=== PATIENT | male | born 1950 | race Caucasian/White ===

== ENCOUNTER 2017-12-09 09:38 | Outpatient (CLI) | payer MEDICARE, OTHER, SELFPAY ==
[2017-12-09 09:59] LABS: Abs Immature Grans 0.02 k/cumm (0.0-0.09); Absolute Basophil Count 0.05 k/cumm (0.0-0.2); Absolute Eosinophil Count 0.41 k/cumm (0.0-0.7); Absolute Lymphocyte Count 2.48 k/cumm (1.2-3.4); Absolute Monocyte Count 0.44 k/cumm (0.11-0.7); Absolute Neutrophil Count 3.63 k/cumm (1.2-6.7); Basophils % 0.7; Eosinophils % 5.8; HCT 42.7 % (40.0-50.0); HGB 13.8 g/dL (13.5-17.5); Immature Grans % 0.3; Lymphocytes % 35.3; Mean Corp. HGB Concentration 32.3 g/dL (32.0-36.0); Mean Corpuscular Hemoglobin 29.4 pg (27.0-33.0); Mean Corpuscular Volume 90.9 fL (80-95); Mean Platelet Volume 10.1 fL (8.0-11.0); Monocytes % 6.3; Neutrophils % 51.6; Platelet Count 203 x1000/uL (130-400); RBC Distribution Width 13.5 % (11.8-14.1); White Blood Cell Count 7.03 k/cumm (4.4-10.8)
[2017-12-09 10:08] LABS: ALT 55 U/L (12-78); AST 29 U/L (15-37); Albumin 3.3 g/dL (3.4-5.0); Alkaline Phosphatase 160 U/L (46-116); Anion Gap 3.6 mmol/L (3-11); BUN 15 mg/dL (7-18); Bilirubin, Total 0.5 mg/dL (0.2-1.0); CO2 32.4 mmol/L (21.0-32.0); CREATININE 0.93 mg/dL (0.70-1.30); Calcium 8.6 mg/dL (8.5-10.1); Chloride 104 mmol/L (98-107); Glucose 106 mg/dL (70-100); Potassium 4.2 mmol/L (3.5-5.1); Sodium 140 mmol/L (136-145); Total Protein 7.7 g/dL (6.4-8.2)
[2017-12-12 09:52] LABS: CEA <0.5 ng/ml
== END 2017-12-09 09:58 ==
PROVIDERS: PCP Family Medicine; Visit Provider Internal Medicine Medical Oncology
DX: C18.9 Malignant neoplasm of colon, unspecified (principal); R91.8 Other nonspecific abnormal finding of lung field
CPT/HCPCS: 36415; 80053; 82378; 85025

== ENCOUNTER 2018-06-19 13:13 | Outpatient (CLI) | payer MEDICARE, OTHER, SELFPAY ==
[2018-06-19 14:27] LABS: Abs Immature Grans 0.01 k/cumm (0.0-0.09); Absolute Basophil Count 0.05 k/cumm (0.0-0.2); Absolute Eosinophil Count 0.23 k/cumm (0.0-0.7); Absolute Lymphocyte Count 2.47 k/cumm (1.2-3.4); Absolute Monocyte Count 0.62 k/cumm (0.11-0.7); Absolute Neutrophil Count 4.93 k/cumm (1.2-6.7); Basophils % 0.6; Eosinophils % 2.8; HCT 43.9 % (40.0-50.0); HGB 14.5 g/dL (13.5-17.5); Immature Grans % 0.1; Lymphocytes % 29.7; Mean Corpuscular Hemoglobin 29.8 pg (27.0-33.0); Mean Corpuscular Volume 90.3 fL (80-95); Mean Platelet Volume 10.8 fL (8.0-11.0); Monocytes % 7.5; Neutrophils % 59.3; Platelet Count 217 x1000/uL (130-400); RBC 4.86 m/cumm (4.50-6.00); RBC Distribution Width 13.8 % (11.8-14.1); White Blood Cell Count 8.31 k/cumm (4.4-10.8)
[2018-06-19 14:40] LABS: Albumin 3.5 g/dL (3.4-5.0); BUN 14 mg/dL (7-18); Bilirubin, Total 0.6 mg/dL (0.2-1.0); CO2 29.8 mmol/L (21.0-32.0); CREATININE 0.91 mg/dL (0.70-1.30); Calcium 9.4 mg/dL (8.5-10.1); Chloride 100 mmol/L (98-107); Glucose 105 mg/dL (70-100); Potassium 4.2 mmol/L (3.5-5.1); Sodium 137 mmol/L (136-145)
[2018-06-19 14:41] LABS: ALT 40 U/L (12-78); AST 24 U/L (15-37); Anion Gap 7.2 mmol/L (3-11)
[2018-06-19 14:57] LABS: Alkaline Phosphatase 145 U/L (46-116)
[2018-06-20 10:26] LABS: CEA <0.5 ng/ml
== END 2018-06-19 13:33 ==
PROVIDERS: PCP Family Medicine; Visit Provider Internal Medicine Medical Oncology
DX: C18.9 Malignant neoplasm of colon, unspecified (principal); R91.8 Other nonspecific abnormal finding of lung field
CPT/HCPCS: 80053; 82378; 85025

== ENCOUNTER 2018-12-28 09:24 | Outpatient (CLI) | payer MEDICARE, OTHER, SELFPAY ==
[2018-12-28 09:48] LABS: Abs Immature Grans 0.01 k/cumm (0.0-0.09); Absolute Basophil Count 0.05 k/cumm (0.0-0.2); Absolute Eosinophil Count 0.37 k/cumm (0.0-0.7); Absolute Lymphocyte Count 2.02 k/cumm (1.2-3.4); Absolute Monocyte Count 0.46 k/cumm (0.11-0.7); Basophils % 0.6; Eosinophils % 4.8; HCT 42.6 % (40.0-50.0); HGB 13.8 g/dL (13.5-17.5); Immature Grans % 0.1; Lymphocytes % 26.2; Mean Corp. HGB Concentration 32.4 g/dL (32.0-36.0); Mean Corpuscular Hemoglobin 29.9 pg (27.0-33.0); Mean Corpuscular Volume 92.2 fL (80-95); Mean Platelet Volume 9.5 fL (8.0-11.0); Neutrophils % 62.3; Platelet Count 230 x1000/uL (130-400); RBC 4.62 m/cumm (4.50-6.00); White Blood Cell Count 7.71 k/cumm (4.4-10.8)
[2018-12-28 10:01] LABS: ALT 43 U/L (16-63); AST 28 U/L (15-37); Albumin 3.5 g/dL (3.4-5.0); Alkaline Phosphatase 126 U/L (46-116); Anion Gap 5.3 mmol/L (3-11); BUN 16 mg/dL (7-18); Bilirubin, Total 0.6 mg/dL (0.2-1.0); CO2 31.7 mmol/L (21.0-32.0); CREATININE 1.04 mg/dL (0.70-1.30); Calcium 9.1 mg/dL (8.5-10.1); Chloride 104 mmol/L (98-107); Glucose 114 mg/dL (70-100); Potassium 4.4 mmol/L (3.5-5.1); Sodium 141 mmol/L (136-145); Total Protein 7.9 g/dL (6.4-8.2)
[2018-12-29 10:36] LABS: CEA <0.5 ng/ml
== END 2018-12-28 09:44 ==
PROVIDERS: PCP Family Medicine; Visit Provider Nurse Practitioner Family
DX: C18.9 Malignant neoplasm of colon, unspecified (principal)
CPT/HCPCS: 36415; 80053; 82378; 85025

== ENCOUNTER 2019-10-11 01:30 | Outpatient (CLI) | payer OTHER, SELFPAY ==
[2019-10-11 10:48] LABS: Abs Immature Grans 0.02 k/cumm (0.0-0.09); Absolute Basophil Count 0.06 k/cumm (0.0-0.2); Absolute Lymphocyte Count 2.15 k/cumm (1.2-3.4); Absolute Monocyte Count 0.68 k/cumm (0.11-0.7); Absolute Neutrophil Count 5.32 k/cumm (1.2-6.7); Basophils % 0.7; Eosinophils % 4.6; HCT 43.7 % (40.0-50.0); HGB 14.2 g/dL (13.5-17.5); Immature Grans % 0.2 %; Lymphocytes % 24.9; Mean Corp. HGB Concentration 32.5 g/dL (32.0-36.0); Mean Corpuscular Hemoglobin 29.2 pg (27.0-33.0); Mean Corpuscular Volume 89.9 fL (80-95); Mean Platelet Volume 9.9 fL (8.0-11.0); Monocytes % 7.9; Neutrophils % 61.7; Platelet Count 219 x1000/uL (130-400); RBC 4.86 m/cumm (4.50-6.00); RBC Distribution Width 14.3 % (11.8-14.1); White Blood Cell Count 8.63 k/cumm (4.4-10.8)
[2019-10-11 11:03] LABS: ALT 43 U/L (16-63); AST 27 U/L (15-37); Albumin 3.5 g/dL (3.4-5.0); Alkaline Phosphatase 136 U/L (46-116); Anion Gap 5.9 mmol/L (3-11); BUN 18 mg/dL (7-18); Bilirubin, Total 0.6 mg/dL (0.2-1.0); CO2 30.1 mmol/L (21.0-32.0); CREATININE 0.94 mg/dL (0.70-1.30); Chloride 105 mmol/L (98-107); Glucose 114 mg/dL (74-106); Potassium 4.4 mmol/L (3.5-5.1); Sodium 141 mmol/L (136-145); Total Protein 7.8 g/dL (6.4-8.2)
[2019-10-12 09:36] LABS: CEA <0.5 ng/mL (See Note)
== END 2019-10-11 01:50 ==
PROVIDERS: PCP Family Medicine; Visit Provider Internal Medicine Hematology & Oncology
DX: C18.9 Malignant neoplasm of colon, unspecified (principal)
CPT/HCPCS: 36415; 80053; 82378; 85025

== ENCOUNTER 2020-03-31 02:59 | Outpatient (CLI) | payer OTHER, SELFPAY ==
[2020-03-31 09:49] LABS: Abs Immature Grans 0.01 10^3/uL (0.0-0.06); Absolute Basophil Count 0.09 10^3/uL (0.0-0.2); Absolute Eosinophil Count 0.53 10^3/uL (0.0-0.7); Absolute Lymphocyte Count 2.42 10^3/uL (1.2-3.4); Absolute Monocyte Count 0.58 10^3/uL (0.1-0.8); Absolute Neutrophil Count 4.94 10^3/uL (1.2-6.7); Basophils % 1.1; Eosinophils % 6.2; HCT 45.4 % (40.0-50.0); HGB 14.8 g/dL (13.5-17.5); Immature Grans % 0.1; Lymphocytes % 28.2; MCH 29.8 pg (27.0-33.0); MCHC 32.6 % (32.0-36.0); MCV 91.3 fL (80-95); MPV 10.6 fL (8.0-11.0); Monocytes % 6.8; Neutrophils % 57.6; Nucleated RBC 0 %; Platelet Count 251 10^3/uL (130-400); RBC 4.97 10^6/uL (4.36-5.78); RDW 13.2 % (11.8-14.1); RDW-SD 44.4 fL; WBC 8.57 10^3/uL (4.4-10.8)
[2020-03-31 10:08] LABS: ALT 53 U/L (16-63); AST 32 U/L (15-37); Albumin 3.6 g/dL (3.4-5.0); Alkaline Phosphatase 163 U/L (46-116); Anion Gap 7.1 mmol/L (3-11); BUN 15 mg/dL (7-18); Bilirubin, Total 0.6 mg/dL (0.2-1.0); CO2 30.9 mmol/L (21.0-32.0); CREATININE 0.97 mg/dL (0.70-1.30); Calcium 9.1 mg/dL (8.5-10.1); Chloride 104 mmol/L (98-107); Glucose 99 mg/dL (74-106); Potassium 4.7 mmol/L (3.5-5.1); Sodium 142 mmol/L (136-145); Total Protein 7.7 g/dL (6.4-8.2)
[2020-03-31 16:56] LABS: CEA <0.5 ng/mL (See Note)
== END 2020-03-31 03:19 ==
PROVIDERS: PCP Family Medicine; Visit Provider Nurse Practitioner Family
DX: C18.9 Malignant neoplasm of colon, unspecified (principal); R91.8 Other nonspecific abnormal finding of lung field
CPT/HCPCS: 36415; 80053; 82378; 85025

== ENCOUNTER 2020-10-16 03:29 | Outpatient (CLI) | payer OTHER, SELFPAY ==
[2020-10-16 14:13] LABS: Abs Immature Grans 0.02 10^3/uL (0.0-0.06); Absolute Basophil Count 0.07 10^3/uL (0.0-0.2); Absolute Eosinophil Count 0.58 10^3/uL (0.0-0.7); Absolute Lymphocyte Count 2.75 10^3/uL (1.2-3.4); Absolute Monocyte Count 0.74 10^3/uL (0.1-0.8); Absolute Neutrophil Count 4.39 10^3/uL (1.2-6.7); Basophils % 0.8; Eosinophils % 6.8; HCT 43.3 % (40.0-50.0); HGB 13.8 g/dL (13.5-17.5); Immature Grans % 0.2; Lymphocytes % 32.2; MCH 29.2 pg (27.0-33.0); MCHC 31.9 % (32.0-36.0); MCV 91.7 fL (80-95); MPV 9.7 fL (8.0-11.0); Monocytes % 8.7; Neutrophils % 51.3; Nucleated RBC 0 %; Platelet Count 206 10^3/uL (130-400); RBC 4.72 10^6/uL (4.36-5.78); RDW 13.3 % (11.8-14.1); RDW-SD 45.4 fL; WBC 8.55 10^3/uL (4.4-10.8)
[2020-10-16 14:25] LABS: ALT 45 U/L (16-63); AST 30 U/L (15-37); Albumin 3.3 g/dL (3.4-5.0); Alkaline Phosphatase 182 U/L (46-116); Anion Gap 7.1 mmol/L (3-11); BUN 14 mg/dL (7-18); Bilirubin, Total 0.5 mg/dL (0.2-1.0); CO2 28.9 mmol/L (21.0-32.0); Calcium 9.1 mg/dL (8.5-10.1); Chloride 105 mmol/L (98-107); Glucose 103 mg/dL (74-106); Potassium 4.5 mmol/L (3.5-5.1); Sodium 141 mmol/L (136-145); Total Protein 7.9 g/dL (6.4-8.2)
[2020-10-17 08:36] LABS: CEA <2.0 ng/mL (See Note)
== END 2020-10-16 03:30 | disposition home or self-care (01) ==
LOC: LBO 03:30
PROVIDERS: PCP Family Medicine; Visit Provider Nurse Practitioner Family
DX: C18.9 Malignant neoplasm of colon, unspecified (principal); R91.8 Other nonspecific abnormal finding of lung field
CPT/HCPCS: 36415; 80053; 82378; 85025

== ENCOUNTER 2021-06-04 13:40 | Outpatient (CLI) | payer OTHER, SELFPAY ==
--- NOTE | 2021-06-04 09:01 | DI.RAD_ITS ---
Exam(s) XR CHEST 2V PA LATERAL EXAM: XR CHEST 2V PA LATERAL CLINICAL HISTORY: Gradually worsening dyspnea, h/o of lung mets R06.00 DYSPNEA TECHNIQUE: 2D digital imaging was performed. COMPARISON: CT CHEST ABD PELVIS WITH CONTRAST from 10/24/2015 FINDINGS: Most recent comparison exam 2016. Doing surgical clips are noted near the left hilum. There is a small left pleural effusion. No mass is visible. The right lung appears clear. The heart size is normal. The aorta is mildly tortuous. Osteophytes are noted in the thoracic spine. No compression fracture. No gross evidence of lytic or blastic bony lesions. IMPRESSION: Small left pleural effusion. DATA REPOSITORY: RADIATION DOSE DELIVERED:
== END 2021-06-04 14:00 ==
PROVIDERS: PCP Family Medicine; Visit Provider Family Medicine
DX: R06.00 Dyspnea, unspecified (principal); J90 Pleural effusion, not elsewhere classified
CPT/HCPCS: 71046

== ENCOUNTER 2021-06-10 01:02 | Outpatient (CLI) | payer MEDICARE, SELFPAY ==
--- NOTE | 2021-06-10 06:45 | DI.CT_ITS ---
Exam(s) CT CHEST W EXAM: CT CHEST W CLINICAL HISTORY: Seen on CXR, h/o lung cancer, r/o recurrence,LT PLEURAL EFFUSION,J90 TECHNIQUE: CT examination of the chest was performed with intravenous infusion of 70 cc of Omnipaque 350. COMPARISON: CT CHEST ABD PELVIS WITH CONTRAST from 04/16/2010 CT CHEST ABD PELVIS WITH CONTRAST from 10/24/2015 FINDINGS: Note is made of a prior left lobectomy. Apart from post lobectomy scarring, the lungs are clear. Ther e is a trace left pleural effusion. There is no evidence of pulmonary embolic disease. There is unremarkable appearance of the thoracic aorta and major branches with no evidence of aneurysm or dissection. There is no mediastinal or hilar adenopathy. Note is made however of a 13 x 13 millimeter in diameter nodule having the appearance of lymph node which lies adjacent to the trachea at the level of medial left clavicular head. This was present on prior CT of October 2015 and is unchanged since that time per iod. Tracheobronchial tree appears intact. No axillary adenopathy. Visualized portions of the liver, spleen, adrenals, and kidneys are unremarkable. No abnormality seen involving the bony thorax. IMPRESSION: No evidence of thoracic metastatic disease from prior lung carcinoma. Trace left pleural effusion is noted which is nonspecific.. RADIATION DOSE DELIVERED: 924.98mGy.cm Total DLP 924.98mGy.cm Total DLP !Error CTDIvol
[2021-06-10] MEDS: Omnipaque 350 MG/ML 100 ML BTL IJ (08:50)
[2021-06-10] MEDS: Normal Saline Flush 10 ML SYR IVP (08:51)
== END 2021-06-10 01:22 ==
PROVIDERS: PCP Family Medicine; Visit Provider Family Medicine
DX: J90 Pleural effusion, not elsewhere classified (principal); R06.00 Dyspnea, unspecified; Z85.118 Personal history of other malignant neoplasm of bronchus and lung
CPT/HCPCS: 71260; 82565; J3490

== ENCOUNTER 2021-06-12 04:45 | Outpatient (RCR) | payer MEDICARE, SELFPAY ==
--- NOTE | 2021-06-12 15:00 | HOLTER_ITS ---
APPROVED REPORT Conclusion This is a 24-hour Holter monitor ordered for shortness of breath and tachycardia Predominant rhythm is sinus with an average heart rate of 68. Minimum was 56, maximum 105 There were rare ventricular ectopic beats There were rare atrial premature beats There was no atrial fibrillation, no high-grade AV block, no pauses greater than 3 seconds No patient symptoms were reported
== END 2021-07-02 23:59 | disposition home or self-care (01) ==
LOC: RT 04:45
PROVIDERS: PCP Family Medicine; Visit Provider Family Medicine
DX: R06.02 Shortness of breath (principal); R00.0 Tachycardia, unspecified
CPT/HCPCS: 93227; 93225; 93226

== ENCOUNTER 2021-10-29 02:58 | Outpatient (CLI) | payer MEDICARE, SELFPAY ==
[2021-10-29 09:27] LABS: Abs Immature Grans 0.01 10^3/uL (0.0-0.06); Absolute Basophil Count 0.08 10^3/uL (0.0-0.2); Absolute Lymphocyte Count 2.36 10^3/uL (1.2-3.4); Absolute Monocyte Count 0.59 10^3/uL (0.1-0.8); Absolute Neutrophil Count 4.92 10^3/uL (1.2-6.7); Basophils % 0.9; HCT 41.8 % (40.0-50.0); HGB 13.2 g/dL (13.5-17.5); Immature Grans % 0.1; Lymphocytes % 27.6; MCH 29.1 pg (27.0-33.0); MCHC 31.6 % (32.0-36.0); MCV 92 fL (80-95); MPV 10.1 fL (8.0-11.0); Monocytes % 6.9; Neutrophils % 57.5; Platelet Count 214 10^3/uL (130-400); RBC 4.54 10^6/uL (4.36-5.78); RDW 13.3 % (11.8-14.1); RDW-SD 45.1 fL; WBC 8.56 10^3/uL (4.4-10.8)
[2021-10-29 09:39] LABS: ALT 45 U/L (16-63); AST 30 U/L (15-37); Alkaline Phosphatase 177 U/L (46-116); Anion Gap 5.3 mmol/L (3-11); BUN 13 mg/dL (7-18); Bilirubin, Total 0.5 mg/dL (0.2-1.0); CO2 31.7 mmol/L (21.0-32.0); CREATININE 0.9 mg/dL (0.70-1.30); Calcium 8.8 mg/dL (8.5-10.1); Chloride 103 mmol/L (98-107); Glucose 112 mg/dL (74-106); Potassium 4.2 mmol/L (3.5-5.1); Sodium 140 mmol/L (136-145); Total Protein 7.5 g/dL (6.4-8.2)
[2021-10-29 21:29] LABS: CEA <0.5 ng/mL (See Note)
== END 2021-10-29 02:59 | disposition home or self-care (01) ==
LOC: LBO 02:58
PROVIDERS: PCP Family Medicine; Visit Provider Internal Medicine Hematology & Oncology
DX: C18.9 Malignant neoplasm of colon, unspecified (principal)
CPT/HCPCS: 36415; 80053; 82378; 85025

== ENCOUNTER → 2022-02-01 08:55 | Outpatient (BNVA) | payer MEDICARE, SELFPAY | PROVIDERS: PCP Family Medicine; Referring Provider Family Medicine; Visit Provider Surgery | DX: Z85.038 Personal history of other malignant neoplasm of large intestine (principal); Z12.11 Encounter for screening for malignant neoplasm of colon ==

== ENCOUNTER → 2022-02-03 01:32 | Outpatient (CLI) | payer MEDICARE, SELFPAY ==
--- NOTE | 2022-02-03 15:00 | DI.US_ITS ---
APPROVED REPORT EXAM: Comprehensive 2D, Doppler, and color-flow Echocardiogram Patient Location: Out-Patient Lever Miller: Gail Olivares RDCS (AE) Indications: FOLEY, Pre op exam Other Information Study Quality: Fair. Technically limited study due to body habitus. Conclusion Normal left ventricular wall thickness and chamber size. Estimated ejection fraction is 55%. Wall m otion is normal The right ventricle appears grossly normal in size and systolic function The left atrium is mildly dilated. Right atrium is normal in size The aortic valve is mildly sclerotic without stenosis or regurgitation There is no additional structural or hemodynamically significant valvular disease Estimated right ventricular systolic pressure is normal at 28 mmHg Wall motion Left Ventricle The left ventricle is normal size. The left ventricular systolic function is normal. The left ventric ular ejection fraction is within the normal range. There is normal left ventricular wall thickness. T here is no ventricular septal defect visualized. LVEF is 55%. Right Ventricle Right ventricle is grossly normal in size. Right ventricular systolic function is grossly normal. The RVSP is 28.4 mmHg. Atria Left atrium is mildly dilated. The right atrium size is normal. The interatrial septum is intact with no evidence for an atrial septal defect. Aortic Valve The Aortic valve is mildly sclerotic. Aortic valve is probably trileaflet. There is no aortic valvula r stenosis. No aortic regurgitation is present. Mitral Valve The mitral valve is normal in structure. No evidence of mitral valve stenosis. Trace mitral regurgita tion. Tricuspid Valve The tricuspid valve is normal in structure. There is no tricuspid valve stenosis. Trace tricuspid reg urgitation. Pulmonic Valve The pulmonary valve is normal in structure. There is no pulmonic valvular stenosis. There is no pulmo mary valvular regurgitation. Great Vessels The aortic root is normal in size. The ascending aorta is normal in size. Aortic arch is normal in ca liber. IVC is normal in size and collapses >50% with inspiration. Pericardium There is no pericardial effusion. 2D Dimensions IVSD d PLAX 1.21 cm M: 0.6-1.2 LV Vol A2C d MOD 152.7 mL LVPW d PLAX 1.24 cm M: 0.6 - 1.2 LV Vol A4C d MOD 149.0 mL LVID d PLAX 4.85 cm M: 4.2 - 5.8 LA vol/ BSA A4C s A-L 37.2 mL/m2 LVDs 3.40 cm M: 2.5 - 4.0 LA Area A4C s MOD 25.87 cm2 Ao Root d 3.35 cm M: 3.1 - 3.7 LV EF A4C MOD 55.2 % RA Area A4C 18.96 cm2 LV EF A2C MOD 49.6 % RA Vol/ BSA A4C s A-L 22.5 mL/m2 LV EF Biplane MOD 51.8 % Ao Asc Diam d 3.27 cm M: 2.6 - 3.4 SV 80.20 mL LV EF Teichholz 55.5 % SV Index 32.96 mL/m2 LVEF (Smith's) 51.76 % M: 52 - 72 LV Volume 109.32 mL M: 62 - 150 LV Volume Index 54.11 mL/m2 M: 34 - 74 LV Vol Biplane MOD 155.0 mL FS 28.90 % M-Mode TAPSE 3.12 cm (M/F) >1.7 LV Diastology MV E' medial 0.089 (>0.07 m/s) E/A Ratio 0.8 LV E/e MED 6.55 (<14) MV E Vmax 0.58 (0.4-1.3 m/s) MV E' lateral 0.098 (>0.1 m/s) MV A Vmax 0.70 (0.4-1.3 m/s) LV E/e LAT 5.95 (<14) MV E/A Ratio 0.81 MV E/E' medial 6.55 MV E/E' lateral 5.95 Aortic Valve LVOT Area 2.87 cm2 AoV Area Vmax 1.80 cm2 LVOT Vmax 1.09 m/s AoV Area/ BSA (Vmax) 0.74 cm2/m2 LVOT Mean Eduar. 0.60 m/s ALEJANDRA Mean Eduar. 1.50 cm2 LVOT Peak Grad 4.7 mmHg ALEJANDRA Mean Eduar. Index 0.62 cm2/m2 LVOT Mean Grad 1.8 mmHg LVOT VTI 0.204 m LVOT Diam s 1.90 cm AoV Vmax 1.74 m/s Velocity Ratio 0.62 AoV Mean Eduar. 1.15 m/s AoV Peak Grad 12.0 mmHg LVOT SV 58.56 mL AoV Mean Grad 6.1 mmHg AoV VTI 0.296 m AoV Area VTI 1.98 cm2 AoV Area/ BSA (VTI) 0.81 cm/m2 Mitral Valve MV DT 294 (160-240 msec) MV PHT 85 msec MV Area PHT 2.58 cm2 MV VTI 0.275 m MV Area VTI 2.13 (4.0-6.0 cm2) Pulmonary Valve PV Vmax 1.20 (0.5-1.5 m/s) RVOT Peak Gr. 2.70 mmHg PV Peak Grad 5.7 mmHg RVOT Mean Gr. 1.15 mmHg PV Mean Grad 2.9 mmHg RVOT VTI 0.138 m PV VTI 0.211 m RVOT Vmax 0.82 m/s Tricuspid Valve TR Peak Grad 25.3 mmHg TR Vmax 2.52 m/s RA Pressure 3.00 mmHg RVSP (TR) 28.4 mmHg
== END ==
PROVIDERS: PCP Family Medicine; Visit Provider Surgery
DX: R06.09 Other forms of dyspnea
CPT/HCPCS: 93306

== ENCOUNTER 2022-03-11 11:26 | Day surgery (SDC) | payer MEDICARE, SELFPAY ==
--- NOTE | 2022-03-11 08:06 | ANES.PREOP_ITS ---
General Info Date of Service Date Performed: 03/11/22 Height: 6 ft Weight: 122.8 kg Body Mass Index (BMI): 36.7 Surgical Procedure: Operation Date: 03/11/22 13:05 Proposed Procedure Side Surgeon pal Dhaliwal MD Meds Allergies and Home Medications Allergies Allergy/AdvReac Type Severity Reaction Status Date / Time ADHESIVE TAPE Allergy Unknown SKIN Uncoded 03/11/22 11:56 BLISTERS Home Medication Medication Instructions Recorded vitamins A,C,C-jkzf-dkbzxz 2,148 2 tab PO DAILY 07/17/12 mcg-113 mg-45 mg-17.4 mg tablet (PreserVision AREDS) acetaminophen 325 mg capsule 325 mg PO ONCE PRN 10/18/19 metoprolol tartrate 25 mg tablet 25 mg PO BID 90 days #180 tab-caps 10/19/21 atorvastatin 40 mg tablet 40 mg PO DAILY #90 tab-caps 12/04/21 apixaban 5 mg tablet (Eliquis) 5 mg PO BID #60 tab-caps 01/22/22 Current Visit Medications: Current Medications Generic Name Dose Route Start Last Admin Trade Name Freq PRN Reason Stop Dose Admin Ringer's Solution 1,000 mls @ 80 mls/hr 03/11/22 06:00 IV 04/09/22 23:59 INFUSION AMBER IV Miscellaneous Supplies 1 each 03/11/22 06:00 Iv Access IV 04/09/22 23:59 DIRECTED AMBER Sodium Chloride 0 ml 03/11/22 06:00 Normal Saline Flush 10 Ml Syr IV 04/09/22 23:59 PRN PRN Sodium Chloride 0 ml 03/11/22 06:00 Normal Saline 10 Ml Vial IJ 04/09/22 23:59 DIRECTED PRN Sterile Water 0 ml 03/11/22 06:00 Water,Injection,Sterile 10 Ml Vial IJ 04/09/22 23:59 DIRECTED PRN PFSH Active Problems Active Problems: Problem Status Onset Code Nail dystrophy L60.3 Prediabetes R73.03 Overgrown toenails L60.2 Atrial fibrillation I48.91 Varicose veins of both lower extremities 02/03/12 I83.93 Varicose veins of anus or rectum 02/03/12 K64.9 Obesity (BMI 30.0-34.9) 07/06/11 E66.9 Mass of lower lobe of left lung 10/24/15 R91.8 History of lobectomy of lung 12/10/15 Z90.2 Essential hypertension 08/03/12 I10 Carcinoma of colon C18.9 Candidate for statin therapy due to risk of future cardiovascular event 07/09/16 Z91.89 Medical History Medical History Carcinoma of colon Colon cancer Essential hypertension HTN (hypertension) Lung cancer Surgical History Surgical History Colectomy (04/22/08) Dr Fidencio Dang, sigmoid resection Colonoscopy - IV Sedation (02/17/16) Lobectomy (12/10/15) LLL lobectomy with removal of periosteum ribs 7 & 8; metastatic adeno Ca (colon primary); [facility] [place] varicose veins (04/04/69) [facility] [place], R leg Tobacco Smoking/Tobacco Use Status: Former Tobacco Use Passive smoking exposure: Yes Alcohol Alcohol Intake: current Alcohol intake frequency: a few times a week Alcohol type: beer Substance Use Substance use: Never Substance use type: does not use Vital Signs and Lab Results Lab Results Blood Type / Crossmatch: No Data to Display Complete Blood Count: No Data to Display Complete Metabolic Panel: No Data to Display Liver Function Panel: No Data to Display Coagulation Panel: No Data to Display Cardiac Panel: No Data to Display Arterial Blood Gas: No Data to Display Venous Blood Gas: No Data to Display Pancreas Panel: No Data to Display Thyroid Panel: No Data to Display Infectious Disease: No Data to Display Blood Cultures: No Data to Display Toxicology Panel: No Data to Display Imaging and Studies Imaging and Studies Study information below may be from another EMR and interpreted by another provider. Please see original notes in EMR for more complete details. Echocardiogram Summary: Conclusion Normal left ventricular wall thickness and chamber size. Estimated ejection fraction is 55%. Wall motion is normal The right ventricle appears grossly normal in size and systolic function The left atrium is mildly dilated. Right atrium is normal in size The aortic valve is mildly sclerotic without stenosis or regurgitation There is no additional structural or hemodynamically significant valvular disease Estimated right ventricular systolic pressure is normal at 28 mmHg Pulmonary Function Summary: IMPRESSION: A combination of moderately severe obstructive airways disease with no significant bronchodilator response and moderate restrictive lung disease. Clinical correlation recommended. For lung ____ purposes the patient's total post bronchodilator FEV1 is 2.04 liters. Diffusion capacity is normal. Anesthesia Assessment and Plan Anesthesia History Personal History: No History of Anesthesia Complications Family History: No Family History of Anesthesia Complications Exercise Tolerance Exercise Tolerance: Metabolic Equivalents>4 Pertinent Negatives Pertinent Negatives: No Symptoms of GERD, No Major Cardiovascular Symptoms or Complaints and No History of CVA/TIA Cardiac & Pulmonary Exam Cardiac Exam: Normal S1/S2 Heart Sounds Pulmonary Exam: Clear Bilateral Breath Sounds Implantable Cardiac Device Does patient have a Pacemaker or an ICD?: No Airway Exam Known Difficult Airway: No Mallampati Class: 2 Mouth Opening: Normal (> 3cm) Thyromental Distance: Greater than 3 cm Neck Range of Motion: Full ROM Neck Circumference: Normal Teeth Condition: Normal Dentition ASA Classification ASA Score: ASA 3 Emergency Case?: No NPO Status NPO Status: NPO Clears >2 hours, Solids >8 hours Anesthesia Plan Resuscitation Status: Full Code Anesthesia Technique: General Anesthesia Airway Planned: Natural Airway Monitors Used: Standard Monitors
[2022-03-11 11:47] VITALS: BP 167/102; PULSE 66; RESP 16; TEMP 36.5; O2SAT 96
[2022-03-11] MEDS: Lactated Ringers 1,000 ML 80 ML IV (12:07)
--- NOTE | 2022-03-11 12:28 | HPE_ITS ---
Assessment and Plan Assessment and plan (1) Carcinoma of colon: Status: Chronic Assessment and plan: Okay to proceed with today's colonoscopy as planned History of Present Illness History of Present Illness Chief Complaint: Routine health maintenance screening colonoscopy Narrative: he is 71 years old and has a personal history of sigmoid colorectal cancer.? 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 Unfortunately, he was found to have a pulmonary metastasis requiring a left lower lobectomy in 2016.? Since then he is done quite well, no evidence of any recurrent disease detected by his surveillance oncology testing.? He is here today to resume screening colonoscopies.? His other past medical history is significant for atrial fibrillation that requires therapeutic anticoagulation with apixaban.? His review of systems is significant for some exertional dyspnea with increasing frequency of episodes.? He tells me he is able to walk a few 100 feet, then developed some mild shortness of breath and requires approximately 5 to 10 minutes of recovery before he can proceed.? It happens on level ground as well as with inclines.? He denies any cough, conversational dyspnea, or other changes in his day-to-day routines.? He denies any unintentional weight loss. PFSH All Active Problems Nail dystrophy (Acute) Prediabetes (Acute) Overgrown toenails (Acute) 06/18/19 Dr Martinez for nail care and f/u in Atrial fibrillation (Chronic) Varicose veins of both lower extremities (Chronic 02/03/12) s/p stripping R [facility] [place] in 1970 Varicose veins of anus or rectum (Chronic 02/03/12) s/p stripping R [facility] [place] Obesity (BMI 30.0-34.9) (Chronic 07/06/11) goal 230# by 03/2015 Mass of lower lobe of left lung (Acute 10/24/15) 4.[address] on [address] (done for incr CEA); LLL lobectomy 12/10/15 [facility] [place] History of lobectomy of lung (Chronic 12/10/15) LLL mass Essential hypertension (Chronic 08/03/12) Dx'ed 08/2012 Rx Chlorthalidone Carcinoma of colon (Chronic) ONC: Dr Grubbs, [facility] [place]; 04/01/2008: SIGMOID CARCINOMA ON SCREENING COLONOSCOPY; LLL lung met operated 12/201504/22/2008: SIGMOID RESECTION Candidate for statin therapy due to risk of future cardiovascular event (Chronic 07/09/16) CV risk 18.8% based on 09/2015 labs; still 18% 09/2016; declined for primary prevention Medical History Carcinoma of colon Colon cancer Essential hypertension HTN (hypertension) Lung cancer Surgical History Colectomy (04/22/08) Dr Fidencio Dang, sigmoid resection Colonoscopy - IV Sedation (02/17/16) Lobectomy (12/10/15) LLL lobectomy with removal of periosteum ribs 7 & 8; metastatic adeno Ca (colon primary); [facility] [place] varicose veins (04/04/69) [facility] [place], leg Family History Mother , Alzheimers at age 88. Alzheimers disease onset unknown Father , prostate ca at age 80. Prostate cancer onset unknown Brother Age: 81 No problems noted. Social History Smoking/Tobacco Use Status: Former Tobacco Use Tobacco: How many years used: 15 Smoking risk assessment performed?: Yes Alcohol Intake: current Alcohol Intake frequency: a few times a week Alcohol type: beer and hard liquor Drug use: Never Substance use type: does not use Adopted: No Caregiver/Support person: No Foster care: No Household members: spouse Housing: house Number of Children: 1 number of grandchildren: 4 Communication Needs: Corrective Lenses Education Level: vocational Do you need help understanding health information?: Rarely current occupation: retired - from [employer] Pets and animals: Yes (1) Pets and animals: cat(s) Sexually active: No Do you think of yourself as: straight/heterosexual Current gender identity: male What is your relationship status?: How often do you talk on the phone with friends or family?: three or more times per week How often do you get together with friends or relatives?: three or more times per week Do you belong to any clubs or organized social groups?: no Panel score (0-1 are the most socially isolated patients): 2 What type of physical activity do you participate in: walking Duration: 45-60 minutes/day Frequency: 3-4 times per week Debbie/Latter-Day: Jain Special debbie needs: No Seatbelt use: always Helmet use: No Drive intox or ride w/intox ups driver: No Working smoke detector in home: Yes Fire extinguisher in home: Yes Firearms in home: Yes Firearms unloaded and locked: Yes Do you feel safe at home: Yes Do you feel safe in your relationship?: Yes Meds Allergies and Home Medications Allergies Allergy/AdvReac Type Severity Reaction Status Date / Time ADHESIVE TAPE Allergy Unknown SKIN Uncoded 03/11/22 11:56 BLISTERS Home Medications Medication Instructions Recorded Confirmed Type vitamins A,C,D-tkye-dzdsor 2,148 2 tab PO DAILY 07/17/12 03/11/22 History mcg-113 mg-45 mg-17.4 mg tablet (PreserVision AREDS) Varicella-Zoster Ge/As01b/Pf 50 mcg IM ONCE ##1 10/21/17 10/19/18 Clinic [Shingrix Vial Kit] acetaminophen 325 mg capsule 325 mg PO ONCE PRN 10/18/19 03/11/22 History metoprolol tartrate 25 mg tablet 25 mg PO BID 90 days #180 tab-caps 10/19/21 03/11/22 Rx atorvastatin 40 mg tablet 40 mg PO DAILY #90 tab-caps 12/04/21 03/11/22 Rx apixaban 5 mg tablet (Eliquis) 5 mg PO BID #60 tab-caps 01/22/22 03/11/22 Rx bisacodyl 5 mg tablet,delayed 5 mg PO ONCE colonscopy bowel prep 02/01/22 03/11/22 Rx release (Dulcolax (bisacodyl)) #4 tabs polyethylene glycol 3350 17 238 g PO ONCE colonoscopy prep 02/01/22 03/11/22 Rx gram/dose oral powder #238 grams Exam Const General: cooperative, healthy appearing and comfortable Orientation: awake and oriented x3 Eyes General: appearance normal, both eyes and all related structures Conjunctivae: conjunctivae normal Sclera: sclerae normal Resp Effort & Inspection: normal respiratory effort and able to speak in complete sentences Auscultation: clear to auscultation bilaterally Cardio Jugular venous pressure: no JVD Rate: regular rate Rhythm: regular rhythm Heart Sounds: S1 normal and S2 normal GI Inspection: non-distended Palpation: soft, no guarding, no hernias and nontender Auscultation: normal bowel sounds Skin General skin exam: normal turgor Neuro General: patient alert, patient awake and patient oriented x3 Cognition: normal cognition Extrem Right lower extremity: no edema Left lower extremity: no edema Results Last Vital Signs Temp 97.7 F 03/11/22 11:47 Pulse 66 03/11/22 11:47 Resp 16 03/11/22 11:47 BP 167/102 H 03/11/22 11:47 Pulse Ox 96 03/11/22 11:47
--- NOTE | 2022-03-11 12:36 | W.PM.DSUDISC ---
Date of service: 03/11/22 Time of Service: 12:36 Discharge Plan Disposition Patient Disposition: Home Discharge Details Attending Provider: Graeme Dhaliwal Primary Care Provider: Mustapha Anand Home Meds and New Rx's Prescriptions: Continued acetaminophen 325 mg capsule 325 mg PO ONCE PRN PreserVision AREDS 1 EACH tablet 2 tab PO DAILY Varicella-Zoster Ge/As01b/Pf [Shingrix Vial Kit] 50 MCG INJ 50 mcg IM ONCE Qty: 1 0RF metoprolol tartrate 25 mg tablet 25 mg PO BID 90 Days Qty: 180 3RF atorvastatin 40 mg tablet 40 mg PO DAILY Qty: 90 3RF Held Eliquis 5 mg tablet 5 mg PO BID Qty: 60 6RF Hold Instructions: Resume on 03/13/22. Discontinued polyethylene glycol 3350 17 gram/dose powder 238 g PO ONCE Qty: 238 0RF Rx Instructions: take per colonoscopy instructions bisacodyl [Dulcolax (bisacodyl)] 5 mg tablet,delayed release (DR/EC) 5 mg PO ONCE Qty: 4 0RF Rx Instructions: take per colonoscopy instructions Discharge Instructions Instructions: Colorectal Polyps (GEN) Additional Instructions: 1. If tolerated, consume a soft, low fiber diet for 1-2 days. 2[address] Do not drive, drink alcohol, operate machinery, make critical decisions, or do activities that require coordination or balance for 24 hours. 3. Because air was put into your colon during the procedure, expelling air from your rectum (passing gas or farting) is normal. 4. You may not have a bowel movement for 1-3 days because of the colonoscopy prep. This is normal. 5. Go directly to the emergency room if you notice any of the following: Develop chills (warm to touch), or if you have a thermometer and your temperature is above 101 Difficulty breathing or difficultly swallowing Persistent vomiting Severe abdominal pain, other than gas cramps Severe chest pain Black, tarry stools Any bleeding ? exceeding one tablespoon 6. Call your physician if the site where your intravenous was started becomes red, swollen, painful, and warm to touch. 7. Your physician has reviewed your pre-procedure medications. Please continue to take those medications as previously ordered. You will be given specific information/education regarding any changes to your medications before leaving. Activity:: Activity as Tolerated Diet:: As Tolerated Discharge Orders Discharge Orders: Discharge Order (Routine); Ordered 03/11/22 Ordered By: Graeme Dhaliwal DS: Diagnosis Discharge Diagnosis (1) Carcinoma of colon: Status: Chronic Asessment and Plan: I will contact you with results of the biopsies
--- NOTE | 2022-03-11 12:37 | W.PM.OP ---
Date of service: 03/11/22 Time of Service: 13:43 Operative Note Operative Note DATE OF PROCEDURE: 03/11/22 PRE-OP DIAGNOSIS: Routine health maintenance screening colonoscopy with personal history of colon cancer Routine health maintenance screening colonoscopy with personal history of colon cancer PROCEDURE: Screening colonoscopy SURGEON: Graeme Dhaliwal Refer to Anesthesia Record Patient was transported to: same day Patient's condition: stable Indications: Seth is a 71-year-old male with a personal history of colon cancer. He underwent sigmoid colectomy in the past. Unfortunately, he also had a lung metastasis requiring treatment. Since then, he is done pretty well. He is following up today for routine surveillance colonoscopy.
[2022-03-11 13:20] VITALS: BMI 36.7
--- NOTE | 2022-03-11 13:20 | BOWEL_PTH ---
PATIENT: Seth Kincaid LOC: [facility] U#:[id number] AGE/SX: 71/M ROOM: RE03/11/[address]: Graeme Dhaliwal MD : [id number] BED: DIS: 03/11/2022 SPEC #: [id number] RECD: 03/11/22 15:56 STATUS: DWAYNE REQ #: [id number] FERNANDO: 03/11/22 13:[address]: Graeme Dhaliwal DEPT: Surgical Specimen RECD BY: Davida Martinez ENTERED: 03/11/22 15:56 SP TYPE: Bowel OTHR DR: Mustapha Anand DO Tissues: 1 - BIOPSY BOWEL 2 - BIOPSY BOWEL Procedures: GROSS AND MICRO LEVEL 4 Comments: [id number]
[2022-03-11 13:38] VITALS: BP 104/75; PULSE 68; RESP 18; TEMP 36.4; O2SAT 94
--- NOTE | 2022-03-11 13:44 | W.COLOREPORT ---
Date of service: 03/11/22 Time of Service: 13:44 Colonoscopy Report Date of procedure: 03/11/22 Pre-op diagnosis general: Screening colonoscopy with personal history of colon cancer Post-op diagnosis procedure note: other (Colon polyps) Procedure: Colonoscopy with polypectomy Surgeon: Graeme Dhaliwal Anesthesia Type: General:No Airway Estimated blood loss (mL): 20 Pathology: other (Polyp at 90 cm, polyps at 25 cm) Complications: None Disposition: same day Indications: Seth is a 71-year-old male with a personal history of colon cancer. He underwent sigmoid colectomy. His recovery was complicated by lung metastasis that has been successfully treated. Generally he is doing well, and is here for a follow-up surveillance colonoscopy. Prep: Miralax/Dulcolax Procedure Start Time: 13:08 Procedure End Time: 13:31 Retraction Time: 16 Procedure Description: After the induction of monitored anesthetic care, and with the patient in left lateral decubitus position, I began by performing an external anorectal exam.? Perineum and skin were normal, as was the anal verge.? There was no evidence of external hemorrhoids.? Next, I performed a digital rectal exam.? I did not appreciate any abnormal findings.? Next, I advanced a colonoscope into the rectal vault.? I performed retroflexion.? This was normal.? Using insufflation, I then advanced the colonoscope beyond the rectal folds and into the sigmoid colon before advancing towards the cecum.? While traversing the sigmoid area, great care was taken to identify the previous anastomosis. As I traversed the anastomosis, I was careful to ensure that I was in the correct lumen. The quality of the prep was excellent.? The scope was noted to be in the cecum by identification of the ileocecal valve and appendiceal orifice.? I then began withdrawing the colonoscope using repeated irrigation as necessary for full evaluation of the colonic mucosa. Around 90 cm from the anal verge I identified a 1.25 cm polyp. ?It appeared sessile in character. ?I was able to remove this with a snare polypectomy. ?I examined the site, and there was minimal bleeding. ?Once this was completed, I continued to withdraw the scope and examine the remainder of the colonic mucosa.?Once the scope was withdrawn to the level of the rectum, great care was taken to examine portions of the rectal folds.? 2 more polyps were identified in the rectum. These were both less than 0.5 cm. Both were sessile. Both were removed using cold forcep polypectomy. There was no bleeding. Finally, the scope was withdrawn and the patient was brought to the same-day surgery recovery unit as the anesthetic wore off. ?The findings and instructions were shared with the patient prior to discharge.
[2022-03-11 14:12] VITALS: BP 116/90; PULSE 62; RESP 16; TEMP 36.4; O2SAT 96
--- NOTE | 2022-03-11 14:37 | W.ANESPOSTOP ---
Postoperative Evaluation Date, Time and Location Date Performed: 03/11/22 Time Performed: 14:37 Patient Location: Day Surgery Unit Vital Signs Most Recent Imported Vital Signs: Most Recent Vital Signs Temp Pulse Resp BP Pulse Ox 36.4 C L 62 16 116/90 96 03/11/22 14:12 03/11/22 14:12 03/11/22 14:12 03/11/22 14:12 03/11/22 14:12 Pain Score Most Recent Pain Score: Most Recent Pain Score Pain Level 0 03/11/22 14:12 Assessment Mental Status: Awake (Alert & Oriented to Patient Baseline) Airway and Respiratory Function: Patent airway with normal (patient baseline) respiratory exam Cardiovascular Function: Hemodynamically Stable Hydration Status: Adequately Hydrated Nausea & Vomiting: No Nausea or Vomiting Pain: Pt. Denies Any Pain Peripheral Nerve Block: Patient did not receive a nerve block Postoperative Comments:: Seen earlier today. Patient doing well, all questions answered.
--- NOTE | 2022-03-11 14:38 | W.ANESPOSTOP ---
Postoperative Evaluation Date, Time and Location Date Performed: 03/11/22 Time Performed: 14:38 Patient Location: Day Surgery Unit Vital Signs Most Recent Imported Vital Signs: Most Recent Vital Signs Temp Pulse Resp BP Pulse Ox 36.4 C L 62 16 116/90 96 03/11/22 14:12 03/11/22 14:12 03/11/22 14:12 03/11/22 14:12 03/11/22 14:12 Most Recent Vital Signs Temp Pulse Resp BP Pulse Ox 36.4 C L 62 16 116/90 96 03/11/22 14:12 03/11/22 14:12 03/11/22 14:12 03/11/22 14:12 03/11/22 14:12 Pain Score Most Recent Pain Score: Most Recent Pain Score Pain Level 0 03/11/22 14:12 Assessment Mental Status: Awake (Alert & Oriented to Patient Baseline) Airway and Respiratory Function: Patent airway with normal (patient baseline) respiratory exam Cardiovascular Function: Hemodynamically Stable Hydration Status: Adequately Hydrated Nausea & Vomiting: No Nausea or Vomiting Pain: Pt. Denies Any Pain Peripheral Nerve Block: Patient did not receive a nerve block
== END 2022-03-11 14:31 | disposition home or self-care (01) ==
PROVIDERS: PCP Family Medicine; Visit Provider Surgery
PROC: 0DJD8ZZ Inspection of Lower Intestinal Tract, Via Natural or Artificial Opening Endoscopic (ICD-10-PCS; CPT 45378; principal; 2022-03-11 13:00)
DX: Z12.11 Encounter for screening for malignant neoplasm of colon (principal); K63.5 Polyp of colon; K62.1 Rectal polyp; Z85.038 Personal history of other malignant neoplasm of large intestine; Z90.49 Acquired absence of other specified parts of digestive tract; I48.91 Unspecified atrial fibrillation; Z79.01 Long term (current) use of anticoagulants; R73.03 Prediabetes; E66.9 Obesity, unspecified; Z68.36 Body mass index [BMI] 36.0-36.9, adult; I10 Essential (primary) hypertension; Z90.2 Acquired absence of lung [part of]; Z98.0 Intestinal bypass and anastomosis status
CPT/HCPCS: 45385; 45380; 88305

== ENCOUNTER 2022-06-14 09:36 | Emergency (ER) | payer MEDICARE, SELFPAY ==
[2022-06-14] VITALS (24 sets, daily range): BP systolic 107–153; BP diastolic 65–103; PULSE 54–166; RESP 12–28; O2SAT 90–94
--- NOTE | 2022-06-14 09:45 | RT.EKG_ITS ---
APPROVED REPORT Exam: Resting ECG Reason for Exam: sob, cough Patient Location: E HR:139 bpm ECG Measurements Heart Rate 139 AXIS LA [id number] P [id number] QRSd 97 QRS 45 QT 322 T 52 QTc 490 Conclusion Atrial fibrillation...? atrial activity Paired ventricular premature complexes...sequence of 2 V complexes Abnormal Electrocardiogram
[2022-06-14 10:12] LABS: Abs Immature Grans 0.06 10^3/uL (0.0-0.06); Absolute Basophil Count 0.04 10^3/uL (0.0-0.2); Absolute Eosinophil Count 0.09 10^3/uL (0.0-0.7); Absolute Monocyte Count 0.82 10^3/uL (0.1-0.8); Basophils % 0.3; Eosinophils % 0.6; HCT 44.8 % (40.0-50.0); HGB 14.6 g/dL (13.5-17.5); Immature Grans % 0.4; Lymphocytes % 14.3; MCH 28.8 pg (27.0-33.0); MCHC 32.6 % (32.0-36.0); MCV 88 fL (80-95); MPV 10.4 fL (8.0-11.0); Monocytes % 5.7; Neutrophils % 78.7; Platelet Count 218 10^3/uL (130-400); RBC 5.07 10^6/uL (4.36-5.78); RDW 14.7 % (11.8-14.1); RDW-SD 47.8 fL; WBC 14.43 10^3/uL (4.4-10.8)
[2022-06-14 10:13] LABS: Source Nasal/Nares
[2022-06-14 10:15] LABS: Absolute Lymphocyte Count 2.06 10^3/uL (1.2-3.4); Absolute Neutrophil Count 11.36 10^3/uL (1.2-6.7)
--- NOTE | 2022-06-14 10:30 | DI.RAD_ITS ---
Exam(s) XR PORTABLE CHEST AP EXAM: XR PORTABLE CHEST AP CLINICAL HISTORY: tachycardia, afib TECHNIQUE: 2D digital imaging was performed of the chest. One image was obtained. An AP view was ob tained. COMPARISON: CR XR CHEST 2V PA LATERAL from 06/04/2021 FINDINGS: MEDIASTINUM: Normal. HEART: Normal. PULMONARY VASCULATURE: Normal. LUNGS: Clear. PLEURAL SPACE: There is persistent blunting of the left costophrenic angle. This may represent scarr ing or small pleural effusion. No right pleural effusion. No pneumothorax. BONE:Within normal limits for the patient's age. OTHER FINDINGS:Surgical clips are again seen overlying the left hemithorax. IMPRESSION: 1. No acute change in appearance of the chest. 2. Stable small left pleural effusion versus pleural scarring. DATA REPOSITORY: RADIATION DOSE DELIVERED:
--- NOTE | 2022-06-14 10:40 | ED.GENADUL_ITS ---
Discharge Plan Disposition Patient Disposition: Home Condition: Stable Discharge Details Clinical Impression: Atrial fibrillation with rapid ventricular response, Leukocytosis Primary Care Provider: Mustapha Anand ED Provider: Matt Alonso Home Meds and New Rx's Prescriptions: New diltiazem HCl 30 mg tablet 30 mg PO ONCE PRN (Reason: rapid heart rate) Qty: 10 0RF Continued acetaminophen 325 mg capsule 325 mg PO ONCE PRN PreserVision AREDS 1 EACH tablet 2 tab PO DAILY Varicella-Zoster Ge/As01b/Pf [Shingrix Vial Kit] 50 MCG INJ 50 mcg IM ONCE Qty: 1 0RF metoprolol tartrate 25 mg tablet 25 mg PO BID 90 Days Qty: 180 3RF atorvastatin 40 mg tablet 40 mg PO DAILY Qty: 90 3RF Eliquis 5 mg tablet 5 mg PO BID Qty: 60 6RF Hold Instructions: Resume on 03/13/22. Discharge Instructions Instructions: A-fib (Atrial Fibrillation) (ED), Leukocytosis (ED) Additional Instructions: Please follow-up with your primary care physician. Please maintain scheduled appointment later this week. Should you experience recurrence of rapid heart rate, take diltiazem 30 mg tablet as prescribed. If heart rate does not improve, call your doctor or return to the emergency department for reevaluation. Please return to the emergency [facility] immediately should you have any worsening or new concerning symptoms. Referrals: Mustapha Anand, DO [Primary Care Provider] - Medical Decision Making 1054 ??71-year-old male with history of atrial fibrillation, on metoprolol and Eliquis, here generally not feeling well for the past few days, found to have rapid heart rate at home. Patient is tachycardic with an irregular rhythm. He is hypertensive. Saturating well in no respiratory distress. EKG was reviewed and interpreted by me: Patient is in rapid A-fib 139 bpm, ST depression noted laterally suspect rate related. Consider ACS. I will check troponin. Plan to give diltiazem 20 mg IV bolus and follow with infusion. 1335 -- Patient cardioverted shortly after treatment with diltiazem. Infusion was weaned and stopped. Patient remained in sinus rhythm. Labs were reviewed and nondiagnostic. Patient does have leukocytosis. Urinalysis negative. Chest x-ray was reviewed and interpreted by radiology: 1. No acute change in appearance of the chest. 2. Stable small left pleural effusion versus pleural scarring.? Plan for discharge with close outpatient follow-up later this week. I will prescribe diltiazem 30 mg to be used should the patient experience rapid heart rate and recurrent atrial fibrillation. HPI General Mode of arrival: ambulatory . Date/Time Provider Initiated Documentation: 06/14/22 09:53 . Limitations to Documentation: no limitations . Information obtained by: patient . HPI Narrative: 71-year-old male with history of atrial fibrillation, hypertension, anticoagulated on Eliquis, here with chief complaint of generally not feeling well. Patient notes he has been feeling well for the past few days. He further characterizes this as having nausea, fatigue and some sweats at night. He notes he checked his heart rate today and was rating 140. He is concerned that he may be in atrial fibrillation. Patient notes he has been taking his metoprolol and Eliquis as prescribed. He denies chest pain. No shortness of breath. He does note some dyspnea on exertion for at least the past few months. Related Data Home Medications Medication Instructions Recorded Confirmed vitamins A,C,W-hghp-ewfmmw 2,148 2 tab PO DAILY 07/17/12 06/14/22 mcg-113 mg-45 mg-17.4 mg tablet (PreserVision AREDS) acetaminophen 325 mg capsule 325 mg PO ONCE PRN 10/18/19 06/14/22 metoprolol tartrate 25 mg tablet 25 mg PO BID 90 days #180 tab-caps 10/19/21 06/14/22 atorvastatin 40 mg tablet 40 mg PO DAILY #90 tab-caps 12/04/21 06/14/22 apixaban 5 mg tablet (Eliquis) 5 mg PO BID #60 tab-caps 01/22/22 06/14/22 diltiazem HCl 30 mg tablet 30 mg PO ONCE PRN rapid heart rate 06/14/22 #10 tabs Previous Rx's Medication Instructions Recorded metoprolol tartrate 25 mg tablet 25 mg PO BID 90 days #180 tab-caps 10/19/21 atorvastatin 40 mg tablet 40 mg PO DAILY #90 tab-caps 12/04/21 apixaban 5 mg tablet (Eliquis) 5 mg PO BID #60 tab-caps 01/22/22 diltiazem HCl 30 mg tablet 30 mg PO ONCE PRN rapid heart rate 06/14/22 #10 tabs Allergies Allergy/AdvReac Type Severity Reaction Status Date / Time ADHESIVE TAPE Allergy Unknown SKIN Uncoded 03/11/22 11:56 BLISTERS General Stated Complaint: Arrhythmia SEVEN: 3 Review of Systems All systems reviewed & are unremarkable except as noted in HPI and below Constitutional Constitutional: Denies fever(s) Cardiovascular Cardiovascular: Reports as per HPI PFSH All Active Problems (Updated 06/14/22 @ 13:42 by Matt Alonso MD) Atrial fibrillation with rapid ventricular response (Acute) Leukocytosis (Acute) Nail dystrophy (Acute) Prediabetes (Acute) Overgrown toenails (Acute) 06/18/19 Dr Martinez for nail care and f/u in 3M Atrial fibrillation (Chronic) Varicose veins of both lower extremities (Chronic 02/03/12) s/p stripping R [facility] [place] in 1970 Varicose veins of anus or rectum (Chronic 02/03/12) s/p stripping R [facility] [place] Obesity (BMI 30.0-34.9) (Chronic 07/06/11) goal 230# by 03/2015 Mass of lower lobe of left lung (Acute 10/24/15) 4.[address] on CT (done for incr CEA); LLL lobectomy 12/10/15 [facility] [place] History of lobectomy of lung (Chronic 12/10/15) LLL mass Essential hypertension (Chronic 08/03/12) Dx'ed 08/2012 Rx Chlorthalidone Carcinoma of colon (Chronic) ONC: Dr Grubbs, [facility] [place]; 04/01/2008: SIGMOID CARCINOMA ON SCREENING COLONOSCOPY; LLL lung met operated 12/201504/22/2008: SIGMOID RESECTION Candidate for statin therapy due to risk of future cardiovascular event (Chronic 07/09/16) CV risk 18.8% based on 09/2015 labs; still 18% 09/2016; declined for primary prevention Medical History Carcinoma of colon Colon cancer Essential hypertension HTN (hypertension) Lung cancer Surgical History Colectomy (04/22/08) Dr Fidencio Dang, sigmoid resection Colonoscopy - IV Sedation (02/17/16) Lobectomy (12/10/15) LLL lobectomy with removal of periosteum ribs 7 & 8; metastatic adeno Ca (colon primary); [facility] [place] varicose veins (04/04/69) [facility] [place], R leg Family History Mother , Alzheimers at age 88. Alzheimers disease onset unknown Father , prostate ca at age 80. Prostate cancer onset unknown Brother Age: 81 No problems noted. Social History Smoking/Tobacco Use Status: Former Tobacco Use Tobacco: How many years used: 15 Smoking risk assessment performed?: Yes Alcohol Intake: current Alcohol Intake frequency: a few times a week Alcohol type: beer and hard liquor Drug use: Never Substance use type: does not use Adopted: No Caregiver/Support person: No Foster care: No Household members: spouse Housing: house Number of Children: 1 number of grandchildren: 4 Communication Needs: Corrective Lenses Education Level: vocational Do you need help understanding health information?: Rarely current occupation: retired - from [employer] Pets and animals: Yes (1) Pets and animals: cat(s) Sexually active: No Do you think of yourself as: straight/heterosexual Current gender identity: male What is your relationship status?: How often do you talk on the phone with friends or family?: three or more times per week How often do you get together with friends or relatives?: three or more times per week Do you belong to any clubs or organized social groups?: no Panel score (0-1 are the most socially isolated patients): 2 What type of physical activity do you participate in: walking Duration: 45-60 minutes/day Frequency: 3-4 times per week Debbie/Anabaptist: Roman Catholic Special debbie needs: No Seatbelt use: always Helmet use: No Drive intox or ride w/intox rolloff truck driver: No Working smoke detector in home: Yes Fire extinguisher in home: Yes Firearms in home: Yes Firearms unloaded and locked: Yes Do you feel safe at home: Yes Do you feel safe in your relationship?: Yes Exam Const General: cooperative and no acute distress HENMT Mouth: moist mucous membranes Eyes Conjunctivae: normal conjunctivae Sclera: normal sclerae Neck Neck: trachea midline Resp Auscultation: clear to auscultation bilaterally, no rales, no rhonchi and no wheezes Cardio Rate: tachycardic Rhythm: abnormal rhythm irregularly irregular Heart Sounds: S1 normal, S2 normal, no gallops, no murmurs and no rubs GI Palpation: soft, not firm, no guarding, no masses, not rigid and nontender Skin General skin exam: no rashes or lesions noted Neuro General: patient alert, patient awake and tone normal Extrem General: no calf tenderness bilaterally and no edema Psych Appearance: grossly normal Mental Status: mental status grossly normal Course Vital Signs Vital signs: Vital Signs Pulse 147 H 06/14/22 09:47 Respiratory Rate 20 06/14/22 09:47 Blood Pressure 153/103 H 06/14/22 09:47 Pulse Oximetry 94 06/14/22 09:47 Pulse 147 H 06/14/22 09:47 Respiratory Rate 20 06/14/22 09:47 Respiratory Effort Normal, Non-Labored 06/14/22 09:55 Blood Pressure 153/103 H 06/14/22 09:47 Blood Pressure Position Sitting 06/14/22 09:47 Pulse Oximetry 94 06/14/22 09:47 Oxygen Delivery Method Room Air 06/14/22 09:47 Oxygen Flow Rate 0 06/14/22 09:47 Lab/Test Results Lab/Test Results: Laboratory Tests Range/Units 06/14/22 06/14/22 10:05 10:10 WBC (4.4-10.8) 10^3/uL 14.43 H RBC (4.36-5.78) 10^6/uL 5.07 Hgb (13.5-17.5) g/dL 14.6 Hct (40.0-50.0) % 44.8 MCV (80-95) fL 88 MCH (27.0-33.0) pg 28.8 MCHC (32.0-36.0) % 32.6 RDW (11.8-14.1) % 14.7 H Plt Count (130-400) 10^3/uL 218 MPV (8.0-11.0) fL 10.4 Immature Gran % 0.4 Neutrophils % 78.7 Lymphocytes % 14.3 Monocytes % 5.7 Eosinophils % 0.6 Basophils % 0.3 Nucleated RBC % (0.0-0.3) % 0.0 Absolute Neutrophils (1.2-6.7) 10^3/uL 11.36 H Absolute Lymphocytes (1.2-3.4) 10^3/uL 2.06 Absolute Monocytes (0.1-0.8) 10^3/uL 0.82 H Absolute Eosinophils (0.0-0.7) 10^3/uL 0.09 Absolute Basophils (0.0-0.2) 10^3/uL 0.04 COVID-19 Source Nasal/Nares PAWSS Have you Been Recently Intoxicated or Drunk Within the Last 30 days?: No Have you Ever Experienced Previous Episodes of Alcohol Withdrawal?: No Have you ever Experienced Withdrawal Seizures?: No Have you ever Experienced Delirium Tremens(DT)s?: No Have you ever undergone Alcohol Rehabilitation Treatment (i.e, inpt ot outpatient treatment programs)?: No Have you ever Experienced Blackouts?: No Have you ever Combined Alcohol with other Downers within the last 90 days?: No Have you ever Combined Alcohol with any other Substance of Abuse during the last 90 days?: No Positive Blood Alcohol level on Presentation? [PCS.BAL]: No Evidence of Increased Autonomic Activity (i.e. HR>120, tremor, sweating, agitation, nausea)?: No Result: 0
[2022-06-14 10:42] LABS: ALT 47 U/L (16-63); AST 26 U/L (15-37); Albumin 3.2 g/dL (3.4-5.0); Alkaline Phosphatase 220 U/L (46-116); Anion Gap 7.7 mmol/L (3-11); BUN 10 mg/dL (7-18); Bilirubin, Total 0.8 mg/dL (0.2-1.0); CO2 29.3 mmol/L (21.0-32.0); Calcium 9.2 mg/dL (8.5-10.1); Chloride 100 mmol/L (98-107); Estimated GFR 79.47 (mL/min/1.73m2); Glucose 179 mg/dL (74-106); Magnesium 2.1 mg/dL (1.8-2.4); Potassium 4.4 mmol/L (3.5-5.1); Sodium 137 mmol/L (136-145); TSH (W/Ref FT4) 0.91 uIU/mL (0.36-3.74); Total Protein 8.2 g/dL (6.4-8.2); Troponin I < 50 ng/L (<or=60)
[2022-06-14 10:45] LABS: COVID-19 PCR Negative (Negative)
[2022-06-14] MEDS: dilTIAZem 25 MG/5 ML VIAL 20 MG IVP (10:52)
[2022-06-14] MEDS: dilTIAZem 125 MG in Normal Saline 100 ML IV (11:08)
--- NOTE | 2022-06-14 12:00 | RT.EKG_ITS ---
APPROVED REPORT Exam: Resting ECG Reason for Exam: afib Patient Location: E HR:73 bpm ECG Measurements Heart Rate 73 AXIS W[place] 146 P -3 QRSd 102 QRS 16 QT 401 T 33 QTc 443 Conclusion Sinus rhythm...normal P axis, V-rate 60- 99
--- NOTE | 2022-06-14 12:07 | NUR.NOTE ---
Nursing Note: Repeat EKG completed and reading SR. Dr Alonso notified. Verbal order received to titrate cardizem down to 2.5mg/hr at this time. Will cont to monitor.
[2022-06-14 12:55] LABS: Bilirubin Negative (Negative); Blood Negative (Negative); Clarity Clear (Clear); Glucose Negative (Negative); Ketones Negative (Negative); Leukocyte Esterase Negative (Negative); Nitrite Negative (Negative)
[2022-06-14 13:02] LABS: Bacteria Rare HPF (Negative); C & S Indicated? No; Casts Negative LPF (Negative); Crystals Negative HPF (Negative); Epithelial Cells Rare HPF (Negative); Mucus Moderate (Negative); RBC 0-2 HPF (0-2); WBC 0-2 HPF (0-5)
[2022-06-14 13:09] LABS: Procalcitonin 0.1 ng/mL
[2022-06-14 13:10] LABS: Troponin I < 50 ng/L (<or=60)
--- NOTE | 2022-06-14 13:49 | NUR.NOTE ---
Nursing Note: Pt assisted OOB and ambulated in hallway. Steady gait noted. HR in 80's while ambulating and O2 sat 90-92%. Upon reaching bed, O2 sat 88%. Pt recovered to 91% on RA. Dr Alonso notified.
== END 2022-06-14 14:20 | disposition home or self-care (01) ==
PROVIDERS: Emergency Provider Student in an Organized Health Care Education/Training Program; PCP Family Medicine
DX: I48.91 Unspecified atrial fibrillation (principal); D72.829 Elevated white blood cell count, unspecified; R06.02 Shortness of breath; R05.9 Cough, unspecified; R00.0 Tachycardia, unspecified; Z20.822 Contact with and (suspected) exposure to COVID-19; R53.83 Other fatigue
CPT/HCPCS: 36415; 80053; 84145; 87635; 93005; 96365; 96375; 99284; 71045; 81003; 81015; 83735; 84443; 84484; 85025; 93010

== ENCOUNTER 2022-06-22 01:18 | Outpatient (CLI) | payer MEDICARE, SELFPAY ==
--- NOTE | 2022-06-22 06:30 | DI.CT_ITS ---
Exam(s) CT CHEST PE CTA EXAM: CT CHEST PE CTA CLINICAL HISTORY: Hypoxia, cough,? PE, pneumonia,r09.02. TECHNIQUE: Imaging Protocol: Axial CT angiography was performed with multi-slice acquisition and mu lti-planar and/or 3D reconstructions. CONTRAST MATERIAL: Intravenous: Omnipaque 350 contrast volume:100 mL COMPARISON: CT CT CHEST W from 06/10/2021 FINDINGS: Tracheobronchial tree: Patent where visualized. Pulmonary parenchyma: No consolidation or dominant measurable mass. There are areas of scarring seen in the right middle lobe. No focal consolidating infiltrates are present. Status post left lobectom y. Pulmonary Arteries: No evidence of filling defect to suggest pulmonary emboli. Mediastinum and Danielle: No dominant adenopathy or fluid collection. The esophagus is unremarkable. Visualized thyroid gland: Unremarkable. Pleura: No effusion or pneumothorax. Heart: The heart is not dilated. No coronary artery calcifications are seen. No pericardial effusion. Aorta: Thoracic aorta non-dilated. No evidence of dissection. Atherosclerosis is present. Upper abdomen: Cholelithiasis. Soft tissues: Unremarkable. Bones: Within normal limits for the patient's age. IMPRESSION: 1. No evidence of pulmonary embolism, thoracic aortic dissection or aneurysm. 2. No acute pulmonary process. 3. Cholelithiasis. RADIATION DOSE DELIVERED: 699.69mGy.cm Total DLP DATA REPOSITORY: All CT scans at this facility are submitted to the National Radiology Data Registry (NRDR) Dose Index Registry (DIR) with the [employer] (ACR). RADIATION OPTIMIZATION: All CT scans at this facility use at least one of these dose optimization te chniques: automated exposure control; mA and/or kV adjustment per patient size (includes targeted exa ms where dose is matched to clinical indication); or iterative reconstruction.
[2022-06-22] MEDS: Omnipaque 350 MG/ML 500 ML BTL-Imaging package IJ (08:20)
[2022-06-22] MEDS: Normal Saline - Diluent 50 ML VIAL IJ (08:21)
== END 2022-06-22 01:38 ==
LOC: DI 01:18
PROVIDERS: PCP Family Medicine; Visit Provider Family Medicine
DX: R09.02 Hypoxemia (principal); R05.8 Other specified cough; J98.4 Other disorders of lung; Z90.2 Acquired absence of lung [part of]
CPT/HCPCS: 71275

== ENCOUNTER 2022-07-27 08:29 | Outpatient (CLI) | payer MEDICARE, SELFPAY ==
--- NOTE | 2022-07-27 08:15 | RT.EKG_ITS ---
APPROVED REPORT Exam: Resting ECG Reason for Exam: afib Patient Location: O HR:77 bpm ECG Measurements Heart Rate 77 AXIS [place] 143 P 64 QRSd 110 QRS 26 QT 401 T 42 QTc 454 Conclusion Sinus rhythm...normal P axis, V-rate 50- 99 RSR' in V1 or V2, Otherwise normal ECG
== END 2022-07-27 08:30 | disposition home or self-care (01) ==
LOC: DI.CARD 08:30
PROVIDERS: PCP Family Medicine; Visit Provider Internal Medicine Cardiovascular Disease
DX: I48.91 Unspecified atrial fibrillation (principal)
CPT/HCPCS: 93010

== ENCOUNTER → 2022-07-27 13:36 | Outpatient (BNVA) | payer MEDICARE, SELFPAY | PROVIDERS: PCP Family Medicine; Referring Provider Family Medicine; Visit Provider Internal Medicine Cardiovascular Disease | DX: I48.0 Paroxysmal atrial fibrillation (principal); Z79.01 Long term (current) use of anticoagulants; I10 Essential (primary) hypertension | CPT/HCPCS: 93005; 99203; 99214 ==

== ENCOUNTER 2022-09-17 14:09 | Outpatient (CLI) | payer MEDICARE, SELFPAY ==
[2022-09-17 09:33] LABS: CREATININE 0.9 mg/dL (0.70-1.30); Estimated GFR 90.18 (mL/min/1.73m2)
== END 2022-09-17 14:10 | disposition home or self-care (01) ==
LOC: LBO 14:09
PROVIDERS: PCP Family Medicine; Visit Provider Family Medicine
DX: R09.02 Hypoxemia (principal); I10 Essential (primary) hypertension; I48.91 Unspecified atrial fibrillation
CPT/HCPCS: 36415; 82565

== ENCOUNTER → 2022-10-25 13:55 | Outpatient (BNVA) | payer MEDICARE, SELFPAY | PROVIDERS: PCP Family Medicine; Referring Provider Family Medicine; Visit Provider Internal Medicine Cardiovascular Disease | DX: I48.0 Paroxysmal atrial fibrillation (principal); Z79.01 Long term (current) use of anticoagulants; I10 Essential (primary) hypertension | CPT/HCPCS: 99213 ==

== ENCOUNTER 2022-10-28 20:20 | Outpatient (CLI) | payer MEDICARE, SELFPAY ==
[2022-10-28 08:48] LABS: Abs Immature Grans 0.02 10^3/uL (0.0-0.06); Absolute Basophil Count 0.08 10^3/uL (0.0-0.2); Absolute Eosinophil Count 0.52 10^3/uL (0.0-0.7); Absolute Lymphocyte Count 2.87 10^3/uL (1.2-3.4); Absolute Monocyte Count 0.56 10^3/uL (0.1-0.8); Absolute Neutrophil Count 4.33 10^3/uL (1.2-6.7); Eosinophils % 6.2; HCT 45.2 % (40.0-50.0); HGB 14.4 g/dL (13.5-17.5); Immature Grans % 0.2; Lymphocytes % 34.2; MCHC 31.9 % (32.0-36.0); MCV 91 fL (80-95); MPV 10.2 fL (8.0-11.0); Monocytes % 6.7; Neutrophils % 51.7; Platelet Count 204 10^3/uL (130-400); RBC 4.97 10^6/uL (4.36-5.78); RDW 13.5 % (11.8-14.1); RDW-SD 45.5 fL; WBC 8.38 10^3/uL (4.4-10.8)
[2022-10-28 09:33] LABS: ALT 59 U/L (16-63); AST 36 U/L (15-37); Albumin 3.1 g/dL (3.4-5.0); Alkaline Phosphatase 229 U/L (46-116); Anion Gap 5.8 mmol/L (3-11); BUN 18 mg/dL (7-18); Bilirubin, Total 0.6 mg/dL (0.2-1.0); CO2 32.2 mmol/L (21.0-32.0); Calcium 9.1 mg/dL (8.5-10.1); Chloride 104 mmol/L (98-107); Estimated GFR 79.47 (mL/min/1.73m2); Glucose 120 mg/dL (74-106); Potassium 4.5 mmol/L (3.5-5.1); Sodium 142 mmol/L (136-145); Total Protein 7.8 g/dL (6.4-8.2)
[2022-10-28 20:32] LABS: CEA <0.5 ng/mL (See Note)
== END 2022-10-28 20:21 | disposition home or self-care (01) ==
LOC: LBO 20:20
PROVIDERS: PCP Family Medicine; Visit Provider Internal Medicine Hematology & Oncology
DX: C18.9 Malignant neoplasm of colon, unspecified (principal)
CPT/HCPCS: 36415; 80053; 82378; 85025

== ENCOUNTER 2022-12-22 03:47 | Outpatient (CLI) | payer MEDICARE, SELFPAY ==
[2022-12-22 19:20] LABS: PSA, Screening 0.3 ng/mL (<=6.5)
== END 2022-12-22 03:48 | disposition home or self-care (01) ==
LOC: LBO 03:48
PROVIDERS: PCP Family Medicine; Referring Provider Family Medicine; Visit Provider Family Medicine
DX: Z80.42 Family history of malignant neoplasm of prostate (principal); Z12.5 Encounter for screening for malignant neoplasm of prostate
CPT/HCPCS: 36415; 84153

== ENCOUNTER 2023-02-21 12:01 | Outpatient (CLI) | payer MEDICARE, SELFPAY ==
--- NOTE | 2023-02-21 12:00 | RT.EKG_ITS ---
APPROVED REPORT Exam: Resting ECG Reason for Exam: FOLEY, known afib Patient Location: O HR:65 bpm ECG Measurements Heart Rate 65 AXIS [place] 138 P 60 QRSd 115 QRS 46 QT 425 T 37 QTc 442 Conclusion Sinus rhythm...normal P axis, V-rate 50- 99 Nonspecific intraventricular conduction delay...QRSd >115mS, not LBBB/RBBB
== END 2023-02-21 12:02 | disposition home or self-care (01) ==
LOC: DI.KIM 12:02
PROVIDERS: PCP Family Medicine; Visit Provider Family Medicine
DX: I48.91 Unspecified atrial fibrillation (principal)
CPT/HCPCS: 93010

== ENCOUNTER → 2023-02-22 02:00 | Outpatient (CLI) | payer MEDICARE, SELFPAY ==
--- NOTE | 2023-02-22 08:00 | DI.RAD_ITS ---
Exam(s) XR CHEST 2V PA LATERAL EXAM: XR CHEST 2V PA LATERAL CLINICAL HISTORY: H/o LLL lobectomy, new FOLEY, wheezing TECHNIQUE: 2D digital imaging was performed of the chest. Two images were obtained. PA and lateral views were obtained. COMPARISON: CR XR CHEST 2V PA LATERAL from 06/04/2021 CR XR PORTABLE CHEST AP from 06/14/2022 FINDINGS: MEDIASTINUM: Normal. HEART: Normal. PULMONARY VASCULATURE: Normal. LUNGS: Clear. PLEURAL SPACE: No pleural effusion or pneumothorax. There is stable scarring in the left hemithorax w ith blunting of the costophrenic angles. BONE:Within normal limits for the patient's age. OTHER FINDINGS:Surgical clips are again seen overlying the left hemithorax. IMPRESSION: No acute pulmonary findings. DATA REPOSITORY: RADIATION DOSE DELIVERED:
== END ==
PROVIDERS: PCP Family Medicine; Visit Provider Family Medicine
DX: R06.00 Dyspnea, unspecified (principal)
CPT/HCPCS: 71046

== ENCOUNTER → 2023-05-02 12:56 | Outpatient (BNVA) | payer MEDICARE, SELFPAY | PROVIDERS: PCP Family Medicine; Referring Provider Family Medicine; Visit Provider Internal Medicine Interventional Cardiology | DX: E11.9 Type 2 diabetes mellitus without complications (principal); I48.0 Paroxysmal atrial fibrillation; I10 Essential (primary) hypertension | CPT/HCPCS: 99213 ==

== ENCOUNTER → 2023-09-19 11:10 | Outpatient (BNVA) | payer MEDICARE, SELFPAY | PROVIDERS: PCP Family Medicine; Referring Provider Family Medicine; Visit Provider Physical Therapy Assistant | DX: L82.1 Other seborrheic keratosis (principal) | CPT/HCPCS: 99213 ==

== ENCOUNTER 2023-10-20 10:23 | Outpatient (REF) | payer MEDICARE, SELFPAY ==
--- NOTE | 2023-10-20 10:50 | SKI_PTH ---
PATIENT: Seth Kincaid LOC: [facility] U#:[id number] AGE/SX: 72/M ROOM: RE10/20/[address]: Yarely Reyes : 1950 BED: DIS: 10/20/2023 SPEC #: [id number] RECD: 10/20/23 12:59 STATUS: DWAYNE REQ #: [id number] FERNANDO: 10/20/23 10:[address]: Yarely Reyes DEPT: Surgical Specimen RECD BY: Davida Martinez ENTERED: 10/20/23 13:00 SP TYPE: ALBA OTHR DR: Mustapha Anand DO Tissues: 1 - SKIN BIOPSY(SHAVE/PUNCH) Procedures: SKIN LEVEL 4 Comments: [id number]
== END 2023-10-20 10:24 | disposition home or self-care (01) ==
LOC: LBN 10:23
PROVIDERS: PCP Family Medicine; Referring Provider Family Medicine; Visit Provider Surgery
DX: L81.4 Other melanin hyperpigmentation (principal)
CPT/HCPCS: 88305

== ENCOUNTER → 2023-10-31 12:46 | Outpatient (BNVA) | payer MEDICARE, SELFPAY | PROVIDERS: PCP Family Medicine; Visit Provider Internal Medicine Cardiovascular Disease | DX: I48.0 Paroxysmal atrial fibrillation (principal); I10 Essential (primary) hypertension | CPT/HCPCS: 99213 ==

== ENCOUNTER 2023-11-03 03:59 | Outpatient (CLI) | payer MEDICARE, SELFPAY ==
--- OUTSIDE RECORDS SUMMARY | 2023-11-03 04:01 | XMS_ITS | Encounter Summary ---
Author Organization [facility] Address [facility] [place] [address] Care Team Providers Care Dairy Technician Name Role Phone Mustapha Anand DO Primary Care Provider [phone] Encounter Details Date Type Department Care Team (Late st Contact Info) Description 02/08/2019 Telephone [place] [phone] Diane Bah Social History Tobacco Use Types Packs/Day Years Used Date Smoking Tobacco: Former Pipe Q uit: 04/25/1997 Smokeless Tobacco: Former Comments:was a pouch a week from the pipe Sex and Gender Information Value Date Recorded Sex Assigned at Not on file Gender Identity Not on file Sexual Orientation Not on file documented as of this encounter Plan of Treatment Upcoming Encounters Date Type Department Care Team (Late st Contact Info) Description 11/03/2023 8:30 AM EDT Office Visit Hematology/Oncology at [address] [phone] Garcia Childress MD [facility] DR [place] [address] Kassy Ken APRN [address] [place] [address] DR [facility] [place], [place] [id number] documented as of this encounter Visit Diagnoses Not on filedocumented in this encounter Care Teams Dairy Technician Relationship Specialty Start Date End Date Mustapha Anand DO [address] [place] [id number] PCP - General Family Medicine 08/08/17 documented as of this encounter
--- OUTSIDE RECORDS SUMMARY | 2023-11-03 04:01 | XMS_ITS | Encounter Summary ---
Author Organization [facility] Address [facility] [place] [address] Care Team Providers Care Head Control Clerk Name Role Phone Mustapha Anand DO Primary Care Provider [phone] Reason for Visit * Reason Comments Follow-up Encounter Details Date Type Department Care Team (Late st Contact Info) Description 03/23/2021 11:45 AM EST Office [place] [phone] Shane Diamond MD [facility] [place] [address] History of lobectomy of lung Social History Tobacco Use Types Packs/Day Years Used Date Smoking Tobacco: Former Pipe Q uit: 04/25/1997 Smokeless Tobacco: Former Comments:was a pouch a week from the pipe Sex and Gender Information Value Date Recorded Sex Assigned at Not on file Gender Identity Not on file Sexual Orientation Not on file documented as of this encounter Last Filed Vital Signs Vital Sign Reading Time Taken Comments Blood Pressure 163/93 03/23/2021 11:33 AM EST Pulse 74 03/23/2021 11:33 AM EST Temperature 36.4 ??C (97.5 ??F) 03/23/2021 11:[address] Respiratory Rate 13 03/23/2021 11:33 AM EST Oxygen Saturation 95% 03/23/2021 11:33 AM EST Inhaled Oxygen Concentration - - Weight 126 kg (277 lb 12.8 oz) 03/23/2021 11:33 AM EST Height - - Body Mass Index 38 10/16/2020 3:03 PM EDT documented in this encounter Progress Notes * Shane Diamond MD - 03/23/2021 11:45 AM EST Thoracic surgery follow-up visit Chief complaint: Follow-up metastasectomy for colorectal cancer History of present illness: Mr. Kincaid is a 70-year-old man with metastatic colorectal cancer who had a left lower lobectomy for metastasis on December 20, 2015. I last saw him on March 24, 2020 at which time he was doing well. He comes in today for scheduled annual follow-up. He was seen by his medical oncologist in October and his CEA remains undetectable. He has experienced some weight gain and is slightly more short of breath but otherwise reports no new complaints. Current Outpatient Medications on File Prior to Visit Medication Sig Dispense Refill ??? vit A/vit C/vit E/zinc/copper (PRESERVISION AREDS ORAL) Take by mouth. ??? apixaban (ELIQUIS) 5 mg Tablet Take 5 mg by mouth 2 times daily. ??? metoprolol succinate (TOPROL-XL) 25 mg Tablet Sustained Release 24 hr Take 25 mg by mouth 2 times daily. ??? atorvastatin (LIPITOR) 40 mg Tablet Take 40 mg by mouth daily. ??? acetaminophen (TYLENOL) 500 mg Tablet Take 2 tablets by mouth every 6 hours. 30 tablet 1 No current facility-administered medications on file prior to visit. BP (!) 163/93 (Patient Position: Sitting) Pulse 74 Temp 36.4 ??C (97.5 ??F) (Temporal) Resp 13 Wt 126 kg (277 lb 12.8 oz) SpO2 95% BMI 38.00 kg/m?? Physical exam: He appears comfortable. His breathing is not labored. His lungs are clear, heart is regular and abdomen is nontender and nondistended. Imaging: A noncontrast chest CT today demonstrates no new or enlarging lung nodules Assessment: 70-year-old man now just over 5 years removed from a metastasectomy for metastatic colorectal cancer. He continues to undergo routine surveillance with his oncologist with CEA levels, Jaja advised him that further surveillance for lung nodules may be unnecessary at this point. I will review with his oncologist, and we will make a determination whether to obtain a chest CT next year or to rely on his CEA from here on out. Plan: Repeat CT next year versus discontinuing annual surveillance and monitoring CEA level only; will discuss with Dr. Fior DIAMOND MD documented in this encounter Plan of Treatment Upcoming Encounters Date Type Department Care Team (Late st Contact Info) Description 11/03/2023 8:30 AM EDT Office Visit Hematology/Oncology at [address] [phone] Garcia Childress MD [facility] [place] [address] Kassy Ken APRN [address] [place] [address] [place] [address] documented as of this encounter Visit Diagnoses Diagnosis History of lobectomy of lung documented in this encounter Care Teams Head Control Clerk Relationship Specialty Start Date End Date Mustapha Anand DO [address] [place] [address] PCP - General Family Medicine 08/08/17 documented as of this encounter
--- OUTSIDE RECORDS SUMMARY | 2023-11-03 04:01 | XMS_ITS | Encounter Summary ---
Author Organization [facility] Address [facility] [place] [address] Care Team Providers Care Netezza Architect Name Role Phone Mustapha Anand DO Primary Care Provider [phone] Reason for Referral * Diagnostic Test (Routine) - Closed Specialty Diagnoses / Procedures Referred By Contac t Referred To Contact Radiology Diagnoses Malignant neoplasm of colon, unspecified part of colon Mass of left lung History of lobectomy of lung Procedures CT Chest wo Contrast (Generic) Eugene Villalba, PA [facility] [place] [address] [facility] [place] [address] Referral ID Status Reason Start Date Expiration Date V isits Requested Visits Authorized [id number] Closed Specialty Service Requested 03/24/2020 09/22/2021 1 1 Reason for Visit * Reason Comments Follow-up Encounter Details Date Type Department Care Team (Late st Contact Info) Description 03/24/2020 11:45 AM EST Office [place] [address] Shane Diamond MD [facility] [place] [address] Malignant neoplasm of colon, unspecified part of colon; Mass of left lung; History of lobectomy of lung Social History [...] Sign Reading Time Taken Comments Blood Pressure 148/69 03/24/2020 11:34 AM EST Pulse 70 03/24/2020 11:34 AM EST Temperature 36.1 ??C (97 ??F) 03/24/2020 11: 34 AM EST Respiratory Rate 18 03/24/2020 11:3 4 AM EST Oxygen Saturation 95% 03/24/2020 11: 34 AM EST Inhaled Oxygen Concentration - - Weight 117.8 kg (259 lb 12.8 oz) 2019 11:34 AM EST Height 182.1 cm (5' 11.69) 03/24/2020 11:34 AM EST Body Mass Index 35.54 03/24/2020 11:34 AM EST documented in this encounter Patient Instructions * Patient Instructions* Alda Velasquez RN - 03/24/2020 11:45 AM EST Thank you for visiting Dr. Diamond in clinic 03/24/20 Dr. Diamond would like to see you back in clinic in 1 year with a recent CT scan of your chest without IV contrast. You will receive a letter in the mail/ receive a call to schedule this appointment. ?? Exercise each day for 30 minutes or longer. Daily aerobic exercise for at least 30 minutes will help improve your endurance and improve the breathing capacity of your lungs. This means that you are breathing hard, your heart is beating fast and that you are sweating. Examples of this include walking, biking, swimming, and using a treadmill or stationary bike. Please call Thoracic surgery at with any questions or concerns. documented in this encounter Progress Notes * Eugene Villalba PA - 03/24/2020 11:45 AM EST Thoracic Surgery Outpatient Consultation Note MD Eugene Adame PA-C [place] [phone] Today, 03/24/2020, we saw Mr. Seth Kincaid in follow-up from his Left VATS LLL lobectomy for a colorectal metastasis on 12/10/2015. He was last seen on 03/12/2020 and at that time was doing well withNED on imaging. Since his last visit, he has been feeling well overall and has had no interval changes in his health, ED visits, hospitalizations or procedures. He has noticed a slight decrease in his energy level which he associates with being less active. He paces himself with his activities but is able to do everything he wants to do. He is currently breathing comfortably and denies fevers, chills, sweats, weight loss, chest pain, palpitations, SOB, difficulty breathing, cough, productive cou gh, nausea, vomiting, abdominal pain. On physical examination today, his height is 182.1 cm (5' 11.69) and weight is 117.8 kg (259 lb 12.8 oz). His temporal temperature is 36.1 ??C (97 ??F). His blood pressure is 148/69 and his pulse is70. His respiration is 18 and oxygen saturation is 95%. Body mass index is 35.54 kg/m??. In general, he is in no acute distress. His pupils are reactive. His lungs are clear to auscultation bilaterally. His heart has a regular rate with no murmurs appreciated. His abdomen is soft and nontender. Hisextremities are warm with no edema. Neurologically, he is grossly intact. Imaging: CT Chest I- (03/24/2020): Status post left lower lobectomy. No findings for resection site recurrence, new disease, or metastatic disease. In summary, Mr. Seth Kincaid has made an excellent recovery from his Left VATS LLL lobectomy fora colorectal metastasis on 12/10/2015. RAND on imaging today. We reviewed with him the recommended follow-up imaging plan of continued surveillance with a CT Chest I- for which he will return to see us in 1 year. Patient should follow up with oncology, PCP and other providers as scheduled. He knows to call our office at any time if any questions or concerns should arise in the interim. NIMO Choe 03/24/2020 Thoracic Surgery [facility] * Shane Diamond MD - 03/24/2020 11:45 AM EST Thoracic surgery follow-up visit I saw and examined Mr. Kincaid with NIMO Rodriguez, and agree with his findings, assessmentand plan. In brief: Chief complaint: Follow-up metastasectomy for colorectal cancer History of present illness: Mr. Kincaid is a 69-year-old man with metastatic colorectal cancer who had a left lower lobectomy for a colorectal metastasis on December 10, 2015. I last saw him in March 2019 at which time he was doing well. He comes in today for scheduled annual follow-up. He notes some weight gain and increased fatigability but otherwise has no new symptoms. Current Outpatient Medications on File Prior to [...] medications on file prior to visit. BP 148/69 (Patient Position: Sitting) Pulse 70 Temp 36.1 ??C (97 ??F) (Temporal) Resp 18 Ht182.1 cm (5' 11.69) Wt 117.8 kg (259 lb 12.8 oz) SpO2 95% BMI 35.54 kg/m?? Physical exam: He appears comfortable. His breathing is nonlabored. His lungs are clear. His incision has healed well. Imaging: A noncontrast chest CT demonstrated no evidence of new or recurrent disease Assessment: 69-year-old man now 4 years removed from a left lower lobectomy for metastasectomy of colorectal metastasis. No evidence of disease is present. His CEA was tested in October and was 0.8. I recommended that he return in 1 year for a surveillance chest CT. If this shows no disease we could consider discontinuing surveillance at that point. Plan: Return to clinic in [address] SHANE DIAMOND MD documented in this encounter Plan of Treatment Upcoming Encounters Date Type Department Care Team (Late st Contact Info) Description 11/03/2023 8:30 AM EDT Office Visit Hematology/Oncology at [address] [phone] Garcia Childress MD [facility] [address] HEMATOLOGY [place] [address] Kassy Ken [address] [place] [address] documented as of this encounter Results * CT Chest wo Contrast (Generic) (03/23/2021 10:28 AM EST) Anatomical Region Laterality Modality Chest Computed Tomogra phy 03/23/2021 10:4 5 AM EST Impressions 03/23/2021 11:50 AM EST 1. ??Status post left lower lobectomy without evidence of resection site recurrence or new distant metastatic disease. 2. ??Right lung apex linear opacity with nodularity may reflect minimal post inflammatory/ infectious organizing change versus scarring. ??Consider short-term/3 month interval follow-up for resolution versus stability. I have personally reviewed the image(s) and the resident's interpretation and agree with the findings, Carmen Roblero MD at 03/23/2021 11:50 AM Thank you for letting us participate in the care of this patient. ??If you are a health care provider and have any questions regarding this report, please contact the number below. ??For patients who have questions please contact the health wound care physician that requested your imaging first. ? Narrative 03/23/2021 11:50 AM EST EXAMINATION: CT CHEST WO CONTRAST (GENERIC) CLINICAL HISTORY: Colorectal cancer, surveillance TECHNIQUE: 3.0 mm thick axial contiguous sections were obtained through the chest via helical acquisition without intravenous contrast administration. Thin-section reconstructions as well as coronal and sagittal reformatted images were generated. COMPARISON: CT chest 03/24/2020, 03/12/2019 FINDINGS: Pulmonary parenchyma: Status post left lower lobectomy with suture noted adjacent to the right hilum is unchanged scarring of the paraspinal left lower lobe. No evidence of resection site recurrence. Small linear opacity of the right lung apex (series 7, image 22 through 31), with associated mild nodularity. Triangular perifissural nodule with consistent with intrapulmonary lymph node. Stable subpleural scarring of the left lung base. No new or enlarging pulmonary nodule. Airways: Large airways are patent and normal caliber. Pleura: No effusion or pneumothorax. Lymph nodes: Unchanged 10 mm left paratracheal lymph node (series 3, image 13). No new or enlarging lymph nodes. Heart, pericardium, and great vessels: Mild coronary artery calcifications. Aortic annular calcifications. No pericardial effusion. Normal caliber of the thoracic aorta and main pulmonary artery. Other mediastinal structures: No significant findings. Lower neck: No significant findings. Upper abdomen: Unchanged 19 x 15 mm katja hepatis node (series 3, image 103). Small layering gallstones again noted without evidence of the bladder wall thickening or pericholecystic inflammation. Body wall soft tissues: No significant findings. Skeletal structures: No significant findings. Procedure Note Carmen Roblero MD - 03/23/2021 EXAMINATION: CT CHEST WO CONTRAST (GENERIC) CLINICAL HISTORY: Colorectal cancer, surveillance TECHNIQUE: 3.0 mm thick axial contiguous sections were obtained throughthe chest via helical acquisition without intravenous contrastadministration. Thin-section reconstructions as well as coronal and sagittal reformattedimages were generated. COMPARISON: CT chest 03/24/2020, 03/12/2019 FINDINGS: Pulmonary parenchyma: Status post left lower lobectomy with suture noted adjacent to the right hilum is unchanged scarring of the paraspinal leftlower lobe. No evidence of resection site recurrence. Small linear opacity of the right lung apex (series 7, image 22 ), with associated mild nodularity. Triangular perifissural nodule withconsistent with intrapulmonary lymph node. Stable subpleural scarring of the leftlung base. No new or enlarging pulmonary nodule. Airways: Large airways are patent and normal caliber. Pleura: No effusion or pneumothorax. Lymph nodes: Unchanged 10 mm left paratracheal lymph node (series 3, image13). No new or enlarging lymph nodes. Heart, pericardium, and great vessels: Mild coronary arterycalcifications. Aortic annular calcifications. No pericardial effusion. Normal caliber ofthe thoracic aorta and main pulmonary artery. Other mediastinal structures: No significant findings. Lower neck: No significant findings. Upper abdomen: Unchanged 19 x 15 mm katja hepatis node (series 3, ). Small layering gallstones again noted without evidence of the bladderwall thickening or pericholecystic inflammation. Body wall soft tissues: No significant findings. Skeletal structures: No significant findings. IMPRESSION 1. Status post left lower lobectomy without evidence of resection site recurrence or new distant metastatic disease. 2. Right lung apex linear opacity with nodularity may reflect minimalpost inflammatory/ infectious organizing change versus scarring. Consider short-term/3 month interval follow-up for resolution versus stability. I have personally reviewed the image(s) and the resident's interpretationand agree with the findings, Carmen Roblero MD at 03/23/2021 11:50 AM Thank you for letting us participate in the care of this patient. If youare a health care provider and have any questions regarding this report,please contact the number below. For patients who have questions please contactthe health wound care physician that requested your imaging first. Shane Diamond MD IMG CT ORDERABLE S documented in this encounter Visit Diagnoses Diagnosis Malignant neoplasm of colon, unspecified part of colon Mass of left lung History of lobectomy of lung Malignant neoplasm of colon, unspecified part of colon Mass of left lung History of lobectomy of lung documented in this encounter Care Teams Netezza Architect Relationship Specialty Start Date End Date Mustapha Anand DO [address] [place] [address] PCP - General Family Medicine 08/08/17 documented as of this encounter
--- OUTSIDE RECORDS SUMMARY | 2023-11-03 04:01 | XMS_ITS | Encounter Summary ---
Author Organization [facility] Address [facility] [place] [address] Care Team Providers Care Principal Software Engineer Name Role Phone Mustapha Anand DO Primary Care Provider [phone] Reason for Referral * Diagnostic Test (Routine) - Specialty Diagnoses / Procedures Referred By Contac t Referred To Contact Radiology Diagnoses Encounter for follow-up surveillance of lung cancer Procedures CT Chest wo Contrast (Generic) Shane Diamond MD [facility] [place] [address] [facility] [place] [address] Referral ID Status Reason Start Date Expiration Date Visits Requested Visits Authorized [id number] Specialty Service Requested 02/13/2018 02/13/2019 1 1 Reason for Visit * Diagnostic Test (Routine) - Specialty Diagnoses / Procedures Referred By Contac t Referred To Contact Radiology Diagnoses Encounter for follow-up surveillance of lung cancer Procedures CT Chest wo Contrast (Generic) Shane Diamond MD [facility] [place] [address] [facility] [place] [address] Referral ID Status Reason Start Date Expiration Date Visits Requested Visits Authorized [id number] Specialty Service Requested 02/13/2018 02/13/2019 1 1 Encounter Details Date Type Department Care Team (Latest Contact Info) Description 03/12/2019 9:15 AM EST - 03/12/2019 11:59 PM EST Hospital [place] [address] Shane Diamond MD [facility] [place] [address] Encounter for follow-up surveillance of lung cancer Discharge Disposition: Home Social History Tobacco Use Types Packs/Day Years Used Date Smoking Tobacco: Former Pipe Q uit: 04/25/1997 Smokeless Tobacco: Former Comments:was a pouch a week from the pipe Sex and Gender Information Value Date Recorded Sex Assigned at Not on file Gender Identity Not on file Sexual Orientation Not on file documented as of this encounter Medications at Time of Discharge Medication Sig Dispensed Refills Start Date End Date vit A/vit C/vit E/zinc/copper (PRESERVISION AREDS ORAL) Take by mouth. apixaban (ELIQUIS) 5 mg Tablet Take 5 mg by mouth 2 times daily. metoprolol succinate (TOPROL-XL) 25 mg Tablet Sustained Release 24 hr Take 100 mg by mouth 2 times daily. atorvastatin (LIPITOR) 40 mg Tablet Take 40 mg by mouth daily. acetaminophen (TYLENOL) 500 mg Tablet Take 2 tablets by mouth every 6 hours. 30 tablet 1 12/13/2015 documented as of this encounter Plan of Treatment Upcoming Encounters Date Type Department Care Team (Late st Contact Info) Description 11/03/2023 8:30 AM EDT Office Visit Hematology/Oncology at [address] [phone] Garcia Childress MD [facility] DR HEMATOLOGY [place] [address] Kassy Ken APRN [address] [place] [address] [place] [address] documented as of this encounter Procedures Procedure Name Priority Date/Time Associated Diagnosis Comments CT CHEST WO CONTRAST (GENERIC) Routine 03/12/2019 9:27 AM EST Encounter for follow-up surveillance of lung cancer documented in this encounter Results * CT Chest wo Contrast (Generic) (03/12/2019 9:27 AM EST) Anatomical Region Laterality Modality Chest Computed Tomogra phy Impressions 03/12/2019 1:13 PM EST No evidence of local site recurrence, gaby metastasis, or distant metastasis. I have personally reviewed the image(s) and the resident's interpretation and agree with the findings, Kristian Arreguin at 03/12/2019 1:13 PM Thank you for letting us participate in the care of this patient. For questions regarding this report, please contact the number below. ? Narrative 03/12/2019 1:13 PM EST EXAMINATION: CT CHEST WO CONTRAST (GENERIC) CLINICAL HISTORY: s/p LLL Lobectomy 12/2015. Surveillance for recurrence of disease. TECHNIQUE: 3.75mm thick axial contiguous sections were obtained through the chest via helical acquisition without intravenous contrast administration. Thin-section reconstructions as well as coronal and sagittal reformatted images were generated. COMPARISON: 02/13/2018 CT chest FINDINGS: Pulmonary parenchyma: Status post left lower lobectomy without nodularity at the surgical margins to suggest local recurrence. No new opacity or pulmonary nodule. Similar peripheral left basilar haziness compatible with postsurgical change. Airways: Post lobectomy. No endobronchial opacities. Pleura: No effusion or pneumothorax. Surgical clips are noted near the left lung base. Lymph nodes: Unchanged borderline enlarged 0.9 cm superior mediastinal lymph node (series 5 image 46). No new thoracic adenopathy. Heart, pericardium, and great vessels: Normal heart size. No pericardial effusion. Other mediastinal structures: No significant findings. Lower neck: No significant findings. Upper abdomen: Calcified cholelithiasis without evidence of acute cholecystitis. Body wall soft tissues: No significant findings. Skeletal structures: No acute findings or suspicious lesion. Procedure Note Kristian Arreguin MD - 03/12/2019 EXAMINATION: CT CHEST WO CONTRAST (GENERIC) CLINICAL HISTORY: s/p LLL Lobectomy 12/2015. Surveillance for recurrenceof disease. TECHNIQUE: 3.75mm thick axial contiguous sections were obtained throughthe chest via helical acquisition without intravenous contrastadministration. Thin-section reconstructions as well as coronal and sagittal reformattedimages were generated. COMPARISON: 02/13/2018 CT chest FINDINGS: Pulmonary parenchyma: Status post left lower lobectomy without nodularityat the surgical margins to suggest local recurrence. No new opacity orpulmonary nodule. Similar peripheral left basilar haziness compatible withpostsurgical change. Airways: Post lobectomy. No endobronchial opacities. Pleura: No effusion or pneumothorax. Surgical clips are noted near theleft lung base. Lymph nodes: Unchanged borderline enlarged 0.9 cm superior mediastinallymph node (series 5 image 46). No new thoracic adenopathy. Heart, pericardium, and great vessels: Normal heart size. No pericardial effusion. Other mediastinal structures: No significant findings. Lower neck: No significant findings. Upper abdomen: Calcified cholelithiasis without evidence of acutecholecystitis. Body wall soft tissues: No significant findings. Skeletal structures: No acute findings or suspicious lesion. IMPRESSION No evidence of local site recurrence, gaby metastasis, or distantmetastasis. I have personally reviewed the image(s) and the resident's interpretationand agree with the findings, Kristian Arreguin at 03/12/2019 1:13 PM Thank you for letting us participate in the care of this patient. Forquestions regarding this report, please contact the number below. Shane Diamond MD IMG CT ORDERABLE S documented in this encounter Visit Diagnoses Diagnosis Encounter for follow-up surveillance of lung cancer Unspecified follow-up examination documented in this encounter Care Teams Principal Software Engineer Relationship Specialty Start Date End Date Mustapha Anand DO [address] [place] [address] PCP - General Family Medicine 08/08/17 documented as of this encounter
--- OUTSIDE RECORDS SUMMARY | 2023-11-03 04:01 | XMS_ITS | Encounter Summary ---
Author Organization [facility] Address [facility] [place] [address] Care Team Providers Care Karate Black Belt Name Role Phone Mustapha Anand DO Primary Care Provider [phone] Encounter Details Date Type Department Care Team (Late st Contact Info) Description 10/29/2021 10:00 AM EDT Office Visit Hematology/Oncology at [address] [phone] Gacria Childress MD [facility] DR [place] [address] Mirella Jean, MANAGEMENT PLANNER [facility] DR [place]AT[place] [address] Carcinoma of colon Social History Tobacco Use Types Packs/Day Years [...] Sign Reading Time Taken Comments Blood Pressure 155/90 10/29/2021 10:10 AM EDT Pulse 63 10/29/2021 10:10 AM EDT Temperature 36.6 ??C (97.8 ??F) 11/05/2021 9:32 AM ED T Respiratory Rate 18 10/29/2021 10:1 0 AM EDT Oxygen Saturation 95% 10/29/2021 10: 10 AM EDT Inhaled Oxygen Concentration - - Weight 126.6 kg (279 lb 3.2 oz) 022 10:10 AM EDT Height 180.3 cm (5' 11) 10/29/2021 10: 10 AM EDT Body Mass Index 38.94 10/29/2021 10:10 AM EDT documented in this encounter Progress Notes * Garcia Childress MD - 10/29/2021 10:00 AM EDT The patient is seen in the [facility]. Adenocarcinoma of sigmoid colon - pT2 pN0 Mx, well differentiated - 04/22/08 sigmoid resection Invasive adenocarcinoma, arising in association with a tubular adenoma with high grade dysplasia. well-differentiated, 2.6 cm The tumor infiltrates into but not through the muscularis propria (pT2). No lymphatic, vascular or perineural invasion is present. Twenty (20) lymph nodes with no evidence of malignancy (pN0). All margins of resection are free of tumor Rising CEA [id number] Isolated LLL lung Met Resected 10/[address] last 03/24 He is now 6 years out from resection of his isolated lung metastasis from his colon cancer. He has no new pulmonary symptoms. He has not had any cough or shortness of breath. No systemic symptoms. Nofevers chills sweats or weight loss. He is followed in the medical oncology clinic yearly Patient Active Problem List Diagnosis Code ??? Carcinoma of colon C18.9 ??? Obesity E66.9 ??? CIS - Past Surgery/Trauma ??? Elevated LFTs R79.89 ??? Inflamed seborrheic keratosis L82.0 ??? Mass of lower lobe of left lung R91.8 ??? Lung mass R91.8 Afib Current Outpatient Medications on File Prior to Visit Medication Sig Dispense Refill ??? apixaban (ELIQUIS) 5 mg Tablet Take 5 mg by mouth 2 times daily. ??? metoprolol succinate (TOPROL-XL) 25 mg Tablet Sustained Release 24 hr Take 25 mg by mouth 2 times daily. ??? atorvastatin (LIPITOR) 40 mg Tablet Take 40 mg by mouth daily. ??? acetaminophen (TYLENOL) 500 mg Tablet Take 2 tablets by mouth every 6 hours. 30 tablet 1 ??? vit A/vit C/vit E/zinc/copper (PRESERVISION AREDS ORAL) Take by mouth. No current facility-administered medications on file prior to visit. Review of Systems Constitutional: Negative for fever, chills, activity change, fatigue and unexpected weight change. HENT: Negative for sore throat, mouth sores and trouble swallowing. Eyes: Negative. Respiratory: Negative for cough, shortness of breath and wheezing. Cardiovascular: Negative for chest pain, palpitations and leg swelling. Gastrointestinal: Negative for nausea, vomiting, abdominal pain, diarrhea, constipation and abdominal distention. Genitourinary: Negative for dysuria and difficulty urinating. Musculoskeletal: Negative. Skin: Negative. Neurological: Negative. Hematological: Negative for adenopathy. BP 155/90 (Patient Position: Sitting) Pulse 63 Temp 36.6 ??C (97.9 ??F) (Temporal) Resp 18 Ht 180.3 cm (5' 11) Wt 126.6 kg (279 lb 3.2 oz) SpO2 95% BMI 38.94 kg/m?? Head: Normocephalic, without obvious abnormality, atraumatic Eyes: PERRL, conjunctiva/corneas clear, EOM's intact, fundi benign, both eyes Ears: Normal TM's and external ear canals, both ears Nose: Nares normal, septum midline, mucosa normal, no drainage or sinus tenderness Throat: Lips, mucosa, and tongue normal; teeth and gums normal Neck: Supple, symmetrical, trachea midline, no adenopathy, thyroid: not enlarged, symmetric, no tenderness/mass/nodules, no carotid bruit or JVD Back: Symmetric, no curvature, ROM normal, no CVA tenderness Lungs: Clear to auscultation bilaterally, respirations unlabored Chest Wall: No tenderness or deformity Heart: Regular rate and rhythm, S1, S2 normal, no murmur, rub or gallop Abdomen: Soft, non-tender, bowel sounds active all four quadrants, no masses, no organomegaly Extremities: Extremities normal, atraumatic, no cyanosis or edema Pulses: 2+ and symmetric Skin: Skin color, texture, turgor normal, no rashes or lesions Lymph nodes: Cervical, supraclavicular, and axillary nodes normal Neurologic: Normal CEA 10/23 pending 10/22 < 2.0 03/23 <0.5 12/28/18 <0.5 06/19/18 <0.5 08/16/16 <0.5 04/14/16 <0.5 15.9 Lung Mass resected 09/17/15 13.3 03/13/15 7.8 11/07/14 8.0 Repeat [facility] 5.5 11/08/13 3.3 05/02/13 3.1 11/03/12 1.2 05/04/12 1.2 10/29/11 1.2 04/20/11 1.3 10/16/10 0.8 04/13/10 0.6 11/03/09 0.9 07/03/09 0.9 04/03/09 <0.5 12/27/08 0.4 08/23/08 0.4 White count 8.5, hemoglobin 13.2, platelets 214 Creatinine 0.9, alkaline phosphatase 177 Assessment/plan: 70-year-old man now 6 years out from resection of an isolated metastasis from a colon cancer. This was heralded by a rising CEA. Current screening laboratories show no evidence of local or systemic recurrence. He does carry a mildly elevated alkaline phosphatase which is likely part of his fatty liver problem. We will continue to follow him every 12 months I will see him back with labs and a CEA at that point. I don't think he eeds routine CT scanning anymore. He was reminded to check in with his PCP to keep his colonoscopies up to date given his prior Colorectal cancer and risk of another primary. documented in this encounter Plan of Treatment Upcoming Encounters Date Type Department Care Team (Late st Contact Info) Description 11/03/2023 8:30 AM EDT Office Visit Hematology/Oncology at [address] [phone] Garcia Childress MD [facility] DR HEMATOLOG[place] [address] Kassy Ken MANAGEMENT PLANNER [address] [place] [address] DR MEDICAL ONCOLOGY [place], [place] [id number] documented as of this encounter Procedures Procedure Name Priority Date/Time Associated Diagnosis Comments CBC (WITH DIFF) Routine 10/29/2021 CEA Routine 10/29/2021 COMPREHENSIVE METABOLIC PANEL (NON-FASTING) Routine 10/29/2021 documented in this encounter Results * CEA (10/29/2021) CEA <0.5 Blood 10/29/2021 Historical Provider CHEMISTRY ORDERAB LES * (ABNORMAL) Comprehensive metabolic panel (non-fasting) (10/29/2021) BUN 13 Creatinine 0.9 Sodium 140 Potassium 4.2 Calcium 8.8 Alk Phos 177(H) AST 30 ALT 45 Blood 10/29/2021 Historical Provider CHEMISTRY ORDERAB LES * (ABNORMAL) CBC (with Diff) (10/29/2021) WBC 8.56 RBC 4.54 Hemoglobin 13.2(L) Hematocrit 41.8 Platelets 214 Neutr Abs (ANC) 4.92 Blood 10/29/2021 Historical Provider HEMATOLOGY ORDERA BLES documented in this encounter Visit Diagnoses Diagnosis Carcinoma of colon Malignant neoplasm of colon, unspecified site documented in this encounter Care Teams Karate Black Belt Relationship Specialty Start Date End Date Mustapha Anand DO [address] [place] [address] PCP - General Family Medicine 08/08/17 documented as of this encounter
--- OUTSIDE RECORDS SUMMARY | 2023-11-03 04:01 | XMS_ITS ---
Author Organization [facility] Address [facility] [place] [address] Care Team Providers Care Him Tech Name Role Phone Cheng Mustapha Alcocer DO Primary Care Provider [phone] Active Problems Problem Noted Date Diagnosed Date Lung mass 11/18/2015 Inflamed seborrheic keratosis 03/18/2011 Carcinoma of colon 04/01/2008 Overview (01/02/2012): adenocarcinoma of sigmoid colon - pT2 pN0 Mx, well differentiated - 04/01/08 screening colonoscopy - sigmoid carcinoma - 04/22/08 sigmoid resection ---Pathologic Diagnosis--- CONSULTATION CASE 1. Outside slides labeled [id number], collection date 04/01/08. Colon, biopsy at 15 cm: Invasive adenocarcinoma, arising in association with a tubular adenoma with high grade dysplasia. 2. Outside slides labeled [id number], collection date 04/22/08. A - Small bowel, biopsy: Pancreatic tissue with ductal dilatation and focal PanIN-1B and PanIN-2. B - Sigmoid colon, resection: Invasive adenocarcinoma, well-differentiated, 2.6 cm in greatest dimension by report, and arising in association with a tubular adenoma with high grade dysplasia. The tumor infiltrates into but not through the muscularis propria (pT2). No lymphatic, vascular or perineural invasion is present. Twenty (20) lymph nodes with no evidence of malignancy (pN0). All margins of resection are free of tumor (clearance of closest radial margin is 1.7 cm by report). No intratumoral or peritumoral lymphoid infiltration is present. Submucosal pigment consistent with tattoo site. C - Distal colon stump, excision: Segment of colon with no evidence of malignancy. D - Proximal colon stump, excision: Segment of colon with no evidence of malignancy. Obesity Overview (06/09/2010): moderate CIS - Past Surgery/Trauma Overview (06/09/2010): broken arm as a boy, varicose vein surgery in 1970 Elevated LFTs Mass of lower lobe of left lung Current Oncology Plans No current plan information found. Past Plans No past plan information found. Radiation Treatments * No radiation treatments are documented for this patient in [facility]. Treatments may have been administered in another system. Lifetime Dose Tracking * Chemical Lifetime Dose Automatic Entry Manual Entr y DLP (Dose Length Product) 433 mGy-cm 433 mGy-cm 0 mGy-cm CTDI (CT Dose Index) Min 11.22 mGy 11.22 mGy 0 m Gy CTDI (CT Dose Index) Max 11.22 mGy 11.22 mGy 0 m Gy
--- OUTSIDE RECORDS SUMMARY | 2023-11-03 04:01 | XMS_ITS | Encounter Summary ---
Author Organization [facility] Address [facility] [place] [address] Care Team Providers Care Director Of Capital Giving Name Role Phone Mustapha Anand DO Primary Care Provider Reason for Referral * Diagnostic Test (Routine) - Closed Specialty Diagnoses / Procedures Referred By Hi franklni Referred To Contact Radiology Diagnoses Mass of left lung Malignant neoplasm of colon, unspecified part of colon History of lobectomy of lung Procedures CT Chest wo Contrast (Generic) Shane Diamond MD [facility] [place] [address] [facility] [place] [address] Referral ID Status Reason Start Date Expiration Date V isits Requested Visits Authorized [id number] Closed Specialty Service Requested 1 1 Reason for Visit * Diagnostic Test (Routine) - Closed Specialty Diagnoses / Procedures Referred By Hi franklin Referred To Contact Radiology Diagnoses Mass of left lung Malignant neoplasm of colon, unspecified part of colon History of lobectomy of lung Procedures CT Chest wo Contrast (Generic) Shane Diamond MD [facility] [place] [address] [facility] [place] [address] Referral ID Status Reason Start Date Expiration Date V isits Requested Visits Authorized [id number] Closed Specialty Service Requested 1 1 Encounter Details Date Type Department Care Team (Latest Contact Info) Description 03/24/2020 10:33 AM EST - 03/24/2020 11:59 PM EST [place] [address] Shane Diamond MD [facility] [place] [address] Mass of left lung; Malignant neoplasm of colon, unspecified part of colon; History of lobectomy of lung Discharge Disposition: Home Social History Tobacco Use [...] 8:30 AM EDT Office Visit Hematology/Oncology at [address] [phone] Garcia Childress MD [facility] DR HEMATOLOGY [place] [address] Kassy Ken APRN [address] [place] [address] [place] [address] documented as of this encounter Procedures Procedure Name Priority Date/Time Associated Diagnosis Comments CT CHEST WO CONTRAST (GENERIC) Routine 03/24/2020 10:42 AM EST Mass of left lung Malignant neoplasm of colon, unspecified part of colon History of lobectomy of lung documented in this encounter Results * CT Chest wo Contrast (Generic) (03/24/2020 10:42 AM EST) Anatomical Region Laterality Modality Chest Computed Tomogra phy Impressions 03/24/2020 12:06 PM EST Status post left lower lobectomy. No findings for resection site recurrence, new disease, or metastatic disease. Thank you for letting us participate in the care of this patient. For questions regarding this report, please contact the number below. ? Electronically signed by: Carmen Roblero MD, [facility] ([phone]), at 03/24/2020 12:06 PM Narrative 03/24/2020 12:06 PM EST EXAMINATION: CT CHEST WO CONTRAST (GENERIC) CLINICAL HISTORY: Lung nodule, 6-8mm, follow up exam; Colorectal cancer, surveillance hx of metastatic CRC hx of LLLobectomy on 12/10/15, please eval for surveillance of disease TECHNIQUE: 3.75mm thick axial contiguous sections were obtained through the chest via helical acquisition without intravenous contrast administration. Thin-section reconstructions as well as coronal and sagittal reformatted images were generated. COMPARISON: 03/12/2019. FINDINGS: Pulmonary parenchyma: Status post left lower lobectomy, with no findings for resection site recurrence. Subpleural scarring in the left lung and paraspinal right lower lobe, as before. No new or enlarging nodule is seen. Airways: No new findings. Pleura: No pleural effusion. Lymph nodes:Within limits of noncontrast technique, no thoracic lymphadenopathy seen. A 9 mm short axis lymph node in the superior mediastinum reported on prior remains unchanged on series 3 image 80. Heart, pericardium, and great vessels: Mild coronary and aortic arch atherosclerotic calcification, as before. Mild aortic valve calcification unchanged. Other mediastinal structures: No new findings. Lower neck: No new findings. Upper abdomen: Tiny gallstones layering dependently in the gallbladder, unchanged. No new or enlarging adrenal nodule or other new finding. Body wall soft tissues: No new findings. Skeletal structures: No new findings. Procedure Note Carmen Roblero MD - 03/24/2020 EXAMINATION: CT CHEST WO CONTRAST (GENERIC) CLINICAL HISTORY: Lung nodule, 6-8mm, follow up exam; Colorectal cancer, surveillance hx of metastatic CRC hx of LLLobectomy on 12/10/15, please eval forsurveillance of disease TECHNIQUE: 3.75mm thick axial contiguous sections were obtained throughthe chest via helical acquisition without intravenous contrastadministration. Thin-section reconstructions as well as coronal and sagittal reformattedimages were generated. COMPARISON: 03/12/2019. FINDINGS: Pulmonary parenchyma: Status post left lower lobectomy, with no findingsfor resection site recurrence. Subpleural scarring in the left lung andparaspinal right lower lobe, as before. No new or enlarging nodule is seen. Airways: No new findings. Pleura: No pleural effusion. Lymph nodes:Within limits of noncontrast technique, no thoraciclymphadenopathy seen. A 9 mm short axis lymph node in the superior mediastinum reported onprior remains unchanged on series 3 image 80. Heart, pericardium, and great vessels: Mild coronary and aortic arch atherosclerotic calcification, as before. Mild aortic valvecalcification unchanged. Other mediastinal structures: No new findings. Lower neck: No new findings. Upper abdomen: Tiny gallstones layering dependently in the gallbladder, unchanged. No new or enlarging adrenal nodule or other new finding. Body wall soft tissues: No new findings. Skeletal structures: No new findings. IMPRESSION Status post left lower lobectomy. No findings for resection siterecurrence, new disease, or metastatic disease. Thank you for letting us participate in the care of this patient. Forquestions regarding this report, please contact the number below. Shane M Dara MD IMG CT ORDERABLE S documented in this encounter Visit Diagnoses Diagnosis Mass of left lung Malignant neoplasm of colon, unspecified part of colon History of lobectomy of lung documented in this encounter Care Teams Director Of Capital Giving Relationship Specialty Start Date End Date Mustapha Anand DO [address] [place] [address] PCP - General Family Medicine 08/08/17 documented as of this encounter
--- OUTSIDE RECORDS SUMMARY | 2023-11-03 04:01 | XMS_ITS | Encounter Summary ---
Author Organization [facility] Address [facility] [place] [address] Care Team Providers Care Steel Barrel Reamer Name Role Phone Mustapha Anand DO Primary Care Provider [phone] Encounter Details Date Type Department Care Team (Late st Contact Info) Description 10/11/2019 11:30 AM EDT Office Visit Hematology/Oncology at [address] [phone] Garcia Childress MD [facility] DR [place] [address] Carcinoma of colon; Mass of lower lobe of left lung Social History Tobacco Use Types Packs/Day [...] Sign Reading Time Taken Comments Blood Pressure 154/81 10/11/2019 11:32 AM EDT Pulse 62 10/11/2019 11:32 AM EDT Temperature 36.1 ??C (97 ??F) 10/11/2019 11:32 AM EDT Respiratory Rate 20 10/11/2019 11:32 AM EDT Oxygen Saturation 97% 10/11/2019 11:32 AM EDT Inhaled Oxygen Concentration - - Weight 116.6 kg (257 lb) 10/11/2019 11:32 AM EDT Height 182.7 cm (5' 11.93) 10/11/2019 11:32 AM EDT copied Body Mass Index 34.92 10/11/2019 11:32 AM EDT documented in this encounter Progress Notes * Shawna Chavarria, PRINTER HELPER - 10/11/2019 11:30 AM EDT Subjective: Patient ID: Seth Kincaid is a 68 y.o. male. Patient Active Problem List Diagnosis ??? Carcinoma of colon adenocarcinoma of sigmoid colon - pT2 pN0 Mx, well differentiated - 04/01/08 screening colonoscopy - sigmoid carcinoma - 04/22/08 sigmoid resection ---Pathologic Diagnosis--- CONSULTATION CASE 1. Outside slides labeled [id number], collection date 04/01/08. Colon, biopsy at 15 cm: Invasive adenocarcinoma, arising in association with a tubular adenoma with high grade dysplasia. 2. Outside slides labeled [id number], collection date 04/22/08. A - Small bowel, [...] of colon with no evidence of malignancy. ??? CIS - Past Surgery/Trauma broken arm as a boy, varicose vein surgery in 1971 ??? Lung mass ??? Mass of lower lobe of left lung ??? Inflamed seborrheic keratosis ??? Elevated LFTs ??? Obesity moderate HPI Adenocarcinoma of sigmoid colon - pT2 pN0 [...] resection are free of tumor Rising CEA [id number] Isolated LLL lung Met Resected 10/[address], Last neg 02/19 03/[address] INTERVAL HPI Seth Kincaid is a 68 yo male who returns to the [facility] by himself today for routine follow up of colon cancer with lung metastasis. (See surgical history above). He has an annual surveillance Chest CT with thoracic surgery at [facility] which is due again 03/23. Today Seth reports feeling well. He says his energy is good, and he offers no new complaints. He reports eating and drinking well, and tries to get at least 2-3 quarts of fluid in daily. He denies any new or persistent aches or pains, and states he has been working in his garden. He lives home with his spouse. He had a tooth pulled last week without complication. He denies any respiratory or GI changes. He remains on Eliquis and Metoprolol for AF, and denies any unusual bleeding. Allergies Allergen Reactions ??? Adhesive Tape CIS - Rash, CIS - Rash Current medications ??? vit A/vit C/vit E/zinc/copper (PRESERVISION AREDS ORAL) ??? apixaban (ELIQUIS) 5 mg Tablet ??? metoprolol succinate (TOPROL-XL) 25 mg Tablet Sustained Release 24 hr ??? atorvastatin (LIPITOR) 40 mg Tablet ??? acetaminophen (TYLENOL) 500 mg Tablet HReview of Systems Constitutional: Negative for activity change, appetite change, fatigue and fever. HENT: Negative. Eyes: Negative. Respiratory: Negative for cough, chest tightness, shortness of breath and wheezing. Cardiovascular: Negative for chest pain and palpitations. Gastrointestinal: Negative for abdominal distention, abdominal pain, blood in stool, constipation, diarrhea and nausea. Genitourinary: Negative. Musculoskeletal: Negative for arthralgias, joint swelling and myalgias. Skin: Negative for rash and wound. Neurological: Negative for weakness, numbness and headaches. Hematological: Negative for adenopathy. Does not bruise/bleed easily. Psychiatric/Behavioral: Negative. Negative for sleep disturbance. Objective: Physical Exam Vitals signs reviewed. Constitutional: General: He is not in acute distress. Appearance: Normal appearance. HENT: Head: Normocephalic. Mouth/Throat: Mouth: Mucous membranes are moist. Pharynx: Oropharynx is clear. Eyes: General: No scleral icterus. Conjunctiva/sclera: Conjunctivae normal. Neck: Musculoskeletal: Neck supple. Cardiovascular: Rate and Rhythm: Normal rate and regular rhythm. Heart sounds: Normal heart sounds. Pulmonary: Effort: Pulmonary effort is normal. Breath sounds: Normal breath sounds. No wheezing or rales. Abdominal: General: Bowel sounds are normal. Palpations: Abdomen is soft. Tenderness: There is no abdominal tenderness. Musculoskeletal: Normal range of motion. Right lower leg: No edema. Left lower leg: No edema. Lymphadenopathy: Cervical: No cervical adenopathy. Skin: General: Skin is warm and dry. Findings: No lesion or rash. Neurological: Mental Status: He is alert and oriented to person, place, and time. Motor: No weakness. Gait: Gait normal. Psychiatric: Mood and Affect: Mood normal. Thought Content: Thought content normal. . Most Recent Vitals: 10/11/19 1132 BP: 154/81 Pulse: 62 Resp: 20 Temp: 36.1 ??C (97 ??F) SpO2: 97% Wt 116.6 kg LABS WBC 8.63; H/H 14.2/43.7; PLT 219; BUN 18; CREAT 0.94; CHRISTY 9.0; AST 27; ALT 43; ALK PHOS 136. CEA PENDING Assessment and Plan: Assessment: Seth is doing well today s/p sigmoid resection for colon cancer (2008) and lung resection for isolated lung metastasis (2015) which was found by a rising CEA. He remains active around the home, feels his breathing is good and has no GI or respiratory complaints or findings. His CBC and CMP are normal and CEA is pending. His most recent chest CTs have remained negative. Plan: I will look for CEA and let Seth know results. Thoracic surgery follows patient annually, due in 03/23. F/U here in 6 months with labs. documented in this encounter Plan of Treatment Upcoming Encounters Date Type Department Care Team (Late st Contact Info) Description 11/03/2023 8:30 AM EDT Office Visit Hematology/Oncology at [address] [phone] Garcia Childress MD [facility] DR [place] [address] Kassy Ken APRN [address] [place] [address] DR MEDICAL ONCOLOGY [place], [place] [id number] documented as of this encounter Visit Diagnoses Diagnosis Carcinoma of colon Malignant neoplasm of colon, unspecified site Mass of lower lobe of left lung documented in this encounter Care Teams Steel Barrel Reamer Relationship Specialty Start Date End Date Mustapha Anand DO [address] [place] [id number] PCP - General Family Medicine 08/08/17 documented as of this encounter
--- OUTSIDE RECORDS SUMMARY | 2023-11-03 04:01 | XMS_ITS | Encounter Summary ---
Author Organization [facility] Address [facility] [place] [address] Care Team Providers Care Probate Judge Name Role Phone Mustapha Anand DO Primary Care Provider [phone] Encounter Details Date Type Department Care Team (Latest Contact Info) Description 11/04/2022 Travel Social History Tobacco Use Types Packs/Day Years [...] 8:30 AM EDT Office Visit Hematology/Oncology at [address] [phone] Garcia Childress MD [facility] [address] [place] [address] Kassy Ken APRN [address] [place] [address] DR MEDICAL ONCOLOGY [place], [place] [address] documented as of this encounter Visit Diagnoses Not on filedocumented in this encounter Care Teams Probate Judge Relationship Specialty Start Date End Date Mustapha Anand DO [address] [place] [phone] PCP - General Family Medicine 08/08/17 documented as of this encounter
--- OUTSIDE RECORDS SUMMARY | 2023-11-03 04:01 | XMS_ITS | Encounter Summary ---
Author Organization [facility] Address [facility] [place] [address] Care Team Providers Care Garbage Person Name Role Phone Mustapha Anand Primary Care Provider [phone] Reason for Visit * Reason Onset Date Comments Labs Only 10/23/2020 CEA result Encounter Details Date Type Department Care Team (Late Contact Info) Description 10/23/2020 Telephone Hematology Oncology at [address] [phone] Rhonda Arellano RN Labs Only (CEA result) Social History Tobacco Use Types Packs/Day Years Used Date Smoking Tobacco: Former Pipe Q uit: 04/25/1997 Smokeless Tobacco: Former Comments:was a pouch a week from the pipe Sex and Gender Information Value Date Recorded Sex Assigned at Not on file Gender Identity Not on file Sexual Orientation Not on file documented as of this encounter Miscellaneous Notes * Telephone Encounter - Rhonda Arellano RN - 10/23/2020 4:43 PM EDT Seth had office visit 10/16 with labs. His CEA result was less than 2.0. Seth has been notified and he was thankful for the call. documented in this encounter Plan of Treatment Upcoming Encounters Date Type Department Care Team (Late st Contact Info) Description 11/03/2023 8:30 AM EDT Office Visit Hematology/Oncology at [address] [phone] Garcia Childress MD [facility] DR [place] [address] Kassy Ken APRN [address] [place] [address] DR MEDICAL ONCOLOGY [place], [place] [id number] documented as of this encounter Visit Diagnoses Not on filedocumented in this encounter Care Teams Garbage Person Relationship Specialty Start Date End Date Mustapha Anand DO [address] [place] [phone] PCP - General Family Medicine 08/08/17 documented as of this encounter
--- OUTSIDE RECORDS SUMMARY | 2023-11-03 04:01 | XMS_ITS | Clinical Summary ---
Author Organization [facility]ly [facility] Address [facility] [place] [address] Care Team Providers Care Sliver Lap Machine Tender Name Role Phone Mustapha Anand DO Primary Care Provider [phone] Allergies Active Allergy Reactions Criticality Noted Date Comments Adhesive Tape Low CIS - Rash, CIS - Rash Medications Medication Sig Dispensed Refills Start Date End Date Status acetaminophen (TYLENOL) 500 mg Tablet Take 2 tablets by mouth every 6 hours. 30 tablet 1 12/13/2015 Active apixaban (ELIQUIS) 5 mg Tablet Take 5 mg by mouth 2 times daily. Active metoprolol succinate (TOPROL-XL) 25 mg Tablet Sustained Release 24 hr Take 100 mg by mouth 2 times daily. Active atorvastatin (LIPITOR) 40 mg Tablet Take 40 mg by mouth daily. Active vit A/vit C/vit E/zinc/copper (PRESERVISION AREDS ORAL) Take by mouth. Active dilTIAZem (Cardizem) 30 mg tablet Take 30 mg by mouth 4 times daily. PRN in case heart rate gets over 110 Active Active Problems Problem Noted Date Diagnosed Date Lung mass 11/18/2015 Inflamed seborrheic keratosis 03/18/2011 Carcinoma of colon 04/01/2008 Overview (01/02/2012): adenocarcinoma of sigmoid colon - pT2 pN0 Mx, well differentiated - 04/01/08 screening colonoscopy - sigmoid carcinoma - 04/22/08 sigmoid resection ---Pathologic Diagnosis--- CONSULTATION CASE 1. Outside slides labeled [id number], collection date 04/01/08. Colon, biopsy at 15 cm: Invasive adenocarcinoma, arising in association with a tubular adenoma with high grade dysplasia. 2. Outside slides labeled [id number], collection date 04/22/08. A - Small bowel, [...] Mass of lower lobe of left lung Family History Medical History Relation Comments Prostate Cancer Father Alzheimer Disease Mother Relation Status Comments Father Mother Social History Tobacco Use Types Packs/Day Years Used Date Smoking Tobacco: Former Pipe Q uit: 04/25/1997 Smokeless Tobacco: Former Comments:was a pouch a week from the pipe Sex and Gender Information Value Date Recorded Sex Assigned at Not on file Gender Identity Not on file Sexual Orientation Not on file Last Filed Vital Signs Vital Sign Reading Time Taken Comments Blood Pressure 145/75 11/04/2022 1:59 PM EDT Pulse 72 11/04/2022 1:59 PM EDT Temperature 36.3 ??C (97.3 ??F) 11/04/2022 1:59 PM ED T Respiratory Rate 18 11/04/2022 1:59 PM EDT Oxygen Saturation 93% 11/04/2022 1:59 PM EDT Inhaled Oxygen Concentration - - Weight 123.5 kg (272 lb 4.8 oz) 11/04/2022 1:59 PM EDT Height 180.3 cm (5' 10.98) 11/04/2022 1:59 PM E DT Body Mass Index 38 11/04/2022 1:59 PM EDT Plan of Treatment Upcoming Encounters Date Type Department Care Team (Late st Contact Info) Description 11/03/2023 8:30 AM EDT Office Visit Hematology/Oncology at [address] [place] [phone] Garcia Childress MD [facility] DR [place] [address] Kassy eKn APRN [address] [place] [address] DR MEDICAL [place]COLOGY [place], [place] [address] Health Maintenance Due Date Last Done Comments CT Colonography 1948 Colonoscopy 1948 Colorectal Cancer Screening 1948 FIT DNA 1948 FIT 1948 Sigmoidoscopy (10 year) with FIT yearly 1948 Sigmoidoscopy 1948 Hepatitis C Screening 1966 Tdap adult 12/15/1967 Tetanus vaccine 12/15/1967 Zoster vaccine (1 of 2) 1998 Advance Directive 12/15/2003 AAA Screen 2013 Pneumoccocal Vaccine: 65+ (1 of 1 - PCV) 2013 Covid-19 Vaccine (1 - 2022-2 4 season) 2022 Influenza (Flu) vaccine (1 o f 1 - Influenza standard series) 12/04/2023 Diabetes Screening (HgbA1C o r Glucose) Discontinued 10/28/2022, 02/13/2018, 12/13/2015, Additional history exists Procedures Procedure Name Priority Date/Time Associated Diagnosis Comments COMPREHENSIVE METABOLIC PANEL (NON-FASTING) Routine 10/28/2022 from Last 3 Months or Most Recently Relevant to Health Maintenance Results * (ABNORMAL) Comprehensive metabolic panel (non-fasting) (10/28/2022) Glucose Lvl 120(H) BUN 18 Creatinine 1.0 Sodium 142 Potassium 4.5 Calcium 9.1 Total Protein 7.8 Albumin 3.1(L) Total Bilirubin 0.6 Alk Phos 229(H) AST 36 ALT 59 Blood 10/28/2022 Historical Provider CHEMISTRY ORDERAB LES from Last 3 Months or Most Recently Relevant to Health Maintenance Advance Directives * Full Code (Latest Code Status on File) Date Activated Date Inactivated Comments 12/10/2015 1:52 PM 12/13/2015 6:24 PM Question Answer Comments Does patient have capacity to make decision: Yes * Full Code Date Activated Date Inactivated Comments 12/10/2015 6:20 AM 12/10/2015 1:52 PM Question Answer Comments Does patient have capacity to make decision: Yes Care Teams Sliver Lap Machine Tender Relationship Specialty Start Date End Date Mustapha Anand DO [address] [place] [address] PCP - General Family Medicine 08/08/17
--- OUTSIDE RECORDS SUMMARY | 2023-11-03 04:01 | XMS_ITS | Encounter Summary ---
Author Organization [facility] Address [facility] [place] [address] Care Team Providers Care Central Stores Attendant Name Role Phone Mustapha Anand Primary Care Provider [phone] Reason for Visit * Reason Onset Date Comments Results 10/15/2019 CEA result Encounter Details Date Type Department Care Team (Late Contact Info) Description 10/15/2019 Telephone Hematology Oncology at [address] [phone] Rhonda Arellano, RN Results (CEA result) Social History Tobacco Use Types [...] Telephone Encounter - Rhonda Arellano RN - 10/15/2019 10:54 AM EDT CEA drawn 10/11/19 was less than 0.5. documented in this encounter Plan of Treatment Upcoming Encounters Date Type Department Care Team (Late Contact Info) Description 11/03/2023 8:30 AM EDT Office Visit Hematology/Oncology at [address] [phone] Garcia Childress MD [facility] HEMATOLOGY [place] [address] Kassy Ken, SOLAR SALES ADVISOR [address] [place] [address] DR MEDICAL ONCOLOGY [place], [place] [phone] documented as of this encounter Visit Diagnoses Not on filedocumented in this encounter Care Teams Central Stores Attendant Relationship Specialty Start Date End Date Mustapha Anand DO [facility] [address] [place], [place] [phone] PCP - General Family Medicine 08/08/17 documented as of this encounter
--- OUTSIDE RECORDS SUMMARY | 2023-11-03 04:01 | XMS_ITS | Encounter Summary ---
Author Organization [facility] Address [facility] [place] [address] Care Team Providers Care Drafter Civil Name Role Phone Mustapha Anand DO Primary Care Provider [phone] Reason for Referral * Diagnostic Test (Routine) - Closed Specialty Diagnoses / Procedures Referred By Contac t Referred To Contact Radiology Diagnoses Malignant neoplasm of colon, unspecified part of colon Mass of left lung History of lobectomy of lung Procedures CT Chest wo Contrast (Generic) Eugene Villalba PA [facility] [place] [place] [address] [facility] [place] [address] Referral ID Status Reason Start Date Expiration Date V isits Requested Visits Authorized [id number] Closed Specialty Service Requested 03/24/2020 09/22/2021 1 1 Reason for Visit * Diagnostic Test (Routine) - Closed Specialty Diagnoses / Procedures Referred By Contac t Referred To Contact Radiology Diagnoses Malignant neoplasm of colon, unspecified part of colon Mass of left lung History of lobectomy of lung Procedures CT Chest wo Contrast (Generic) Eugene Villalba PA [facility] [place] [place] [address] [facility] [place] [address] Referral ID Status Reason Start Date Expiration Date V isits Requested Visits Authorized [id number] Closed Specialty Service Requested 03/24/2020 09/22/2021 1 1 Encounter Details Date Type Department Care Team (Latest Contact Info) Description 03/23/2021 10:19 AM EST - 03/23/2021 11:59 PM EST Hospital [place] [address] Shane Diamond MD [facility] [place] [address] Malignant neoplasm of colon, unspecified part of colon; Mass of left lung; History of lobectomy of lung Discharge Disposition: [...] AM EDT Office Visit Hematology/Oncology at [address] [phone] Garcia Childress MD [facility] [place] [address] Kassy Ken APRN [address] [place] [address] [place] [address] documented as of this encounter Procedures Procedure Name Priority Date/Time Associated Diagnosis Comments CT CHEST WO CONTRAST (GENERIC) Routine 03/23/2021 10:28 AM EST Malignant neoplasm of colon, unspecified part of [...] who have questions please contact the health medicare compliance auditor that requested your imaging first. ? Narrative [...] right lung apex (series 7, image 22 [id number]), with associated mild nodularity. Triangular perifissural nodule [...] 15 mm katja hepatis node (series 3, [id number]). Small layering gallstones again noted without evidence [...] patients who have questions please contactthe health medicare compliance auditor that requested your imaging first. Shane Diamond MD IMG CT ORDERABLE S documented in this encounter Visit Diagnoses Diagnosis Malignant neoplasm of colon, unspecified part of colon Mass of left lung History of lobectomy of lung documented in this encounter Care Teams Drafter Civil Relationship Specialty Start Date End Date Mustapha Anand DO [address] [facility] [place] [address] PCP - General Family Medicine 08/08/17 documented as of this encounter
--- OUTSIDE RECORDS SUMMARY | 2023-11-03 04:01 | XMS_ITS | Encounter Summary ---
Author Organization [facility] Address [facility] [place] [address] Care Team Providers Care Cost And Risk Analysis Manager Name Role Phone Mustapha Anand DO Primary Care Provider Encounter Details Date Type Department Care Team (Late st Contact Info) Description 10/16/2020 3:00 PM EDT Office Visit Hematology/Oncology at [address] [phone] Garcia Childress MD [facility] DR HEMATOLOGY [place] [address] Carcinoma of colon Social History Tobacco Use [...] Sign Reading Time Taken Comments Blood Pressure 159/82 10/16/2020 3:03 PM EDT Pulse 71 10/16/2020 3:03 PM EDT Temperature 36.4 ??C (97.5 ??F) 10/16/2020 3:03 PM ED T Respiratory Rate 18 10/16/2020 3:03 PM EDT Oxygen Saturation 95% 10/16/2020 3:03 PM EDT Inhaled Oxygen Concentration - - Weight 122 kg (269 lb) 10/16/2020 3:03 PM EDT Height 182.1 cm (5' 11.69) 10/16/2020 3:03 PM E DT Body Mass Index 36.8 10/16/2020 3:03 PM EDT documented in this encounter Progress Notes * Garcia Childress MD - 10/16/2020 3:00 PM EDT The patient is seen in the [facility]. Adenocarcinoma of sigmoid colon - pT2 pN0 [...] resection are free of tumor Rising CEA [id number] Isolated LLL lung Met Resected 10/[address] with surgeon, last 03/23 He is now 5 years out from resection of his isolated lung metastasis from his colon cancer. He has no new pulmonary symptoms. He has not had any cough or shortness of breath. No systemic symptoms. Nofevers chills sweats or weight loss. He did get his Covid vaccine. He is followed in the medical oncology clinic yearly and is seen in the thoracic surgical clinic once a year with a CT scan. Current Outpatient Medications on File Prior to [...] Neurological: Negative. Hematological: Negative for adenopathy. BP 159/82 (Patient Position: Sitting) Pulse 71 Temp 36.4 ??C (97.5 ??F) (Temporal) Resp 18 Ht 182.1 cm (5' 11.69) Wt 122 kg (269 lb) SpO2 95% BMI 36.80 kg/m?? Head: Normocephalic, without obvious abnormality, atraumatic [...] and axillary nodes normal Neurologic: Normal CEA 10/22 pending 03/23 <0.5 12/28/18 <0.5 06/19/18 <0.5 08/16/16 <0.5 04/14/16 <0.5 15.9 Lung Mass resected 09/17/15 13.3 03/13/15 7.8 11/07/14 8.0 Repeat [facility] 5.5 11/08/13 3.3 05/02/13 3.1 11/03/12 1.2 05/04/12 1.2 10/29/11 1.2 04/20/11 1.3 10/16/10 0.8 04/13/10 0.6 11/03/09 0.9 07/03/09 0.9 04/03/09 <0.5 12/27/08 0.4 08/23/08 0.4 White count 8.5, hemoglobin 13.8, platelets 206 Creatinine 1.0, alkaline phosphatase 182 Assessment/plan: 69-year-old man now 5 years out from resection of an isolated [...] labs and a CEA at that point. He will get a CT scan with thoracic surgery. documented in this encounter Plan of Treatment Upcoming Encounters Date Type Department Care Team (Late st Contact Info) Description 11/03/2023 8:30 AM EDT Office Visit Hematology/Oncology at [address] [phone] Garcia Childress MD [facility] DR HEMATOLOGY [place] [address] Kassy Ken BIOFUELS PLANT MANAGER [address] [place] [address] [place] [address] documented as of this encounter Visit Diagnoses Diagnosis Carcinoma of colon Malignant neoplasm of colon, unspecified site documented in this encounter Care Teams Cost And Risk Analysis Manager Relationship Specialty Start Date End Date Mustapha Anand DO [address] [place] [address] PCP - General Family Medicine 08/08/17 documented as of this encounter
--- OUTSIDE RECORDS SUMMARY | 2023-11-03 04:01 | XMS_ITS | Encounter Summary ---
Author Organization [facility] Address [facility] [place] [address] Care Team Providers Care Photostat Operator Helper Name Role Phone Mustapha Anand DO Primary Care Provider [phone] Encounter Details Date Type Department Care Team (Late st Contact Info) Description 04/10/2020 1:00 PM EST Office Visit Hematology/Oncology at [address] [phone] Garcia Childress MD [facility] DR HEMATOLOGY [place] [address] Shawna Chavarria APRN [address] [place] [address] [place] [address] Carcinoma of colon; Mass of lower lobe [...] Sign Reading Time Taken Comments Blood Pressure 173/90 04/10/2020 12:57 PM EST Pulse 79 04/10/2020 12:57 PM EST Temperature 36.5 ??C (97.7 ??F) 04/10/2020 1 2:57 PM EST Respiratory Rate 20 04/10/2020 12:5 7 PM EST Oxygen Saturation 93% 04/10/2020 12: 57 PM EST Inhaled Oxygen Concentration - - Weight 123.7 kg (272 lb 12.8 oz) 2020 12:57 PM EST Height 182.1 cm (5' 11.69) 04/10/2020 12:57 PM EST Body Mass Index 37.32 04/10/2020 12:57 PM EST documented in this encounter Progress Notes * Aura Shawna Alcocer, HEARING AID ASSISTANT - 04/10/2020 1:00 PM EST Subjective: Patient ID: Seth Kincaid is a 69 y.o. male. Patient Active Problem List Diagnosis Code ??? Carcinoma of colon C18.9 ??? Obesity E66.9 ??? CIS - Past Surgery/Trauma ??? Elevated LFTs R79.89 ??? Inflamed seborrheic keratosis L82.0 ??? Mass of lower lobe of left lung R91.8 ??? Lung mass R91.8 HPI Adenocarcinoma of sigmoid colon - pT2 pN0 Mx, well differentiated - 04/22/08 sigmoid resection Invasive adenocarcinoma, arising in association with a tubular adenoma with high grade dysplasia. well-differentiated, 2.6 cm The tumor infiltrates into but not through the muscularis propria (pT2). No lymphatic, vascular or perineural invasion is present. Twenty (20) lymph 1 nodes with no evidence of malignancy (pN0). All margins of resection are free of tumor Rising CEA [id number] 04/10/20 Isolated LLL lung Met Resected 10/[address], Last neg 03/23 INTERVAL HPI 04/10/20 ?? Seth Kincaid is a 68 yo male who returns to the [facility] by himself today for routine follow up of colon cancer with resected lung metastasis. (See surgical history above). He had an annual surveillance Chest CT [place] [facility] [place] which was negative for new disease or metastasis. Seth reports more fatigue lately. He says a few months ago he noticed feeing more short of breath in the morning. He also gets more fatigued with walking, and feels like he can't walk as far as he used to due to fatigue. He says it feels like my lungs get tired. He denies chest pain, chest pressure, or heaviness. He has not noticed any fast or irregular palpitations. He has a minor morning cough. No blood in sputum. Seth says he is eating well, has had no abdominalpain and states his bowels are moving well. He denies any blood in stool. He denies any urinary difficulties. He denies extremity swelling. Per our clinic scales he has gained about 13 pounds, much of it in the last 3 weeks. We talked about drinking more water and decreasing carbohydrates. 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 He might have a beer twice a week, denies daily alcohol intake. He has an upcoming visit with his PCP and I encouraged him to discuss the new shortness of breath. Allergies Allergen Reactions ??? Adhesive Tape CIS - Rash, CIS - Rash Current Medications ??? vit A/vit C/vit E/zinc/copper (PRESERVISION AREDS ORAL) ??? metoprolol succinate (TOPROL-XL) 25 mg Tablet Sustained Release 24 hr ??? atorvastatin (LIPITOR) 40 mg Tablet ??? acetaminophen (TYLENOL) 500 mg Tablet ??? apixaban (ELIQUIS) 5 mg Tablet Review of Systems Constitutional: Positive for fatigue. When walking HENT: Negative. Respiratory: Positive for shortness of breath. Negative for chest tightness. A little SOB when walking Cardiovascular: Negative for chest pain, palpitations and leg swelling. Gastrointestinal: Negative for abdominal distention, abdominal pain and blood in stool. Genitourinary: Negative. Musculoskeletal: Negative. Skin: Negative. Neurological: Negative. Hematological: Negative. Psychiatric/Behavioral: Negative. Objective: Physical Exam Vitals signs reviewed. Constitutional: General: He is not in acute distress. Appearance: Normal appearance. He is not ill-appearing. HENT: Mouth/Throat: Mouth: Mucous membranes are moist. Pharynx: Oropharynx is clear. Neck: Musculoskeletal: Neck supple. Cardiovascular: Rate and Rhythm: Normal rate and regular rhythm. Heart sounds: Normal heart sounds. Pulmonary: Breath sounds: Normal breath sounds. No wheezing or rales. Abdominal: General: Bowel sounds are normal. Palpations: Abdomen is soft. Tenderness: There is no abdominal tenderness. Musculoskeletal: Right lower leg: No edema. Left lower leg: No edema. Lymphadenopathy: Cervical: No cervical adenopathy. Upper Body: Right upper body: No supraclavicular adenopathy. Left upper body: No supraclavicular adenopathy. Skin: General: Skin is warm and dry. Findings: No bruising. Neurological: Mental Status: He is oriented to person, place, and time. Gait: Gait normal. Psychiatric: Mood and Affect: Mood normal. Thought Content: Thought content normal. BP 173/90 Pulse 79 Temp 36.5 ??C (97.7 ??F) (Temporal) Resp 20 Ht 182.1 cm (5' 11.69) Wt123.7 kg (272 lb 12.8 oz) SpO2 93% BMI 37.32 kg/m?? RECENT IMAGING 03/24/20 - CT Chest w/contrast IMPRESSION Status post left lower lobectomy. No findings for resection site recurrence, new disease, or metastatic disease. ?? Thank you for letting us participate in the care of this patient. For questions regarding this report, please contact the number below. Electronically signed by: Carmen Roblero MD, [facility] ([phone]), at 03/24/2020 12:06 PM BP 173/90 Pulse 79 Temp 36.5 ??C (97.7 ??F) (Temporal) Resp 20 Ht 182.1 cm (5' 11.69) Wt123.7 kg (272 lb 12.8 oz) SpO2 93% BMI 37.32 kg/m?? LABS 03/31/20 WBC 8.57; ANC 4.94; H/H 14.8/ 48.4; PLT 251; BUN 15; CREAT 0.97; BILI 0.6; ALP 163; AST 27; ALT 53;CA++ 9.1. CEA 03/31/20 - <0.5 10/11/19 - <0.5 12/28/18 - <0.5 Assessment and Plan: Assessment: Seth Kincaid is a 68 yo male who returns to the [facility] by himself today for routine follow up of colon cancer with resected lung metastasis. (See surgical history above). He had an annual surveillance Chest CT [place] [facility] which was negative for new disease or metastasis. Seth is doing well. He does not appear to have clinical signs of new disease or metastasis. We reviewed his labs today, including continued negative CEA. Plan: RTC in 6 months for clinic visit, labs. Call sooner for any questions or concerns. Encouraged Seth to eat healthy, low-carb diet, and also discuss his SOB with PCP soon. documented in this encounter Plan of Treatment Upcoming Encounters Date Type Department Care Team (Late st Contact Info) Description 11/03/2023 8:30 AM EDT Office Visit Hematology/Oncology at [address] [phone] Garcia Childress MD [facility] DR HEMATOLOGY [place] [address] Kassy Ken APRN [address] [place] [address] [place] [address] documented as of this encounter Visit Diagnoses Diagnosis Carcinoma of colon Malignant neoplasm of colon, unspecified site Mass of lower lobe of left lung documented in this encounter Care Teams Photostat Operator Helper Relationship Specialty Start Date End Date Mustapha Anand DO [address] [place] [address] PCP - General Family Medicine 08/08/17 documented as of this encounter
--- OUTSIDE RECORDS SUMMARY | 2023-11-03 04:01 | XMS_ITS | Encounter Summary ---
Author Organization Formerly [facility] [place] [address] Care Team Providers Care Hollow Handle Knife Assembler Name Role Phone Mustapha Anand Primary Care Provider [phone] Reason for Visit * Reason Onset Date Comments Follow-up 11/03/2021 Report CEA Encounter Details Date Type Department Care Team (Late Contact Info) Description 11/03/2021 Telephone Hematology Oncology at [address] [phone] Rhonda Arellano, RN Follow-up (Report CEA) Social History Tobacco Use Types Packs/Day Years [...] Telephone Encounter - Rhonda Arellano RN - 11/05/2021 9:41 AM EDT Seth had clinic visit and labs on 10/29/21. His CEA result is <0.5. Patient was called to report result. This communication routed to Dr. Childress. documented in this encounter Plan of Treatment Upcoming Encounters Date Type Department Care Team (Late Contact Info) Description 11/03/2023 8:30 AM EDT Office Visit Hematology/Oncology at [address] [phone] [facility] [address] [place]AT[place]Y [place] [address] Kassy Ken [address] MEDICAL ONCOLOGY [place], [place] [id number] documented as of this encounter Visit Diagnoses Not on filedocumented in this encounter Care Teams Hollow Handle Knife Assembler Relationship Specialty Start Date End Date Mustapha Anand DO [address] [place] [address] PCP - General Family Medicine 08/08/17 documented as of this encounter
--- OUTSIDE RECORDS SUMMARY | 2023-11-03 04:01 | XMS_ITS | Encounter Summary ---
Author Organization [facility] Address [facility] [place] [address] Care Team Providers Care Furniture Detailer Name Role Phone Mustapha Anand DO Primary Care Provider [phone] Reason for Referral * Diagnostic Test (Routine) - Closed Specialty Diagnoses / Procedures Referred By Contac t Referred To Contact Radiology Diagnoses Mass of left lung Malignant neoplasm of colon, unspecified part of colon History of lobectomy of lung Procedures CT Chest wo Contrast (Generic) Shane Diamond MD [facility] [place] [address] [facility] [place] [address] Referral ID Status Reason Start Date Expiration Date V isits Requested Visits Authorized [id number] Closed Specialty Service Requested 1 1 Reason for Visit * Reason Comments Follow-up Encounter Details Date Type Department Care Team (Late st Contact Info) Description 03/12/2019 11:00 AM EST Office [place] [address] Shane Diamond MD [facility] [place] [address] Mass of left lung; Malignant neoplasm of colon, unspecified part of colon; History of lobectomy of lung Social History [...] Sign Reading Time Taken Comments Blood Pressure 142/78 03/12/2019 10:33 AM EST Pulse 58 03/12/2019 10:33 AM EST Temperature 36.7 ??C (98.1 ??F) 03/12/2019 1 0:33 AM EST Respiratory Rate 18 03/12/2019 10:3 3 AM EST Oxygen Saturation 98% 03/12/2019 10: 33 AM EST Inhaled Oxygen Concentration - - Weight 116.2 kg (256 lb 3.2 oz) 019 10:33 AM EST With Shoes Height 185.5 cm (6' 1.03) 03/12/2019 1 0:33 AM EST With Shoes Body Mass Index 33.77 03/12/2019 10:33 AM EST documented in this encounter Patient Instructions * Patient Instructions* Alda Velasquez RN - 03/12/2019 11:00 AM EST Thank you for visiting Dr. Diamond in clinic 03/12/19 Dr. Diamond would like to see you [...] documented in this encounter Progress Notes * Gorge Doyle MD - 03/12/2019 11:00 AM EST Thoracic surgery follow-up visit Chief complaint: Follow-up left lower lobectomy History of present illness: Mr. Kincaid is a 67-year-old man with history of metastatic colorectal cancer. On December 10, 2015 he underwent a left lower lobectomy for a colorectal metastasis. He has done well since that point and comes in for his 1 yr follow up today. Since last seen on 02/13/18 he reports no major changes to his health. He denies any weight loss, night sweats or neurologic symptoms He has no new complaints today and endorses no major changes to his respiratory function, having only noticed some mild SOB when walking up steep hills. This has not limited his daily activities/lifestyle in any way. Current Outpatient Medications on File Prior to Visit Medication Sig Dispense Refill ??? apixaban (ELIQUIS) 5 mg Tablet Take by mouth. ??? metoprolol succinate (TOPROL-XL) 25 mg Tablet Sustained Release 24 hr Take 25 mg by mouth daily. ??? atorvastatin (LIPITOR) 40 mg Tablet Take 40 mg by mouth daily. ??? acetaminophen (TYLENOL) 500 mg Tablet Take 2 tablets by mouth every 6 hours. 30 tablet 1 No current facility-administered medications on file prior to visit. There were no vitals taken for this visit. Physical exam: He appears well. He is alert, oriented and in no distress. He has no neurologic deficits. He has no palpable adenopathy. His lungs are clear. His incisions are well healed. Imaging: A chest CT was obtained today. This demonstrates no evidence of metastatic disease or recurrent disease. Labs: CEA 12/28/18 <0.5 Assessment: 67-year-old man now 3 years status post left lower lobectomy for a metastatic colorectal cancer. He continues to do well and is without signs of any recurrent disease. No further treatment needed at present, and we can continue with routine surveillance. Plan: Return to clinic in [address] Gorge Doyle MD * Shane Diamond MD - 03/12/2019 11:00 AM EST Thoracic surgery follow-up visit I saw and examined Mr. Kincaid with Dr. Doyle and agree with his findings, assessment and plan.In brief: Chief complaint: Follow-up left lower lobectomy History of present illness: Mr. Kincaid is a 68-year-old man with metastatic colorectal cancer who had a left lower lobectomy for a colorectal metastasis on December 10, 2015. I last saw him in February 2018, at which time he was doing well. He comes in today with no particular new symptoms. Current Outpatient Medications on File Prior to Visit Medication Sig Dispense Refill ??? vit A/vit C/vit E/zinc/copper (PRESERVISION AREDS ORAL) Take by mouth. ??? apixaban (ELIQUIS) 5 mg Tablet Take by mouth. ??? metoprolol succinate (TOPROL-XL) 25 mg Tablet Sustained Release 24 hr Take 25 mg by mouth daily. ??? atorvastatin (LIPITOR) 40 mg Tablet Take 40 mg by mouth daily. ??? acetaminophen (TYLENOL) 500 mg Tablet Take 2 tablets by mouth every 6 hours. 30 tablet 1 No current facility-administered medications on file prior to visit. BP 142/78 (Patient Position: Sitting) Pulse 58 Temp 36.7 ??C (98.1 ??F) (Temporal) Resp 18 Ht 185.5 cm (6' 1.03) Comment: With Shoes Wt 116.2 kg (256 lb 3.2 oz) Comment: With Shoes SpO2 98% BMI 33.77 kg/m?? Physical exam: He appears comfortable. He is alert, oriented and in no distress. He has no neurologic deficits and no palpable adenopathy. Imaging: A chest CT was obtained showing no new nodules, adenopathy or metastatic lesions Assessment: 68-year-old man now 3 years removed from a metastasectomy for colorectal cancer. He continues to have no evidence of disease and I will see him back in [address] a chest CT. Plan: Return to clinic in [address] SHANE DIAMOND MD documented in this encounter Plan of Treatment Upcoming Encounters Date Type Department Care Team (Late st Contact Info) Description 11/03/2023 8:30 AM EDT Office Visit Hematology/Oncology at [address] [phone] Garcia Childress MD [facility] [place] [address] Kassy Ken, [address] [place] [address] documented as of this encounter Results * [...] please contact the number below. ? Narrative 03/24/2020 12:06 PM EST EXAMINATION: CT [...] of colon History of lobectomy of lung Mass of left lung Malignant neoplasm of colon, unspecified part of colon History of lobectomy of lung documented in this encounter Care Teams Furniture Detailer Relationship Specialty Start Date End Date Mustapha Anand DO [address] [place] [address] PCP - General Family Medicine 08/08/17 documented as of this encounter
--- OUTSIDE RECORDS SUMMARY | 2023-11-03 04:01 | XMS_ITS | Encounter Summary ---
Author Organization [facility] Address [facility] [place] [address] Care Team Providers Care Copyright Manager Name Role Phone Mustapha Anand DO Primary Care Provider [phone] Encounter Details Date Type Department Care Team (Late st Contact Info) Description 11/04/2022 2:00 PM EDT Office Visit Hematology/Oncology at [address] [phone] Garcia Childress MD [facility] [address] [place] [address] Carcinoma of colon; Lung mass Social History Tobacco Use Types Packs/Day Years [...] Mass Index 38 11/04/2022 1:59 PM EDT documented in this encounter Progress Notes * Garcia Childress MD - 11/04/2022 2:00 PM EDT The patient is seen in the [facility]. Adenocarcinoma of sigmoid colon - pT2 [...] resection are free of tumor Rising CEA [id number] Isolated LLL lung Met Resected 10/[address] last 03/24 Last colo 03/25. 2 polyps, next 03/28 He is now 7 years out from resection of his isolated lung metastasis from his colon cancer. He has no new pulmonary symptoms. He has not had any cough or shortness of breath. No systemic symptoms. Nofevers chills sweats or weight loss. He is followed in the medical oncology clinic yearly Patient Active Problem List Diagnosis Code Carcinoma of colon C18.9 Obesity E66.9 CIS - Past Surgery/Trauma Elevated LFTs R79.89 Inflamed seborrheic keratosis L82.0 Mass of lower lobe of left lung R91.8 Lung mass R91.8 Afib Current Outpatient Medications on File Prior to Visit Medication Sig Dispense Refill dilTIAZem (Cardizem) 30 mg tablet Take 30 mg by mouth 4 times daily. PRN in case heart rate gets over 110 vit A/vit C/vit E/zinc/copper (PRESERVISION AREDS ORAL) [...] Neurological: Negative. Hematological: Negative for adenopathy. BP 145/75 (Patient Position: Sitting) Pulse 72 Temp 36.3 ??C (97.3 ??F) (Temporal) Resp 18 Ht 180.3 cm (5' 10.98) Wt 123.5 kg (272 lb 4.8 oz) SpO2 93% BMI 38.00 kg/m?? Head: Normocephalic, without obvious abnormality, atraumatic [...] and axillary nodes normal Neurologic: Normal CEA 10/24 <0.5 10/23 < 0.5 10/22 < 2.0 03/23 <0.5 12/28/18 <0.5 06/19/18 <0.5 08/16/16 <0.5 04/14/16 <0.5 0718/16 15.9 Lung Mass resected 09/17/15 13.3 03/13/15 7.8 11/07/14 8.0 Repeat [facility] 5.5 11/08/13 3.3 05/02/13 3.1 11/03/12 1.2 05/04/12 1.2 10/29/11 1.2 04/20/11 1.3 10/16/10 0.8 04/13/10 0.6 11/03/09 0.9 07/03/09 0.9 04/03/09 <0.5 12/27/08 0.4 08/23/08 0.4 White count 8.4, hemoglobin 14.4, platelets 204 Creatinine 1.0, alkaline phosphatase 229 Assessment/plan: 71-year-old man now 7 years out from resection of an isolated [...] at that point. I don't think he needs routine CT scanning anymore. documented in this encounter Plan of Treatment Upcoming Encounters Date Type Department Care Team (Late st Contact Info) Description 11/03/2023 8:30 AM EDT Office Visit Hematology/Oncology at [address] [phone] Garcia Childress MD [facility] [address] [place] [address] Kassy Ken APRN [address] [place] [address] DR MEDICAL ONCOLOGY [place], [place] [id number] Scheduled Orders Name Type Priority Associated Diagnoses Orde r Schedule CBC (with Diff) Lab STAT Carcinoma of colon Expected: 11/05/2023, Expires: 05/06/2024 Comprehensive metabolic panel (non-fasting) Lab STAT Carcinoma of colon Expected: 11/05/2023, Expires: 05/06/2024 CEA Lab STAT Carcinoma of colon Expected: 11/05/2023, Expires: 05/06/2024 documented as of this encounter Procedures Procedure Name Priority Date/Time Associated Diagnosis Comments CBC (WITH DIFF) Routine 10/28/2022 CEA Routine 10/28/2022 COMPREHENSIVE METABOLIC PANEL (NON-FASTING) Routine 10/28/2022 documented in this encounter Results * CEA (10/28/2022) CEA <0.5 Blood 10/28/2022 Historical Provider CHEMISTRY ORDERAB LES * CBC (with Diff) (10/28/2022) WBC 8.38 RBC 4.97 Hemoglobin 14.4 Hematocrit 45.2 Platelets 204 Neutr Abs (ANC) 4.33 Blood 10/28/2022 Historical Provider HEMATOLOGY ORDERA BLES * (ABNORMAL) Comprehensive metabolic panel (non-fasting) (10/28/2022) Glucose Lvl 120(H) BUN 18 Creatinine 1.0 Sodium 142 Potassium 4.5 Calcium 9.1 Total Protein 7.8 Albumin 3.1(L) Total Bilirubin 0.6 Alk Phos 229(H) AST 36 ALT 59 Blood 10/28/2022 Historical Provider CHEMISTRY ORDERAB LES documented in this encounter Visit Diagnoses Diagnosis Carcinoma of colon Malignant neoplasm of colon, unspecified site Lung mass Swelling, mass, or lump in chest documented in this encounter Care Teams Copyright Manager Relationship Specialty Start Date End Date Mustapha Anand DO [address] [place] [address] PCP - General Family Medicine 08/08/17 documented as of this encounter
--- OUTSIDE RECORDS SUMMARY | 2023-11-03 04:01 | XMS_ITS | Encounter Summary ---
Author Organization [facility] Address [facility] [place] [address] Care Team Providers Care Alcohol Rubber Name Role Phone Mustapha Anand DO Primary Care Provider Encounter Details Date Type Department Care Team (Late st Contact Info) Description 01/04/2019 3:30 PM EDT Office Visit Hematology/Oncology at [address] [phone] Garcia Childress MD [facility] DR HEMATOLOGY [place] [address] Carcinoma of colon; Mass of lower lobe [...] Sign Reading Time Taken Comments Blood Pressure 151/82 01/04/2019 3:23 PM EDT Pulse 64 01/04/2019 3:23 PM EDT Temperature 36.9 ??C (98.4 ??F) 01/04/2019 3:23 PM ED T Respiratory Rate 18 01/04/2019 3:23 PM EDT Oxygen Saturation 97% 01/04/2019 3:23 PM EDT Inhaled Oxygen Concentration - - Weight 116.4 kg (256 lb 11.2 oz) 01/04/2019 3:23 PM EDT Height 182.9 cm (6') 01/04/2019 3:23 PM EDT Body Mass Index 34.81 01/04/2019 3:23 PM EDT documented in this encounter Progress Notes * Garcia Childress MD - 01/04/2019 3:30 PM EDT The patient is seen in the [facility]. I am meeting him for the first time. Adenocarcinoma of sigmoid colon - pT2 pN0 [...] resection are free of tumor Rising CEA [id number] Isolated LLL lung Met Resected 10/[address], Last neg 02/19 He has now almost 3 years out from resection of his isolated lung metastasis from his colon cancer.He has no new pulmonary symptoms. He has not had any cough or shortness of breath. He has found in the medical oncology clinic yearly and is seen in the thoracic surgical clinic oncea year with a CT scan. He is planning on going hunting in [place] in the near future. Not as active as he used to be. Gets more short of breath if he walks up a hill but he will. Does well on his treadmill. Current Outpatient Medications on File Prior to [...] every 6 hours. 30 tablet 1 ??? [DISCONTINUED] Vit A,C,R-Zvqq-Bicivs (PRESERVISION AREDS) 14,320-226-200 [id number] Capsule Take by mouth. ??? [DISCONTINUED] multivitamin (THERAGRAN) Tablet Take 1 tablet by mouth daily. No current facility-administered medications on file prior [...] Neurological: Negative. Hematological: Negative for adenopathy. BP 151/82 (Patient Position: Sitting) Pulse 64 Temp 36.9 ??C (98.4 ??F) (Oral) Resp 18 Ht 182.9 cm (6') Wt 116.4 kg (256 lb 11.2 oz) SpO2 97% BMI 34.81 kg/m?? Head: Normocephalic, without obvious abnormality, atraumatic [...] and axillary nodes normal Neurologic: Normal CEA 12/28/18 <0.5 06/19/18 <0.5 08/16/16 <0.5 04/14/16 <0.5 15.9 Lung Mass resected 09/17/15 13.3 03/13/15 7.8 11/07/14 8.0 Repeat [facility] 5.5 11/08/13 3.3 05/02/13 3.1 11/03/12 1.2 05/04/12 1.2 10/29/11 1.2 04/20/11 1.3 10/16/10 0.8 04/13/10 0.6 11/03/09 0.9 07/03/09 0.9 04/03/09 <0.5 12/27/08 0.4 08/23/08 0.4 White count 7.7, hemoglobin 13.8, platelets 230 Creatinine 1.04, alk phos 126 Assessment/plan: 68-year-old man now almost 3 years out from resection of an isolated metastasis from a colon cancer. This was heralded by a rising CEA. Current screening laboratories show no evidence of a rising CEA and clinically he is without evidence of disease. He does carry a mildly elevated alkaline phosphatase which is likely part of his fatty liver problem. We will continue to follow him every 6 months until he gets out 5 years from his surgery. I will see him back with labs and a CEA at that point. He will get a CT scan with thoracic surgery. documented in this encounter Plan of Treatment Upcoming Encounters Date Type Department Care Team (Late st Contact Info) Description 11/03/2023 8:30 AM EDT Office Visit Hematology/Oncology at [address] [phone] Garcia Childress MD [facility] DR HEMATOLOGY [place] [address] Kassy Ken APRN [address] [place] [address] [place] [address] documented as of this encounter Visit Diagnoses Diagnosis Carcinoma of colon Malignant neoplasm of colon, unspecified site Mass of lower lobe of left lung documented in this encounter Care Teams Alcohol Rubber Relationship Specialty Start Date End Date Mustapha Anand DO [address] [place] [address] PCP - General Family Medicine 5/7/18 documented as of this encounter
--- OUTSIDE RECORDS SUMMARY | 2023-11-03 04:01 | XMS_ITS | Encounter Summary ---
Author Organization [facility] Address [facility] [place] [address] Care Team Providers Care Crown Ironer Name Role Phone Mustapha Anand DO Primary Care Provider [phone] Encounter Details Date Type Department Care Team (Late Contact Info) Description 10/11/2019 Orders Only Hematology/Oncology at [address] [phone] [address] HEMATOLOGY ONCOLOGY [place], [place] [phone] Carcinoma of colon; Mass of lower lobe [...] 8:30 AM EDT Office Visit Hematology/Oncology at [address] [phone] Garcia Childress MD [facility] DR [place] [address] MEDICAL ONCOLOGY [place], [place] [phone] documented as of this encounter Visit Diagnoses Diagnosis Carcinoma of colon Malignant neoplasm of colon, unspecified site Mass of lower lobe of left lung documented in this encounter Care Teams Crown Ironer Relationship Specialty Start Date End Date Mustapha Anand DO [address] [place] [address] PCP - General Family Medicine 08/08/17 documented as of this encounter
--- OUTSIDE RECORDS SUMMARY | 2023-11-03 04:02 | XMS_ITS | Encounter Summary ---
Author Organization [facility] Address [facility] [place] [address] Care Team Providers Care Salesperson Women'S Hats Name Role Phone Mustapha Anand Leodan GREGG Primary Care Provider [phone] Encounter Details Date Type Department Care Team (Late st Contact Info) Description 02/13/2018 Orders Only [place] [address] Geno Yi, RN Mass of left lung; Malignant neoplasm of colon, unspecified part of colon Social History Tobacco Use Types [...] 8:30 AM EDT Office Visit Hematology/Oncology at [address] [phone] Garcia Chidlress MD [facility] [place] [address] Kassy Ken APRN [address] [place] [address] DR MEDICAL ONCOLOGY [place], [place] [address] documented as of this encounter Results * CEA (02/13/2018 8:24 AM EST) CEA 0.8 <=3.8 ng/mL [facility] Comment: Reference range: ??(20-69 years): Non-smoker: ??less than or equal to 3.8 ng/mL Smoker: ??less than 5.5 ng/ml Blood specimen (specimen) 02/13/2018 8:24 AM EST 02/13/2018 8:28 AM EST Narrative Resulting Agency Comment Spec In Lab Shane Diamond MD CHEMISTRY ORDERA BLES [facility] [place] [address] * (ABNORMAL) Comprehensive metabolic panel (non-fasting) (02/13/2018 8:24 AM EST) Glucose Lvl 112 65 - 199 mg/dL [facility] Comment:Diabetes: >=200 mg/d L plus symptoms BUN 15 10 - 20 mg/dL [facility] Creatinine 0.95 0.80 - 1.50 mg/dL [facility] Sodium 143 135 - 145 mmol/L [facility] Potassium 4.9 3.5 - 5.0 mmol/L [facility] Comment: Please note: ??Patients with WBC >100,000 may have falsely elevated Potassium levels. ??For accurate Potassium quantification in these patients send serum separator tube (gold top) for subsequent determinations. ??Contact the Clinical Chemistry Laboratory if there are any questions. Chloride 102 98 - 107 mmol/L [facility] CO2 27 22 - 31 mmol/L [facility] Anion Gap 14 5 - 15 mmol/L [facility] Calcium 9.4 8.5 - 10.5 mg/dL [facility] Total Protein 7.2 6.1 - 8.0 gm/dL [facility] Albumin 3.7 3.2 - 5.2 gm/dL [facility] AST 37 0 - 39 unit/L [facility] ALT 50 0 - 55 unit/L [facility] Alk Phos 140(H) 40 - 120 unit/L [facility] Total Bilirubin 0.4 0.2 - 1.3 mg/dL [facility] Estimated GFR 81 >=60 mL/min/1. 73 m?? [facility] Comment: The eGFR was calculated using the CKD-EPI equation. As with all creatinine based estimates of kidney function, eGFR values calculated with the CKD-EPI equation are not accurate in patients with acute kidney failure, extremes of body mass or the acutely ill. [email or web address] eGFR 94 >=60 mL/min/1. 73 m?? [facility] Comment: The eGFR was calculated using the CKD-EPI equation. As with all creatinine based estimates of kidney function, eGFR values calculated with the CKD-EPI equation are not accurate in patients with acute kidney failure, extremes of body mass or the acutely ill. [email or web address] Blood specimen (specimen) 02/13/2018 8:24 AM EST 02/13/2018 8:27 AM EST Narrative Resulting Agency Comment Spec In Lab Shane Diamond MD CHEMISTRY ORDERA BLES [facility] [place] [address] documented in this encounter Visit Diagnoses Diagnosis Mass of left lung Malignant neoplasm of colon, unspecified part of colon documented in this encounter Care Teams Salesperson Women'S Hats Relationship Specialty Start Date End Date Mustapha Anand DO [address] [place] [address] PCP - General Family Medicine 08/08/17 documented as of this encounter
--- OUTSIDE RECORDS SUMMARY | 2023-11-03 04:02 | XMS_ITS | Encounter Summary ---
Author Organization [facility] [place] [address] Care Team Providers Care Education Trainer Name Role Phone Mustapha Anand DO Primary Care Provider [phone] Reason for Referral * Diagnostic Test (Routine) - Duplicate Referral Specialty Diagnoses / Procedures Referred By Contac t Referred To Contact Radiology Diagnoses Encounter for follow-up surveillance of lung cancer Procedures CT Chest w Contrast Shane Diamond MD [facility] [place] [address] [facility] [place] [address] Referral ID Status Reason Start Date Expiration Date Visits Requested Visits Authorized [id number] Duplicate Referral Specialty Service Requested 7 01/17/2018 1 1 Reason for Visit * Diagnostic Test (Routine) - Duplicate Referral Specialty Diagnoses / Procedures Referred By Contac t Referred To Contact Radiology Diagnoses Encounter for follow-up surveillance of lung cancer Procedures CT Chest w Contrast Shane Diamond MD [facility] [place] [address] [facility] [place] [address] Referral ID Status Reason Start Date Expiration Date Visits Requested Visits Authorized [id number] Duplicate Referral Specialty Service Requested 7 01/17/2018 1 1 Encounter Details Date Type Department Care Team (Latest Contact Info) Description 08/08/2017 8:26 AM EDT - 08/08/2017 11:59 PM EDT Hospital [place] [address] Shane Diamond MD [facility] [place] [address] Encounter for follow-up surveillance of lung cancer [...] Sig Dispensed Refills Start Date End Date apixaban (ELIQUIS) 5 mg Tablet Take 5 mg by mouth 2 times daily. metoprolol succinate (TOPROL-XL) 25 mg Tablet Sustained Release 24 hr Take 100 mg by mouth 2 times daily. atorvastatin (LIPITOR) 40 mg Tablet Take 40 mg by mouth daily. acetaminophen (TYLENOL) 500 mg Tablet Take 2 tablets by mouth every 6 hours. 30 tablet 1 12/13/2015 Vit A,C,O-Lajc-Mguftt (PRESERVISION AREDS) 14,320226-200 vhpo-pl-hvfi Capsule Take by mouth. 01/04 multivitamin (THERAGRAN) Tablet Take 1 tablet by mouth daily. 01/04/2019 chlorthalidone (HYGROTEN) 25 mg tablet Take 25 mg by mouth daily. 12/26/2017 aspirin 81 mg EC tablet Take 81 mg by mouth every 3 days. 12/26/2017 documented as of this encounter Plan of Treatment Upcoming Encounters Date Type Department Care Team (Late st Contact Info) Description 11/03/2023 8:30 AM EDT Office Visit Hematology/Oncology at [address] [phone] Garcia Childress MD [facility] HEMATOLOGY [place] [address] Kassy Ken APRN [address] [place] [address] [place] [address] documented as of this encounter Procedures Procedure Name Priority Date/Time Associated Diagnosis Comments CT CHEST W CONTRAST Routine 08/08/2017 8:58 AM EDT Encounter for follow-up surveillance of lung cancer documented in this encounter Results * CT Chest w Contrast (08/08/2017 8:58 AM EDT) Anatomical Region Laterality Modality Chest Computed Tomogra phy Impressions 08/08/2017 9:56 AM EDT No evidence of metastatic disease or other interval change. Narrative 08/08/2017 9:56 AM EDT EXAMINATION: CT CHEST W CONTRAST CLINICAL HISTORY: history early stage colon cancer with mets to LLL s/p LLLectomy 2016. f/u exam for surveillance. TECHNIQUE: Helical CT of the chest was performed following intravenous administration of 60ml of Ominpaque 350. Multiplanar reformatted images were generated. COMPARISON: Chest CT 01/17/2017 FINDINGS: Lungs and airways: No new pulmonary nodules or other interval change. Status post LEFT lower lobectomy. Central airways patent. Pleura and pericardium: No effusions. Heart and vasculature: No interval change. Mediastinum and hilar structures: No lymphadenopathy Limited views of the upper abdomen are unchanged. Again noted are tiny calcified gallstones in dependent gallbladder. Osseous lesions: No focal lytic or sclerotic osseous lesion. Procedure Note Kristian Arreguin MD - 08/08/2017 EXAMINATION: CT CHEST W CONTRAST CLINICAL HISTORY: history early stage colon cancer with mets to LLL s/p LLLectomy 2016. f/u exam for surveillance. TECHNIQUE: Helical CT of the chest was performed following intravenous administration of 60ml of Ominpaque 350. Multiplanar reformatted imageswere generated. COMPARISON: Chest CT 01/17/2017 FINDINGS: Lungs and airways: No new pulmonary nodules or other interval change.Status post LEFT lower lobectomy. Central airways patent. Pleura and pericardium: No effusions. Heart and vasculature: No interval change. Mediastinum and hilar structures: No lymphadenopathy Limited views of the upper abdomen are unchanged. Again noted are tinycalcified gallstones in dependent gallbladder. Osseous lesions: No focal lytic or sclerotic osseous lesion. IMPRESSION No evidence of metastatic disease or other interval change. Shane Diamond MD IMG CT ORDERABLE S documented in this encounter Visit Diagnoses Diagnosis Encounter for follow-up surveillance of lung cancer Unspecified follow-up examination documented in this encounter Administered Medications Inactive Administered Medications - up to 3 most recent administrations Medication Order MAR Action Action Date Dose Rate Site iohexol (OMNIPAQUE) 350 mg/mL solution 0-200 mL 0-200 mL, Intravenous, ONCE PRN, 1 dose, Starting on Tue08/08/17 at 0901, Until Tue08/08/17 at 0856, Per Protocol, Warning Vesicant/Irritant Medication , Radiology Contrast, Routine Given 08/08/2017 8:56 AM EDT 60 mLs documented in this encounter Care Teams Education Trainer Relationship Specialty Start Date End Date Mustapha Anand DO [address] [place] [address] PCP - General Family Medicine 08/08/17 documented as of this encounter
--- OUTSIDE RECORDS SUMMARY | 2023-11-03 04:02 | XMS_ITS | Encounter Summary ---
Author Organization [facility] Address [facility] [place] [address] Care Team Providers Care Snubber Name Role Phone Mustapha Palumbo MD Primary Care Provider [phone] Encounter Details Date Type Department Care Team (Late st Contact Info) Description 06/14/2016 Telephone [place] [phone] Pennie Noel Social History Tobacco Use Types Packs/Day Years Used Date Smoking Tobacco: Former Pipe Q uit: 04/25/1997 Smokeless Tobacco: Former Comments:was a pouch a week from the pipe Sex and Gender Information Value Date Recorded Sex Assigned at Not on file Gender Identity Not on file Sexual Orientation Not on file documented as of this encounter Miscellaneous Notes * Telephone Encounter - Pennie Noel - 06/22/2016 11:22 AM EDT Radiology safety questions documented in this encounter Plan of Treatment Upcoming Encounters Date Type Department Care Team (Late st Contact Info) Description 11/03/2023 8:30 AM EDT Office Visit Hematology/Oncology at [address] [phone] Garcia Childress MD [facility] DR [place] [address] Kassy Ken APRN [address] [place] [address] [place] [address] documented as of this encounter Visit Diagnoses Not on filedocumented in this encounter Care Teams Snubber Relationship Specialty Start Date End Date Mustapha Palumbo MD [address] [facility] [place] [address] PCP - General 11/11/14 08/07/17 documented as of this encounter
--- OUTSIDE RECORDS SUMMARY | 2023-11-03 04:02 | XMS_ITS | Encounter Summary ---
Author Organization [facility], [facility] Address [facility] [address] Care Team Providers Care Litigation Legal Assistant Name Role Phone Mustapha Anand DO Primary Care Provider Reason for Referral * Diagnostic Test (Routine) - Closed Specialty Diagnoses / Procedures Referred By Contmelissa t Referred To Contact Radiology Diagnoses Encounter for follow-up surveillance of lung cancer Procedures CT Chest w Contrast Shane Diamond MD [facility] [place] [address] [facility] [place] [address] Referral ID Status Reason Start Date Expiration Date V isits Requested Visits Authorized [id number] Closed Specialty Service Requested 08/08/2017 08/08/2018 1 1 Encounter Details Date Type Department Care Team (Late st Contact Info) Description 08/08/2017 9:45 AM EDT Office [place] [address] Shane Diamond MD [facility] [place] [address] Encounter for follow-up surveillance of lung cancer Social History Tobacco Use Types Packs/Day Years [...] Sign Reading Time Taken Comments Blood Pressure 170/75 08/08/2017 9:36 AM EDT Pulse 93 08/08/2017 9:36 AM EDT Temperature 36.3 ??C (97.3 ??F) 08/08/2017 9:36 AM ED T Respiratory Rate 17 08/08/2017 9:36 AM EDT Oxygen Saturation 95% 08/08/2017 9:36 AM EDT Inhaled Oxygen Concentration - - Weight 113.7 kg (250 lb 9.6 oz) 08/08/2017 9:36 AM EDT Height 186 cm (6' 1.23) 08/08/2017 9:36 AM EDT Body Mass Index 32.86 08/08/2017 9:36 AM EDT documented in this encounter Patient Instructions * Patient Instructions* Karen Kimble RN - 08/08/2017 9:45 AM EDT Thank you for visiting Dr. Diamond in clinic 08/08/17 Dr. Diamond would like to see you back in clinic in 6 months with a recent CT scan of the chest. You will receive a letter in the mail to schedule this appointment. ?? Exercise each [...] documented in this encounter Progress Notes * Pinky Polanco PA - 08/08/2017 9:45 AM EDT Thoracic Surgery Attending Outpatient Follow Up Note Shane Diamond MD [place] [address] FAX: Pre Op Dx: Left lower lobe lung mass ?? Post Op Dx: Left lower lobe lung mass ?? Procedure (12/10/15): Left lower lobe lobectomy with MLND via Left thoracotomy ?? Pathology (12/10/15): Left lower lobe - 2.5 cm adenocarcinoma, enteric type, consistent with metastatic colonic adenocarcinoma, with negative margins, 0/7 lymph nodes involved ?? Complications: None ?? Treatment: Follow up for surveillance HPI: Seth Kincaid is a 66 y.o. male s/p the above procedures presenting today for routine follow-up. Since his last follow-up, he has been diagnosed with atrial fibrillation for which he now takes Eliquis. Shortly after beginning Eliquis, he reported a mechanical trip and fall for which he noted a large hematoma and bruising over his L chest. He presents today stating he is feeling well, with occasional wheezing though overall improved breathing. He has ongoing tingling surrounding chest incisions but overall it is improving. He has not smoked tobacco in 20+ years. 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 Medications: Current Outpatient Prescriptions on File Prior to Visit Medication Sig Dispense Refill ??? Vit A,C,R-Rwlr-Bvttni (PRESERVISION AREDS) 14,320-764-200 dxqu-wl-yniy Capsule Take by mouth. ??? multivitamin (THERAGRAN) Tablet Take 1 tablet by mouth daily. ??? acetaminophen (TYLENOL) 500 mg Tablet Take 2 tablets by mouth every 6 hours. 30 tablet 1 ??? chlorthalidone (HYGROTEN) 25 mg tablet Take 25 mg by mouth daily. ??? aspirin 81 mg EC tablet Take 81 mg by mouth every 3 days. Current Facility-Administered Medications on File Prior to Visit Medication Dose Route Frequency Provider Last Rate Last Dose ??? [COMPLETED] iohexol (OMNIPAQUE) 350 mg/mL solution 0-200 mL 0-200 mL Intravenous Once PRN Kristian Arreguin MD 60 mL at 08/08/17 0856 Physical Exam: BP 170/75 (Patient Position: Sitting) Pulse 93 Temp 36.3 ??C (97.3 ??F) (Temporal) Resp 17 Ht 186 cm (6' 1.23) Wt 113.7 kg (250 lb 9.6 oz) SpO2 95% BMI 32.86 kg/m2 General Appearance: Alert, cooperative, no distress, appears stated age Nk: Supple, symmetrical, trachea midline, no adenopathy; No JVD Lungs: Clear to auscultation bilaterally, respirations unlabored, no wheezes, crackles or ronchi. Heart: Regular rate and rhythm, S1 and S2 normal, no murmur, rub, or gallop Abdomen: Soft, non-tender, bowel sounds active all four quadrants, no masses, no organomegaly Extremities: Extremities normal, atraumatic, no cyanosis or edema Wound/Incision: L thoracotomy and L chest incisions well-healed Imaging: I have independently visualized the following studies: CT Chest (08/08/17): No evidence of metastatic disease or other interval change. Small nodular density noted in L chest soft tissue; after clinical correlation is likely hematoma s/p mechanical trip and fall. Assessment: Seth Kincaid is a 66 y.o. male s/p L thoracotomy and LLLobectomy for metastatic colorectal cancer. He has recovered well and is with no evidence of disease. Plan: 1. Follow-up with Dr. Grubbs; his last note mentioned wanting to repeat CEA in 6 months which wouldbe due now. 2. Continue smoking cessation. 3. Return to regular exercise regimen. 4. RTC in [address] Chest with contrast 5. Call with any questions NIMO Cook 08/08/17 Thoracic Surgery [facility] * Shane Diamond MD - 08/08/2017 9:45 AM EDT Thoracic surgery follow-up visit I saw and examined Mr. Kincaid with Pinky Polanco and agree with her findings, assessment and plan. In brief: Chief complaint: Follow-up left lower lobectomy History of present illness: Mr. Gonzalez is a 66-year-old man with a history of metastatic colorectal cancer. On December 10, 2015 I performed a left thoracotomy with metastectomy of a lower lobe lung metastasis. The patient tolerated the procedure well and I last saw him on January 17, 2017 for sc heduled follow-up. He comes in today for scheduled follow-up without significant complaints. Past Medical History: Diagnosis Date ??? Carcinoma of colon 04/01/2008 adenocarcinoma of sigmoid colon - pT2 pN0 Mx, well differentiated - 04/01/08 screening colonoscopy - sigmoid carcinoma - 04/22/08 sigmoid resection ---Pathologic Diagnosis--- CONSULTATION CASE 1. Outside slides labeled [id number], collection date 04/01/08. Colon, biopsy at 15 cm: Invasive adenoca rcinoma, arising in association with a tubular adenoma with high grade dysplasia. 2. Outside slideslabeled [id number], collection date 04/22/08. A - Small bowel, biopsy: Pancreatic tissue with ductal dilatation and focal PanIN-1B and PanIN-2. B - Sigmoid colon, resection: Invasive adenocarcinoma, well- differentiated, 2.6 cm in greatest dimension by report, and arising in association with a tubular adenoma with high grade dysplasia. The tumor infiltrates into but not through the muscularis propria(pT2). No lymphatic, vascular or perineural invasion is present. Twe ??? Mass of lower lobe of left lung ??? Varicose vein of leg 40 years ago Past Surgical History: Procedure Laterality Date ??? PRO BRONCHOSCOPY, DIAGNOSTIC N/A 12/10/2015 BRONCHOSCOPY, DIAGNOSTIC performed by Shane Diamond MD at [facility] MAIN OR ??? PRO REMOVAL OF LUNG, LOBECTOMY Left 12/10/2015 @THORACOTOMY-LOBECTOMY, SINGLE LOBE performed by Shane Diamond MD at [facility] MAIN OR ??? PRO REMOVE THOR LYMPH NODES RAD REGNL Left 12/10/2015 @LYMPHADENECTOMY,THORACIC ,REGIONAL,INCL. MEDIASTINAL,PERITRACHEAL NODES performed by Shane Diamond MD at [facility] MAIN OR ??? PRO THORACOSCOPY, DX NO BX Left 12/10/2015 THORACOSCOPY, DX., LUNGS WITHOUT BIOPSY performed by Shane Diamond MD at [facility] MAIN OR ??? VARICOSE VEIN SURGERY Right 40 years ago Current Outpatient Prescriptions on File Prior to Visit Medication Sig Dispense Refill ??? Vit A,C,G-Qbyl-Tovrpi (PRESERVISION AREDS) 14,320-226-200 nirc-wt-fpqu Capsule Take by mouth. ??? multivitamin (THERAGRAN) Tablet Take 1 tablet by mouth daily. ??? acetaminophen (TYLENOL) 500 mg Tablet Take 2 tablets by mouth every 6 hours. 30 tablet 1 ??? chlorthalidone (HYGROTEN) 25 mg tablet Take 25 mg by mouth daily. ??? aspirin 81 mg EC tablet Take 81 mg by mouth every 3 days. Current Facility-Administered Medications on File Prior to Visit Medication Dose Route Frequency Provider Last Rate Last Dose ??? [COMPLETED] iohexol (OMNIPAQUE) 350 mg/mL solution 0-200 mL 0-200 mL Intravenous Once PRN Kristian Arreguin MD 60 mL at 08/08/17 0856 BP 170/75 (Patient Position: Sitting) Pulse 93 Temp 36.3 ??C (97.3 ??F) (Temporal) Resp 17 Ht 186 cm (6' 1.23) Wt 113.7 kg (250 lb 9.6 oz) SpO2 95% BMI 32.86 kg/m2 He appears well today. His right lung is clear to auscultation, the left has somewhat diminished breath sounds at the base. His incision has healed well. He has no concerning lymphadenopathy or neurologic signs. Imaging: A CT of the chest with intravenous contrast was obtained today. This demonstrates expectedpostoperative changes without any evidence of metastatic or recurrent disease. Assessment: 66-year-old man who is now 1-1/2 years removed from a lower lobectomy for metastatic colorectal cancer. He is making good functional progress and has no evidence of disease recurrence. Heis also followed by Dr. Grubbs from medical oncology and I will defer to him on the timing of any re evaluation of his CEA level. He will return to clinic in 6 months for a chest CT with IV contrast for surveillance Plan: Return to clinic in [address] SHANE DIAMOND MD documented in this encounter Plan of Treatment Upcoming Encounters Date Type Department Care Team (Late st Contact Info) Description 11/03/2023 8:30 AM EDT Office Visit Hematology/Oncology at [address] [phone] Garcia Childress MD [facility] DR HEMATOLOGY [place] [address] Kassy Ken, CARPET CLEANING TECHNICIAN [address] [place] [address] [place] [address] documented as of this encounter Results * CT Chest w Contrast (02/13/2018 9:15 AM EST) Anatomical Region Laterality Modality Chest Computed Tomogra phy Impressions 02/13/2018 2:39 PM EST No evidence of disease recurrence at the resection site or metastatic disease. I have personally reviewed the image(s) and the residents interpretation and agree with the findings, Kristian Arreguin at 02/13/2018 2:39 PM Narrative 02/13/2018 2:39 PM EST EXAMINATION: CT CHEST W CONTRAST CLINICAL HISTORY: s/p LLLobectomy 2016. Surveillance for recurrence of disease. TECHNIQUE: Helical CT of the chest was performed following intravenous administration of 60ml of Omnipaque 350. Multiplanar reformatted images were generated. COMPARISON: CT chest 08/08/2017 ? FINDINGS: Lungs and airways: Status post left lower lobectomy with no evidence of recurrence at the resection site. No new or enlarging pulmonary nodule. The central airways are patent. Pleura and pericardium: No pleural or pericardial effusion. Heart and vasculature: The heart is normal in size. Nonaneurysmal thoracic aorta. Mediastinum and hilar structures: No lymphadenopathy. Limited views of the upper abdomen are unchanged. Dependently layering gallstones with no evidence of cholecystitis. Osseous structures: No focal lytic or sclerotic osseous lesion. ? Procedure Note Kristian Arreguin MD - 02/13/2018 EXAMINATION: CT CHEST W CONTRAST CLINICAL HISTORY: s/p LLLobectomy 2016. Surveillance for recurrence ofdisease. TECHNIQUE: Helical CT of the chest was performed following intravenous administration of 60ml of Omnipaque 350. Multiplanar reformatted imageswere generated. COMPARISON: CT chest 08/08/2017 ? FINDINGS: Lungs and airways: Status post left lower lobectomy with no evidence of recurrence at the resection site. No new or enlarging pulmonary nodule.The central airways are patent. Pleura and pericardium: No pleural or pericardial effusion. Heart and vasculature: The heart is normal in size. Nonaneurysmalthoracic aorta. Mediastinum and hilar structures: No lymphadenopathy. Limited views of the upper abdomen are unchanged. Dependently layering gallstones with no evidence of cholecystitis. Osseous structures: No focal lytic or sclerotic osseous lesion. ? IMPRESSION No evidence of disease recurrence at the resection site or metastaticdisease. I have personally reviewed the image(s) and the residents interpretationand agree with the findings, Kristian Arreguin at 02/13/2018 2:39 PM Shane Diamond MD IMG CT ORDERABLE S documented in this encounter Visit Diagnoses Diagnosis Encounter for follow-up surveillance of lung cancer Unspecified follow-up examination Encounter for follow-up surveillance of lung cancer Unspecified follow-up examination documented in this encounter Care Teams Litigation Legal Assistant Relationship Specialty Start Date End Date Mustapha Anand DO [address] [place] [address] PCP - General Family Medicine 08/08/17 documented as of this encounter
--- OUTSIDE RECORDS SUMMARY | 2023-11-03 04:02 | XMS_ITS | Encounter Summary ---
Author Organization [facility] Address [facility] [place] [address] Care Team Providers Care Control Clerk Auditing Name Role Phone ChengMustapha DO Primary Care Provider [phone] Encounter Details Date Type Department Care Team (Latest Contact Info) Description 02/13/2018 8:00 AM EST Laboratory Appointment Lab [address] [place] [phone] Mass of left lung; Malignant neoplasm of [...] 8:30 AM EDT Office Visit Hematology/Oncology at [address] [phone] Garcia Childress MD [facility] DR HEMATOLOGY [place] [address] Kassy Ken APRN [address] [place] [address] DR MEDICAL ONCOLOGY [place], [place] [address] documented as of this encounter Procedures Procedure Name Priority Date/Time Associated Diagnosis Comments HEMOGRAM Routine 02/13/2018 8:24 AM EST Mass of left lung DIFFERENTIAL, AUTOMATED Routine 02/13/2018 8:24 AM EST Mass of left lung CBC (WITH DIFF) Routine 02/13/2018 8:24 AM EST Mass of left lung CEA Routine 02/13/2018 8:24 AM EST Mass of left lung Malignant neoplasm of colon, unspecified part of colon COMPREHENSIVE METABOLIC PANEL (NON-FASTING) Routine 02/13/2018 8:24 AM EST Mass of left lung documented in this encounter Results * Differential, Automated (02/13/2018 8:24 AM EST) Neutrophils % 55.8 % [facility] Neutr Abs (ANC) 4.05 1.70 - 6.10 x10(3)/[facility] Lymphocytes % 30.4 % [facility] Lymphocytes Abs 2.2 0.9 - 3.2 x10(3)/[facility] Monocytes % 7.0 % [facility] Monocyte Abs 0.5 0.3 - 0.9 x10(3)/[facility] Eosinophils % 5.4 % [facility] Eosinophils Abs 0.4 0.0 - 0.4 x10(3)/[facility] Basophils % 1.1 % [facility] Basophils Abs 0.1 0.0 - 0.1 x10(3)/[facility] Immature Gran % 0.30 % [facility] Comment: Immature granulocytes(IG's)percentage and absolute count will include metamyelocytes, myelocytes, and promyelocytes. Blood smears from CBCs yielding IG's will be scanned manually for concordance. If this scan disagrees with the automated IG or if promyelocytes are noted, a manual differential will be performed. Wendy Gran Abs 0.02 0.00 - 0.04 x10(3)/[facility] Blood specimen (specimen) 02/13/2018 8:24 AM EST 02/13/2018 8:27 AM EST Narrative Resulting Agency Comment Spec In Lab Shane Diamond MD HEMATOLOGY ORDER DIAMOND [facility] [place] [address] * (ABNORMAL) Hemogram (02/13/2018 8:24 AM EST) WBC 7.3 4.0 - 9.5 x10(3)/[facility] RBC 4.63 4.58 - 5.54 x10(6)/[facility] Hemoglobin 13.5(L) 13.7 - 16.5 gm/dL [facility] Hematocrit 41.7 40.5 - 48.5 % [facility] MCV 90.1 82.9 - 93.1 fL [facility] MCH 29.2 27.5 - 32.1 pg [facility] MCHC 32.4 32.0 - 35.7 gm/dL [facility] Platelets 193 145 - 357 x10(3)/[facility] RDWSD 43.1 36.0 - 45.0 [facility] RDWCV 13.1 11.4 - 13.8 % [facility] MPV 10.6 7.6 - 12.9 [facility] nRBC % Auto 0.0 % [facility] nRBC Abs Auto 0.000 0.000 - 0.000 x10(3)/[facility] Blood specimen (specimen) 02/13/2018 8:24 AM EST 02/13/2018 8:27 AM EST Narrative Resulting Agency Comment Spec In Lab Shane Diamond MD HEMATOLOGY ORDER DIAMOND Performing Organization Address City/[facility]/ZIP Co de Phone Number [facility] [place] [address] * (ABNORMAL) Comprehensive metabolic panel (non-fasting) (02/13/2018 8:24 AM EST) Glucose Lvl 112 65 - 199 mg/dL [facility] Comment:Diabetes: >=200 mg/d L plus symptoms BUN 15 10 - 20 mg/dL [facility] Creatinine 0.95 0.80 - 1.50 mg/dL [facility] Sodium 143 135 - 145 mmol/L [facility] Potassium 4.9 3.5 - 5.0 mmol/L [facility] Comment: Please note: ??Patients with WBC >100,000 may have falsely elevated Potassium levels. ??For accurate Potassium quantification in these patients send serum separator tube (gold top) for subsequent determinations. ??Contact the Clinical Chemistry Laboratory if there are any questions. Chloride 102 98 - 107 mmol/L [facility] CO2 27 22 - 31 mmol/L [facility] Anion Gap 14 5 - 15 mmol/L [facility] Calcium 9.4 8.5 - 10.5 mg/dL [facility] Total Protein 7.2 6.1 - 8.0 gm/dL [facility] Albumin 3.7 3.2 - 5.2 gm/dL [facility] AST 37 0 - 39 unit/L [facility] ALT 50 0 - 55 unit/L [facility] Alk Phos 140(H) 40 - 120 unit/L [facility] Total Bilirubin 0.4 0.2 - 1.3 mg/dL [facility] Estimated GFR 81 >=60 mL/min/1. 73 m?? [facility] Comment: The eGFR was calculated using the CKD-EPI equation. As with all creatinine based estimates of kidney function, eGFR values calculated with the CKD-EPI equation are not accurate in patients with acute kidney failure, extremes of body mass or the acutely ill. http://[employer]/DHMCnkf eGFR 94 >=60 mL/min/1. 73 m?? [facility] Comment: The eGFR was calculated using the CKD-EPI equation. As with all creatinine based estimates of kidney function, eGFR values calculated with the CKD-EPI equation are not accurate in patients with acute kidney failure, extremes of body mass or the acutely ill. http://[employer]/DHMCnkf Blood specimen (specimen) 02/13/2018 8:24 AM EST 02/13/2018 8:27 AM EST Narrative Resulting Agency Comment Spec In Lab Shane Diamond MD CHEMISTRY ORDERA BLES [facility] [place] [address] * CEA (02/13/2018 8:24 AM EST) CEA 0.8 <=3.8 ng/mL [facility] Comment: Reference range: ??(20-69 years): Non-smoker: ??less than or equal to 3.8 ng/mL Smoker: ??less than 5.5 ng/ml Blood specimen (specimen) 02/13/2018 8:24 AM EST 02/13/2018 8:28 AM EST Narrative Resulting Agency Comment Spec In Lab Shane Diamond MD CHEMISTRY ORDERA BLES Performing Organization Address City/[facility] Co de Phone Number [facility] [place] [address] documented in this encounter Visit Diagnoses Diagnosis Mass of left lung Malignant neoplasm of colon, unspecified part of colon documented in this encounter Care Teams Control Clerk Auditing Relationship Specialty Start Date End Date Mustapha Anand DO [address] [place] [address] PCP - General Family Medicine 08/08/17 documented as of this encounter
--- OUTSIDE RECORDS SUMMARY | 2023-11-03 04:02 | XMS_ITS | Encounter Summary ---
Author Organization [facility] Address [facility] [place] [address] Care Team Providers Care Wellness Nurse Name Role Phone Mustapha Palumbo MD Primary Care Provider [phone] Encounter Details Date Type Department Care Team (Late st Contact Info) Description 08/02/2017 Orders Only [place] [address] Karen Kimble RN Encounter for follow-up surveillance of lung cancer [...] 8:30 AM EDT Office Visit Hematology/Oncology at [address] [phone] Garcia Childress MD [facility] DR HEMATOLOGY [place] [address] Kassy Ken APRN [address] [place] [address] DR MEDICAL ONCOLOGY [place], [place] [phone] documented as of this encounter Results * Creatinine (08/08/2017 6:56 AM EDT) Creatinine 0.94 0.80 - 1.50 mg/dL [facility] Estimated GFR >60 >=60 [facility] Comment: The reported eGFR should be multiplied by 1.2 for patients. The MDRD is not an appropriate measure of renal function for patients with body mass extremes or in patients with acute kidney failure. http://[employer]/DHnkdep http://[employer]/DHMCnkf Blood specimen (specimen) 08/08/2017 6:56 AM EDT 08/08/2017 6:58 AM EDT Narrative Resulting Agency Comment Spec In Lab Shane Diamond MD CHEMISTRY ORDERA BLES [facility] [place] [address] documented in this encounter Visit Diagnoses Diagnosis Encounter for follow-up surveillance of lung cancer Unspecified follow-up examination documented in this encounter Care Teams Wellness Nurse Relationship Specialty Start Date End Date Mustapha Palumbo MD [address] [place] [address] PCP - General 11/11/14 08/07/17 documented as of this encounter
--- OUTSIDE RECORDS SUMMARY | 2023-11-03 04:02 | XMS_ITS | Encounter Summary ---
Author Organization [facility] Address [facility] [place] [address] Care Team Providers Care Cheese Blender Name Role Phone Mustapha Palumbo MD Primary Care Provider [phone] Reason for Visit * Reason Comments Colon Cancer Encounter Details Date Type Department Care Team (Late st Contact Info) Description 02/22/2017 1:30 PM EST Office Visit Hematology/Oncology at [address] [phone] Jose Grubbs MD [address] [place] [phone] Carcinoma of colon; Lung mass Social History [...] Sign Reading Time Taken Comments Blood Pressure 134/80 02/22/2017 1:41 PM EST Pulse 77 02/22/2017 1:41 PM EST Temperature 36.3 ??C (97.3 ??F) 02/22/2017 1:41 PM ES T Respiratory Rate 18 02/22/2017 1:41 PM EST Oxygen Saturation 97% 02/22/2017 1:41 PM EST Inhaled Oxygen Concentration - - Weight 111.1 kg (245 lb) 02/22/2017 1:41 PM EST Height - - Body Mass Index 32.33 01/17/2017 3:14 PM EDT documented in this encounter Progress Notes * Jose Grubbs MD - 02/22/2017 1:30 PM EST Images from the original note were not included. Patient Active Problem List Diagnosis Code ??? Carcinoma of colon C18.9 ??? Obesity E66.9 ??? CIS - Past Surgery/Trauma ??? Elevated LFTs R79.89 ??? Inflamed seborrheic keratosis L82.0 ??? Mass of lower lobe of left lung R91.8 ??? Lung mass R91.8 Problems:adenocarcinoma of sigmoid colon - pT2 pN0 Mx, well differentiated - 04/01/08 screening colonoscopy - sigmoid carcinoma - 04/22/08 sigmoid resection ---Pathologic Diagnosis--- CONSULTATION CASE 1. Outside slides labeled [id number], collection date 04/01/08. Colon, biopsy at 15 cm: Invasive adenocarcinoma, arising in association with a tubular adenoma with high grade dysplasia. 2. Outside slides labeled [id number], collection date 04/22/08. A - Small bowel, [...] of colon with no evidence of malignancy. SUBJECTIVE: Seth comes in today for followup on what appears to oligometastatic disease from a very late recurrence of his colon cancer. He continues to do well and is feeling well. His respiratory status is excellent and in fact he went on a hunting trip down in [place], got 3 deer and was able to drag them back up to the car without significant dyspnea. When walking up steep hills here in [place], he does notice occasional shortness of breath but is actually breathing fine. He has no pain, no bowel problems, no other difficulties. He just had a restaging CT scan of the chest down at [facility] and that was fine. We went over his lab today which also continues to be essentially normal. Current Outpatient Prescriptions on File Prior to Visit Medication Sig Dispense Refill ??? Vit A,C,R-Ljhe-Glewrh (PRESERVISION AREDS) 14,320226-200 iufh-bi-kizf Capsule Take by mouth. ??? multivitamin (THERAGRAN) Tablet Take 1 tablet by mouth daily. ??? acetaminophen (TYLENOL) 500 mg Tablet Take 2 tablets by mouth every 6 hours. (Patient not taking: Reported on 01/17/2017) 30 tablet 1 ??? ibuprofen (ADVIL;MOTRIN) 600 mg Tablet Take 1 tablet by mouth every 6 hours. (Patient not taking: Reported on 06/21/2016) 30 tablet 12 ??? chlorthalidone (HYGROTEN) 25 mg tablet Take 25 mg by mouth daily. ??? aspirin 81 mg EC tablet Take 81 mg by mouth every 3 days. No current facility-administered medications on file prior [...] Negative. Neurological: Negative. Hematological: Negative for adenopathy. There were no vitals taken for this visit. Head: Normocephalic, without obvious abnormality, atraumatic Eyes: [...] and axillary nodes normal Neurologic: Normal CEA 08/16/16 <0.5 04/14/16 <0.5 15.9 Lung Mass resected 09/17/15 13.3 03/13/15 7.8 11/07/14 8.0 Repeat [facility] 5.5 11/08/13 3.3 05/02/13 3.1 11/03/12 1.2 05/04/12 1.2 10/29/11 1.2 04/20/11 1.3 10/16/10 0.8 04/13/10 0.6 11/03/09 0.9 07/03/09 0.9 04/03/09 <0.5 12/27/08 0.4 08/23/08 0.4 EXAMINATION: PET/CT STANDARD (SKULL BASE TO MID THIGH) 10/31/15 ?? CLINICAL HISTORY: Rising CEA Remote history 2007 of colon cancer. Now with LLL Mass Staging for resection Suspect new lung Cancer Please make appointment same day as Thoracic Surgery Appointment ?? TECHNIQUE: Procedure: Following IV injection of 26-rfyjwi-0-deoxyglucose (FDG) a standard uptake of approximately 60 minutes, a noncontrast CT scan followed by a PET scan were acquired from the base of the skull to mid thighs. The noncontrast CT was used for anatomic localization and photon attenuation correction of the PET scan ?? Blood glucose level: 116 (mg/dL) ?? FDG dose: 12.4 mCi Reference liver mean SUV: 2.2 ?? COMPARISON: CT chest 10/24/2015 ?? FINDINGS: ? HEAD/NECK: Normal activity in all soft tissue regions of the neck and visualized lower head. ? CHEST: Hypermetabolic 3.8 x 2.7 cm slightly spiculated LEFT lower lobe mass (max SUV 12.3). The mass abuts the pleural surface, however no osseous irregularity of the adjacent rib is seen. No other pulmonary nodules or opacities. No hypermetabolic hilar or mediastinal lymphadenopathy. CT visualized LEFT upper paratracheal lymph node measuring 11 mm in short axis without associated hypermetabolic activity (image 15). ?? ABDOMEN/PELVIS: ?? Normal activity in all soft tissue regions. Small fat-containing ventral hernia and RIGHT inguinal hernia are noted. ? SKELETON/EXTREMITIES: Normal activity in all regions of the axial and visualized appendicular skeleton. Facet arthropathy at the lumbar spine. ?? IMPRESSION 1. Hypermetabolic 3.8 x 2.7 cm LEFT upper lobe mass consistent with primary pulmonary malignancy or less likely metastasis. 2. No other sites of FDG avid malignancy. ? Surgical Pathology DIAGNOSIS A - Left lower lobe for frozen section 1. Adenocarcinoma, enteric type, consistent with metastatic colonic ??adenocarcinoma ??(see Discussion). ?? Tumor size = 2.5 cm ?? Margin of excision free of tumor 2. Post obstructive pneumonia. B - AP window node for frozen section Five (0/5) lymph nodes negative for malignancy C - Level 7 lymph node for frozen section One (0/1) lymph node negative for malignancy D - Left 10 lymph node for frozen section One (0/1) lymph node ?? negative for malignancy Electronically signed by: ??Jens Shea MD Verified: ??12/16/2015 ?Pathologist DISCUSSION The patient 's prior history of colonic adenocarcinoma([id number]) is noted and ??is currently unavailable for review. The histology and IHC studies support the ??diagnosis, however a small percentage of primary pulmonary adencarcinomas can show ??enteric type differentiation. ADDITIONAL STUDIES Immunohistochemistry Studies: Formalin-fixed, paraffin-embedded tissue sections are studied using the polymer ??technique with appropriate positive and negative controls. ?These IHC studies ??provide the pathologist with adjunctive diagnostic information. Antibody specificity ??has been verified by testing antibodies on a series of in-house tissues with known ??immunohistochemical performance characteristics. The clinical interpretation of ??any antibody positive staining or its absence is evaluated within the context of ??clinical presentation, morphology, histopathological criteria and other diagnostic ??tests. Block ? Antibody ?Result (Positive/Negative) A7 ? CDX-2 ?Positive in lesional cells. ?CK20 ?Positive in lesional cells. ?TTF-1 ?Negative in lesional cells. EXAMINATION: CT CHEST W CONTRAST 06/21/16 ?? CLINICAL HISTORY: s/p LLL lobectomy and chest wall resection for adenocarcinoma on 12/10/15. Evaluate for new or recurrent disease ?? TECHNIQUE: Helical CT of the chest was performed following intravenous administration of 60ml of Ominpaque 350. Multiplanar reformatted images were generated. ?? EXAMINATION: CT CHEST W CONTRAST 01/17/19 ?? CLINICAL HISTORY: s/p LLLectomy 12/2015 for rectal cancer metastisis to LLL. f/u routine surveillance for reoccurance. ?? TECHNIQUE: 3.75 mm thick axial contiguous sections were obtained through the chest via helical acquisition after the intravenous administration of 60 cc of Omnipaque-350. Thin-section reconstructions as well as coronal and sagittal reformatted images were generated. ?? COMPARISON: 06/21/2016. ?? FINDINGS: Pulmonary parenchyma: Status post left lower lobectomy, with no findings for recurrence at the resection site. No new or enlarging pulmonary nodules are seen. No other interval pulmonary parenchymal pathology identified. Airways: No endobronchial opacities. Lymph nodes: No interval or acid lymph node enlargement. Pleura: Further decrease in very small left effusion. No pleural effusion on the right Heart, pericardium, and great vessels: No pericardial effusion or other new finding. Other mediastinal structures: No new findings. Lower neck: No new findings. Upper abdomen: Tiny gallstones layering dependently in the gallbladder, unchanged. No new findings. Skeletal structures: No new findings. ?? IMPRESSION Status post left lower lobectomy. No findings for recurrence at the resection site. No new or enlarging pulmonary nodules. ?? The patient's blood counts today are fine. His white count is 8.46, hemoglobin 14.3, hematocrit 44.1, platelets are 256,000. CMP shows normal electrolytes. Creatinine at 1.03. ALP is lower than it usually is at 130 (he has a long history of a slight increase in ALP). CEA remains undetectable at less than 0.5. ASSESSMENT/PLAN: Seth is doing well and now more than a year out from his surgical resection and is doing fine with no evidence of any recurrence. He has followup arranged for another CT scan in 6 months and we will see him back in 6 months with lab including a CEA. We will see him sooner if there are any issues or problems in the interim. documented in this encounter Plan of Treatment Upcoming Encounters Date Type Department Care Team (Late st Contact Info) Description 11/03/2023 8:30 AM EDT Office Visit Hematology/Oncology at [address] [phone] Garcia Childress MD [facility] DR HEMATOLOGY [place] [address] Kassy Ken APRN [address] [place] [address] [place] [address] documented as of this encounter Visit Diagnoses Diagnosis Carcinoma of colon Malignant neoplasm of colon, unspecified site Lung mass Swelling, mass, or lump in chest documented in this encounter Care Teams Cheese Blender Relationship Specialty Start Date End Date Mustapha Palumbo MD [address] [place] [address] PCP - General 11/11/14 08/07/17 documented as of this encounter
--- OUTSIDE RECORDS SUMMARY | 2023-11-03 04:02 | XMS_ITS | Encounter Summary ---
Author Organization [facility] Address [facility] [place] [place] [address] Care Team Providers Care Phlebotomy Services Representative Name Role Phone Mustapha Anand DO Primary Care Provider [phone] Reason for Referral * Diagnostic Test (Routine) - Specialty Diagnoses / Procedures Referred By Contmelissa t Referred To Contact Radiology Diagnoses Encounter for follow-up surveillance of lung cancer Procedures CT Chest wo Contrast (Generic) Shane Diamond MD [facility] [place] [address] [facility] [place] [address] Referral ID Status Reason Start Date Expiration Date Visits Requested Visits Authorized [id number] Specialty Service Requested 02/13/2018 02/13/2019 1 1 Reason for Visit * Reason Comments Follow-up Encounter Details Date Type Department Care Team (Late st Contact Info) Description 02/13/2018 10:30 AM EST Office [place] [address] Shane Diamond MD [facility] [place] [address] Encounter for follow-up surveillance of [...] Sign Reading Time Taken Comments Blood Pressure 150/77 02/13/2018 10:20 AM EST Pulse 72 02/13/2018 10:20 AM EST Temperature 36.8 ??C (98.2 ??F) 02/13/2018 1 0:20 AM EST Respiratory Rate 18 02/13/2018 10:2 0 AM EST Oxygen Saturation 96% 02/13/2018 10: 20 AM EST Inhaled Oxygen Concentration - - Weight 117.3 kg (258 lb 9.6 oz) 018 10:20 AM EST Height 185.2 cm (6' 0.91) 02/13/2018 1 0:20 AM EST Body Mass Index 34.2 02/13/2018 10:20 AM EST documented in this encounter Patient Instructions * Patient Instructions* Karen Kimble RN - 02/13/2018 10:30 AM EST Thank you for visiting Dr. Diamond in clinic 02/13/18 Dr. Diamond would like to see you back in clinic in 1 year with a recent CT scan of the [...] Progress Notes * Shane Diamond MD - 02/13/2018 10:30 AM EST Thoracic surgery follow-up visit Chief complaint: Follow-up left lower lobectomy History of present illness: Mr. Kincaid is a 67-year-old man with history of metastatic colorectal cancer. On December 10, 2015 I performed a left lower lobectomy for a colorectal metastasis. He is done well since that point and comes in for scheduled 6-month follow-up. He has no new complaints today. Current Outpatient Medications on File Prior to Visit Medication Sig Dispense Refill ??? apixaban (ELIQUIS) 5 mg Tablet Take by mouth. ??? metoprolol succinate (TOPROL-XL) 25 mg Tablet Sustained Release 24 hr Take 25 mg by mouth daily. ??? atorvastatin (LIPITOR) 40 mg Tablet Take 40 mg by mouth daily. ??? Vit A,C,T-Onab-Vjprfl (PRESERVISION AREDS) 14,320-226-200 kxnr-ma-yznq Capsule Take by mouth. ??? multivitamin (THERAGRAN) Tablet Take 1 tablet by mouth daily. ??? acetaminophen (TYLENOL) 500 mg Tablet Take 2 tablets by mouth every 6 hours. 30 tablet 1 No current facility-administered medications on file prior to visit. BP 150/77 (Patient Position: Sitting) Pulse 72 Temp 36.8 ??C (98.2 ??F) (Oral) Resp 18 Ht 185.2 cm (6' 0.91) Wt 117.3 kg (258 lb 9.6 oz) SpO2 96% BMI 34.20 kg/m?? Physical exam: He appears well. He is alert, oriented and in no distress. He has no neurologic deficits. He has no palpable adenopathy. His lungs are clear. His incision has healed well. Imaging: A chest CT was obtained today. This demonstrates no evidence of metastatic disease or recurrent disease. Assessment: 67-year-old man now 2 years removed from a left lower lobectomy for a metastatic colorectal cancer. He has no evidence of disease at present. His CEA level was checked and was 0.8. He needs no further treatment at present, and we can continue with routine surveillance. Plan: Return to clinic in [address] SHANE DIAMOND MD documented in this encounter Plan of Treatment Upcoming Encounters Date Type Department Care Team (Late st Contact Info) Description 11/03/2023 8:30 AM EDT Office Visit Hematology/Oncology at [address] [phone] Garcia Childress MD [facility] DR HEMATOLOGY [place] [address] Kassy Ken, EMERY WHEEL WORKER [address] [place] [address] [place] [address] documented as of this encounter Results * [...] examination documented in this encounter Care Teams Phlebotomy Services Representative Relationship Specialty Start Date End Date Mustapha Anand DO [address] [place] [address] PCP - General Family Medicine 08/08/17 documented as of this encounter
--- OUTSIDE RECORDS SUMMARY | 2023-11-03 04:02 | XMS_ITS | Encounter Summary ---
Author Organization [facility] Address [facility] [place] [address] Care Team Providers Care Interactive Art Director Name Role Phone ChengMustapha DO Primary Care Provider [phone] Encounter Details Date Type Department Care Team (Late Contact Info) Description 08/08/2017 Telephone [place] [phone] Sue Silvestre Social History Tobacco Use Types Packs/Day Years Used Date Smoking Tobacco: Former Pipe Q uit: 04/25/1997 Smokeless Tobacco: Former Comments:was a pouch a week from the pipe Sex and Gender Information Value Date Recorded Sex Assigned at Not on file Gender Identity Not on file Sexual Orientation Not on file documented as of this encounter Miscellaneous Notes * Telephone Encounter - Sue Silvestre - 08/08/2017 10:04 AM EDT Safety questions documented in this encounter Plan of Treatment Upcoming Encounters Date Type Department Care Team (Late st Contact Info) Description 11/03/2023 8:30 AM EDT Office Visit Hematology/Oncology at [address] [phone] Garcia Childress MD [facility] DR HEMATOLOGY [place] [address] Kassy Ken APRN [address] [place] [address] DR MEDICAL ONCOLOGY [place], [place] [id number] documented as of this encounter Visit Diagnoses Not on filedocumented in this encounter Care Teams Interactive Art Director Relationship Specialty Start Date End Date Mustapha Anand DO [address] [place] [address] PCP - General Family Medicine 08/08/17 documented as of this encounter
--- OUTSIDE RECORDS SUMMARY | 2023-11-03 04:02 | XMS_ITS | Encounter Summary ---
Author Organization [facility] Address [facility] [place] [address] Care Team Providers Care Adjunct Professor Name Role Phone Mustapha Palumbo MD Primary Care Provider [phone] Encounter Details Date Type Department Care Team (Late st Contact Info) Description 06/21/2016 Orders [place] [address] Jacinta Richard, RN Encounter for follow-up surveillance of lung [...] 8:30 AM EDT Office Visit Hematology/Oncology at [address] [phone] Garcia Childress MD [facility] DR HEMATOLOGY [place] [address] Kassy Ken APRN [address] [place] [address] DR MEDICAL ONCOLOGY [place], [place] [id number] documented as of this encounter Results * Creatinine (06/21/2016 9:50 AM EDT) Creatinine 0.95 0.80 - 1.50 mg/dL [facility] Comment: Please note that the pediatric reference intervals supplied above were not validated at [facility]. Results from pediatric patients should be interpreted in conjunction to the patient's age, height and muscle mass. Estimated GFR >60 >=60 [facility] Comment: This estimated GFR (eGFR) value was calculated using the MDRD equation which has been validated on patients between the ages of 18 and 70. The MDRD should not be used to assess kidney function in patients < 18 years of age or in patients with extremes of body mass, or in patients with acute kidney failure. This value should be multiplied by 1.2 for patients. For further information please copy and paste the following links into your internet browser. http://Vidit/DHnkdep http://Vidit/DHMCnkf Blood specimen (specimen) 06/21/2016 9:50 AM EDT 06/21/2016 9:58 AM EDT Narrative Resulting Agency Comment Spec In Lab Shane Diamond MD CHEMISTRY ORDERA BLES [facility] [place] [id number] documented in this encounter Visit Diagnoses Diagnosis Encounter for follow-up surveillance of lung cancer Unspecified follow-up examination documented in this encounter Care Teams Adjunct Professor Relationship Specialty Start Date End Date Mustapha Palumbo MD [address] [facility] [place] [address] PCP - General 11/11/14 08/07/17 documented as of this encounter
--- OUTSIDE RECORDS SUMMARY | 2023-11-03 04:02 | XMS_ITS | Encounter Summary ---
Author Organization [facility] Address [facility] [place] [address] Care Team Providers Care Certified Registered Dental Assistant Name Role Phone Mustapha Anand DO Primary Care Provider [phone] Encounter Details Date Type Department Care Team (Late st Contact Info) Description 07/28/2017 Telephone [place] [address] Pennie Noel Social History Tobacco Use Types [...] 8:30 AM EDT Office Visit Hematology/Oncology at [address] [phone] Garcia Childress MD [facility] DR HEMATOLOGY [place] [address] Kassy Ken APRN [address] [place] [address] DR MEDICAL ONCOLOGY [place], [place] [id number] documented as of this encounter Visit Diagnoses Not on filedocumented in this encounter Care Teams Certified Registered Dental Assistant Relationship Specialty Start Date End Date Mustapha Anand DO [address] [place] [address] PCP - General Family Medicine 08/08/17 documented as of this encounter
--- OUTSIDE RECORDS SUMMARY | 2023-11-03 04:02 | XMS_ITS | Encounter Summary ---
Author Organization [facility] Address [facility] [place] [address] Care Team Providers Care Histology Supervisor Name Role Phone Mustapha Anand DO Primary Care Provider [phone] Reason for Visit * Reason Comments Colon Cancer Encounter Details Date Type Department Care Team (Late st Contact Info) Description 12/26/2017 10:00 AM EDT Office Visit Hematology/Oncology at [address] [phone] Jose Grubbs MD [address] [place] [phone] Carcinoma of colon; Mass of lower lobe [...] Sign Reading Time Taken Comments Blood Pressure 138/76 12/26/2017 10:02 AM EDT Pulse 61 12/26/2017 10:02 AM EDT Temperature 36.6 ??C (97.9 ??F) 12/26/2017 10:02 AM E DT Respiratory Rate 18 12/26/2017 10:02 AM EDT Oxygen Saturation 98% 12/26/2017 10:02 AM EDT Inhaled Oxygen Concentration - - Weight 117.9 kg (260 lb) 12/26/2017 10:02 AM EDT Height 182.7 cm (5' 11.93) 12/26/2017 10:02 AM EDT copied Body Mass Index 35.33 12/26/2017 10:02 AM EDT documented in this encounter Progress Notes * Jose Grubbs MD - 12/26/2017 10:00 AM EDT Images from the original note were not included. Patient Active Problem List Diagnosis Code ??? Carcinoma of colon C18.9 ??? Obesity E66.9 ??? CIS - Past Surgery/Trauma ??? Elevated LFTs R94.5 ??? Inflamed seborrheic keratosis L82.0 ??? Mass of lower lobe of left lung R91.8 ??? Lung mass R91.8 Problems:adenocarcinoma of sigmoid colon - pT2 pN0 Mx, well differentiated - 04/01/08 screening colonoscopy - sigmoid carcinoma - 04/22/08 sigmoid resection ---Pathologic Diagnosis--- CONSULTATION CASE 1. Outside slides labeled [id number], collection date 04/01/08. Colon, biopsy at 15 cm: Invasive adenocarcinoma, arising in association with a tubular adenoma with high grade dysplasia. 2. Outside slides labeled [id number], collection date 04/22/08. A - Small bowel, [...] to do well and is feeling well. This spring his son committed suicide and he is been somewhat depressed so he stopped exercising but the last few weeks he started again and is feeling quite a bit better. His notes he still has an occasional down day but overall is doing well. Review of systems is otherwise quite negative with no GI problems no breathing problems no chest pain no abdominal symptoms at all. Current Outpatient Prescriptions on File Prior to Visit Medication Sig Dispense Refill ??? apixaban (ELIQUIS) 5 mg Tablet Take by mouth. ??? metoprolol succinate (TOPROL-XL) 25 mg Tablet Sustained Release 24 hr Take 25 mg by mouth daily. ??? atorvastatin (LIPITOR) 40 mg Tablet Take 40 mg by mouth daily. ??? Vit A,C,U-Jtzv-Cpbxno (PRESERVISION AREDS) 14,320-037-200 paei-jw-blmw Capsule Take by mouth. ??? multivitamin (THERAGRAN) Tablet Take 1 tablet by mouth daily. ??? acetaminophen (TYLENOL) 500 mg Tablet Take 2 tablets by mouth every 6 hours. 30 tablet 1 ??? [DISCONTINUED] chlorthalidone (HYGROTEN) 25 mg tablet Take 25 mg by mouth daily. ??? [DISCONTINUED] aspirin 81 mg EC tablet Take 81 [...] Neurological: Negative. Hematological: Negative for adenopathy. BP 138/76 (Patient Position: Sitting) Pulse 61 Temp 36.6 ??C (97.9 ??F) (Oral) Resp 18 Ht 182.7 cm (5' 11.93) Comment: copied Wt 117.9 kg (260 lb) SpO2 98% BMI 35.33 kg/m2 Head: Normocephalic, without obvious abnormality, atraumatic Eyes: [...] ?? TECHNIQUE: Procedure: Following IV injection of 08-uvzmgc-4-deoxyglucose (FDG) a standard uptake of approximately 60 [...] The patient 's prior history of colonic adenocarcinoma([id number]) is noted and ??is currently unavailable for [...] generated. ?? EXAMINATION: CT CHEST W CONTRAST 08/08/17 ?? EXAMINATION: CT CHEST W CONTRAST ?? CLINICAL HISTORY: history early stage colon cancer with mets to LLL s/p LLLectomy 2015. f/u exam for surveillance. ?? TECHNIQUE: Helical CT of the chest was performed following intravenous administration of 60ml of Ominpaque 350. Multiplanar reformatted images were generated. ?? COMPARISON: Chest CT 01/17/2017 ?? FINDINGS: Lungs and airways: No new pulmonary nodules or other interval change. Status post LEFT lower lobectomy. Central airways patent. Pleura and pericardium: No effusions. Heart and vasculature: No interval change. Mediastinum and hilar structures: No lymphadenopathy Limited views of the upper abdomen are unchanged. Again noted are tiny calcified gallstones in dependent gallbladder. Osseous lesions: No focal lytic or sclerotic osseous lesion. ?? IMPRESSION No evidence of metastatic disease or other interval change. ?? Laboratory today shows normal CBC with white count 7.0 hemoglobin 13.8 hematocrit 42.7 and plateletcount 203,000. CMP continues to show slight increase in ALP presumably from his gallbladder disease. The rest of his liver tests are normal with a bilirubin of 0.5. Electrolytes are normal creatinineis 0.93 calcium is 8.6 CEA remains undetectable at less than 0.5 Assessment/plan: Seth is doing exceptionally well with no evidence of recurrent colon cancer. He has a very unusual clinical course with a very late recurrence within the long that was resected. There is some possibility that was a long lesion but pathology indicates it was most likely a recurrence of his colon cancer. He is clinically doing well and getting over his son's suicide this spring. I have encouraged him to exercise a try to keep his weight under control and he is already starting to do that. His is encouraging him. We will see him back in 6 months time with lab including a CEA. He will continue his routine follow- up CT scans with thoracic surgery. documented in this encounter Plan of Treatment Upcoming Encounters Date Type Department Care Team (Late st Contact Info) Description 11/03/2023 8:30 AM EDT Office Visit Hematology/Oncology at [address] [phone] Garcia Childress MD [facility] DR HEMATOLOGY [place] [address] Kassy Ken APRN [address] [place] [address] DR MEDICAL ONCOLOGY [place], [place] [address] documented as of this encounter Visit Diagnoses Diagnosis Carcinoma of colon Malignant neoplasm of colon, unspecified site Mass of lower lobe of left lung documented in this encounter Care Teams Histology Supervisor Relationship Specialty Start Date End Date Mustapha Anand DO [address] [place] [id number] PCP - General Family Medicine 08/08/17 documented as of this encounter
--- OUTSIDE RECORDS SUMMARY | 2023-11-03 04:02 | XMS_ITS | Encounter Summary ---
Author Organization [facility] Address [facility] [place] [address] Care Team Providers Care Voucher Examiner Name Role Phone Mustapha Anand DO Primary Care Provider [phone] Reason for Referral * Diagnostic Test (Routine) - Closed Specialty Diagnoses / Procedures Referred By Contac t Referred To Contact Radiology Diagnoses Encounter for follow-up surveillance of lung cancer Procedures CT Chest w Contrast Shane Diamond MD [facility] [place] [address] [facility] [place] [address] Referral ID Status Reason Start Date Expiration Date V isits Requested Visits Authorized [id number] Closed Specialty Service Requested 08/08/2017 08/08/2018 1 1 Reason for Visit * Diagnostic Test (Routine) - Closed Specialty Diagnoses / Procedures Referred By Contac t Referred To Contact Radiology Diagnoses Encounter for follow-up surveillance of lung cancer Procedures CT Chest w Contrast Shane Diamond MD [facility] [place] [address] [facility] [place] [address] Referral ID Status Reason Start Date Expiration Date V isits Requested Visits Authorized [id number] Closed Specialty Service Requested 08/08/2017 08/08/2018 1 1 Encounter Details Date Type Department Care Team (Latest Contact Info) Description 02/13/2018 8:57 AM EST - 02/13/2018 11:59 PM EST Hospital [place] [address] Shane Diamond MD [facility] [place] [address] Encounter for follow-up surveillance of lung cancer [...] 6 hours. 30 tablet 1 12/13/2015 Vit A,C,F-Fnnz-Fhrgxb (PRESERVISION AREDS) 14,320-226-200 hzid-gg-onpn Capsule Take by mouth. 01/04 multivitamin (THERAGRAN) Tablet Take 1 tablet by mouth daily. 01/04/2019 documented as of this encounter Plan of Treatment Upcoming Encounters Date Type Department Care Team (Late st Contact Info) Description 11/03/2023 8:30 AM EDT Office Visit Hematology/Oncology at [address] [phone] Garcia Childress MD [facility] DR [place] [address] Kassy Ken APRN [address] [place] [address] [place] [address] documented as of this encounter Procedures Procedure Name Priority Date/Time Associated Diagnosis Comments CT CHEST W CONTRAST Routine 02/13/2018 9:15 AM EST Encounter for follow-up surveillance of [...] CHEST W CONTRAST CLINICAL HISTORY: s/p LLLobectomy 2015. Surveillance for recurrence ofdisease. TECHNIQUE: Helical CT [...] Intravenous, ONCE PRN, 1 dose, Starting on Tue02/13/18 at 0908, Until Tue02/13/18 at 0910, Per Protocol, Warning Vesicant/Irritant Medication Do not administer or Y-site with lactated ringers., Radiology Contrast, Routine Given 02/13/2018 9:10 AM EST 60 mLs documented in this encounter Care Teams Voucher Examiner Relationship Specialty Start Date End Date Mustapha Anand DO [address] [place] [address] PCP - General Family Medicine 08/08/17 documented as of this encounter
--- OUTSIDE RECORDS SUMMARY | 2023-11-03 04:02 | XMS_ITS | Encounter Summary ---
Author Organization [facility] Address [facility] [place] [address] Care Team Providers Care Pearl Glue Operator Name Role Phone Mustapha Palumbo MD Primary Care Provider [phone] Encounter Details Date Type Department Care Team (Late st Contact Info) Description 12/23/2015 Multidisciplinary Ca re Committee [place] [address] Desiree Dhaliwal MD [facility] [place] [address] Social History Tobacco Use Types Packs/Day Years Used Date Smoking Tobacco: Former Cigarettes Q uit: 04/25/1997 Smokeless Tobacco: Former Sex and Gender Information Value Date Recorded Sex Assigned at Not on file Gender Identity Not on file Sexual Orientation Not on file documented as of this encounter Progress Notes * Desiree Dhaliwal MD - 12/23/2015 7:28 AM EDT GI - Tumor Board Note Date Presented: 12/23/2015 Presenting Physician: Oumar Greene for Otilio Grubbs Diagnosis/Tumor Site: Stage IV colon cancer. Synopsis of History/HPI: In April 2008 he underwent a sigmoid resection for a pT2N0 colon cancer with 0 out of 22 lymph nodes. No adjuvant therapy was recommended and he was in close surveillance with Dr. Grubbs. With rising CEA radiographic imaging with CT/PET was obtained and this showed a leftlower lobe lung mass. With concern that this was a lung primary and not a metastatic lesion he underwent a left lower lobe lobectomy per Dr. Gutiérrez and this showed a 2.5 cm adenocarcinoma, margins were negative and images to chemistry was consistent with a colon primary consistent with pulmonary metastasis. His preoperative CEA was elevated to 16. We discussed and reviewed the pathology which by immunohistochemical staining suggested that this was more consistent for a colon metastases. Given that this is an odd and late recurrence the group that surveillance rather than systemic chemotherapy would be recommended if repeat staging and CEA were normal. Problem List (Comorbidities): Patient Active Problem List Diagnosis Code ??? Carcinoma of colon C18.9 ??? Obesity E66.9 ??? CIS - Past Surgery/Trauma ??? Elevated LFTs R79.89 ??? Inflamed seborrheic keratosis L82.0 ??? Mass of lower lobe of left lung R91.8 ??? Lung mass R91.8 Imaging: As above. Pathology: As above. Stage: As above. Clinical Data (Exams, Labs, etc.): As above. Histology: As above. Clinical Trial Availability: As above. Options Discussed: As above. Recommendations: As above. DISCLAIMER: The patient was discussed and the tumor board made recommendations but it is ultimatelyup to the treatment provider(s) and the patient to determine the patient???s care. Saul Dhaliwal MD This note was created using HStreaming 12.5 voice recognition software. documented in this encounter Plan of Treatment Upcoming Encounters Date Type Department Care Team (Late st Contact Info) Description 11/03/2023 8:30 AM EDT Office Visit Hematology/Oncology at [address] [phone] Garcia Childress MD [facility] DR [place] [address] Kassy Ken APRN [address] [place] [address] [place] [address] documented as of this encounter Visit Diagnoses Not on filedocumented in this encounter Care Teams Pearl Glue Operator Relationship Specialty Start Date End Date Mustapha Palumbo MD [address] [place] [address] PCP - General 11/11/14 08/07/17 documented as of this encounter
--- OUTSIDE RECORDS SUMMARY | 2023-11-03 04:02 | XMS_ITS | Encounter Summary ---
Author Organization [facility] Address [facility] [place] [address] Care Team Providers Care Paper Sorter Name Role Phone Mustapha Palumbo MD Primary Care Provider [phone] [phone] Reason for Visit * Reason Comments GI Problem Encounter Details Date Type Department Care Team (Late st Contact Info) Description 08/16/2016 2:30 PM EDT Office Visit Hematology/Oncology at [address] [phone] Jose Grubbs MD [address] [place] [address] [phone] Carcinoma of colon; Elevated LFTs Social History Tobacco Use Types Packs/Day Years [...] Sign Reading Time Taken Comments Blood Pressure 133/75 08/16/2016 2:44 PM EDT Pulse 79 08/16/2016 2:44 PM EDT Temperature 36.5 ??C (97.7 ??F) 08/16/2016 2:44 PM ED T Respiratory Rate 18 08/16/2016 2:44 PM EDT Oxygen Saturation 98% 08/16/2016 2:44 PM EDT Inhaled Oxygen Concentration - - Weight 107.5 kg (237 lb) 08/16/2016 2:44 PM EDT Height 182.7 cm (5' 11.93) 08/16/2016 2:44 PM E DT copied Body Mass Index 32.21 08/16/2016 2:44 PM EDT documented in this encounter Progress Notes * Jose Grubbs MD - 08/16/2016 2:30 PM EDT Images from the original note were [...] Diagnosis--- CONSULTATION CASE 1. Outside slides labeled [id number], collection date 04/01/08. Colon, biopsy at 15 cm: Invasive adenocarcinoma, arising in association with a tubular adenoma with high grade dysplasia. 2. Outside slides labeled [id number], collection date 04/22/08. A - Small bowel, [...] no evidence of malignancy. SUBJECTIVE: Seth comes into today for followup on his apparent recurrent colon cancer. A very late recurrence and pathology indicated this was likely and adenocarcinoma from GI origin, although lung cancer could not be ruled out. His CEA was elevated, however, prior to surgery and has normalized since. He saw Thoracic Surgery back in June and had a CT scan which was completely normal post surgery. He has been feeling well, really having no difficulties or problems. Current Outpatient Prescriptions on File Prior to Visit Medication Sig Dispense Refill ??? multivitamin (THERAGRAN) Tablet Take 1 tablet by mouth daily. ??? acetaminophen (TYLENOL) 500 mg Tablet Take 2 tablets by mouth every 6 hours. (Patient taking differently: Take 1,000 mg by mouth every 4 hours as needed for Pain.) 30 tablet 1 ??? ibuprofen (ADVIL;MOTRIN) 600 [...] Neurologic: Normal CEA 08/16/16 <0.5 04/14/16 <0.5 07 15.9 Lung Mass resected 09/17/15 13.3 03/13/15 [...] ?? TECHNIQUE: Procedure: Following IV injection of 06-ggpvvt-6-deoxyglucose (FDG) a standard uptake of approximately 60 [...] ?? negative for malignancy Electronically signed by: ??Shabbir GAMBLE, Jens Alcocer Verified: ??12/16/2015 ?Pathologist DISCUSSION The patient 's prior history of colonic adenocarcinoma([id number]) is noted and ??is currently unavailable for [...] Multiplanar reformatted images were generated. ?? COMPARISON: PET/CT 10/22/1915 ?? FINDINGS: Lungs and airways: Status post left lower lobe lobectomy. No evidence of recurrence at the resection site. No new pulmonary nodules. Pleura and pericardium: Small left pleural effusion. No pericardial effusion. Heart and vasculature: The heart is normal in size. Mild coronary artery calcifications. Mediastinum and hilar structures: No lymphadenopathy Limited views of the upper abdomen : Layering milk of calcium within the gallbladder. Osseous lesions: No focal lytic or sclerotic osseous lesion. ?? IMPRESSION No CT evidence of recurrence at the resection site or other metastasis. Review of his laboratory shows normal electrolytes, creatinine of 1.03. ALT is 180. Looking back in the chart to 2008 it really has never been normal and is always in that range. CEA remains undetectable at less than 0.5. Albumin is up to 3.7. CBC shows a white count of 10, hemoglobin 13.9, hematocrit 41% and platelet count of 244. ASSESSMENT/PLAN: Seth is doing well and has no evidence of recurrent cancer. His liver tests are elevated with an ALP that has been up since 2008. Interestingly they note some layering milk of calcium within the gallbladder. Since this has been going on for 8 years now and has been relatively stable, I do not think any further evaluation is in order. Will go ahead and see him back in 6 months' time with lab including a CEA. He will call if there are issues or problems in the interim. documented in this encounter Plan of Treatment Upcoming Encounters Date Type Department Care Team (Late st Contact Info) Description 11/03/2023 8:30 AM EDT Office Visit Hematology/Oncology at [address] [phone] Garcia Childress MD [facility] DR HEMATOLOGY [place] [address] Kassy Ken APRN [address] [place] [address] DR MEDICAL ONCOLOGY [place], [place] [address] documented as of this encounter Visit Diagnoses Diagnosis Carcinoma of colon Malignant neoplasm of colon, unspecified site Elevated LFTs Other abnormal blood chemistry documented in this encounter Care Teams Paper Sorter Relationship Specialty Start Date End Date Mustapha Palumbo MD [address] [place] [address] PCP - General 11/11/14 08/07/17 documented as of this encounter
--- OUTSIDE RECORDS SUMMARY | 2023-11-03 04:02 | XMS_ITS | Encounter Summary ---
Author Organization [facility] Address [facility] [place] [address] Care Team Providers Care Capping Machine Operator Name Role Phone Mustapha Palumbo MD Primary Care Provider [phone] [phone] Encounter Details Date Type Department Care Team (Latest Contact Info) Description 12/29/2015 9:31 AM EDT - 12/29/2015 11:59 PM EDT Hospital Encounter XRay at [address] [place] [phone] Pre-operative cardiovascular examination, high risk surgery Discharge Disposition: Home Social History Tobacco Use [...] Sig Dispensed Refills Start Date End Date acetaminophen (TYLENOL) 500 mg Tablet Take 2 tablets by mouth every 6 hours. 30 tablet 1 12/13/2015 ibuprofen (ADVIL;MOTRIN) 600 mg Tablet Take 1 tablet by mouth every 6 hours. 30 tablet 12 12/13/2015 02/22/2017 chlorthalidone (HYGROTEN) 25 mg tablet Take 25 mg by mouth daily. 12/26/2017 aspirin 81 mg EC tablet Take 81 mg by mouth every 3 days. 12/26/2017 documented as of this encounter Plan of Treatment Upcoming Encounters Date Type Department Care Team (Late st Contact Info) Description 11/03/2023 8:30 AM EDT Office Visit Hematology/Oncology at [address] [phone] Garcia Childress MD [facility] [place] [address] Kassy Ken, HEAT CURER[address] [place] [address] documented as of this encounter Procedures Procedure Name Priority Date/Time Associated Diagnosis Comments XR CHEST PA AND LATERAL Routine 12/29/2015 9:45 AM EDT Pre-operative cardiovascular examination, high risk surgery documented in this encounter Results * XR Chest PA & Lateral (Generic) (12/29/2015 9:45 AM EDT) Anatomical Region Laterality Modality Chest N/A Digital Radiogra phy Impressions 12/29/2015 11:09 AM EDT 1. ??Increased left pleural effusion, now moderate. 2. ??Left apical pneumothorax is resolved. I have personally reviewed the image(s) and the residents interpretation and agree with the findings, Carmen Roblero at 12/29/2015 11:09 AM Narrative 12/29/2015 11:09 AM EDT EXAMINATION: XR CHEST PA AND LATERAL CLINICAL HISTORY: post RUL and thoracotomy TECHNIQUE: PA and lateral views of the chest COMPARISON: Multiple prior radiographs of the most recent radiograph done on December 13, 2015. FINDINGS: There are multiple surgical clips overlying the left base. There is is decreased left lung volume consistent with postsurgical changes of the left lower lobectomy. Left pleural effusion is increased, now moderate in size. The previously seen left apical pneumothorax is resolved. There is a persistent right mid lobe linear atelectasis that is again noted otherwise the right lung is clear. The cardiomediastinal silhouette is unchanged. No acute interval bony abnormalities is seen. Procedure Note Carmen Roblero MD - 12/29/2015 EXAMINATION: XR CHEST PA AND LATERAL CLINICAL HISTORY: post RUL and thoracotomy TECHNIQUE: PA and lateral views of the chest COMPARISON: Multiple prior radiographs of the most recent radiograph doneon December 13, 2015. FINDINGS: There are multiple surgical clips overlying the left base. There is isdecreased left lung volume consistent with postsurgical changes of the left lower lobectomy. Left pleural effusion is increased, now moderate in size. The previously seen left apical pneumothorax is resolved. There is apersistent right mid lobe linear atelectasis that is again noted otherwise the rightlung is clear. The cardiomediastinal silhouette is unchanged. No acute intervalbony abnormalities is seen. IMPRESSION 1. Increased left pleural effusion, now moderate. 2. Left apical pneumothorax is resolved. I have personally reviewed the image(s) and the residents interpretationand agree with the findings, Carmen Roblero at 12/29/2015 11:09 AM Shane Diamond MD IMG DX ORDERABLE S documented in this encounter Visit Diagnoses Diagnosis Pre-operative cardiovascular examination, high risk surgery Pre-operative cardiovascular examination documented in this encounter Care Teams Capping Machine Operator Relationship Specialty Start Date End Date Mustapha Palumbo MD [address] [place] [address] PCP - General 11/11/14 08/07/17 documented as of this encounter
--- OUTSIDE RECORDS SUMMARY | 2023-11-03 04:02 | XMS_ITS | Encounter Summary ---
Author Organization [facility] Address [facility] [place] [address] Care Team Providers Care Sales Training Coordinator Name Role Phone Mustapha Palumbo MD Primary Care Provider [phone] Encounter Details Date Type Department Care Team (Latest Contact Info) Description 12/30/2015 Multidisciplinary Ca re Committee [place] [address] Bharath Briones MD [facility] [place] [address] Social History Tobacco Use Types Packs/Day Years Used Date Smoking Tobacco: Former Pipe Q uit: 04/25/1997 Smokeless Tobacco: Former Comments:was a pouch a week from the pipe Sex and Gender Information Value Date Recorded Sex Assigned at Not on file Gender Identity Not on file Sexual Orientation Not on file documented as of this encounter Progress Notes * Meena [place] - 12/30/2015 8:05 AM EDT Thoracic - Tumor Board Note Date Presented: 12/30/2015 Presenting Physician: Dr. Diamond Diagnosis/Tumor Site: Left lower lobe Is this Metastatic Disease: Yes Stage: Stage IV colon cancer Recommendations: referral to medical oncology DISCLAIMER: The patient was discussed and the tumor board made recommendations but it is ultimatelyup to the treatment provider(s) and the patient to determine the patient???s care. documented in this encounter Plan of Treatment Upcoming Encounters Date Type Department Care Team (Late Contact Info) Description 11/03/2023 8:30 AM EDT Office Visit Hematology/Oncology at [address] [phone] Garcia Childress MD [facility] DR HEMATOLOGY AND ONCOLOGY [facility] [place] [address] Kassy Ken APRN [address] [place] [address] DR MEDICAL ONCOLOGY [place], [place] [address] documented as of this encounter Visit Diagnoses Not on filedocumented in this encounter Care Teams Sales Training Coordinator Relationship Specialty Start Date End Date Mustapha Palumbo MD [address] [place] [address] PCP - General 11/11/14 08/07/17 documented as of this encounter
--- OUTSIDE RECORDS SUMMARY | 2023-11-03 04:02 | XMS_ITS | Encounter Summary ---
Author Organization [facility] Address [facility] [place] [address] Care Team Providers Care Quality Assurance Monitor Chassis Name Role Phone Mustapha Palumbo MD Primary Care Provider [phone] Encounter Details Date Type Department Care Team (Late st Contact Info) Description 06/11/2016 Telephone [place] [phone] Velma Vaca Social History Tobacco Use Types Packs/Day Years Used Date Smoking Tobacco: Former Pipe Q uit: 04/25/1997 Smokeless Tobacco: Former Comments:was a pouch a week from the pipe Sex and Gender Information Value Date Recorded Sex Assigned at Not on file Gender Identity Not on file Sexual Orientation Not on file documented as of this encounter Miscellaneous Notes * Telephone Encounter - Velma Vaca - 06/11/2016 12:26 PM EST LVM to call back to schedule F/U and CT documented in this encounter Plan of Treatment Upcoming Encounters Date Type Department Care Team (Late st Contact Info) Description 11/03/2023 8:30 AM EDT Office Visit Hematology/Oncology at [address] [phone] Garcia Childress MD [facility] DR HEMATOLOGY [place] [address] Kassy Ken APRN [address] [place] [address] [place] [address] documented as of this encounter Visit Diagnoses Not on filedocumented in this encounter Care Teams Quality Assurance Monitor Chassis Relationship Specialty Start Date End Date Mustapha Palumbo MD [address] [place] [address] PCP - General 11/11/14 08/07/17 documented as of this encounter
--- OUTSIDE RECORDS SUMMARY | 2023-11-03 04:02 | XMS_ITS | Encounter Summary ---
Author Organization [facility] Address [facility] [place] [address] Care Team Providers Care Box Inspector Name Role Phone Cheng Mustapha Alcocer DO Primary Care Provider [phone] Encounter Details Date Type Department Care Team (Latest Contact Info) Description 08/08/2017 6:55 AM EDT Laboratory Appointment Lab [address] [place] [phone] Encounter for follow-up surveillance of lung cancer [...] 8:30 AM EDT Office Visit Hematology/Oncology at [address] [phone] Garcia Childress MD [facility] DR [place] [address] Kassy Ken APRN [address] [place] [address] DR MEDICAL ONCOLOGY [place], [place] [phone] documented as of this encounter Procedures Procedure Name Priority Date/Time Associated Diagnosis Comments CREATININE STAT 08/08/2017 6:56 AM EDT Encounter for follow-up surveillance of lung cancer documented in this encounter Results * Creatinine (08/08/2017 6:56 AM EDT) Creatinine 0.94 0.80 - 1.50 mg/dL [facility] Estimated GFR >60 >=60 [facility] Comment: The reported eGFR should be multiplied by 1.2 for patients. The MDRD is not an appropriate measure of renal function for patients with body mass extremes or in patients with acute kidney failure. http://Coinsetter/DHnkdep [email or web address]/DHMCnkf Blood specimen (specimen) 08/08/2017 6:56 AM EDT 08/08/2017 6:58 AM EDT Narrative Resulting Agency Comment Spec In Lab Shane Diamond MD CHEMISTRY ORDERA BLES [facility] [place] [address] documented in this encounter Visit Diagnoses Diagnosis Encounter for follow-up surveillance of lung cancer Unspecified follow-up examination documented in this encounter Care Teams Box Inspector Relationship Specialty Start Date End Date Mustapha Anand DO [address] [place] [address] PCP - General Family Medicine 08/08/17 documented as of this encounter
--- OUTSIDE RECORDS SUMMARY | 2023-11-03 04:02 | XMS_ITS | Encounter Summary ---
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 Social History Tobacco Use Types Packs/Day [...] 8:30 AM EDT Office Visit Hematology/Oncology at [address] [phone] Garcia Childress MD [facility] DR HEMATOLOGY [place] [address] Kassy Ken APRN [address] [place] [address] DR MEDICAL ONCOLOGY [place], [place] [address] documented as of this encounter Procedures Procedure Name Priority Date/Time Associated Diagnosis Comments LAB SCAN 02/15/2017 12:00 AM EST CREATININE Routine 01/17/2017 1:33 PM EDT 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 Scanning Provider MEDIA MGR SCAN EXT O RDR/RSLT * Creatinine (01/17/2017 1:33 PM EDT) Creatinine 0.95 0.80 - 1.50 mg/dL [facility] Comment: Please note that the pediatric reference intervals supplied above were not validated at [facility]. Results from pediatric patients should be interpreted in conjunction to the patient's age, height and muscle mass. Estimated GFR >60 >=60 [facility] Comment: This estimated GFR (eGFR) [...] the following links into your internet browser. 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
--- OUTSIDE RECORDS SUMMARY | 2023-11-03 04:02 | XMS_ITS | Encounter Summary ---
Author Organization [facility] Address [facility] [place] [address] Care Team Providers Care Parachute Mender Name Role Phone Mustapha Palumbo MD Primary Care Provider [phone] Reason for Visit * Reason Comments Colon Cancer Encounter Details Date Type Department Care Team (Late st Contact Info) Description 04/15/2016 1:00 PM EST Office Visit Hematology/Oncology at [address] [phone] Jose Grubbs MD [address] [place] [phone] Carcinoma of colon; Lung mass Social History [...] Sign Reading Time Taken Comments Blood Pressure 134/87 04/15/2016 1:22 PM EST Pulse 89 04/15/2016 1:22 PM EST Temperature 36.3 ??C (97.3 ??F) 04/15/2016 1:22 PM ES T Respiratory Rate 18 04/15/2016 1:22 PM EST Oxygen Saturation 97% 04/15/2016 1:22 PM EST Inhaled Oxygen Concentration - - Weight 114.8 kg (253 lb) 04/15/2016 1:22 PM EST Height 182.7 cm (5' 11.93) 04/15/2016 1:[address] copied Body Mass Index 34.38 04/15/2016 1:22 PM EST documented in this encounter Progress Notes * Jose Grubbs MD - 04/15/2016 1:00 PM EST Images from the original note [...] Diagnosis--- CONSULTATION CASE 1. Outside slides labeled [id number], collection date 04/01/08. Colon, biopsy at 15 cm: Invasive adenocarcinoma, arising in association with a tubular adenoma with high grade dysplasia. 2. Outside slides labeled [id number], collection date 04/22/08. A - Small bowel, [...] malignancy. SUBJECTIVE: Seth comes in today for followup. Since I last saw him, he did have his colonoscopy, and there was no evidence for a new colon cancer. 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 Since his resection, he has done well and is essentially back to normal, although he notes he still has a little bit of strength issue in his left arm. He notices it when he is out on his tractor and uses his left arm for shifting a lot, and also noticed it when he was pulling snow off the roof with a snow rake. Other than that though, he has been out hunting a lot this year and actually was able to shoot a bear. He is quite pleased with that. He is breathing well, not having any particular cough. No abdominal symptoms or pain. Review of systems is otherwise negative. Current Outpatient Prescriptions on File Prior to Visit Medication Sig Dispense Refill ??? acetaminophen (TYLENOL) 500 mg Tablet Take 2 tablets by mouth every 6 hours. (Patient taking differently: Take 1,000 mg by mouth every 4 hours as needed for Pain.) 30 tablet 1 ??? ibuprofen (ADVIL;MOTRIN) 600 mg Tablet Take 1 tablet by mouth every 6 hours. 30 tablet 12 ??? chlorthalidone (HYGROTEN) 25 mg tablet Take 25 mg by mouth daily. ??? ANTIOX #8/OM3/DHA/EPA/LUT/ZEAX (PRESERVISION AREDS 2 ORAL) Take 1 tablet by mouth every morning. ??? aspirin 81 mg EC tablet Take 81 mg by mouth every 3 days. ??? oxyCODONE (ROXICODONE) 5 mg Tablet Take 1 tablet by mouth every 4 hours as needed for Pain. (Patient not taking: Reported on 12/29/2015) 10 tablet 0 No current facility-administered medications on file prior [...] Neurological: Negative. Hematological: Negative for adenopathy. BP 134/87 (Patient Position: Sitting) Pulse 89 Temp 36.3 ??C (97.3 ??F) (Oral) Resp 18 Ht 182.7 cm (5' 11.93) Comment: copied Wt (!) 114.8 kg (253 lb) SpO2 97% BMI 34.38 kg/m2 Head: Normocephalic, without obvious abnormality, atraumatic [...] and axillary nodes normal Neurologic: Normal CEA 04/14/16 <0.5 15.9 Lung Mass resected 09/17/15 [...] ?? TECHNIQUE: Procedure: Following IV injection of 34-vmgdve-7-deoxyglucose (FDG) a standard uptake of approximately 60 [...] The patient 's prior history of colonic adenocarcinoma([id number]) is noted and ??is currently unavailable for [...] lesional cells. ?TTF-1 ?Negative in lesional cells. Review of his laboratory shows creatinine of 1.13, calcium of 9.4. Liver tests continue to show a slight increase in ALP at 139, which has been there all along. His CBC shows a white count of 13.1, hemoglobin 14.8, hematocrit 45%, and platelet count of 301,000. CEA remains unmeasurable at less than 0.5. ASSESSMENT/PLAN: Seth is doing well and has no evidence of recurrence of his probable recurrent colon cancer. CEA completely normalized post resection and that argues well for the future. He does have a followup with Thoracic Surgery with a scan in June. We will see him back a couple months after that with a CBC, CMP, and CEA. He will call if there are issues or problems in the interim. documented in this encounter Plan of Treatment Upcoming Encounters Date Type Department Care Team (Late st Contact Info) Description 11/03/2023 8:30 AM EDT Office Visit Hematology/Oncology at [address] [phone] Garcia Childress MD [facility] DR [place] [address] Kassy Ken APRN [address] [place] [address] [place] [address] documented as of this encounter Visit Diagnoses Diagnosis Carcinoma of colon Malignant neoplasm of colon, unspecified site Lung mass Swelling, mass, or lump in chest documented in this encounter Care Teams Parachute Mender Relationship Specialty Start Date End Date Mustapha Palumbo MD [address] [place] [address] PCP - General 11/11/14 08/07/17 documented as of this encounter
--- OUTSIDE RECORDS SUMMARY | 2023-11-03 04:02 | XMS_ITS | Encounter Summary ---
Author Organization [facility] Address [facility] [place] [address] Care Team Providers Care School Laboratory Technician Name Role Phone Mustapha Palumbo MD Primary Care Provider [phone] Reason for Referral * Diagnostic Test (Routine) - Closed Specialty Diagnoses / Procedures Referred By Hi franklin Referred To Contact Radiology Diagnoses Encounter for follow-up surveillance of lung cancer Procedures CT Chest w Contrast Shane Diamond MD [facility] [place] [address] Referral ID Status Reason Start Date Expiration Date V isits Requested Visits Authorized [id number] Closed Specialty Service Requested 12/29/2015 12/28/2016 1 1 Reason for Visit * Reason Comments Follow Up Surgery from surgery on the Dec. Encounter Details Date Type Department Care Team (Late st Contact Info) Description 12/29/2015 11:00 AM EDT Office [place] [phone] Shane Diamond MD [facility] [place] [address] Encounter for follow-up surveillance of lung cancer [...] Sign Reading Time Taken Comments Blood Pressure 158/77 12/29/2015 10:51 AM EDT Pulse 70 12/29/2015 10:51 AM EDT Temperature 36.6 ??C (97.9 ??F) 12/29/2015 10:51 AM E DT Respiratory Rate 20 12/29/2015 10:51 AM EDT Oxygen Saturation 97% 12/29/2015 10:51 AM EDT Inhaled Oxygen Concentration - - Weight 111.1 kg (245 lb) 12/29/2015 10:51 AM EDT Height 182.7 cm (5' 11.93) 12/29/2015 10:51 AM EDT Body Mass Index 33.29 12/29/2015 10:51 AM EDT documented in this encounter Patient Instructions * Patient Instructions* Jacinta Richard RN - 12/29/2015 11:00 AM EDT ?? Please call the office if you develop fevers, chills, difficulty breathing or any new/worsening symptom. These symptoms may be caused by your small pleural effusion increasing in size. A pleural effusion is an abnormal collection of fluid between the thin layers of tissue (pleura) lining the lung and the wall of the chest cavity. ?? You will have a Chest CT in 6 months and be seen by Dr. Diamond for follow up as part of yourregular surveillance for lung cancer. A letter will be sent to you approximately one month before this test and appointment is due to schedule these. ?? Continue to exercise daily for 30 minutes or longer. Exercise will improve your lung function and help increase your energy level. Please call the thoracic surgery department at with any questions. documented in this encounter Progress Notes * Shane Diamond MD - 12/29/2015 11:00 AM EDT CHIEF COMPLAINT: Followup status post thoracoscopic converted to open lower lobectomy. HISTORY OF PRESENT ILLNESS: Mr. Kincaid is a 65-year-old man with a history of an early stage colon cancer resected in 2007 who, unfortunately, developed a 3.8-cm left lower lobe lung mass detected after a rising CEA. I brought him to the operating room on December 09 for a lower lobectomy. The procedure was uncomplicated, although full resection did require a posterolateral thoracotomy. The patient did well and was discharged home on the third postoperative day. He has been doing well at home with steadily-increasing activity level. He has only taken 2 oxycodone tablets for pain and now feels pain free. He is able to ambulate with minimal shortness of breath. He has had no fevers or chills to suggest infectious complication. PHYSICAL EXAM: Today, he appears quite well. Blood pressure is 158/77, heart rate 70, respiratory rate 20, temp 97.9, O2 sat 97% on room air. He is alert and oriented in no acute distress. Right lung is clear to auscultation, left has diminished breath sounds at the base. Heart is regular. Abdomen is nontender and nondistended. He has no peripheral edema. His incisions are well healed. IMAGING: Chest x-ray was obtained today, which demonstrated a left pleural effusion enlarged relative to the scan at the time of discharge. PATHOLOGY: His pathology specimen from December 09 revealed an enteric-type adenocarcinoma consistent with metastatic colon cancer. The tumor measured 2.5 cm. None of the associated lymph nodes showed evidence of metastatic malignancy. 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 The lobe has been completely resected along with draining mediastinal lymph nodes; so, for this reason, he has had an adequate operation for a primary lung malignancy as well as for a metastatic colon cancer. In the event that this were a primary lung malignancy, he would be managed with routine surveillance. He has been reviewed to the Oncology Tumor Board and the consensus is that this odd late recurrence should be managed with surveillance rather than systemic chemotherapy. He will have repeat staging and CEA repeated. He is scheduled to see Dr. Grubbs soon. From my standpoint, I would like to see him back in 6 months with a chest CT. In terms of his pleural effusion, it is currently causing him no respiratory symptoms and no signs of infection, so I would leave it alone to allow it to resolve spontaneously. The patient understands the symptoms of empyema thoracis as well as pleural effusion and will call my office if he has any problems like this. Otherwise I will see him in 6 months. PLAN: Return to clinic in 6 months with intravenous contrast chest CT. SHANE DIAMOND MD documented in this encounter Plan of Treatment Upcoming Encounters Date Type Department Care Team (Late st Contact Info) Description 11/03/2023 8:30 AM EDT Office Visit Hematology/Oncology at [address] [phone] Garcia Childress MD [facility] DR [place] [address] Kassy Ken APRN [address] [place] [address] [place] [address] documented as of this encounter Results * CT Chest w Contrast (06/21/2016 11:18 AM EDT) Anatomical Region Laterality Modality Chest Computed Tomogra phy Impressions 06/21/2016 11:[address] evidence of recurrence at the resection site or other metastasis. I have personally reviewed the image(s) and the residents interpretation and agree with the findings, Kristian Arreguin at 06/21/2016 11:56 AM Narrative 06/21/2016 11:56 AM EDT EXAMINATION: CT CHEST W CONTRAST CLINICAL HISTORY: s/p LLL lobectomy and chest wall resection for adenocarcinoma on 12/10/15. ??Evaluate for new or recurrent disease TECHNIQUE: Helical CT of the chest was performed following intravenous administration of 60ml of Ominpaque 350. Multiplanar reformatted images were generated. COMPARISON: PET/CT 10/22/1915 FINDINGS: Lungs and airways: Status post left [...] lesion. Procedure Note Kristian Arreguin MD - 06/21/2016 EXAMINATION: CT CHEST W CONTRAST CLINICAL HISTORY: s/p LLL lobectomy and chest wall resection foradenocarcinoma on 12/10/15. Evaluate for new or recurrent disease TECHNIQUE: Helical CT of the chest was performed following intravenous administration of 60ml of Ominpaque 350. Multiplanar reformatted imageswere generated. COMPARISON: PET/CT 10/22/1915 FINDINGS: Lungs and airways: Status post left lower lobe lobectomy. No evidence of recurrence at the resection site. No new pulmonary nodules. Pleura and pericardium: Small left pleural effusion. No pericardialeffusion. Heart and vasculature: The heart is normal in size. Mild coronary artery calcifications. Mediastinum and hilar structures: No lymphadenopathy Limited views of the upper abdomen : Layering milk of calcium within the gallbladder. Osseous lesions: No focal lytic or sclerotic osseous lesion. IMPRESSION No CT evidence of recurrence at the resection site or other metastasis. I have personally reviewed the image(s) and the residents interpretationand agree with the findings, Kristian Arreguin at 06/21/2016 11:56 AM Shane Diamond MD IMG CT ORDERABLE S documented in this encounter Visit Diagnoses Diagnosis Encounter for follow-up surveillance of lung cancer Unspecified follow-up examination Encounter for follow-up surveillance of lung cancer Unspecified follow-up examination documented in this encounter Care Teams School Laboratory Technician Relationship Specialty Start Date End Date Mustapha Palumbo MD [address] [place] [address] PCP - General 11/11/14 08/07/17 documented as of this encounter
--- OUTSIDE RECORDS SUMMARY | 2023-11-03 04:02 | XMS_ITS | Encounter Summary ---
Author Organization [facility] [place] [address] Care Team Providers Care Sand Plant Attendant Name Role Phone Mustapha Palumbo MD Primary Care Provider [phone] Reason for Referral * Consultation (Routine) - Specialty Diagnoses / Procedures Referred By Hi franklin Referred To Contact General Surgery Diagnoses Carcinoma of colon Jose Grubbs MD [address] [place] [address] Sukhdeep Dang, DO [address] [place] [phone] Referral ID Status Reason Start Date Expiration Date Visits Requested Visits Authorized [id number] Specialty Service Requested 01/08/2016 07/06/2016 1 1 Reason for Visit * Reason Comments Colon Cancer Encounter Details Date Type Department Care Team (Late st Contact Info) Description 01/08/2016 2:00 PM EDT Office Visit Hematology/Oncology at [address] [phone] Jose Grubbs MD [address] [place] [address] Carcinoma of colon Social History Tobacco Use [...] Sign Reading Time Taken Comments Blood Pressure 129/75 01/08/2016 2:04 PM EDT Pulse 77 01/08/2016 2:04 PM EDT Temperature 36.3 ??C (97.3 ??F) 01/08/2016 2:04 PM ED T Respiratory Rate 16 01/08/2016 2:04 PM EDT Oxygen Saturation 99% 01/08/2016 2:04 PM EDT Inhaled Oxygen Concentration - - Weight 113.4 kg (250 lb) 01/08/2016 2:04 PM EDT Height 182.7 cm (5' 11.93) 01/08/2016 2:04 PM E DT copied Body Mass Index 33.97 01/08/2016 2:04 PM EDT documented in this encounter Progress Notes * Jose Grubbs MD - 01/08/2016 2:00 PM EDT Images from the original note [...] Diagnosis--- CONSULTATION CASE 1. Outside slides labeled [id number], collection date 04/01/08. Colon, biopsy at 15 cm: Invasive adenocarcinoma, arising in association with a tubular adenoma with high grade dysplasia. 2. Outside slides labeled [id number], collection date 04/22/08. A - Small bowel, [...] SUBJECTIVE: Seth comes in today for followup after his resection of a solitary lung mass that developed in the setting of 8 year followup on his colon cancer. He had a rising CEA at that point, and CT scan showed a solitary mass there with CT PET scanning showing no other evidence of any difficulties or problems. The thinking was it was probably a lung primary considering he had colon cancer 8 years ago, and it is unlikely for him to have had a metastatic reoccurrence that late after initial resection. He did have his surgery, and that has gone well. He is back to normal and planning on going hunting this fall and is essentially healed up from his surgery. He is not on any oxygen. Pathology indicated this was likely a recurrence of his colon cancer and that there was some concern it could also be a new primary lung cancer, although less likely. He was discussed both at GI and chest tumor boards at [facility]. Feelings were if this was a lung cancer it was small enough no further adjuvant treatment was necessary. If it was a colon cancer, it is so unusual to see a reoccurrence at 8 years that one would want to rule out a new colon cancer within the colon so colonoscopy was indicated but no further chemotherapy post resection would be indicated. I have discussed this with Seth today in detail. Basically, at this point we need to set him up for a colonoscopy, and he needs to be followed, so I talked to him about seeing him back in 3 months with a CBC, CMP, and CEA. He is fine with that plan. He remains symptom free and is doing well. Current Outpatient Prescriptions on File Prior to Visit Medication Sig Dispense Refill ??? acetaminophen (TYLENOL) 500 mg Tablet Take 2 tablets by mouth every 6 hours. (Patient taking differently: Take 1,000 mg by mouth 2 times daily.) 30 tablet 1 ??? ibuprofen (ADVIL;MOTRIN) 600 [...] Neurological: Negative. Hematological: Negative for adenopathy. BP 129/75 (Patient Position: Sitting) Pulse 77 Temp 36.3 ??C (97.3 ??F) (Oral) Resp 16 Ht 182.7 cm (5' 11.93) Comment: copied Wt (!) 113.4 kg (250 lb) SpO2 99% BMI 33.97 kg/m2 Head: Normocephalic, without obvious abnormality, atraumatic [...] and axillary nodes normal Neurologic: Normal CEA 15.9 09/17/15 13.3 03/13/15 7.8 11/07/14 8.0 Repeat [...] ?? TECHNIQUE: Procedure: Following IV injection of 48-hiyhbo-2-deoxyglucose (FDG) a standard uptake of approximately 60 [...] The patient 's prior history of colonic adenocarcinoma([id number]) is noted and ??is currently unavailable for [...] lesional cells. ?TTF-1 ?Negative in lesional cells. ASSESSMENT/PLAN: Seth is doing well post resection of what appears to be a solitary reoccurrence 8 years later of his original colon cancer. He does need a colonoscopy, and I suspect it will be negative, especially in view of the fact that his CT PET did not show a colonic lesion, only a small nodule within the lung. He is likely to do well at this point. We will see him back in 3 months after a colonoscopy with a CBC, CMP, and CEA. documented in this encounter Plan of Treatment Upcoming Encounters Date Type Department Care Team (Late st Contact Info) Description 11/03/2023 8:30 AM EDT Office Visit Hematology/Oncology at [address] [phone] Garcia Childress MD [facility] DR [place] [address] Kassy Ken APRN [address] [place] [address] [place] [address] Scheduled Referrals Name Type Priority Associated Diagnoses Orde r Schedule Referral to General Surgery Outpatient Referral Routine Carcinoma of colon Ordered: 01/08/2016 documented as of this encounter Procedures Procedure Name Priority Date/Time Associated Diagnosis Comments LAB SCAN 04/09/2016 12:00 AM EST documented in this encounter Results * SCAN DOC: LAB (04/09/2016 12:00 AM EST) Scanning Provider MEDIA MGR SCAN EXT O RDR/RSLT documented in this encounter Visit Diagnoses Diagnosis Carcinoma of colon Malignant neoplasm of colon, unspecified site documented in this encounter Care Teams Sand Plant Attendant Relationship Specialty Start Date End Date Mustapha Palumbo MD [address] [place] [address] PCP - General 11/11/14 08/07/17 documented as of this encounter
--- OUTSIDE RECORDS SUMMARY | 2023-11-03 04:02 | XMS_ITS | Encounter Summary ---
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 Diamond. He recommends you follow up with Dr. Grubbs, as scheduled for your ongoing care. You will have a chest CT in 6 months and be seen by Dr. Diamond for follow up as part of your regular surveillance for lung cancer. A letter will be sent to you approximately one month before thistest and appointment is due to schedule these. Please call the thoracic surgery department at with any questions. documented in this encounter Progress Notes * Eugene Villalba PA - 06/21/2016 12:45 PM EDT Thoracic Surgery Attending Outpatient Follow Up Note MD Eugene Li PA [place] [address] FAX: Pre Op Dx: Left lower lobe lung mass Post Op Dx: Left lower lobe lung mass Procedure (12/10/15): Left lower lobe lobectomy with MLND via Left thoracotomy Pathology (12/10/15): Left lower lobe - 2.5 cm adenocarcinoma, enteric type, consistent with metastatic colonic adenocarcinoma, with negative margins, 0/7 lymph nodes involved Complications: None Treatment: Follow up for surveillance HPI: Seth Kincaid is a 65 y.o. male with PMHx significant for early stage colon cancer resected in 2007 who is s/p LLL lobectomy on 12/10/15 for 2.5 cm likely metastatic colonic adenocarcinoma. Hereports that he has been feeling well since his last visit. He reports occasional tightness/stiffness of his LUE, but it does not limit him from his daily activities. He reports no issues with his breathing. He walks about 30 minutes 3-5 times per week. He is looking forward to doing some hunting in [place] later this year. He denies F/C/N/V/CP/SOB. Medications: Current Outpatient Prescriptions on File Prior to Visit Medication Sig Dispense Refill ??? acetaminophen (TYLENOL) 500 mg Tablet Take 2 tablets by mouth every 6 hours. (Patient taking differently: Take 1,000 mg by mouth every 4 hours as needed for Pain.) 30 tablet 1 ??? chlorthalidone (HYGROTEN) 25 mg tablet Take 25 mg by mouth daily. ??? aspirin 81 mg EC tablet Take 81 mg by mouth every 3 days. ??? ibuprofen (ADVIL;MOTRIN) 600 mg Tablet Take 1 tablet by mouth every 6 hours. (Patient not taking: Reported on 06/21/2016) 30 tablet 12 Current Facility-Administered Medications on File Prior to Visit Medication Dose Route Frequency Provider Last Rate Last Dose ??? [COMPLETED] iohexol (OMNIPAQUE) 350 mg/mL solution 21,000 mg 60 mL Intravenous Once PRN Velma Fregoso MD 21,000 mg at 06/21/16 1110 Physical Exam: BP 134/73 (Patient Position: Sitting) Pulse 66 Temp 36.6 ??C (97.9 ??F) (Temporal) Resp 18 Ht 185 cm (6' 0.83) Wt (!) 108.9 kg (240 lb) SpO2 97% BMI 31.81 kg/m2 General Appearance: Alert, cooperative, no distress, appears stated age Lungs: Clear to auscultation bilaterally, respirations unlabored, no wheezes, crackles or ronchi. Heart: Regular rate and rhythm, S1 and S2 normal, no murmur, rub, or gallop Abdomen: Soft, non-tender, bowel sounds active all four quadrants, no masses, no organomegaly Extremities: Extremities normal, atraumatic, no cyanosis or edema Wound/Incision: Left chest incisions cean, dry, intact, with evidence of good wound healing Imaging: I have independently visualized the following studies: CT Chest (06/21/16): No CT evidence of recurrence at the resection site or other metastasis. Assessment: Seth Kincaid is a 65 y.o. male with PMHx significant for early stage colon cancer resected in 2007 who is s/p LLL lobectomy on 12/10/15 for 2.5 cm likely metastatic colonic adenocarcinoma. He is currently feeling well. CT Chest today reveals no evidence of recurrent or metastatic disease. Plan: 1. Follow up with medical oncology (Dr. Grubbs) as scheduled 2. Recommend 30 minutes of exercise daily at a minimum 3. RTC in [address] Chest for surveillance 4. Please call with any questions or concerns NIMO Choe 06/21/2016 Thoracic Surgery [facility] * Shane Diamond MD - 06/21/2016 12:45 PM EDT ADDENDUM: I saw and examined this patient with Eugene Villalba and agree with his findings, assessment and plan. In brief this is a 65-year-old man, has a history of early stage colon cancer and subsequently developed a 2.5-cm metastasis to the left lower lobe. The central location of this tumor prohibited metastasectomy by any approach other than lower lobectomy. This procedure was performed on December 10, 2015 and he did well subsequently. He comes in today for a planned 3-month followup with no specific complaints. Physical examination is unrevealing. Chest CT today demonstrates no evidence of recurrent metastatic disease and his CEA has normalized. He will follow up with Dr. Crawford as scheduled and I will plan to see him back in 6 months with a repeat chest CT. PLAN: Scheduled Medical Oncology followup, return to clinic in [address] 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
--- OUTSIDE RECORDS SUMMARY | 2023-11-03 04:02 | XMS_ITS | Encounter Summary ---
Author Organization [facility] Address [facility] [place] [address] Care Team Providers Care User Experience Architect Name Role Phone Mustapha Palumbo MD Primary Care Provider [phone] Encounter Details Date Type Department Care Team (Latest Contact Info) Description 06/21/2016 9:55 AM EDT Laboratory Appointment Lab [address] [place] [phone] Encounter for follow-up surveillance of lung cancer [...] AM EDT Office Visit Hematology/Oncology at [address] [phone] Garcia Childress MD [facility] DR HEMATOLOGY [place] [address] Kassy Ken APRN [address] [place] [address] DR MEDICAL ONCOLOGY [place], [place] [address] documented as of this encounter Procedures Procedure Name Priority Date/Time Associated Diagnosis Comments LAB SCAN 08/09/2016 12:00 AM EDT CREATININE STAT 06/21/2016 9:50 AM EDT Encounter for follow-up surveillance of lung cancer documented in this encounter Results * SCAN DOC: LAB (08/09/2016 12:00 AM EDT) Narrative 08/09/2016 12:00 AM EDT Ordered by an unspecified provider. Scanning Provider MEDIA MGR SCAN EXT O RDR/RSLT * Creatinine (06/21/2016 9:50 AM EDT) Creatinine 0.95 0.80 - 1.50 mg/dL [facility] Comment: Please note that the pediatric reference intervals supplied above were not validated at [facility]. Results from pediatric patients should be interpreted in conjunction to the patient's age, height and muscle mass. Estimated GFR >60 >=60 [facility] Comment: This estimated GFR (eGFR) value [...] the following links into your internet browser. [email or web address] Blood specimen (specimen) 06/21/2016 9:50 AM EDT 06/21/2016 9:58 AM EDT Narrative Resulting Agency Comment Spec In Lab Shane Diamond MD CHEMISTRY ORDERA BLES [facility] [place] [address] documented in this encounter Visit Diagnoses Diagnosis Encounter for follow-up surveillance of lung cancer Unspecified follow-up examination documented in this encounter Care Teams User Experience Architect Relationship Specialty Start Date End Date Mustapha Palumbo MD [address] [place] [address] PCP - General 11/11/14 08/07/17 documented as of this encounter
--- OUTSIDE RECORDS SUMMARY | 2023-11-03 04:02 | XMS_ITS | Encounter Summary ---
Author Organization [facility] Address [facility] [place] [address] Care Team Providers Care Computer Recycling Worker Name Role Phone Mustapha Palumbo MD Primary Care Provider [phone] Reason for Referral * Diagnostic Test (Routine) - Duplicate Referral Specialty Diagnoses / Procedures Referred By Hi franklin Referred To Contact Radiology Diagnoses Encounter for follow-up surveillance of lung cancer Procedures CT Chest w Contrast Shane Diamond MD [facility] [place] [address] [facility] [place] [address] Referral ID Status Reason Start Date Expiration Date Visits Requested Visits Authorized [id number] Duplicate Referral Specialty Service Requested 7 01/17/2018 1 1 Reason for Visit * Reason Comments Follow-up Encounter Details Date Type Department Care Team (Late st Contact Info) Description 01/17/2017 3:30 PM EDT Office Visit [place] [address] Shane Diamond MD [facility] [place] [address] Encounter for follow-up surveillance of [...] Sign Reading Time Taken Comments Blood Pressure 124/96 01/17/2017 3:14 PM EDT Pulse 103 01/17/2017 3:14 PM EDT Temperature 36.2 ??C (97.2 ??F) 01/17/2017 3:14 PM ED T Respiratory Rate 18 01/17/2017 3:14 PM EDT Oxygen Saturation 97% 01/17/2017 3:14 PM EDT Inhaled Oxygen Concentration - - Weight 109.3 kg (241 lb) 01/17/2017 3:14 PM EDT Height 185.4 cm (6' 0.99) 01/17/2017 3:14 PM ED T Body Mass Index 31.8 01/17/2017 3:14 PM EDT documented in this encounter Progress Notes * Shane Diamond MD - 01/17/2017 3:30 PM EDT CHIEF COMPLAINT: Followup lung resection. HISTORY OF PRESENT ILLNESS: Mr. Kincaid is a 66-year-old man with a history of metastatic colorectal cancer. I took him to the operating room on December 10, 2015, where a metastasectomy was performed, which required a left thoracotomy and lobectomy owing to the size and location of the tumor. Patient tolerated the procedure well, and I saw him in June for scheduled followup. At the time, he had no complaints. He comes in today with no new complaints. His breathing is adequate, and he has occasional numbness around his thoracotomy incision, but otherwise no difficulties with pain control. No fevers or chills. He has not yet had his flu shot this year. PHYSICAL EXAM: He appears in good spirits and well. Blood pressure 124/96, heart rate 103, respiratory rate 18, temp 97.2, O2 sat 97% on room air. He is alert and oriented, no acute distress. Lungs are clear to auscultation. Heart is regular. Abdomen is nontender, nondistended. IMAGING: A chest CT with contrast was obtained today. This demonstrates no signs of local, regional, or distant recurrent metastatic disease. ASSESSMENT: A 66-year-old man with a fully resected colorectal metastasis to the lower lobe of the left lung. I am happy with his physical progress, and we will continue with surveillance, as he has no evidence of recurrent disease. He will follow up with Dr. Grubbs, his medical oncologist, next month, and I will plan to see him back in 6 months with a chest CT with intravenous contrast. PLAN: Return to clinic in [address] with IV contrast. SHANE DIAMOND MD documented in this encounter Plan of Treatment Upcoming Encounters Date Type Department Care Team (Late st Contact Info) Description 11/03/2023 8:30 AM EDT Office Visit Hematology/Oncology at [address] [phone] Garcia Childress MD [facility] DR HEMATOLOGY [place] [address] Kassy Ken FUEL RETROFITTING TECHNICIAN [address] [place] [address] DR MEDICAL ONCOLOGY [place], [place] [address] documented as of this encounter Results * [...] examination documented in this encounter Care Teams Computer Recycling Worker Relationship Specialty Start Date End Date Mustapha Palumbo MD [address] [place] [address] PCP - General 11/11/14 08/07/17 documented as of this encounter
--- OUTSIDE RECORDS SUMMARY | 2023-11-03 04:02 | XMS_ITS | Encounter Summary ---
Author Organization [facility] Address [facility] [place] [address] Care Team Providers Care Patient Relations Director Name Role Phone Mustapha Palumbo MD Primary Care Provider [phone] [phone] Encounter Details Date Type Department Care Team (Late st Contact Info) Description 01/06/2017 Telephone [place] [phone] Tanvi Browning Social History Tobacco Use Types Packs/Day Years Used Date Smoking Tobacco: Former Pipe Q uit: 04/25/1997 Smokeless Tobacco: Former Comments:was a pouch a week from the pipe Sex and Gender Information Value Date Recorded Sex Assigned at Not on file Gender Identity Not on file Sexual Orientation Not on file documented as of this encounter Miscellaneous Notes * Telephone Encounter - Tanvi Mejia - 01/06/2017 10:09 AM EDT Safety questions documented in this encounter Plan of Treatment Upcoming Encounters Date Type Department Care Team (Late st Contact Info) Description 11/03/2023 8:30 AM EDT Office Visit Hematology/Oncology at [address] [phone] [facility] DR [place] [address] Kassy Ken APRN [address] [address] [place] [address] documented as of this encounter Visit Diagnoses Not on filedocumented in this encounter Care Teams Patient Relations Director Relationship Specialty Start Date End Date Mustapha Palumbo MD [address] [place] [address] PCP - General 11/11/14 08/07/17 documented as of this encounter
--- OUTSIDE RECORDS SUMMARY | 2023-11-03 04:02 | XMS_ITS | Encounter Summary ---
Author Organization [facility] Address [facility] [place] [address] Care Team Providers Care Work From Home Name Role Phone Mustapha Anand DO Primary Care Provider [phone] Encounter Details Date Type Department Care Team (Late st Contact Info) Description 06/26/2018 11:45 AM EDT Office Visit Hematology/Oncology at [address] [phone] Arleen Baugh APRN [facility] [place] [address] Carcinoma of colon Social History Tobacco Use [...] Sign Reading Time Taken Comments Blood Pressure 155/82 06/26/2018 11:50 AM EDT Pulse 54 06/26/2018 11:50 AM EDT Temperature 36.6 ??C (97.9 ??F) 06/26/2018 11:50 AM E DT Respiratory Rate 20 06/26/2018 11:50 AM EDT Oxygen Saturation 98% 06/26/2018 11:50 AM EDT Inhaled Oxygen Concentration - - Weight 115.2 kg (254 lb) 06/26/2018 11:50 AM EDT Height 182.9 cm (6') 06/26/2018 11:50 AM EDT Body Mass Index 34.45 06/26/2018 11:50 AM EDT documented in this encounter Patient Instructions * Patient Instructions* Arleen Baugh APRN - 06/26/2018 11:45 AM EDT He will return in 6 months with labs prior for his next followup. documented in this encounter Progress Notes * Arleen Baugh APRN - 06/26/2018 11:45 AM EDT Images from the original note [...] Diagnosis--- CONSULTATION CASE 1. Outside slides labeled [id number], collection date 04/01/08. Colon, biopsy at 15 cm: Invasive adenocarcinoma, arising in association with a tubular adenoma with high grade dysplasia. 2. Outside slides labeled [id number], collection date 04/22/08. A - Small bowel, [...] do well and is feeling well. His weight is stable. Review of systems is otherwise quite negative with no GIproblems no breathing problems no chest pain no abdominal symptoms at all.his last colonoscopy was in February 2016. He should be due for another this year. Current Outpatient Medications on File Prior to Visit Medication Sig Dispense Refill ??? apixaban (ELIQUIS) 5 mg Tablet Take by mouth. ??? metoprolol succinate (TOPROL-XL) 25 mg Tablet Sustained Release 24 hr Take 25 mg by mouth daily. ??? atorvastatin (LIPITOR) 40 mg Tablet Take 40 mg by mouth daily. ??? Vit A,C,P-Rihd-Xvqlpb (PRESERVISION AREDS) 14,320-226-200 vpgu-zu-kupg Capsule Take by mouth. ??? multivitamin (THERAGRAN) [...] Neurological: Negative. Hematological: Negative for adenopathy. BP 155/82 (Patient Position: Sitting) Pulse 54 Temp 36.6 ??C (97.9 ??F) (Oral) Resp 20 Ht 182.9 cm (6') Wt 115.2 kg (254 lb) SpO2 98% BMI 34.45 kg/m?? Head: Normocephalic, without obvious abnormality, atraumatic [...] and axillary nodes normal Neurologic: Normal CEA 06/19/18 <0.5 08/16/16 <0.5 04/14/16 <0.5 15.9 [...] ?? TECHNIQUE: Procedure: Following IV injection of 28-oykqau-6-deoxyglucose (FDG) a standard uptake of approximately 60 [...] The patient 's prior history of colonic adenocarcinoma([id number]) is noted and ??is currently unavailable for [...] Laboratory today shows normal CBC with white count8.31 hemoglobin 14.5 hematocrit 43.9 and plateletcount 217,000. CMP continues to show slight increase in ALP presumably from his gallbladder disease. The rest of his liver tests are normal with a bilirubin of 0.6. Electrolytes are normal creatinineis 0.91 calcium is 9.4 CEA remains undetectable at less than 0.5 Assessment/plan: Seth is doing exceptionally well with no evidence of recurrent colon cancer. He has a very unusual clinical course with a very late recurrence within the long that was resected. There is some possibility that was a long lesion but pathology indicates it was most likely a recurrence of his colon cancer. We will see him back in 6 months time with lab including a CEA. He will continue his routine follow-up CT scans with thoracic surgery. documented in this encounter Plan of Treatment Upcoming Encounters Date Type Department Care Team (Late st Contact Info) Description 11/03/2023 8:30 AM EDT Office Visit Hematology/Oncology at [address] [phone] Garcia Childress MD [facility] [place] [address] Kassy Ken APRN [address] [place] [address] [place] [address] documented as of this encounter Procedures Procedure Name Priority Date/Time Associated Diagnosis Comments LAB SCAN 06/19/2018 12:00 AM EDT documented in this encounter Results * SCAN DOC: LAB (06/19/2018 12:00 AM EDT) Narrative 06/19/2018 12:00 AM EDT Ordered by an unspecified provider. Scanning Provider MEDIA MGR SCAN EXT O RDR/RSLT documented in this encounter Visit Diagnoses Diagnosis Carcinoma of colon Malignant neoplasm of colon, unspecified site documented in this encounter Care Teams Work From Home Relationship Specialty Start Date End Date Mustapha Anand DO [address] [place] [address] PCP - General Family Medicine 08/08/17 documented as of this encounter
--- OUTSIDE RECORDS SUMMARY | 2023-11-03 04:02 | XMS_ITS | Encounter Summary ---
Author Organization [facility] [place] [address] Care Team Providers Care Broker Name Role Phone Mustapha Palumbo MD Primary Care Provider [phone] Reason for Referral * Diagnostic Test (Routine) - Closed Specialty Diagnoses / Procedures Referred By Contac t Referred To Contact Radiology Diagnoses Rectal cancer metastasized to lung Procedures CT Chest w Contrast [facility] [address] [place] [phone] [facility] [place] [address] Referral ID Status Reason Start Date Expiration Date V isits Requested Visits Authorized [id number] Closed Specialty Service Requested 12/30/2016 12/30/2017 1 1 Reason for Visit * Diagnostic Test (Routine) - Closed Specialty Diagnoses / Procedures Referred By Contac t Referred To Contact Radiology Diagnoses Rectal cancer metastasized to lung Procedures CT Chest w Contrast [facility] [address] [place] [phone] [facility] [place] [address] Referral ID Status Reason Start Date Expiration Date V isits Requested Visits Authorized [id number] Closed Specialty Service Requested 12/30/2016 12/30/2017 1 1 Encounter Details Date Type Department Care Team (Latest Contact Info) Description 01/17/2017 2:43 PM EDT - 01/17/2017 11:59 PM EDT Hospital [place] [address] Shane Diamond MD [facility] [place] [address] Rectal cancer metastasized to lung Discharge Disposition: Home Social History Tobacco [...] 6 hours. 30 tablet 1 12/13/2015 Vit A,C,A-Pjtm-Knzuht (PRESERVISION AREDS) 14320-226-200 meas-dn-skgs Capsule Take by mouth. 01/04 multivitamin (THERAGRAN) Tablet Take 1 tablet by mouth daily. 01/04/2019 ibuprofen (ADVIL;MOTRIN) 600 mg Tablet Take 1 [...] 8:30 AM EDT Office Visit Hematology/Oncology at [address] [phone] Garcia Childress MD [facility] [place] [address] Kassy Ken APRN [address] [place] [address] [place] [address] documented as of this encounter Procedures Procedure Name Priority Date/Time Associated Diagnosis Comments CT CHEST W CONTRAST Routine 01/17/2017 3:08 PM EDT Rectal cancer metastasized to lung documented in this encounter Results * CT Chest w Contrast (01/17/2017 3:08 PM EDT) Anatomical Region Laterality Modality Chest Computed Tomogra phy Impressions 01/17/2017 3:20 PM EDT Status post left lower lobectomy. No findings for recurrence at the resection site. No new or enlarging pulmonary nodules. Narrative 01/17/2017 3:20 PM EDT EXAMINATION: CT CHEST W CONTRAST CLINICAL HISTORY: s/p LLLectomy 12/2015 for rectal cancer metastisis to LLL. f/u routine surveillance for reoccurance. TECHNIQUE: 3.75 mm thick axial contiguous sections were obtained through the chest via helical acquisition after the intravenous administration of 60 cc of Omnipaque-350. Thin-section reconstructions as well as coronal and sagittal reformatted images were generated. COMPARISON: 06/21/2016. FINDINGS: Pulmonary parenchyma: Status post left lower [...] findings. Procedure Note Carmen Roblero MD - 01/17/2017 EXAMINATION: CT CHEST W CONTRAST CLINICAL HISTORY: s/p LLLectomy 12/2015 for rectal cancer metastisis toLLL. f/u routine surveillance for reoccurance. TECHNIQUE: 3.75 mm thick axial contiguous sections were obtained throughthe chest via helical acquisition after the intravenous administration of 60cc of Omnipaque-350. Thin-section reconstructions as well as coronal andsagittal reformatted images were generated. COMPARISON: 06/21/2016. FINDINGS: Pulmonary parenchyma: Status post left lower lobectomy, with no findingsfor recurrence at the resection site. No new or enlarging pulmonary nodulesare seen. No other interval pulmonary parenchymal pathology identified. Airways: No endobronchial opacities. Lymph nodes: No interval or acid lymph node enlargement. Pleura: Further decrease in very small left effusion. No pleural effusionon the right Heart, pericardium, and great vessels: No pericardial effusion or othernew finding. Other mediastinal structures: No new findings. Lower neck: No new findings. Upper abdomen: Tiny gallstones layering dependently in the gallbladder, unchanged. No new findings. Skeletal structures: No new findings. IMPRESSION Status post left lower lobectomy. No findings for recurrence at theresection site. No new or enlarging pulmonary nodules. Shane Diamond MD IMG CT ORDERABLE S documented in this encounter Visit Diagnoses Diagnosis Rectal cancer metastasized to lung Malignant neoplasm of rectum documented in this encounter Administered Medications Inactive Administered Medications - up to 3 most recent administrations Medication Order MAR Action Action Date Dose Rate Site iohexol (OMNIPAQUE) 350 mg/mL solution 0-200 mL 0-200 mL, Intravenous, ONCE PRN, 1 dose, Starting on Tue01/17/17 at 1453, Until Tue01/17/17 at 1453, Per Protocol, Warning Vesicant/Irritant Medication , Radiology Contrast, Routine Given 01/17/2017 2:53 PM EDT 60 mLs documented in this encounter Care Teams Broker Relationship Specialty Start Date End Date Mustapha Palumbo MD [address] [place] [address] PCP - General 11/11/14 08/07/17 documented as of this encounter
--- OUTSIDE RECORDS SUMMARY | 2023-11-03 04:02 | XMS_ITS | Encounter Summary ---
Author Organization [facility] [place] [address] Care Team Providers Care Residential Driver Name Role Phone Mustapha Palumbo MD Primary Care Provider [phone] Reason for Referral * Diagnostic Test (Routine) - Closed Specialty Diagnoses / Procedures Referred By Hi franklin Referred To Contact Radiology Diagnoses Rectal cancer metastasized to lung Procedures CT Chest w Contrast [facility] [address] [place] [address] [facility] [place] [address] Referral ID Status Reason Start Date Expiration Date V isits Requested Visits Authorized [id number] Closed Specialty Service Requested 12/30/2016 12/30/2017 1 1 Encounter Details Date Type Department Care Team ([facility] Contact Info) Description 12/30/2016 Orders Only [place] [address] Zonia Nieto, RN Rectal cancer metastasized to lung Social History [...] AM EDT Office Visit Hematology/Oncology at [address] [phone] Garcia Childress MD [facility] [place] [address] Jesus Manuel, Kassy Marielena BUSINESS CONTROLLER [address] [place] [address] [place] [address] documented as of this encounter Results * [...] Shane Diamond MD IMG CT ORDERABLE S * Creatinine (01/17/2017 1:33 PM EDT) Creatinine 0.95 0.80 - 1.50 mg/dL [facility] Comment: Please note that the pediatric reference intervals supplied above were not validated at [facility]. Results from pediatric patients should be interpreted in conjunction to the patient's age, height and muscle mass. Estimated GFR >60 >=60 [facility] Comment: This estimated GFR (eGFR) [...] the following links into your internet browser. [email or web address] Blood specimen (specimen) 01/17/2017 1:33 PM EDT 01/17/2017 1:39 PM EDT Narrative Resulting Agency Comment Spec In Lab Shane Diamond MD CHEMISTRY ORDERA BLES [facility] [place] [address] documented in this encounter Visit Diagnoses Diagnosis Rectal cancer metastasized to lung Malignant neoplasm of rectum Rectal cancer metastasized to lung Malignant neoplasm of rectum documented in this encounter Care Teams Residential Driver Relationship Specialty Start Date End Date Mustapha Palumbo MD [address] [place] [address] PCP - General 11/11/14 08/07/17 documented as of this encounter
--- OUTSIDE RECORDS SUMMARY | 2023-11-03 04:02 | XMS_ITS | Encounter Summary ---
Author Organization [facility] Address [facility] [place] [address] Care Team Providers Care Document Controller Name Role Phone Mustapha Palumbo MD Primary Care Provider [phone] Reason for Referral * Diagnostic Test (Routine) - Closed Specialty Diagnoses / Procedures Referred By Contac t Referred To Contact Radiology Diagnoses Encounter for follow-up surveillance of lung cancer Procedures CT Chest w Contrast Shane Diamond MD [facility] [address] Referral ID Status Reason Start Date Expiration Date V isits Requested Visits Authorized [id number] Closed Specialty Service Requested 12/29/2015 12/28/2016 1 1 Reason for Visit * Diagnostic Test (Routine) - Closed Specialty Diagnoses / Procedures Referred By Contac t Referred To Contact Radiology Diagnoses Encounter for follow-up surveillance of lung cancer Procedures CT Chest w Contrast Shane Diamond MD [facility] [address] Referral ID Status Reason Start Date Expiration Date V isits Requested Visits Authorized [id number] Closed Specialty Service Requested 12/29/2015 12/28/2016 1 1 Encounter Details Date Type Department Care Team (Latest Contact Info) Description 06/21/2016 10:53 AM EDT - 06/21/2016 11:59 PM EDT Hospital [place] [address] Shane Diamond MD [facility] [place] [address] Encounter for follow-up surveillance of lung cancer [...] every 6 hours. 30 tablet 1 12/13/2015 multivitamin (THERAGRAN) Tablet Take 1 tablet by [...] 8:30 AM EDT Office Visit Hematology/Oncology at [address] [phone] Garcia Childress MD [facility] [place] [address] Kassy Ken APRN [address] [place] [address] [place] [address] documented as of this encounter Procedures Procedure Name Priority Date/Time Associated Diagnosis Comments CT CHEST W CONTRAST Routine 06/21/2016 11:18 AM EDT Encounter for follow-up surveillance of [...] Rate Site iohexol (OMNIPAQUE) 350 mg/mL solution 21,000 mg 21,000 mg (60 mL), Intravenous, ONCE PRN, 1 dose, Starting on Tue06/21/16 at 1109, Until Tue06/21/16 at 1110, Per Protocol, Warning Vesicant/Irritant Medication , Routine Given 06/21/2016 11:10 AM EDT 21,000 mg documented in this encounter Care Teams Document Controller Relationship Specialty Start Date End Date Mustapha Palumbo MD [address] [place] [address] PCP - General 11/11/14 08/07/17 documented as of this encounter
--- OUTSIDE RECORDS SUMMARY | 2023-11-03 04:03 | XMS_ITS | Encounter Summary ---
Author Organization [facility] [place] [address] Care Team Providers Care Photography Professor Name Role Phone Mustapha Palumbo MD Primary Care Provider [phone] Encounter Details Date Type Department Care Team (Late st Contact Info) Description 11/03/2015 Telephone [place] [phone] Pennie Noel Social History Tobacco Use Types Packs/Day Years Used Date Smoking Tobacco: Former Cigarettes Q uit: 04/25/1997 Smokeless Tobacco: Former Sex and Gender Information Value Date Recorded Sex Assigned at Not on file Gender Identity Not on file Sexual Orientation Not on file documented as of this encounter Miscellaneous Notes * Telephone Encounter - Pennie Noel - 11/03/2015 8:41 AM EDT Call made to ask MRI safety questions Patient was scheduled for his Stress test 11/03 8:45 at [facility] Patient was scheduled for MRI 11/04 8:45 at [facility] Patient was scheduled for PFT's 11/05 10:30 at [facility] documented in this encounter Plan of Treatment Upcoming Encounters Date Type Department Care Team (Late st Contact Info) Description 11/03/2023 8:30 AM EDT Office Visit Hematology/Oncology at [address] [phone] Garcia Childrses MD [facility] [address] [place] [address] Kassy Ken, KOURTNEY [address] [place] [address] MEDICAL ONCOLOGY [place], [place] [phone] documented as of this encounter Visit Diagnoses Not on filedocumented in this encounter Care Teams Photography Professor Relationship Specialty Start Date End Date Mustapha Palumbo MD [address] [place], [place] [id number] PCP - General 11/11/14 08/07/17 documented as of this encounter
--- OUTSIDE RECORDS SUMMARY | 2023-11-03 04:03 | XMS_ITS | Encounter Summary ---
Author Organization Formerly [facility] Address [facility] [place] [address] Care Team Providers Care Manager Of Housekeeping Name Role Phone Rolando Palumbo MD Primary Care Provider [phone] Reason for Visit * Auth/Cert Specialty Diagnoses / Procedures Referred By Contac t Referred To Contact Diagnoses Lung mass left lower lobe lung mass Procedures PRO THORACOSCOPY SURG LOBECTOMY @THORACOSCOPY,SURGICAL,W\LOBECTOMY, TOTAL OR SEGMENTAL Referral ID Status Reason Start Date Expiration Date Visits Re quested Visits Authorized [id number] 1 1 Encounter Details Date Type Department Care Team (Late st Contact Info) Description 12/10/2015 7:30 AM EDT - 12/10/2015 11:58 AM EDT Surgery [place] [id number] Shane Shi MD [facility] [place] [address] BRONCHOSCOPY, DIAGNOSTIC (WRVU 2.53) Social History Tobacco Use Types Packs/Day Years Used Date Smoking Tobacco: Former Cigarettes Q uit: 04/25/1997 Smokeless Tobacco: Former Sex and Gender Information Value Date Recorded Sex Assigned at Not on file Gender Identity Not on file Sexual Orientation Not on file documented as of this encounter Last Filed Vital Signs Vital Sign Reading Time Taken Comments Blood Pressure 147/84 12/10/2015 6:08 AM EDT Pulse 83 12/10/2015 6:08 AM EDT Temperature 36.5 ??C (97.7 ??F) 12/10/2015 6:08 AM ED T Respiratory Rate 18 12/10/2015 6:08 AM EDT Oxygen Saturation 100% 12/10/2015 6:08 AM EDT Inhaled Oxygen Concentration - - Weight - - Height - - Body Mass Index - - documented in this encounter Discharge Summaries * Daniel Washington MD - 12/13/2015 1:41 PM EDT Department of Thoracic Surgery - Discharge Summary Patient Name: Seth Kincaid Patient Age: 64 y.o. Birthdate: 1950 Admit date: 12/10/2015 Discharge date: 12/13/2015 Attending Physician: Shane Shi MD Discharge Diagnoses (Hospital Problems) and Secondary Diagnoses (Chronic Problems): Active Hospital Problems Diagnosis ??? Lung mass Resolved Hospital Problems Diagnosis Date Resolved No resolved problems to display. Active Non-Hospital Problems Diagnosis ??? Carcinoma of colon adenocarcinoma of sigmoid colon - pT2 pN0 Mx, well differentiated - 04/01/08 screening colonoscopy - sigmoid carcinoma - 04/22/08 sigmoid resection ---Pathologic Diagnosis--- CONSULTATION CASE 1. Outside slides labeled [id number], collection date 04/01/08. Colon, biopsy at 15 cm: Invasive adenocarcinoma, arising in association with a tubular adenoma with high grade dysplasia. 2. Outside slides labeled [id number], collection date 04/22/08. A - Small bowel, [...] a boy, varicose vein surgery in 1970 ??? Mass of lower lobe of left lung ??? Inflamed seborrheic keratosis ??? Elevated LFTs Mild to moderate - chronic, intermittent, not progressive ??? Obesity moderate Operations/Major Procedures: Operations: Case Date: 12/10/2015 Surgeon: Surgeon(s) and Role: * Shane Shi MD - Primary * Anne Mckeon PA - Physician Translator Deaf Procedure: Procedure(s): BRONCHOSCOPY, DIAGNOSTIC @THORACOTOMY-LOBECTOMY, SINGLE LOBE @LYMPHADENECTOMY,THORACIC ,REGIONAL,INCL. MEDIASTINAL,PERITRACHEAL NODES THORACOSCOPY, DX., LUNGS WITHOUT BIOPSY History of Presentation: Seth Kincaid is a 64 y.o. yo male with LLL mass, measuring 3.8cm concerning for primary lung cancer. His PMHx is significant for HTN and adenocarcinoma of the sigmoid colon resection in 2007 (pT2 pN0 Mx, well differentiated). ?? Hospital Course: Seth Kincaid was admitted to [facility] on 12/10/2015 via the Same Day Program. He was brought to the operating room on 12/10/[address] Shane Shi performed surgery as described above. He tolerated the procedure well and was brought to the Post Anesthesia Care Unit for recovery. After a brief period of time he was transferred to the floor for continued rehabilitation. On POD1 he experienced nausea/emesis, the acute pain service removed the narcotic from his epidural to good effect. On POD2 the patient ambulated more without any difficulty and was able to tolerate a regular diet. He had an increase in his creatinine to 1.12 which was due to the decreased intake of fluids. He was started on a some IV fluids for maintenance and a repeat creatinine was within normal limits. He did not have any trouble overnight On POD3, his chest tube had put out only 160 cc over night and had no air leak. It was discontinuedand a post pull xray did not show any changes either apart from a small apical pneumothorax that was stable. His epidural was discontinued and his condon was discontinued as well. He had had a bowel movement and his afternoon labs prior to discharge were within normal limits. His sodium was at 132 which was rising from 131 in the morning and he was encourage to take in more salt at home. He will be seen back in clinic in 2 weeks and a follow up chest x ray will be performed at that time. Vital signs: Vital Signs Temp: 36.3 ??C (97.3 ??F) Temp Source: Oral Heart Rate: 75 Heart Rate Source: Monitor Resp: 16 BP: 132/82 MAP (NBP): 93 mmHg BP Method: Automatic SpO2: 96 % FiO2 (%): 60 % (Extubated upon admission to Pacu) O2 Flow Rate (L/min): 2 L/min O2 Device: None (Room air) Admission Wt: Last Wt: Wt Readings from Last 3 Encounters: 12/13/15 (!) 116.3 kg (256 lb 6.4 oz) 11/27/15 (!) 112.5 kg (248 lb) 10/31/15 (!) 109.4 kg (241 lb 3.2 oz) Physical examination at discharge: - Gen: NAD CV: RRR, +s1/s2. No additional sounds or murmurs heard Pulm: Decreased BS at LEFT base, other young clear. CT removed prior to discharge. Incision site is clean and clear with no bleeding or discharge present. Abd: soft, NT, ND Ext: wwp, no edema Important Lab Data: Lab Results Component Value Date WBC 12.3 (H) 12/13/2015 HGB 10.3 (L) 12/13/2015 HCT 30.8 (L) 12/13/2015 MCV 87.3 12/13/2015 Lab Results Component Value Date NA 132 (L) 12/13/2015 K 3.8 12/13/2015 CL 91 (L) 12/13/2015 CO2 29 12/13/2015 Lab Results Component Value Date CREATININE 0.79 (L) 12/13/2015 Lab Results Component Value Date BUN 9 (L) 12/13/2015 No results found for: PREALBUMIN No results for input(s): PT, PTT, INR in the last 168 hours. Diagnostic Imaging: CXR 12/12 - post pull cxr: - IMPRESSION Post removal of LEFT pleural chest tube. No change in small LEFT apical pneumothorax. CXR 12/12: - IMPRESSION Small left apical pneumothorax. No other interval change. CXR 12/11: LEFT pleural effusion appears similar to mildly decreased in size. Nonspecific curvilinear focus of air at the LEFT base. There is persistent postsurgical elevation of the left hemidiaphragm and volume loss of the left lung. Chest tube directed at the left apex and the surgical clips are unchanged. RIGHT lung linear subsegmental atelectasis. CXR 12/10: No significant interval change. CXR 12/09: 1. Expected postsurgical changes as result of left lower lobectomy as described above. 2. Left greater than right pleural effusions. 3. No large pneumothorax. 4. Epidural catheter and left chest tube in appropriate positions. Pending Studies and Lab Data: No current labs Discharge Conditions/Prognosis: Stable Discharge to: Home Discharge Medications: Your Medications New Medications Dose Details ibuprofen 600 mg Tab Commonly known as: ADVIL;MOTRIN Take 1 tablet by mouth every 6 hours. 600 mg Quantity: 30 tablet Refills: 12 oxyCODONE 5 mg Tab Commonly known as: ROXICODONE Take 1 tablet by mouth every 4 hours as needed for Pain. 5 mg Quantity: 10 tablet Refills: 0 polyethylene glycol 17 gram Pwpk Commonly known as: MIRALAX Take 17 g by mouth daily. 17 g Quantity: 14 each Refills: 0 senna-docusate 8.6-50 mg Tab Commonly known as: PERICOLACE Take 1 tablet by mouth 2 times daily. 1 tablet Quantity: 60 tablet Refills: 11 Continued medications with new dosing Dose Details acetaminophen 500 mg Tab Commonly known as: TYLENOL Take 2 tablets by mouth every 6 hours. What changed: See the new instructions. 1000 mg Quantity: 30 tablet Refills: 1 Continued medications, unchanged Dose Details aspirin 81 mg Tbec Take 81 mg by mouth every 3 days. 81 mg Refills: 0 CENTRUM SILVER ORAL Take 1 tablet by mouth every morning. 1 tablet Refills: 0 chlorthalidone 25 mg Tab Commonly known as: HYGROTEN Take 25 mg by mouth daily. 25 mg Refills: 0 PRESERVISION AREDS 2 ORAL Take 1 tablet by mouth every morning. 1 tablet Refills: 0 Updated Allergies/ADRs: Allergies Allergen Reactions ??? Adhesive Tape CIS - Rash, CIS - Rash Instructions Given to Patient at Discharge: Patient Instructions Call if you have a fever of greater than 101 degrees, shaking chills, develop redness or drainage from your incision site(s), or if you have questions. During normal business hours, Tuesday- Tuesday 8:00 a.m.-5:00 p.m., please call [phone] to speak to a nurse in the Thoracic Clinic. If you get an answering machine or it is after hours or on weekends or holidays please call [phone] and askto speak to the Thoracic Physician acquisition analyst. Exercise & Activity Level: As you recover from surgery exercise at least 30 minutes a day. Thiscan be broken up into several times a day to achieve this goal at first, but you will be able to work up to doing all 30 minutes at once. Walking, treadmill, stationary bike, elliptical machine or stationary exercise equipment is appropriate. Take your incentive spirometer home with you. You should use this every hour while awake, 10 times each. This helps you to exercise your respiratory muscles and to breathe deeply. Taking purposeful deep breaths can be just as effective. Do not lift more than 10 pounds for 2 weeks (nothing heavier than a gallon of milk). Don???t exhaust yourself. Rest between activities as you recover from your procedure. Diet: You should follow a regular diet. Driving: No driving for 1 week or while taking narcotic pain medication. Shower/Bath: You may shower daily, no bathing or swimming until your follow-up appointment. Incision care: Wash your incision(s) daily with soap and rinse well, pat dry. Assess for any signs of infection such as increased redness, pain, warmth or drainage. If you had a chest tube, you may remove the dressing over the chest tube site in 2 days and leave it open to the air if it is not draining. Otherwise change the dressing twice a day and as needed. The dressing may remain off once there is no drainage. If you have steri strips over your incision(s), they will fall off on their own after about 7-10 days. If they do not fall off on their own after 7-10 days, you may gently remove them. Pain: Pain after surgery is normal. The goal is for you to be able to tolerate pain so you can complete your daily activities. You may notice a burning or numbness on the side of your incision that may include your breast area. This should improve over time but there may be areas that remain numb. You may use a heating pad set on low or medium, over your incision to help relax the muscles in the area and decrease discomfort. Please take your medication as prescribed. If you are not having good pain control, please call and speak to the nurse in the Thoracic Clinic or the acquisition analyst Attending Physician after hours. We are unable to refill narcotics after 5 pm or on weekends or holidays. If you need more pain medication please call us before you run out of pills. Please allow 3 days for us to mail a refill for pain medication to you. Narcotic medication is intended for your use only. Do not share with others. If you are given a prescription for narcotics please keep these in a safe place and dispose of properly when you no longerneed these pills. Sleep: Try to establish normal sleep patterns. Long naps during the day may make it hard for you tosleep at night. Use the pain medication at bedtime for the first week at home. Bowel Movements: After surgery, your bowel movements may not be regular for you, but you should be able to get back to your daily routine quickly. Please make sure to take the stool softeners or mildlaxatives as prescribed to get back to your normal routine. If you do not have a bowel movement formore than 2 days, please call the office. Follow up appointments: You will have a follow up appointment in two weeks. A letter will be mailedto you confirming your appointment information. Please call the thoracic clinic at [phone] to confirm/reschedule your appointment. You should arrange to see your primary care physician, in two weeks. If you have any questions or concerns during normal business hours, Tuesday- Tuesday 8:00 a.m.-5:00 p.m., please call [phone] to speak to a nurse in the Thoracic Clinic. If you get an answering machine or it is after hours or on weekends or holidays please call [phone] and ask to speak to the Thoracic Physician acquisition analyst. General Instructions None Future Appointments and Orders Future Appointments Provider Department Dept Phone 12/29/2015 10:00 AM [facility] XRAY ROOM 1 [facility] Xray [phone] Please go to [facility] ([facility] Location). 12/29/2015 11:00 AM Shane Shi MD Thoracic Surgery [phone] 01/08/2016 2:00 PM Jose Grubbs MD Hematology/Oncology [phone] Future Orders Complete By Expires XR Chest PA & Lateral (Generic) [[id number] Custom] 12/29/2015 (Approximate) 12/12/2016 Process Instructions: Scheduling Instructions: Questions: Where will study be performed?: [facility] Portable exam?: Reason for exam and clinical history: post RUL and thoracotomy Other pertinent information: Stat read required?: Date of injury if applicable: Requested Time: Provider Contact Information: Primary Care Provider: ROLANDO PALUMBO MD [phone] Discharge References/Attachments: Discharge References/Attachments None For questions regarding this document or issues relating to this hospitalization on the Thoracic Surgery Service, please contact Dr. Shi's office at . Signed: Daniel Washington M.D. PGY1 - Thoracic Surgery [id number] 12/13/2015 CC: PCP: ROLANDO PALUMBO MD Referring: Rolando Palumbo Md [address] [place] [id number] documented in this encounter Discharge Instructions * Patient Instructions* Anne Mckeon PA - 12/10/2015 4:45 PM EDT Call if you have a fever of greater than 101 degrees, shaking chills, develop redness or drainage from your incision site(s), or if you have questions. During normal business hours, Tuesday- Tuesday 8:00 a.m.-5:00 p.m., please call [phone] to speak to a nurse in the Thoracic Clinic. If you get an answering machine or it is after hours or on weekends or holidays please call [phone] and askto speak to the Thoracic Physician acquisition analyst. Exercise & Activity Level: As you recover from surgery exercise at least 30 minutes a day. Thiscan be broken up into several times a day to achieve this goal at first, but you will be able to work up to doing all 30 minutes at once. Walking, treadmill, stationary bike, elliptical machine or stationary exercise equipment is appropriate. Take your incentive spirometer home with you. You should use this every hour while awake, 10 times each. This helps you to exercise your respiratory muscles and to breathe deeply. Taking purposeful deep breaths can be just as effective. Do not lift more than 10 pounds for 2 weeks (nothing heavier than a gallon of milk). Don???t exhaust yourself. Rest between activities as you recover from your procedure. Diet: You should follow a regular diet. Driving: No driving for 1 week or while taking narcotic pain medication. Shower/Bath: You may shower daily, no bathing or swimming until your follow-up appointment. Incision care: Wash your incision(s) daily with soap and rinse well, pat dry. Assess for any signs of infection such as increased redness, pain, warmth or drainage. If you had a chest tube, you may remove the dressing over the chest tube site in 2 days and leave it open to the air if it is not draining. Otherwise change the dressing twice a day and as needed. The dressing may remain off once there is no drainage. If you have steri strips over your incision(s), they will fall off on their own after about 7-10 days. If they do not fall off on their own after 7-10 days, you may gently remove them. Pain: Pain after surgery is normal. The goal is for you to be able to tolerate pain so you can complete your daily activities. You may notice a burning or numbness on the side of your incision that may include your breast area. This should improve over time but there may be areas that remain numb. You may use a heating pad set on low or medium, over your incision to help relax the muscles in the area and decrease discomfort. Please take your medication as prescribed. If you are not having good pain control, please call and speak to the nurse in the Thoracic Clinic or the acquisition analyst Attending Physician after hours. We are unable to refill narcotics after 5 pm or on weekends or holidays. If you need more pain medication please call us before you run out of pills. Please allow 3 days for us to mail a refill for pain medication to you. Narcotic medication is intended for your use only. Do not share with others. If you are given a prescription for narcotics please keep these in a safe place and dispose of properly when you no longerneed these pills. Sleep: Try to establish normal sleep patterns. Long naps during the day may make it hard for you tosleep at night. Use the pain medication at bedtime for the first week at home. Bowel Movements: After surgery, your bowel movements may not be regular for you, but you should be able to get back to your daily routine quickly. Please make sure to take the stool softeners or mildlaxatives as prescribed to get back to your normal routine. If you do not have a bowel movement formore than 2 days, please call the office. Follow up appointments: You will have a follow up appointment in two weeks. A letter will be mailedto you confirming your appointment information. Please call the thoracic clinic at [phone] to confirm/reschedule your appointment. You should arrange to see your primary care physician, in two weeks. If you have any questions or concerns during normal business hours, Tuesday- Tuesday 8:00 a.m.-5:00 p.m., please call [phone] to speak to a nurse in the Thoracic Clinic. If you get an answering machine or it is after hours or on weekends or holidays please call [phone] and ask to speak to the Thoracic Physician acquisition analyst. documented in this encounter Medications at Time of Discharge Medication Sig Dispensed Refills Start Date End Date acetaminophen (TYLENOL) 500 mg Tablet Take 2 tablets by mouth every 6 hours. 30 tablet 1 12/13/2015 ibuprofen (ADVIL;MOTRIN) 600 mg Tablet Take 1 tablet by mouth every 6 hours. 30 tablet 12 12/13/2015 02/22/2017 polyethylene glycol (MIRALAX) 17 gram Powder in Packet Take 17 g by mouth daily. 14 each 12/13/2015 12/29/2015 senna-docusate (PERICOLACE) 8.6-50 mg Tablet Take 1 tablet by mouth 2 times daily. 60 tablet 11 12/13/2015 12/29/2015 chlorthalidone (HYGROTEN) 25 mg tablet Take 25 mg by mouth daily. 12/26/2017 MULTIVITAMIN W-MINERALS/LUTEIN (CENTRUM SILVER ORAL) Take 1 tablet by mouth every morning. 12/29/2015 aspirin 81 mg EC tablet Take 81 mg by mouth every 3 days. 12/26/2017 documented as of this encounter Progress Notes * Sarah Choi, PT - 12/13/2015 2:52 PM EDT Physical Therapy Treatment Note Visit #3 Patient Dx:64 y.o. male patient of Shane Johns MD, admitted on 12/10/2015 for bronchoscopy, thoracotomy, lobectomy, lymphadenectomy. Patient with LLL mass adherent to chest wall. Precautions/Special Considerations: Interval History:condon, CT and epidural d/'cd S: Im moving so much better with that chest tube out When I had my colonoscopy I learned how to use my arms to get in/OOB O: Pt demonstrated the following ?? Supine<>sit cues only ?? Sit<>stand independent ?? Amb 150 ft using walker with supervision, took 6 walks today ?? Sats 97% on RA Other: Cont use of IS, ambulate at home building up frequency,pt and plan on going to the gym to use the treadmill Pain: controlled Education: Education topics included breathing exercise, progressive ambulation. Pt verbalized/demonstrated understanding. Staff Communication: Patient status, treatment, and mobility recommendations discussed with nursing/other staff. A: Pt progressed with activity, increased respiratory rate with ambulation, denies dyspnea, describes fatigue. Demonstrated good bed mobility, motivated to keep ambulating, reviewed ways to progress.PT goals met, declined doing 2 stairs. Physical Therapy Goals: 1. Pt. to perform bed mobility independently with HOB flat. 2. Pt. to perform sit<>stand transfers independently with LRD ?? 3. Pt. to ambulate 150ft with supervision and LRD.(FWW, has one at home.) 4. Pt. to ambulate up/down 2 step/stairs with cane and supervision or CONSTRUCTION MGR. 5. Family or caregiver to demonstrate understanding of therapeutic interventions to support the care of the patient. P: Home with progressive ambulation Total time spent with patient: 24 minutes Total timed interventions: 24 minutes TEF Pager: [phone] Physical Therapy Rehabilitation Department * Therese Fabian RN - 12/13/2015 2:21 PM EDT Pt and were given DC instructions, they both verbalized their understanding. His is goingto get his Rx from the outpatient pharmacy here. His belongings have been packed. IV's have been removed. He will be going home with no services. Will continue to assist until actual departure with wheel chair to car. * Ricky Villalobos MD - 12/13/2015 10:27 AM EDT Acute Pain Service - Epidural Daily Management ?? Physician: Ricky Villalobos M.D. Time of Service: 10:35 a.m. VITAL SIGNS: BP 122/79 (BP Location (NBP): Left arm) Pulse 71 Temp 36.3 ??C (97.3 ??F) (Oral) Resp 16 Ht 181.6 cm (5' 11.5) Wt (!) 116.3 kg (256 lb 6.4 oz) SpO2 96% BMI 35.26 kg/m2 ?? Epidural day: 4 days s/p placement ?? POD: 3 days s/p ?? Operative Procedures: Procedure(s): BRONCHOSCOPY, DIAGNOSTIC @THORACOTOMY-LOBECTOMY, SINGLE LOBE @LYMPHADENECTOMY,THORACIC ,REGIONAL,INCL. MEDIASTINAL,PERITRACHEAL NODES THORACOSCOPY, DX., LUNGS WITHOUT BIOPSY ?? Pertinent Medications: Continuous Infusions Bupivacaine Plain 1/16 % (0.625 mg/mL) infusing at 6 mls/hour plus PCEA at 3 ml every 20 minutes (used bolus feature twice in 24 hours) Tylenol 1000 mg po q 6 hours Heparin 5000 units SQ q 12 hours ?? Assessment: Numerical Rating Scale (NRS) 0/10 Pain now is none ?? ROS: GI/Bowels Tolerating diet. Nausea No Pruritis Yes but mild and tolerable. Nubain available. Drowsiness No ?? Patient is awake and alert. Deep breathing and coughing well. Demonstrates incentive spirometer to 750 ml. Moves legs without difficulty. Epidural insertion site clean and without signs of infection. ?? Plan: CT to be removed today, epidural off. Heparin given at 0827 this AM, epidural should not be removeduntil at least 12:30 today given anticoagulation. Tylenol scheduled Ibuprofen scheduled Would consider adding oxycodone 5-10mg if patient has increased pain not relieved by tylenol/ibuprofen Plan discussed with patient/RN/team. ?? Please call with any questions or concerns. RICKY VILLALOBOS MD 12/13/2015 Pager # [phone] Addendum 1311: Epidural removed, tip intact, site is clean/dry. RICKY VILLALOBOS MD * Daniel Washington MD - 12/13/2015 8:56 AM EDT ID: 64 yo male with history of colon adenocarcinoma s/p Left lower lobectomy and pleural/ periosteal resection of ribs 7-8 for primary lung cancer vs. Metastatic colon cancer 24 hr/S: No acute events overnight Ambulated and was OOB but not as much Required 2L overnight - took the oxygen off this morning Was on fluid overnight for possible kidney injury - removed this morning No other symptoms or any other events. O: Last value Range last 24hrs Temperature Temp: 36.3 ??C (97.3 ??F) Temp: [36.3 ??C (97.3 ??F)-36.8 ??C (98.2 ??F)] Heart Rate Heart Rate: 71 Heart Rate: [71-83] Blood Pressure BP: 122/79 BP: (121-128)/(77-80) Respiratory Rate Resp: 16 Resp: [16-18] SpO2 SpO2: 96 % SpO2: [95 %-99 %] 3L NC I/O last 3 completed shifts: In: 4807 [P.O.:640; I.V.:4167] Out: 4645 [Urine:4075; Other:570] I/O this shift: In: 340 [P.O.:340] Out: - CT- 180cc / 24 hours - on water seal and ss fluid Gen: NAD CV: RRR, +s1/s2 Pulm: Decreased BS at LEFT base, other young clear. CT removed this morning. Abd: soft, NT, ND Ext: wwp, no edema Recent Labs 12/13/15 0607 12/12/15 0640 12/11/15 1404 12/11/15 0506 WBC 12.1* 14.6* -- 16.6* HGB 9.7* 10.6* -- 12.4* PLATELET 203 208 -- 244 NA 131* 134* 136 137 K 3.7 4.2 5.0 5.5* CL 93* 95* 95* 99 CO2 28 29 27 27 BUN 9* 13 17 17 CREATININE 0.71* 0.76* 1.20 1.12 GLUCOSE 128 143 173 141 CXR 12/12: - IMPRESSION Small left apical pneumothorax. No other interval change. CXR 12/12/15: LEFT pleural effusion appears similar to mildly decreased in size. Nonspecific curvilinear focus of air at the LEFT base. There is persistent postsurgical elevation of the left hemidiaphragm and volume loss of the left lung. Chest tube directed at the left apex and the surgical clips are unchanged. RIGHT lung linear subsegmental atelectasis. CXR 12/11/15: FINDINGS: There is a slightly better degree of inflation of the RIGHT lung. There is no other interval change. Again noted are the postoperative findings including a left-sided chest tube, small LEFT pleural effusion and elevation of the LEFT hemidiaphragm. No pneumothorax is seen. ? IMPRESSION No significant interval change. ?? CXR 12/10/15: IMPRESSION 1. Expected postsurgical changes as result of left lower lobectomy as described above. 2. Left greater than right pleural effusions. ?? 3. No large pneumothorax. 4. Epidural catheter and left chest tube in appropriate positions. ?? Assessment: 64 yo male s/p LL lobectomy and removal of pleura and periosteum from ribs 7 and 8 for treatment of primary lung cancer vs. Metastatic colon cancer. Progressing well Plan: Neuro: PCEA for pain control. Oral tylenol CV: Monitor HR, BP. amio protocol, chlorthalidone 25 mg bd. Pulm: wean 02. Continue CT to water seal GI: regular diet as tolerated : leave condon for I/O until epidural comes out FENK: HLIVF. K+ 4.4, Cr at 0.76 from 1.20 ID: no issues Endo: no issues Heme: stable post-op Proph: SCDs, SQH - chest tube to be removed today. Post pull cxr later today - cap epidural for 2 hours. Then remove the epidural if pain is well controlled - scheduled ibupofen added - recheck labs later today to see if patient is fine with his kidney function and other labs - lasix 20 mg IV one dose given today for diuresis and to decrease fluid overload - if all labs and post chest tube pull cxr is fine - patient will be discharged home later today Daniel Washington MD 12/13/2015 Thoracic Surgery Pager [phone] * Milind Millan - 12/12/2015 3:32 PM EDT Physical Therapy Treatment Note Visit #2 Patient Dx:64 y.o. male patient of Shane Johns MD, admitted on 12/10/2015 for bronchoscopy, thoracotomy, lobectomy, lymphadenectomy. Patient with LLL mass adherent to chest wall. Precautions/Special Considerations: chest tube, epidural, condon Interval History: improved symptoms with better BP S: feeling better O: Pt demonstrated the following ?? Supine<>sit mod assist ?? Sit<>stand with min assist ?? Amb 150 ft using walker with standby assist and help with lines ?? Sats 91-94% on 1L Other: Pt was instructed in use of incentive spirometer. Pt achieved ~1000 mL after several trials.Advised that pt perform 10x/hour or per nursing/MD instruction, per whichever is more frequent. Pain: tolerable, says no pain, really Education: Education topics included breathing exercise, importance of walking more. Pt verbalized/demonstrated understanding. Staff Communication: Patient status, treatment, and mobility recommendations discussed with nursing/other staff. A: Pt tolerated PT fairly. Presents with some anxiety about his breathing. Did well today, despite being skeptical initially about the distance he would walk, he did a full lap. Pt will benefit from ongoing therapeutic interventions to achieve pt's and therapy goals. Physical Therapy Goals: 1. Pt. to perform bed mobility independently with HOB flat. 2. Pt. to perform sit<>stand transfers independently with LRD ?? 3. Pt. to ambulate 150ft with supervision and LRD. 4. Pt. to ambulate up/down 2 step/stairs with cane and supervision or CONSTRUCTION MGR. 5. Family or caregiver to demonstrate understanding of therapeutic interventions to support the care of the patient. P: Cont per physical therapy plan of care. Will have Tuesday PT see him if he is preparing for d/c. Total time spent with patient: 28 minutes Total timed interventions: 28 minutes for functional mobility Pager: [phone] Milind Millan PT Physical Therapy Rehabilitation Department * Ricky iVllalobos MD - 12/12/2015 1:25 PM EDT Acute Pain Service - Epidural Daily Management Physician: Ricky Villalobos M.D. Time of Service: 10:25 a.m. VITAL SIGNS: BP 124/78 (BP Location (NBP): Left arm) Pulse 77 Temp 36.8 ??C (98.2 ??F) (Oral) Resp 16 Ht 181.6 cm (5' 11.5) Wt (!) 113.1 kg (249 lb 5.4 oz) SpO2 99% BMI 34.29 kg/m2 Epidural day: 3 days s/p placement POD: 2 days s/p Operative Procedures: Procedure(s): BRONCHOSCOPY, DIAGNOSTIC @THORACOTOMY-LOBECTOMY, SINGLE LOBE @LYMPHADENECTOMY,THORACIC ,REGIONAL,INCL. MEDIASTINAL,PERITRACHEAL NODES THORACOSCOPY, DX., LUNGS WITHOUT BIOPSY Pertinent Medications: Continuous Infusions Bupivacaine Plain 1/16 % (0.625 mg/mL) infusing at 6 mls/hour plus PCEA at 3 ml every 20 minutes (used bolus feature twice in 24 hours) Tylenol 1000 mg po q 6 hours Heparin 5000 units SQ q 12 hours Assessment: Numerical Rating Scale (NRS) 0/10 Pain now is none ROS: GI/Bowels Tolerating diet. Denies passing flatus Nausea Yes. Describes nausea with getting up. Received Zofran this a.m. with good effect. Pruritis Yes but mild and tolerable. Nubain available. Drowsiness No Patient is awake and alert. Deep breathing and coughing well. Demonstrates incentive spirometer to 750 ml. Moves legs without difficulty. Epidural insertion site clean and without signs of infection. Plan: Continue current regimen until chest tube discontinued. Plan discussed with patient/RN/team. Please call with any questions or concerns. In the presence of Dr. Villalobos, I am taking down these notes. ELE JUNG RN 12/12/2015 Pager # [phone] I performed the above scribed service and agree with the accuracy of the note. RICKY VILLALOBOS MD * Therese Fabian RN - 12/12/2015 12:00 PM EDT Orthostatics Layin/77 Sittin/76 Sittin/77 Standin/72 127/77 * Anne Mckeon PA - 12/12/2015 10:39 AM EDT ID: 64 yo male with history of colon adenocarcinoma s/p Left lower lobectomy and pleural/ periosteal resection of ribs 7-8 for primary lung cancer vs. Metastatic colon cancer 24 hr/S: No acute events overnight Pain controlled this morning. Ramiro SOB. OOB to chair this AM. Has had little PO intake O: Last value Range last 24hrs Temperature Temp: 36.9 ??C (98.4 ??F) Temp: [36.3 ??C (97.3 ??F)-36.9 ??C (98.4 ??F)] Heart Rate Heart Rate: 87 Heart Rate: -- Blood Pressure BP: 116/73 BP: (116-130)/(73-84) Respiratory Rate Resp: 18 Resp: [16-18] SpO2 SpO2: 94 % SpO2: [92 %-94 %] 3L NC I/O last 3 completed shifts: In: 4438 [P.O.:940; I.V.:3498] Out: 2905 [Urine:2195; Other:710] I/O this shift: In: 320 [P.O.:320] Out: - CT- 560 cc/ 210 o/n serosang fluid Gen: NAD CV: RRR, +s1/s2 Pulm: Decreased BS at LEFT base, other young clear, CT to water seal- + tidling, no air leak. serosang fluid Abd: soft, NT, ND Ext: wwp, no edema Recent Labs 12/12/15 0640 12/11/15 1404 12/11/15 0506 12/10/15 1425 WBC 14.6* -- 16.6* 18.3* HGB 10.6* -- 12.4* 13.3* PLATELET 208 -- 244 267 NA 134* 136 137 140 K 4.2 5.0 5.5* 4.5 CL 95* 95* 99 100 CO2 29 27 27 26 BUN 13 17 17 11 CREATININE 0.76* 1.20 1.12 0.87 GLUCOSE 143 173 141 -- CXR 12/12/15: LEFT pleural effusion appears similar to mildly decreased in size. Nonspecific curvilinear focus of air at the LEFT base. There is persistent postsurgical elevation of the left hemidiaphragm and volume loss of the left lung. Chest tube directed at the left apex and the surgical clips are unchanged. RIGHT lung linear subsegmental atelectasis. CXR 12/11/15: FINDINGS: There is a slightly better degree of inflation of the RIGHT lung. There is no other interval change. Again noted are the postoperative findings including a left-sided chest tube, small LEFT pleural effusion and elevation of the LEFT hemidiaphragm. No pneumothorax is seen. ? IMPRESSION No significant interval change. ?? CXR 12/10/15: IMPRESSION 1. Expected postsurgical changes as result of left lower lobectomy as described above. 2. Left greater than right pleural effusions. ?? 3. No large pneumothorax. 4. Epidural catheter and left chest tube in appropriate positions. ? Assessment: 64 yo male s/p LL lobectomy and removal of pleura and periosteum from ribs 7 and 8 for treatment of primary lung cancer vs. Metastatic colon cancer. Progressing well Plan: Neuro: PCEA for pain control. Oral tylenol CV: Monitor HR, BP. amio protocol, Restart home diuretic today Pulm: wean 02. Continue CT to water seal GI: regular diet as tolerated : leave condon for I/O until epidural comes out FENK: HLIVF. K+ 4.4, Cr at 0.76 from 1.20 ID: no issues Endo: no issues Heme: stable post-op Proph: SCDs, SQH NIMO Queen 12/12/2015 Thoracic Surgery Pager [phone] * Nazario Marmolejo, OT - 12/12/2015 9:00 AM EDT Occupational Therapy Treatment Note Visit #: 2 Patient profile: Seth Kincaid is a 64 y.o. male patient of Shane Johns MD, admitted on 12/10/2015 for bronchoscopy, thoracotomy, lobectomy, lymphadenectomy. Patient with LLL mass adherent to chest wall. Code Status: Full Code ?? Activity Order: Ambulate patient Precautions: fall, skin breakdown, chest tube, 1 liters O2?? Interval History: improved BP SUBJECTIVE: Much better than yesterday O: Patient seen for therapeutic activities and demonstrated the following: ?? FUNCTIONAL MOBILITY: Patient went sit to stand minimal assistance. Patient mobilized SBA with walker 70 feet. ?? ADLS: Patient able to don pants minimal assistance for sit to stand. Patient able to don socks sitting in chair. Pain: Patient reports manageable pain. Education: Pt/family education ongoing. Staff Communication: Patient status, treatment, and mobility recommendations discussed with nursing/other staff. ASSESSMENT: Patient with improved functional mobility and activity tolerance to mobilize with walker out of room SBA. Patient able to reach feet to don/doff socks and place pants over LE. Pt will benefit from ongoing therapeutic interventions to achieve pt's and therapy goals Discharge Recommendations: Pt would benefit from continue to d/c with family . Equipment Recommendations: shower chair as needed, may need walker Daily schedule / Staff Recommendations: continue to encourage OOB for ADLS Goals: To be achieved by D/C. Patient will stand at sink level with supervision x10 min for ADLs. Patient will dress lower body indep with adaptive equipment prn. Patient will perform simple kitchen mgt with appropriate assistive device as needed and supervision. Patient will ambulate to the bathroom with supervision, assistive device as needed. ?? Patient will demonstrate energy conservation principals with all ADLs indep. ? Plan: Pt to be seen 1-3 more treatments for therapy including Role of occupational therapy/rehabilitation, Adaptive equipment training, ADL, Safety, Functional Mobility, Home Management, Recommendations and Discharge planning Eval Date: 12/11/2015 Total time spent with patient: 17 minutes Total timed interventions: 17 minutes for therapeutic functional activity Pager: [phone] NAZARIO MARMOLEJO OT Occupational Therapy Rehabilitation Department * Therese Fabian RN - 12/11/2015 5:51 PM EDT Telemetry: Pt has had no reported events. HR between 75-100. No c/o CP or SOB. Will continue to monitor. * Nila Tolentino MD - 12/11/2015 3:56 PM EDT Acute Pain Service - Epidural Daily Management Physician: Rajan Time of Service: 3:56 PM VITAL SIGNS: BP 129/78 Pulse 87 Temp 36.9 ??C (98.4 ??F) Resp 16 Ht 181.6 cm (5' 11.5) Wt (!) 113.1 kg (249 lb 5.4 oz) SpO2 92% BMI 34.29 kg/m2 Labs: No components found for: CBC Epidural day: 2 days s/p POD: 1 days s/p Operative Procedures: Procedure(s): BRONCHOSCOPY, DIAGNOSTIC @THORACOTOMY-LOBECTOMY, SINGLE LOBE @LYMPHADENECTOMY,THORACIC ,REGIONAL,INCL. MEDIASTINAL,PERITRACHEAL NODES THORACOSCOPY, DX., LUNGS WITHOUT BIOPSY Continuous Infusions: Bupivacaine 1/16 % (0.625 mg/mL) plus Hydromorphone (10 micrograms/mL) infusing at 6 mls/hour plus PCEA at 3 ml every 20 minutes. Pain now is mild. He endorses itching and nausea whenever he gets a PCEA dose. Patient awake and alert. Deep breathing and coughing well. Moves legs without difficulty. Denies pruritis. Epidural insertion site clean and without signs of infection. Plan: Change epidural solution to 1/16% plain. Please call with any questions or concerns. NILA TOLENTINO MD 12/11/2015 Pager # [phone] * Ann Lynne MD - 12/11/2015 12:28 PM EDT ID: 64 yo male with history of colon adenocarcinoma s/p Left lower lobectomy and pleural/ periosteal resection of ribs 7-8 for primary lung cancer vs. Metastatic colon cancer 24 hr/S: No acute events overnight Extubated in PACU with no difficultly Pain controlled this morning. Ramiro SOB. OOB to chair this AM. Has had little PO intake O: Last value Range last 24hrs Temperature Temp: 37.1 ??C (98.8 ??F) Temp: [36.3 ??C (97.3 ??F)-37.4 ??C (99.3 ??F)] Heart Rate Heart Rate: 87 Heart Rate: [71-94] Blood Pressure BP: 94/62 BP: (94-125)/(59-92) Respiratory Rate Resp: 18 Resp: [14-18] SpO2 SpO2: 94 % SpO2: [94 %-100 %] 3L NC I/O last 3 completed shifts: In: 3302 [P.O.:320; I.V.:2982] Out: 2105 [Urine:1055; Other:300; Blood:750] CT- 300 cc serosang fluid Gen: NAD CV: RRR, +s1/s2 Pulm: Decreased BS at LEFT base, other young clear, CT to suction- + tidling, no air leak. serosang fluid Abd: soft, NT, ND Ext: wwp, no edema Recent Labs 12/11/15 0506 12/10/15 1425 WBC 16.6* 18.3* HGB 12.4* 13.3* PLATELET 244 267 NA 137 140 K 5.5* 4.5 CL 99 100 CO2 27 26 BUN 17 11 CREATININE 1.12 0.87 GLUCOSE 141 -- CXR 12/11/15: FINDINGS: There is a slightly better degree of inflation of the RIGHT lung. There is no other interval change. Again noted are the postoperative findings including a left-sided chest tube, small LEFT pleural effusion and elevation of the LEFT hemidiaphragm. No pneumothorax is seen. ? IMPRESSION No significant interval change. ?? CXR 12/10/15: IMPRESSION 1. Expected postsurgical changes as result of left lower lobectomy as described above. 2. Left greater than right pleural effusions. ?? 3. No large pneumothorax. 4. Epidural catheter and left chest tube in appropriate positions. ? Assessment: 64 yo male s/p LL lobectomy and removal of pleura and periosteum from ribs 7 and 8 for treatment of primary lung cancer vs. Metastatic colon cancer. Progressing well Plan: Neuro: PCEA for pain control. Oral tylenol CV: Monitor HR, BP. amio protocol, Restart home diuretic likely tomorrow Pulm: wean 02. CT to water seal this AM GI: regular diet as tolerated : leave condon for I/O since UO borderline overnight. FENK: leave IVF on until tolerating diet. Likely start diuretic tomorrow. K 5.5- recheck this afternoon. ID: no issues Endo: no issues Heme: stable post-op Proph: SCDs, SQH ANN LYNNE MD * Maame Padilla RN - 12/10/2015 8:00 PM EDT Patient arrived to floor via bed, family at bedside. Patient oriented to unit, room, call angel, andIS. Patient reporting chest tightness located to side of incision. Vital signs are stable. MD notified. See flow sheet for full assessment. * Ann Lynne MD - 12/10/2015 5:20 PM EDT Surgery Post-Operative Note Procedure: BRONCHOSCOPY, DIAGNOSTIC @THORACOTOMY-LOBECTOMY, SINGLE LOBE @LYMPHADENECTOMY,THORACIC ,REGIONAL,INCL. MEDIASTINAL,PERITRACHEAL NODES THORACOSCOPY, DX., LUNGS WITHOUT BIOPSY ?? Findings: -Bronchoscopy with normal anatomy -Converted to thoracotomy due to poor visualization during VATS -LLL mass adherent to chest wall. ?? -LLLobectomy with removal of periosteum from ribs 7 and 8 completed without complication -Margins negative on frozen section Subjective: Patient seen and examined in PACU. Extubated. Pain control. Denies CP or SOB Objective: Vitals: Last Value Range last 24 hrs Temperature Temp: 36.6 ??C (97.9 ??F) Temp: [36.5 ??C (97.7 ??F)-36.6 ??C (97.9 ??F)] Heart Rate Heart Rate: 78 Heart Rate: [71-94] Blood Pressure BP: 101/65 BP: (101-147)/(65-84) Respiratory Resp: 16 Resp: [14-18] SpO2 SpO2: 99 % SpO2: [98 %-100 %] 4L NC Art BP BP (Arterial Line): 101/58 BP (Arterial Line): (97-107)/(58-64) I/O this shift: In: 1400 [I.V.:1400] Out: 1310 [Urine:410; Other:150; Blood:750] CT- 150 Recent Labs 12/10/15 1425 WBC 18.3* HGB 13.3* PLATELET 267 NA 140 K 4.5 CL 100 CO2 26 BUN 11 CREATININE 0.87 CXR: 1. Expected postsurgical changes as result of left lower lobectomy as described above. 2. Left greater than right pleural effusions. 3. No large pneumothorax. 4. Epidural catheter and left chest tube in appropriate positions Physical Exam NAD RRR +s1/s2 Decreased BS on LEFT, CT to suction, no air leak, minimal tidling. Serosang drainage Soft ND. Incisions c/d/i with dressings in place Extremities warm and well perfused A/P: Seth Mccollum Daigneault 64 y.o. male POD#0 s/p above procedure who is doing well - CT to suction - PCEA - amio per protocol - plan as per ordered * Suamya Hanna RCP - 12/10/2015 2:45 PM EDT Mechanical Ventilation Note Vent Settings: Servo I Ventilator Mode: PS PS Above PEEP (cm H2O): 10 Set PEEP (cm H2O): 5 Ventilator Measurements: Resp: 18 Minute Ventilation Total Exhaled (L/min): 8.6 Mean Airway Pressure (cm H2O): 8 Peak Inspiratory Pressure: 13 ETT: Double lumen ETT Inhaled Medications: Breath Sounds: Diminshed Secretions: none Changes made this shift: extubated in the PACU by MD Indications for changes: Assessment: Pt placed on vent in PSV per MD. Extubated in the PACU by MD Plan: Continue to monitor. * Pancho Love RN - 12/10/2015 2:10 PM EDT Pt brought to pacu and extubated upon admission. Vs stable documented in this encounter H&P Notes * Anne Mckeon PA - 12/09/2015 4:31 PM EDT Patient Name: Seth Kincaid Patient Age: 64 y.o. Birthdate: 1950 Admit date: 12/10/2015 Attending Physician: Shane Shi MD Thoracic Surgery Preop NAME: Seth Kincaid DATE: 12/10/15 SURGEON: Dara PROCEDURE: Left VATS LLL wedge resection, possible LLLobectomy, possible chest wall resection BRIEF HISTORY: Seth Kincaid is a 64 y.o. yo male with LLL mass, measuring 3.8cm concerning forprimary lung cancer. His PMHx is significant for HTN and adenocarcinoma of the sigmoid colon resection in 2007 (pT2 pN0 Mx, well differentiated). ?? The patient reports no interval change.There has been no interval medical illness or hospitalizations. Questions have been addressed. Smoking HX: History Smoking Status ??? Former Smoker ??? Quit date: 04/25/1997 Smokeless Tobacco ??? Former User PMH: Patient Active Problem List Diagnosis Date Noted ??? Carcinoma of colon 04/01/2008 Priority: High ??? CIS - Past Surgery/Trauma Priority: Low ??? Lung mass 11/18/2015 ??? Mass of lower lobe of left lung ??? Inflamed seborrheic keratosis 03/18/2011 ??? Elevated LFTs ??? Obesity PSH: Past Surgical History Procedure Laterality Date ??? Varicose vein surgery Right 40 years ago MEDS: No current facility-administered medications on file prior to encounter. Current Outpatient Prescriptions on File Prior to Encounter Medication Sig Dispense Refill ??? chlorthalidone (HYGROTEN) 25 mg tablet Take 25 mg by mouth daily. ??? MULTIVITAMIN W-MINERALS/LUTEIN (CENTRUM SILVER ORAL) Take 1 tablet by mouth every morning. ??? ANTIOX #8/OM3/DHA/EPA/LUT/ZEAX (PRESERVISION AREDS 2 ORAL) Take 1 tablet by mouth every morning. ??? aspirin 81 mg EC tablet Take 81 mg by mouth every 3 days. ??? acetaminophen (TYLENOL) 325 mg tablet ALL: Allergies Allergen Reactions ??? Adhesive Tape CIS - Rash, CIS - Rash Physical Exam Vitals: 12/10/15 0608 BP: 147/84 Pulse: 83 Resp: 18 Temp: 36.5 ??C (97.7 ??F) General Appearance: Alert, cooperative, no distress, appears stated age, no Lungs: Clear to auscultation B/L, respirations unlabored, no wheezes, crackles or ronchi. Heart: Regular rate and rhythm, S1 and S2 normal, no murmur, rub, or gallop Abdomen: Obese, Soft, non-tender, bowel sounds normo-active in all four quadrants Extremities: Extremities normal, no cyanosis, clubbing. no edema Neurologic: A+Ox3, cranial nerves II-XII grossly intact Musculoskeletal: 5/5 throughout with normal gait LABS: Lab Results Component Value Date WBC 10.4 (H) 10/31/2015 RBC 5.11 10/31/2015 HGB 15.1 10/31/2015 HCT 44.8 10/31/2015 MCV 87.7 10/31/2015 MCH 29.5 10/31/2015 MCHC 33.7 10/31/2015 PLATELET 265 10/31/2015 RDWCV 13.5 10/31/2015 Lab Results Component Value Date/Time NA 139 10/31/2015 02:36 PM K 4.0 10/31/2015 02:36 PM CL 96 (L) 10/31/2015 02:36 PM CO2 29 10/31/2015 02:36 PM BUN 13 10/31/2015 02:36 PM CREATININE 0.96 10/31/2015 02:36 PM MRI Brain (11/05/15): No evidence of intracranial mass or metastatic disease Cardiac Stress (11/04/15): Exercise tolerance was good at 8 (METS) No symptoms only mild SOB PVCs and PACs No significant ST changes CT Chest (10/24/15): No evidence of abdominal or pelvic metastatic disease. ?? Post surgical changes to the rectosigmoid colon. No evidence of a recurrent mass. ? PET (10/31/15): 1. Hypermetabolic 3.8 x 2.7 cm LEFT upper lobe mass consistent with primary pulmonary malignancy orless likely oligometastatic disease. 2. No other sites of FDG avid malignancy. EKG (10/31/15): Normal sinus rhythm Incomplete right bundle branch block Borderline ECG Assessment/Plan: Seth Kincaid is a 64 y.o. M/F presenting today for planned Left VATS LLL wedge resection, possible LLLobectomy, possible chest wall resection due to PET avid LLL mass, measuring3.8cm. Consent signed and confirmed in chart. Questions addressed. Will proceed with planned surgery. NIMO Queen 12/10/2015 documented in this encounter Miscellaneous Notes * Med Student Progress Note - Barbra Jaime - 12/13/2015 10:13 AM EDT [facility] Department of Thoracic Surgery Inpatient Progress Note Patient Name: Seth Kincaid Patient : 1950 Patient Patient Location: @ROOM@ Attending Surgeon: SHANE SHI ID: Seth Kincaid is a 64 y.o. male who is 3 Days Post-Op s/p thoracotomy with LLLobectomy withremoval of periosteum from ribs 7 and 8. 24 Hour Events / Subjective: - no acute events - CT pulled - IVF removed this AM - pain well controlled with epidural, tylenol - no BM, passing flatus - PT/OT consult, ambulated x3 - Condon in Vitals: Temp: [36.3 ??C (97.3 ??F)-36.8 ??C (98.2 ??F)] Heart Rate: [71-83] Resp: [16-18] BP: (121-128)/(77-80) SpO2: [95 %-99 %] Heart Rate from SPO2: [71 bpm-82 bpm] Wt & BMI By Encounter Date Admission (Current) from 12/10/2015 in [facility] Office Visit from 11/27/2015 in Hematology/Oncology Weight (!) 116.3 kg (256 lb 6.4 oz) 1 12/13/2015 0600 (!) 112.5 kg (248 lb) 1 11/27/2015 1143 BMI 33.2 1 12/10/2015 1950 32.9 1 11/27/2015 1143 Physical Exam: Gen: NAD, pleasant, sitting in bed HEENT: normocephalic, atraumatic, EOMI, sclerae anicteric Neck: supple, trachea midline Card: RRR, no M/R/G appreciated Pulm: decreased BS in lower L field, otherwise CTA bilaterally, no wheeze/ronchi/rales appreciated,non-labored breathing on 2 L via NC, L CT to WS with no airleak appreciated Abd: soft, NT, BS+, bloated Ext: warm, dry, trace to +1 edema in lower extremities bilaterally Neuro: A&Ox3, nonfocal, conversant I/O: I/O last 3 completed shifts: In: 4807 [P.O.:640; I.V.:4167] Out: 4645 [Urine:4075; Other:570] Labs: Recent Results (from the past 72 hour(s)) BLOOD GAS 2 ARTERIAL Result Value Ref Range pH Art 7.38 7.35 - 7.45 pCO2 Art 50 (H) 35 - 45 mmHg pO2 Art 278 (H) 85 - 104 mmHg HCO3 Art 28.7 (H) 20.0 - 26.0 mmol/L BE Art 3.6 (H) -3.0 - 3.0 mmol/L Hgb Blood Gas 14.3 13.7 - 17.5 gm/dL O2HB Art 98.8 (H) 94.0 - 97.0 % COHB Art 0.7 % METHB Art 0.2 <=1.5 % Na Whole Blood 138 135 - 145 mmol/L K Whole Blood 4.0 3.5 - 5.0 mmol/L ICa Whole Blood 1.12 (L) 1.15 - 1.33 mmol/L CL Whole Blood 100 98 - 107 mmol/L Gluc Whole Bld 139 65 - 199 mg/dL Surgical Pathology Report Result Value Ref [facility] Report [id number] Location: 3T The signing pathologist has (i) examined the relevant preparation(s) for the specimen(s) and (ii) rendered or confirmed the diagnosis(es). . 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 Chest wall margin is negative. BFS - AP window node for frozen section: Benign. CFS - Level 7 lymph node for frozen section: Benign. DFS - Left 10 lymph node for frozen section: Benign. 12/10/15 12:48 LJT Electronically signed by: Sultana GAMBLE, Yarely De Los Santos Verified: 12/10/2015 Pathologist This intraoperative consultation should be interpreted as a preliminary diagnosis pending review of the entire specimen and special studies, if any. Electrolytes panel Result Value Ref Range Sodium 140 135 - 145 mmol/L Potassium 4.5 3.5 - 5.0 mmol/L Chloride 100 98 - 107 mmol/L CO2 26 22 - 31 mmol/L Anion Gap 14 5 - 15 mmol/L BUN Result Value Ref Range BUN 11 10 - 20 mg/dL Creatinine Result Value Ref Range Creatinine 0.87 0.80 - 1.50 mg/dL Estimated GFR >60 >=60 Hemogram Result Value Ref Range WBC 18.3 (H) 4.0 - 10.0 x10(3)/mcL RBC 4.51 (L) 4.63 - 6.08 x10(6)/mcL Hemoglobin 13.3 (L) 13.7 - 17.5 gm/dL Hematocrit 40.3 40.0 - 51.0 % MCV 89.4 79.0 - 92.0 fL MCH 29.5 25.6 - 32.2 pg MCHC 33.0 32.0 - 36.5 gm/dL Platelets 267 145 - 370 x10(3)/mcL RDWSD 44.4 35.0 - 46.0 fL RDWCV 13.6 10.9 - 14.4 % MPV 10.3 9.0 - 12.0 fL nRBC % Auto 0.0 % nRBC Abs Auto 0.000 0.000 - 0.012 x10(3)/mcL Differential, Automated Result Value Ref Range Neutrophils % 77.5 % Neutr Abs (ANC) 14.17 (H) 1.50 - 6.30 x10(3)/mcL Lymphocytes % 14.3 % Lymphocytes Abs 2.6 1.0 - 3.6 x10(3)/mcL Monocytes % 6.7 % Monocyte Abs 1.2 (H) 0.2 - 1.0 x10(3)/mcL Eosinophils % 0.8 % Eosinophils Abs 0.1 0.0 - 0.5 x10(3)/mcL Basophils % 0.3 % Basophils Abs 0.1 0.0 - 0.2 x10(3)/mcL Immature Gran % 0.40 % Wendy Gran Abs 0.07 (H) 0.00 - 0.05 x10(3)/mcL Scan, Peripheral Blood Result Value Ref Range Plat Estimate Normal RBC Morphology Abnormal Ovalocytes 1-5 /HPF [place]se Cells 1-5 /HPF Giant Platelets Less than 1 /HPF Basic Metabolic Panel (non-fasting) Result Value Ref Range Glucose Lvl 141 65 - 199 mg/dL BUN 17 10 - 20 mg/dL Creatinine 1.12 0.80 - 1.50 mg/dL Sodium 137 135 - 145 mmol/L Potassium 5.5 (H) 3.5 - 5.0 mmol/L Chloride 99 98 - 107 mmol/L CO2 27 22 - 31 mmol/L Anion Gap 11 5 - 15 mmol/L Calcium 8.1 (L) 8.5 - 10.5 mg/dL Estimated GFR >60 >=60 Hemogram Result Value Ref Range WBC 16.6 (H) 4.0 - 10.0 x10(3)/mcL RBC 4.24 (L) 4.63 - 6.08 x10(6)/mcL Hemoglobin 12.4 (L) 13.7 - 17.5 gm/dL Hematocrit 38.2 (L) 40.0 - 51.0 % MCV 90.1 79.0 - 92.0 fL MCH 29.2 25.6 - 32.2 pg MCHC 32.5 32.0 - 36.5 gm/dL Platelets 244 145 - 370 x10(3)/mcL RDWSD 45.4 35.0 - 46.0 fL RDWCV 14.0 10.9 - 14.4 % MPV 11.1 9.0 - 12.0 fL nRBC % Auto 0.0 % nRBC Abs Auto 0.000 0.000 - 0.012 x10(3)/mcL Differential, Automated Result Value Ref Range Neutrophils % 73.8 % Neutr Abs (ANC) 12.27 (H) 1.50 - 6.30 x10(3)/mcL Lymphocytes % 16.5 % Lymphocytes Abs 2.7 1.0 - 3.6 x10(3)/mcL Monocytes % 8.9 % Monocyte Abs 1.5 (H) 0.2 - 1.0 x10(3)/mcL Eosinophils % 0.2 % Eosinophils Abs 0.0 0.0 - 0.5 x10(3)/mcL Basophils % 0.2 % Basophils Abs 0.0 0.0 - 0.2 x10(3)/mcL Immature Gran % 0.40 % Wendy Gran Abs 0.07 (H) 0.00 - 0.05 x10(3)/mcL EKG 12 Lead Result Value Ref Range Ventricular rate 98 BPM Atrial Rate 98 BPM P-R Interval 124 ms QRS Duration 100 ms Q-T Interval 360 ms QTC Calculated (Bezet) 459 ms Calculated P [place] 82 degrees Calculated R [place] 16 degrees Calculated T [place] 15 degrees INTERPRETATION Normal sinus rhythm RSR' or QR pattern in V1 suggests right ventricular conduction delay Borderline ECG When compared with ECG of 04-NOV-2015 09:47, Vent. rate has increased BY 32 BPM Questionable change in QRS axis Nonspecific T wave abnormality now evident in Inferior leads Confirmed by MD Seema, Felix ([id number]) on 12/11/2015 8:33:01 AM POCT Glucose Result Value Ref Range POC Glucose 185 65 - 199 mg/dL Basic Metabolic Panel (non-fasting) Result Value Ref Range Glucose Lvl 173 65 - 199 mg/dL BUN 17 10 - 20 mg/dL Creatinine 1.20 0.80 - 1.50 mg/dL Sodium 136 135 - 145 mmol/L Potassium 5.0 3.5 - 5.0 mmol/L Chloride 95 (L) 98 - 107 mmol/L CO2 27 22 - 31 mmol/L Anion Gap 14 5 - 15 mmol/L Calcium 8.5 8.5 - 10.5 mg/dL Estimated GFR >60 >=60 Hemogram Result Value Ref Range WBC 14.6 (H) 4.0 - 9.5 x10(3)/mcL RBC 3.57 (L) 4.58 - 5.54 x10(6)/mcL Hemoglobin 10.6 (L) 13.7 - 16.5 gm/dL Hematocrit 32.1 (L) 40.5 - 48.5 % MCV 89.9 82.9 - 93.1 fL MCH 29.7 27.5 - 32.1 pg MCHC 33.0 32.0 - 35.7 gm/dL Platelets 208 145 - 357 x10(3)/mcL RDWSD 45.3 (H) 36.0 - 45.0 fL RDWCV 13.9 (H) 11.4 - 13.8 % MPV 11.0 7.6 - 12.9 fL nRBC % Auto 0.0 % nRBC Abs Auto 0.000 0.000 - 0.000 x10(3)/mcL Differential, Automated Result Value Ref Range Neutrophils % 77.9 % Neutr Abs (ANC) 11.36 (H) 1.70 - 6.10 x10(3)/mcL Lymphocytes % 12.2 % Lymphocytes Abs 1.8 0.9 - 3.2 x10(3)/mcL Monocytes % 8.8 % Monocyte Abs 1.3 (H) 0.3 - 0.9 x10(3)/mcL Eosinophils % 0.4 % Eosinophils Abs 0.1 0.0 - 0.4 x10(3)/mcL Basophils % 0.2 % Basophils Abs 0.0 0.0 - 0.1 x10(3)/mcL Immature Gran % 0.50 % Wendy Gran Abs 0.08 (H) 0.00 - 0.04 x10(3)/mcL Basic Metabolic Panel (non-fasting) Result Value Ref Range Glucose Lvl 143 65 - 199 mg/dL BUN 13 10 - 20 mg/dL Creatinine 0.76 (L) 0.80 - 1.50 mg/dL Sodium 134 (L) 135 - 145 mmol/L Potassium 4.2 3.5 - 5.0 mmol/L Chloride 95 (L) 98 - 107 mmol/L CO2 29 22 - 31 mmol/L Anion Gap 10 5 - 15 mmol/L Calcium 8.2 (L) 8.5 - 10.5 mg/dL Estimated GFR >60 >=60 Basic Metabolic Panel (non-fasting) Result Value Ref Range Glucose Lvl 128 65 - 199 mg/dL BUN 9 (L) 10 - 20 mg/dL Creatinine 0.71 (L) 0.80 - 1.50 mg/dL Sodium 131 (L) 135 - 145 mmol/L Potassium 3.7 3.5 - 5.0 mmol/L Chloride 93 (L) 98 - 107 mmol/L CO2 28 22 - 31 mmol/L Anion Gap 10 5 - 15 mmol/L Calcium 8.1 (L) 8.5 - 10.5 mg/dL Estimated GFR >60 >=60 Hemogram Result Value Ref Range WBC 12.1 (H) 4.0 - 9.5 x10(3)/mcL RBC 3.32 (L) 4.58 - 5.54 x10(6)/mcL Hemoglobin 9.7 (L) 13.7 - 16.5 gm/dL Hematocrit 29.1 (L) 40.5 - 48.5 % MCV 87.7 82.9 - 93.1 fL MCH 29.2 27.5 - 32.1 pg MCHC 33.3 32.0 - 35.7 gm/dL Platelets 203 145 - 357 x10(3)/mcL RDWSD 43.3 36.0 - 45.0 fL RDWCV 13.4 11.4 - 13.8 % MPV 10.0 7.6 - 12.9 fL nRBC % Auto 0.0 % nRBC Abs Auto 0.000 0.000 - 0.000 x10(3)/mcL Differential, Automated Result Value Ref Range Neutrophils % 77.4 % Neutr Abs (ANC) 9.35 (H) 1.70 - 6.10 x10(3)/mcL Lymphocytes % 15.2 % Lymphocytes Abs 1.8 0.9 - 3.2 x10(3)/mcL Monocytes % 6.0 % Monocyte Abs 0.7 0.3 - 0.9 x10(3)/mcL Eosinophils % 0.6 % Eosinophils Abs 0.1 0.0 - 0.4 x10(3)/mcL Basophils % 0.2 % Basophils Abs 0.0 0.0 - 0.1 x10(3)/mcL Immature Gran % 0.60 % Wendy Gran Abs 0.07 (H) 0.00 - 0.04 x10(3)/mcL Diagnostics: CXR 12/13/15: IMPRESSION Small left apical pneumothorax. No other interval change. ?? CXR 12/12/15: LEFT pleural effusion appears similar to mildly decreased in size. Nonspecific curvilinear focus of air at the LEFT base. There is persistent postsurgical elevation of the left hemidiaphragm and volume loss of the left lung. Chest tube directed at the left apex and the surgical clips are unchanged. RIGHT lung linear subsegmental atelectasis. ?? CXR 12/11/15: FINDINGS: There is a slightly better degree of inflation of the RIGHT lung. There is no other interval change. Again noted are the postoperative findings including a left-sided chest tube, small LEFT pleural effusion and elevation of the LEFT hemidiaphragm. No pneumothorax is seen. ? IMPRESSION No significant interval change. ? CXR 12/10/15: IMPRESSION 1. Expected postsurgical changes as result of left lower lobectomy as described above. 2. Left greater than right pleural effusions. ?? 3. No large pneumothorax. 4. Epidural catheter and left chest tube in appropriate positions. ? Assessment: Seth Kincaid is a 64 y.o. male who is 3 Days Post-Op s/p thoracotomy with LLLobectomy with removal of periosteum from ribs 7 and 8. If his post-pull CXR and labs are fine and his pain is under control he can be discharged home later today. Plan: Neuro: add ibuprofen 600 mg q6h, cap epidural for 2 hours then remove if pain well controlled with tylenol and ibuprofen Card: telemetry, amiodarone protocol, chlorthalidone 25 mg BID, lasix 20 mg IV dose given to decrease fluid overload Pulm: CT pulled, post pull CXR ordered, wean O2 FENGI: recheck labs this afternoon, regular diet, fluids discontinued, continue bowel regimen Renal/: leave condon for I/O until epidural out, then discontinue Heme: SQH ID: none Endo: none Other: OOB, ambulate Dispo: floor- 4W Barbra Jaime, MS-3 12/13/2015 Thoracic Surgery Service Pager [phone] * Plan of Care - Therese Fabian RN - 12/12/2015 4:30 PM EDT Problem: General Plan of Care Goal: Plan of Care Review Outcome: Ongoing (Interventions Implemented as Appropriate) 12/12/15 0456 12/12/15 0805 Plan of Care Review Plan of Care Outcome Status ongoing (interventions implemented as appropriate) -- Progress improving -- Coping/Psychosocial Response Interventions Plan of Care Reviewed with -- patient OUTCOME EVALUATION NOTE: OUTCOME SUMMARY: Seth was much improved today over yesterday. He was able to go for multiple walks, less cuing was needed and he was able to go further each time. Worked with both PT and OT today. He has no c/o pain.Nausea only first thing this am, resolved quickly with no interventions other than rest. at the bedside much of the day. Still no BM, he is starting to pass gas. Resting comfortably, will continue to monitor. Telemetry: Pt has had no reported telemetry events today. HR between 69-99. No c/o CP or SOB. PLAN MOVING FORWARD: Encourage ambulation, work up to 4 laps at a time. Condon and CT and epidural to be removed tomorrowpossibly. INDIVIDUALIZED FALL PREVENTION INTERVENTIONS: Patient-specific fall risk factors per assessment: [current deficits]: IV pole, condon, epidural Assistance [level of assistance required for transfers and ambulation]: 1 assist with walker Supervision [direct monitoring required during toileting and ADLs]: Eyes on Surveillance [continuous indirect monitoring]: Masimo, purposeful rounding, call angel in reach, telemetry. Patient-specific fall prevention interventions for sensory deficits provided, if applicable: CPG GOAL OUTCOME EVALUATION: Goal: Fall Prevention-Safe Patient Handling Outcome: Ongoing (Interventions Implemented as Appropriate) 12/12/15 0812/12/15 1617 Safety Interventions Safety Precautions/Fall Reduction room near unit station;nonskid shoes/slippers when out of bed;lowbed;lighting adjusted for task/safety;family at bedside;fall reduction program maintained;commode/urinal/bedpan at bedside -- Ortiz Fall Risk History of Falling 0 -- Secondary Diagnosis 15 -- Ambulatory Aids 15 -- Intravenous Therapy/Heparin/Saline Lock 20 -- Gait/Transferring 10 -- Mental Status 0 -- Score 60 -- Activity and Safety Assistive Device -- Front wheel walker OTHER Ortiz Fall Risk High -- Musculoskeletal Interventions Activity/Level of Assistance -- with 1-person assist Positioning independent -- Goal: Infection Control Outcome: Ongoing (Interventions Implemented as Appropriate) 12/12/15 0805 Safety Interventions Isolation Precautions standard precautions maintained Infection Prevention bronchial hygiene promoted;environmental surveillance;hydration promoted;nutrition promoted;promote handwashing;rest/sleep promoted Coping/Psychosocial Response Interventions Counseling calming techniques promoted * Plan of Care - Milind Antunez RN - 12/12/2015 5:28 AM EDT Problem: General Plan of Care Goal: Plan of Care Review Outcome: Ongoing (Interventions Implemented as Appropriate) 12/12/15 0456 Plan of Care Review Plan of Care Outcome Status ongoing (interventions implemented as appropriate) Progress improving Coping/Psychosocial Response Interventions Plan of Care Reviewed with patient OUTCOME EVALUATION NOTE: OUTCOME SUMMARY: Seth had a restful night. Sleeping between care. CT remains to WS, output 210 throughout shift. Dressing change x1 for saturated dressing. Pt went to xray this morning, results pending. Upon return from xray, pt was feeling hot and nauseous. VSS, care team ordered PRN zofran. Pt ambulated around the room with 1 assist and walker with steady gait. PLAN MOVING FORWARD: Activity as tolerated. Encourage IS use. Pain, nausea control. INDIVIDUALIZED FALL PREVENTION INTERVENTIONS: Patient-specific fall risk factors per assessment: [current deficits]: Epidural, fall risk, lines/drains Assistance [level of assistance required for transfers and ambulation]: 1/2 assist with walker Supervision [direct monitoring required during toileting and ADLs]: Eyes on Surveillance [continuous indirect monitoring]: Masimo, tele, purposeful hourly rounding Patient-specific fall prevention interventions for sensory deficits provided, if applicable: [X] Yes CPG GOAL OUTCOME EVALUATION: Goal: Fall Prevention-Safe Patient Handling Outcome: Ongoing (Interventions Implemented as Appropriate) 12/11/1581412/11/152229 Safety Interventions Safety Precautions/Fall Reduction -- bed alarm;environmental modification;fall reduction program maintained;lighting adjusted for task/safety;muscle strengthening facilitated;nonskid shoes/slippers when out of bed;room near unit station;mobility aid Ortiz Fall Risk History of Falling -- 0 Secondary Diagnosis -- 15 Ambulatory Aids -- 15 Intravenous Therapy/Heparin/Saline Lock -- 20 Gait/Transferring -- 10 Mental Status -- 0 Score -- 60 Activity and Safety Assistive Device -- Front wheel walker OTHER Ortiz Fall Risk -- High Musculoskeletal Interventions Activity/Level of Assistance -- with 1-person assist;with walker Positioning independent -- Goal: Infection Control Outcome: Ongoing (Interventions Implemented as Appropriate) 12/11/1581412/11/15222912/12/15 0456 Safety Interventions Isolation Precautions -- -- standard precautions maintained Infection Prevention -- bronchial hygiene promoted;environmental surveillance;hydration promoted;nutrition promoted;promote handwashing;rest/sleep promoted -- Coping/Psychosocial Response Interventions Counseling calming techniques promoted;emotional support provided -- -- * Plan of Care - Therese Fabian RN - 12/11/2015 6:54 PM EDT Problem: General Plan of Care Goal: Plan of Care Review OUTCOME EVALUATION NOTE: OUTCOME SUMMARY: Seth looked much improved throughout the day. He is less diaphoretic and BP's have improved. Not many complaints today. Will continue to monitor. Still a heavy two assist with walker but moving better. PLAN MOVING FORWARD: INDIVIDUALIZED FALL PREVENTION INTERVENTIONS: Patient-specific fall risk factors per assessment: [current deficits]: Assistance [level of assistance required for transfers and ambulation]: Supervision [direct monitoring required during toileting and ADLs]: Surveillance [continuous indirect monitoring]: Patient-specific fall prevention interventions for sensory deficits provided, if applicable: CPG GOAL OUTCOME EVALUATION: * Initial Assessments - Fanny Ohara RN - 12/11/2015 4:41 PM EDT Office of Care Management Initial Assessment ALEXA Lomeli reviewed record and discussed patient with Care Team. Source of Information: Interview with patient & . Introduced self/reviewed role; services accepted. Reason for Hospitalization: Lung mass Past Medical History Diagnosis Date ??? Carcinoma of colon 04/01/2008 adenocarcinoma of sigmoid colon - pT2 pN0 Mx, well differentiated - 04/01/08 screening colonoscopy - sigmoid carcinoma - 04/22/08 sigmoid resection ---Pathologic Diagnosis--- CONSULTATION CASE 1. Outside slides labeled [id number], collection date 04/01/08. Colon, biopsy at 15 cm: Invasive adenoca rcinoma, arising in association with a tubular adenoma with high grade dysplasia. 2. Outside slideslabeled [id number], collection date 04/22/08. A - Small bowel, [...] Varicose vein of leg 40 years ago Hospitalizations Within the Past 30 Days: no Anticipated Length Of Stay (If known): unknown Current Decision-Making Capacity: Patient is able to make decisions Advance Care Planning: none and patient is not interested at this time Current Coping/Education/Information Needs: Verbalizes clear understanding of treatment plan & anticipated care plan Current Functional Ability: Independent with assistance with tubes Functional Status Prior to Admission: Independent. Active around home & going to gym to exercise. Home Environment: 3 steps into house then living space on one level. Social & Family Supports/Community Resources: Lives with who is computer systems information director. Stateshe has friends & family nearby to assist as needed. Behavioral Health History: N/A Substance Use/Abuse: N/A Other Pertinent/Service Specific Information: N/A Health/Prescription Coverage: Primary Insurance: Medicare Secondary Insurance: [employer] Prescription Coverage: Medicare Preferred Pharmacy: [facility] in [place] Other: N/A Primary Care Provider: ROLANDO PALUMBO MD [phone] Patient/Caregiver Goals of Treatment: Discontinue chest tube, condon, & epidural for discharge home with no services. Potential Needs for Transition of Care: Rehab/SNF: Not anticipated Home Health: Unknown at this time DME: Not likely Dialysis: N/A Community Resources: N/A Transportation: Personal car with Other: N/A Anticipated Barriers to Discharge/Special Considerations: No barriers anticipated Plan: Provider has indicated patient will be here through the weekend. A member of the Care Management team will continue to monitor progress, follow for continuity of care and assist with transition of care planning. ALEXA Lomeli and Fanny Ohara, general machine operator Pager [phone] * Initial Assessments - Jonna Hancock, PT - 12/11/2015 9:30 AM EDT Physical Therapy Evaluation Patient profile: Seth Kincaid is a 64 y.o. male patient of Dr. Shi, Shane Martin MD, admitted on 12/10/2015 for bronchoscopy, thoracotomy, lobectomy, lymphadenectomy. Patient with LLL mass adherent to chest wall. PMH: Past Medical History Diagnosis Date ??? Carcinoma of colon 04/01/2008 adenocarcinoma of sigmoid colon - pT2 pN0 Mx, well differentiated - 04/01/08 screening colonoscopy - sigmoid carcinoma - 04/22/08 sigmoid resection ---Pathologic Diagnosis--- CONSULTATION CASE 1. Outside slides labeled [id number], collection date 04/01/08. Colon, biopsy at 15 cm: Invasive adenoca rcinoma, arising in association with a tubular adenoma with high grade dysplasia. 2. Outside slideslabeled [id number], collection date 04/22/08. A - Small bowel, [...] of leg 40 years ago Past Surgical History Procedure Laterality Date ??? Varicose vein surgery Right 40 years ago ??? Pro bronchoscopy, diagnostic N/A 12/10/2015 BRONCHOSCOPY, DIAGNOSTIC performed by Shane Shi MD at [facility] OR ??? Pro removal of lung, lobectomy Left 12/10/2015 @THORACOTOMY-LOBECTOMY, SINGLE LOBE performed by Shane Shi MD at [facility] OR ??? Pro remove thor lymph nodes rad regnl Left 12/10/2015 @LYMPHADENECTOMY,THORACIC ,REGIONAL,INCL. MEDIASTINAL,PERITRACHEAL NODES performed by Shane Shi MD at [facility] OR ??? Pro thoracoscopy, dx no bx Left 12/10/2015 THORACOSCOPY, DX., LUNGS WITHOUT BIOPSY performed by Shane Shi MD at [facility] Social History: Patient lives with his in a single level home. Stairs: 2 without rail Baseline Mobility: Independent with ADLs, IADLs and mobility without an AD. Pt drives, is retired. Equipment at home: Cane (his mother's), tub shower with rails Precautions/Special Considerations: Full code; fall risk, CT to wall suction, ROTARY HELPER, condon, supplemental O2 Activity Orders: Ambulate patient Staff communication/Mobility Recommendations: ?? Pt. to utilize rolling walker and 2 person assistance for transfers and standing with nursing. ?? Please encourage up to chair for meal times as able. Subjective: ???I need to sit?? Objective: Pt seen for evaluation today in collaboration with OT Pain: 4/10 throughout session. Pushed ROTARY HELPER button and almost immediately began to feel nauseas. Vital Signs: Sp02: 95% on 1L NC at rest, decreased to 86% on RA so O2 re-applied. HR: 80-90s BP: 102/69 sitting upright, 98/66 standing, 126/83 when put back into reclined position Mental Status: alert, oriented to person, place, and time Musculoskeletal: ROM: WFL Strength: WFL Sensation: Numbness to R big toe Skin and Soft Tissue: Intact Bed Mobility: Supine to Sit: Not observed; per nursing was difficult Sit to Supine: Not observed Transfers: Sit to Stand: Nisha x 2. Began to feel nauseas, lightheaded and diaphoretic. Instructed to sit. Stand to Sit: Nisha Gait: Deferred secondary to symptoms Balance: Sitting: Good unsupported in chair Standing: Good once standing with FWW; supervision Informed Consent: The patient understands and agrees to the PT treatment plan and goals. Education: patient have been educated on Transfers, Assistive device/technique, Breathing exercises, Safety , Precautions/protocol, Role of therapy and Discharge planning and verbalizes understanding. Patient status, treatment, and mobility recommendations discussed with nursing. Assessment: Seth Kincaid is a 64 yo M who presents to PT with pain, need for supplemental O2, decreased endurance and orthostatic hypotension which limits his functional mobility and tolerance for activity. Pt demonstrated ability to stand with Nisha and FWW, however became lightheaded, nauseasand diaphoretic and further mobility was deferred. The pt would benefit from skilled therapy services to maximize functional independence while in the hospital and to address limitations as noted above. Goals: To be achieved by 12/19/15. 1. Pt. to perform bed mobility independently with HOB flat. 2. Pt. to perform sit<>stand transfers independently with LRD 3. Pt. to ambulate 150ft with supervision and LRD. 4. Pt. to ambulate up/down 2 step/stairs with cane and supervision or CONSTRUCTION MGR. 5. Family or caregiver to demonstrate understanding of therapeutic interventions to support the care of the patient. Plan: Pt to be seen 2-4 times per week for therapy including Bed mobility, Transfers, Assistive device/technique, Stairs, Exercise, Breathing exercises, Positioning, Safety , Precautions/protocol, Gait , Activity pacing/Energy conservation, Role of therapy, Balance and Discharge planning. Patient agrees with plan as stated above. Discharge Recommendations: Based on the current findings noted during this evaluation, patient could benefit from Home with further Skilled Therapy when medically ready for hospital discharge. This recommendation is based on the patient's Current physical impairments, Prior functional status, Potential to return to prior level of function, Patient motivation, Reported home support, Potential for functional gains, Reported home environment and Anticipated trajectory of progress and may change based on patient progress during this hospitalization. Consult Recommendations: No other consults recommended at this time Equipment needs: TBD closer to d/c, possibly FWW Total time spent with patient: 30 minutes for initial evaluation Total timed interventions: 0 minutes JONNA HANCOCK, PT 12/11/2015 Pager: [phone] Physical Therapy Rehabilitation Department * Initial Assessments - Nazario Marmolejo, OT - 12/11/2015 8:43 AM EDT Occupational Therapy Evaluation Patient profile: Seth Kincaid is a 64 y.o. male patient of Shane Johns MD, admitted on 12/10/2015 for bronchoscopy, thoracotomy, lobectomy, lymphadenectomy. Patient with LLL mass adherent to chest wall. Past Medical History Diagnosis Date ??? Carcinoma of colon 04/01/2008 adenocarcinoma of sigmoid colon - pT2 pN0 Mx, well differentiated - 04/01/08 screening colonoscopy - sigmoid carcinoma - 04/22/08 sigmoid resection ---Pathologic Diagnosis--- CONSULTATION CASE 1. Outside slides labeled [id number], collection date 04/01/08. Colon, biopsy at 15 cm: Invasive adenoca rcinoma, arising in association with a tubular adenoma with high grade dysplasia. 2. Outside slideslabeled [id number], collection date 04/22/08. A - Small bowel, [...] of leg 40 years ago Past Surgical History Procedure Laterality Date ??? Varicose vein surgery Right 40 years ago Social History: Patient lives . 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 Objective: Seen today for OT evaluation. Cognition/Behavior: alert, oriented to person, place, and time Communication: [facility] Vision & Perception: WF Range of motion, strength, coordination: Bilateral UEs are within functional limitations for basic ADL Sensation: WF: Activities of Daily Living: Self-feeding ?? Patient able to eat crackers independently after set-up Grooming / Bathing/ dressing ?? Minimal assistance LB dressing and sponge bathing Functional Mobility: ?? Sit to stand: Cues and supervision ?? Ambulation: Unable do to low BP with standing holding walker ?? Stand to sit: Supervision Balance: ?? Sitting: Good ?? Standing: Static good Endurance: Information taken from last recorded vitals in flow sheet. Last value Range last 8 hrs Heart Rate Heart Rate: 87 Heart Rate: -- Blood Pressure BP: 98/64 BP: (98)/(64) SpO2 SpO2: 95 % SpO2: [95 %] Fair- duet to lower BP 102/69 sitting; 98/66 standing; 126/83 reclined in chair RA O2 stats dropped into high 80s. Pain: Patient with soreness in incisional area. Skin: Not assessed, incision Informed Consent: The patient agrees to and understands the OT treatment plan and goals. Education: patient educated on Role of occupational therapy/rehabilitation, ADL and Functional Mobility and needs reinforcement. understanding. Patient status, treatment, and mobility recommendations discussed with nursing. Assessment: Pt has been seen by OT for evaluation, and he presents with impaired ability to performdaily activities and functional mobility secondary to bronchoscopy, thoracotomy, lobectomy, lymphadenectomy. Pt with decrease in BP with standing activities. Patient with decrease in activity tolerance and functional mobility for ADLS. Patient needs minimal assistance for ADLS. Pt would benefit from ongoing OT services to maximize functional independence. Discharge Recommendations: Based on the current findings noted during this evaluation, patient could benefit from Home with further Skilled Therapy when medically ready for hospital discharge. This recommendation is based on the patient's Current physical impairments, Potential to return to prior level of function, Patient motivation, Reported home support, Potential for functional gains and Anticipated trajectory of progress and may change based on patient progress during this hospitalization. Equipment needs at discharge: TBD Daily Schedule / Staff Recommendations: Encourage OOB activity and participation in self-care activities. Goals: To be achieved by D/C. Patient will stand at sink level with supervision x10 min for ADLs. Patient will dress lower body indep with adaptive equipment prn. Patient will perform simple kitchen mgt with appropriate assistive device as needed and supervision. Patient will ambulate to the bathroom with supervision, assistive device as needed. ?? Patient will demonstrate energy conservation principals with all ADLs indep. Plan: Pt to be seen 1-3 more treatments for therapy including Role of occupational therapy/rehabilitation, Adaptive equipment training, ADL, Safety, Functional Mobility, Home Management, Recommendations and Discharge planning Eval Date: 12/11/2015 Total time spent with patient: 30 minutes Total timed interventions: 0 minutes Pager: [phone] NAZARIO MARMOLEJO OT 12/11/2015 Occupational Therapy Rehabilitation Department * Med Student Progress Note - Barbra Jaime - 12/11/2015 7:34 AM EDT [facility] Department of Thoracic Surgery Inpatient Progress Note Patient Name: Seth Kincaid Patient : 1950 Patient Patient Location: [facility] Attending Surgeon: SHANE SHI ID: Seth Kincaid is a 64 y.o. male who is 1 Day Post-Op s/p thoracotomy with LLLobectomy with removal of periosteum from ribs 7 and 8. 24 Hour Events / Subjective: - no acute events - extubated in PACU and transferred to last night at 2000 - pain controlled with PCEA - no SOB, on 3L via NC - K at 5.5 this morning, Cr up to 1.12 from 0.87 yesterday, 595 cc urine output since 1900 on 12/09 - L CT to suction, 300 cc serosanguinous output since surgery, 150 overnight - passing flatus Vitals: Temp: [36.3 ??C (97.3 ??F)-37.4 ??C (99.3 ??F)] Heart Rate: [71-94] Resp: [14-18] BP: (96-125)/(59-92) SpO2: [95 %-100 %] Heart Rate from SPO2: [71 bpm-97 bpm] Wt & BMI By Encounter Date Admission (Current) from 12/10/2015 in [facility] Office Visit from 11/27/2015 in Hematology/Oncology Weight (!) 113.1 kg (249 lb 5.4 oz) 1 12/11/2015 0400 (!) 112.5 kg (248 lb) 1 11/27/2015 1143 BMI 33.2 1 12/10/2015 1950 32.9 1 11/27/2015 1143 Physical Exam: Gen: NAD, pleasant, sitting in chair HEENT: normocephalic, atraumatic, EOMI, sclerae anicteric Neck: supple, trachea midline Card: RRR, no M/R/G appreciated Pulm: decreased breath sounds in L lower field, otherwise CTA bilaterally, no wheeze/ronchi/rales appreciated, non-labored breathing on 3L, L CT to suction with no airleak appreciated Abd: soft, NT, BS+ Ext: warm, dry, no edema Neuro: A&Ox3, nonfocal, conversant I/O: I/O last 3 completed shifts: In: 3302 [P.O.:320; I.V.:2982] Out: 2105 [Urine:1055; Other:300; Blood:750] Labs: Recent Results (from the past 72 hour(s)) BLOOD GAS 2 ARTERIAL Result Value Ref Range pH Art 7.33 (L) 7.35 - 7.45 pCO2 Art 55 (CRIT) 35 - 45 mmHg pO2 Art 369 (H) 85 - 104 mmHg HCO3 Art 28.7 (H) 20.0 - 26.0 mmol/L BE Art 2.8 -3.0 - 3.0 mmol/L Hgb Blood Gas 14.2 13.7 - 17.5 gm/dL O2HB Art 98.7 (H) 94.0 - 97.0 % COHB Art 0.7 % METHB Art 0.4 <=1.5 % Na Whole Blood 138 135 - 145 mmol/L K Whole Blood 3.8 3.5 - 5.0 mmol/L ICa Whole Blood 1.16 1.15 - 1.33 mmol/L CL Whole Blood 100 98 - 107 mmol/L Gluc Whole Bld 108 65 - 199 mg/dL BLOOD GAS 2 ARTERIAL Result Value Ref Range pH Art 7.35 (L) 7.35 - 7.45 pCO2 Art 48 (H) 35 - 45 mmHg pO2 Art 105 (H) 85 - 104 mmHg HCO3 Art 25.8 20.0 - 26.0 mmol/L BE Art 0.2 -3.0 - 3.0 mmol/L Hgb Blood Gas 14.3 13.7 - 17.5 gm/dL O2HB Art 96.8 94.0 - 97.0 % COHB Art 0.8 % METHB Art 0.2 <=1.5 % Na Whole Blood 137 135 - 145 mmol/L K Whole Blood 3.9 3.5 - 5.0 mmol/L ICa Whole Blood 1.15 (L) 1.15 - 1.33 mmol/L CL Whole Blood 99 98 - 107 mmol/L Gluc Whole Bld 132 65 - 199 mg/dL BLOOD GAS 2 ARTERIAL Result Value Ref Range pH Art 7.38 7.35 - 7.45 pCO2 Art 50 (H) 35 - 45 mmHg pO2 Art 278 (H) 85 - 104 mmHg HCO3 Art 28.7 (H) 20.0 - 26.0 mmol/L BE Art 3.6 (H) -3.0 - 3.0 mmol/L Hgb Blood Gas 14.3 13.7 - 17.5 gm/dL O2HB Art 98.8 (H) 94.0 - 97.0 % COHB Art 0.7 % METHB Art 0.2 <=1.5 % Na Whole Blood 138 135 - 145 mmol/L K Whole Blood 4.0 3.5 - 5.0 mmol/L ICa Whole Blood 1.12 (L) 1.15 - 1.33 mmol/L CL Whole Blood 100 98 - 107 mmol/L Gluc Whole Bld 139 65 - 199 mg/dL Surgical Pathology Report Result Value Ref Range Surgical Pathology Report [id number] Location: 3T The signing pathologist has (i) examined the relevant preparation(s) for the specimen(s) and (ii) rendered or confirmed the diagnosis(es). . 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 Chest wall margin is negative. BFS - AP window node for frozen section: Benign. CFS - Level 7 lymph node for frozen section: Benign. DFS - Left 10 lymph node for frozen section: Benign. 12/10/15 12:48 LJT Electronically signed by: Yarely Weinberg MD Verified: 12/10/2015 Pathologist This intraoperative consultation should be interpreted as a preliminary diagnosis pending review of the entire specimen and special studies, if any. Electrolytes panel Result Value Ref Range Sodium 140 135 - 145 mmol/L Potassium 4.5 3.5 - 5.0 mmol/L Chloride 100 98 - 107 mmol/L CO2 26 22 - 31 mmol/L Anion Gap 14 5 - 15 mmol/L BUN Result Value Ref Range BUN 11 10 - 20 mg/dL Creatinine Result Value Ref Range Creatinine 0.87 0.80 - 1.50 mg/dL Estimated GFR >60 >=60 Hemogram Result Value Ref Range WBC 18.3 (H) 4.0 - 10.0 x10(3)/mcL RBC 4.51 (L) 4.63 - 6.08 x10(6)/mcL Hemoglobin 13.3 (L) 13.7 - 17.5 gm/dL Hematocrit 40.3 40.0 - 51.0 % MCV 89.4 79.0 - 92.0 fL MCH 29.5 25.6 - 32.2 pg MCHC 33.0 32.0 - 36.5 gm/dL Platelets 267 145 - 370 x10(3)/mcL RDWSD 44.4 35.0 - 46.0 fL RDWCV 13.6 10.9 - 14.4 % MPV 10.3 9.0 - 12.0 fL nRBC % Auto 0.0 % nRBC Abs Auto 0.000 0.000 - 0.012 x10(3)/mcL Differential, Automated Result Value Ref Range Neutrophils % 77.5 % Neutr Abs (ANC) 14.17 (H) 1.50 - 6.30 x10(3)/mcL Lymphocytes % 14.3 % Lymphocytes Abs 2.6 1.0 - 3.6 x10(3)/mcL Monocytes % 6.7 % Monocyte Abs 1.2 (H) 0.2 - 1.0 x10(3)/mcL Eosinophils % 0.8 % Eosinophils Abs 0.1 0.0 - 0.5 x10(3)/mcL Basophils % 0.3 % Basophils Abs 0.1 0.0 - 0.2 x10(3)/mcL Immature Gran % 0.40 % Wendy Gran Abs 0.07 (H) 0.00 - 0.05 x10(3)/mcL Scan, Peripheral Blood Result Value Ref Range Plat Estimate Normal RBC Morphology Abnormal Ovalocytes 1-5 /HPF [place] Cells 1-5 /HPF Giant Platelets Less than 1 /HPF Basic Metabolic Panel (non-fasting) Result Value Ref Range Glucose Lvl 141 65 - 199 mg/dL BUN 17 10 - 20 mg/dL Creatinine 1.12 0.80 - 1.50 mg/dL Sodium 137 135 - 145 mmol/L Potassium 5.5 (H) 3.5 - 5.0 mmol/L Chloride 99 98 - 107 mmol/L CO2 27 22 - 31 mmol/L Anion Gap 11 5 - 15 mmol/L Calcium 8.1 (L) 8.5 - 10.5 mg/dL Estimated GFR >60 >=60 Hemogram Result Value Ref Range WBC 16.6 (H) 4.0 - 10.0 x10(3)/mcL RBC 4.24 (L) 4.63 - 6.08 x10(6)/mcL Hemoglobin 12.4 (L) 13.7 - 17.5 gm/dL Hematocrit 38.2 (L) 40.0 - 51.0 % MCV 90.1 79.0 - 92.0 fL MCH 29.2 25.6 - 32.2 pg MCHC 32.5 32.0 - 36.5 gm/dL Platelets 244 145 - 370 x10(3)/mcL RDWSD 45.4 35.0 - 46.0 fL RDWCV 14.0 10.9 - 14.4 % MPV 11.1 9.0 - 12.0 fL nRBC % Auto 0.0 % nRBC Abs Auto 0.000 0.000 - 0.012 x10(3)/mcL Differential, Automated Result Value Ref Range Neutrophils % 73.8 % Neutr Abs (ANC) 12.27 (H) 1.50 - 6.30 x10(3)/mcL Lymphocytes % 16.5 % Lymphocytes Abs 2.7 1.0 - 3.6 x10(3)/mcL Monocytes % 8.9 % Monocyte Abs 1.5 (H) 0.2 - 1.0 x10(3)/mcL Eosinophils % 0.2 % Eosinophils Abs 0.0 0.0 - 0.5 x10(3)/mcL Basophils % 0.2 % Basophils Abs 0.0 0.0 - 0.2 x10(3)/mcL Immature Gran % 0.40 % Wendy Gran Abs 0.07 (H) 0.00 - 0.05 x10(3)/mcL EKG 12 Lead Result Value Ref Range Ventricular rate 98 BPM Atrial Rate 98 BPM P-R Interval 124 ms QRS Duration 100 ms Q-T Interval 360 ms QTC Calculated (Bezet) 459 ms Calculated P [place] 82 degrees Calculated R [place] 16 degrees Calculated T [place] 15 degrees INTERPRETATION Normal sinus rhythm RSR' or QR pattern in V1 suggests right ventricular conduction delay Borderline ECG When compared with ECG of 04-NOV-2015 09:47, Vent. rate has increased BY 32 BPM Questionable change in QRS axis Nonspecific T wave abnormality now evident in Inferior leads Confirmed by MD Seema, Felix ([id number]) on 12/11/2015 8:33:01 AM POCT Glucose Result Value Ref Range POC Glucose 185 65 - 199 mg/dL Diagnostics: CXR 12/11/15: FINDINGS: There is a slightly better degree of inflation of the RIGHT lung. There is no other interval change. Again noted are the postoperative findings including a left-sided chest tube, small LEFT pleural effusion and elevation of the LEFT hemidiaphragm. No pneumothorax is seen. ?? IMPRESSION No significant interval change. CXR 12/10/15: IMPRESSION 1. Expected postsurgical changes as result of left lower lobectomy as described above. 2. Left greater than right pleural effusions. 3. No large pneumothorax. 4. Epidural catheter and left chest tube in appropriate positions. Assessment: Seth Kincaid is a 64 y.o. male who is 1 Day Post-Op s/p thoracotomy with LLLobectomy with removal of periosteum from ribs 7 and 8. He is progressing well. Plan: Neuro: PCEA, tylenol 1000 mg q6h Card: EKG due to hyperkalemia, amiodarone 400 mg q8h, telemetry Pulm: TORY clements: repeat BMP this afternoon, colace, senna, regular diet Renal/: condon in Heme: SQH ID: none Endo: none Other: OOB, ambulate, PT/OT Dispo: floor-4W Barbra Jaime, MS-III 12/11/2015 Thoracic Surgery Service Pager [phone] * Op Note - Shane Sih MD - 12/10/2015 2:43 PM EDT [facility] [place] Operative Note Patient Name: Seth Kincaid : [id number] MR#: [id number] Case Date: 12/10/2015 Surgeon: Surgeon(s) and Role: * Shane Shi MD - Primary * Anne Mckeon PA - Physician Translator Deaf Preoperative diagnosis: left lower lobe lung mass Postoperative diagnosis: left lower lobe lung mass Procedure(s): BRONCHOSCOPY, DIAGNOSTIC @THORACOTOMY-LOBECTOMY, SINGLE LOBE @LYMPHADENECTOMY,THORACIC ,REGIONAL,INCL. 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, adherent to left chest wall, negativemargins Anesthesia: General Estimated Blood Loss: 750 mL Specimens removed during surgery: left lower lobe; AP window nodes, level 7 nodes, level 10L nodes Drains: 28 ukrainian chest tube, left Surgical Closure: Primary Closure - closure of ALL tissue levels during the original surgery regardless of wires, wickes, drains, or other devices extruding through the incision Disposition: to PACU with ET tube for slow wake up Condition: doing well with some problems : ongoing mechanical ventilation (Please see the Surgical Encounter Summary for any Implant and Specimen details pertinent to this patient.) HPI/Surgical Indications: 64 year old man with a history of resected colorectal cancer and a large spiculated PET-avid left lower lobe lung mass Procedure Description: The patient was brought to the operating room and placed on the table in the supine position. General anesthesia was induced and he was endotracheally intubated with a double-lumen tube. The position of the tube was confirmed bronchoscopy diagnostic bronchoscopy was then performed. The right-sided structures were anatomically normal with no endobronchial lesions or excessive secretions. The left-sided structures were equally unremarkable. The bronchoscope was withdrawn and the patient was turned to the right lateral decubitus left side up position and the chest was prepped and draped in the standard sterile fashion. The left hemithorax was entered through a 13-mm incision in the eighth intercostal space in the posterior axillary line. This incision came down quite low on the diaphragm. A port was placed and the scope was used to survey the abdomen. Lung isolation was adequate. The diaphragm was quite high riding possibly due to the patient's body habitus. A second port site was made posteriorly and the lung was grasped and retracted. There appeared to be initially what appeared to be filmy adhesions to the chest wall from the superior segment of the lower lobe. Decision was made to proceed with an attempt at thoracoscopic lobectomy. A small utility thoracotomy was made in approximately the fourth intercostal space and a wound protector was placed. The lung was grasped and retracted cephalad. At this point, it became clear that the lower lobe was in fact densely adherent to the chest wall. No amount of manipulation of the lower lobe would permit adequate visualization of the inferior pulmonary ligament for safe dissection and for this reason as well as the possibility of chest wall involvement, we elected to proceed with a thoracotomy for complete resection. Accordingly, a conventional posterolateral thoracotomy in the sixth intercostal space was made and the Finochietto retractor was placed. With the lower lobe thus exposed, we were able to take down the inferior pulmonary ligament without difficulty and exposed the inferior pulmonary vein. Posteriorly, there were dense adhesions between the superior segment of the lower lobe and the chest wall as expected. We entered a subperiosteal plane and completely exposed the seventh and eighth ribs, removing the tumor in subperiosteal fashion. With this maneuver, we were able to completely free the lower lobe from the chest wall. The inferior pulmonary vein was then encircled, stapled and divided. The major fissure between the upper and lobes was then extended with a thoracoscopic stapling device to visualize the location of the pulmonary artery. We grasped and incised the visceral pleura overlying the pulmonary artery and dissected out the structure. There were numerous, quite inflamed lymph nodes and the artery itself was embedded quite densely in the parenchymal tissue. Ultimately, we were able to separately expose the basal segment branches which were stapled and divided. We then dissected around the basal segment, superior segment bronchi sequentially and stapled and divided them after test inflates confirmed that we had isolated only the lower lobe. We completed the parenchymal dissection and the specimen was removed. The lesion itself as well as the chest wall were sent for frozen section and margin. This was felt to be an adenocarcinoma of uncertain etiology with clear resection margins. We turned our attention to the mediastinal lymph node dissection. The parietal pleural between the aorta and pulmonary artery was incised and aorticopulmonary window nodes were sent for frozen section. These returned negative. With the lung retracted anteriorly, the subcarinal space was entered and nodes were also sent which returned negative. Finally, the lung was reflected posteriorly and hilar lymph nodes were sent and again these returned negative for malignancy. At this point, the frozen section result from our chest wall had returned negative. In the event of a reversal of this finding on permanent pathology, a rim of clips was placed around the site of resection for possible radiation or surveillance for recurrence in the future. Hemostasis was then achieved with the Argon beam gear shaper set up operator. A 28-Divehi chest tube was placed through the anterior-inferior port site and advanced in standard posterolateral position. The ribs were then reapproximated with #2 Vicryl TP1 sutures and the lung was allowed to expand under direct vision. The remainder of the muscle layers of the chest wall from the various incisions were closed in layers with absorbable suture in the standard fashion. The patient was then allowed to emerge from general anesthesia. He remained somewhat deep, so he was sent to the recovery room with a breathing tube in place. All of the sponge, needle and instrument counts were correct and as the attending surgeon, I was present and scrubbed for the entire procedure. * Brief Op Note - Anne Mckeon PA - 12/10/2015 1:52 PM EDT Brief Operative Note Patient Name: Seth Kincaid : [id number] MR#: [id number] Case Date: 12/10/2015 Surgeon: Surgeon(s) and Role: * Shane Shi MD - Primary * Anne Mckeon PA - Physician Translator Deaf Preoperative diagnosis: left lower lobe lung mass Postoperative diagnosis: left lower lobe lung mass Procedure(s): BRONCHOSCOPY, DIAGNOSTIC @THORACOTOMY-LOBECTOMY, SINGLE LOBE @LYMPHADENECTOMY,THORACIC ,REGIONAL,INCL. MEDIASTINAL,PERITRACHEAL NODES THORACOSCOPY, DX., LUNGS WITHOUT BIOPSY Anesthesia: General Findings: -Bronchoscopy with normal anatomy -Converted to thoracotomy due to poor visualization during VATS -LLL mass adherent to chest wall. -LLLobectomy with removal of periosteum from ribs 7 and 8 completed without complication -Margins negative on frozen section Complications: none Fluids: 1400cc Estimated Blood Loss: 750 mL Drains: left chest tube, 28 ukrainian Disposition: awakened from anesthesia, extubated and taken to the recovery room in a stable condition, having suffered no apparent untoward event. Condition: doing well without problems (Please see the Surgical Encounter Summary for any Implant and Specimen details pertinent to this patient.) Infection Bundle used? N/A documented in this encounter Plan of Treatment Upcoming Encounters Date Type Department Care Team (Late st Contact Info) Description 11/03/2023 8:30 AM EDT Office Visit Hematology/Oncology at [address] [phone] Garcia Childress MD [facility] [address] [place] [address] Kassy Ken APRN [address] [place] [address] DR MEDICAL ONCOLOGY [place], [place] [phone] documented as of this encounter Procedures Procedure Name Priority Date/Time Associated Diagnosis Comments POULTRY KILLER SCAN 2015 12:00 AM EDT HEMOGRAM Timed 12/13/2015 12:43 PM EDT DIFFERENTIAL, AUTOMATED Timed 12/13/2015 12:43 PM EDT CBC (WITH DIFF) Timed 12/13/2015 12:43 PM EDT BASIC METABOLIC PANEL (NON-FASTING) Timed 12/13/2015 12:43 PM EDT XR CHEST PA AND LATERAL Routine 12/13/2015 11:33 AM EDT HEMOGRAM Routine 12/13/2015 6:07 AM EDT DIFFERENTIAL, AUTOMATED Routine 12/13/2015 6:07 AM EDT CBC (WITH DIFF) Routine 12/13/2015 6:07 AM EDT BASIC METABOLIC PANEL (NON-FASTING) Routine 12/13/2015 6:07 AM EDT XR CHEST PA AND LATERAL STAT 12/13/2015 5:40 AM EDT HEMOGRAM Routine 12/12/2015 6:40 AM EDT DIFFERENTIAL, AUTOMATED Routine 12/12/2015 6:40 AM EDT CBC (WITH DIFF) Routine 12/12/2015 6:40 AM EDT BASIC METABOLIC PANEL (NON-FASTING) STAT 12/12/2015 6:40 AM EDT XR CHEST PA AND LATERAL Routine 12/12/2015 6:04 AM EDT BASIC METABOLIC PANEL (NON-FASTING) Routine 12/11/2015 2:04 PM EDT POCT GLUCOSE Routine 12/11/2015 7:42 AM EDT EKG 12-LEAD STAT 12/11/2015 6:42 AM EDT Pre-operative cardiovascular examination, high risk surgery XR CHEST PA AND LATERAL Routine 12/11/2015 6:16 AM EDT HEMOGRAM Routine 12/11/2015 5:06 AM EDT DIFFERENTIAL, AUTOMATED Routine 12/11/2015 5:06 AM EDT CBC (WITH DIFF) Routine 12/11/2015 5:06 AM EDT BASIC METABOLIC PANEL (NON-FASTING) Routine 12/11/2015 5:06 AM EDT XR CHEST ONE VIEW STAT 12/10/2015 2:5 4 PM EDT SCAN, PERIPHERAL BLOOD STAT 12/10/2015 2:25 PM EDT HEMOGRAM STAT 12/10/2015 2:25 PM EDT DIFFERENTIAL, AUTOMATED STAT 12/10/2015 2:25 PM EDT CREATININE STAT 12/10/2015 2:25 PM EDT CBC (WITH DIFF) STAT 12/10/2015 2:25 PM EDT BUN STAT 12/10/2015 2:25 PM EDT ELECTROLYTES PANEL STAT 12/10/2015 2: 25 PM EDT LYMPHADENECTOMY,THOR ACIC ,REGIONAL,INCL MEDIASTINAL,PERITRAC HEAL NODES Routine 12/10/2015 1:40 PM EDT THORACOSCOPY, DX., LUNGS WITHOUT BIOPSY Routine 12/10/2015 1:40 PM EDT THORACOTOMY-LOBECTOM Y,SINGLE LOBE Routine 12/10/2015 1:40 PM EDT SPECIMEN TO PATHOLOGY STAT 12/10/2015 12:05 PM EDT SPECIMEN TO PATHOLOGY STAT 12/10/2015 12:01 PM EDT SPECIMEN TO PATHOLOGY STAT 12/10/2015 11:58 AM EDT SPECIMEN TO PATHOLOGY STAT 12/10/2015 11:58 AM EDT SURGICAL PATHOLOGY REPORT Routine 12/10/2015 11:49 AM EDT BLOOD GAS 2 ARTERIAL Routine 12/10/2015 11:12 AM EDT BLOOD GAS 2 ARTERIAL Routine 12/10/2015 9:00 AM EDT BLOOD GAS 2 ARTERIAL Routine 12/10/2015 8:14 AM EDT XR FLUORO NO RAD <1HR - OR USE Routine 12/10/2015 7:49 AM EDT THORACOSCOPY, DX., LUNGS WITHOUT BIOPSY (WRVU 5.5) 12/10/2015 7:36 AM EDT left lower lobe lung mass @LYMPHADENECTOMY,THO RACIC ,REGIONAL,INCL. MEDIASTINAL,PERITRAC HEAL NODES (WRVU 4.12) 12/10/2015 7:36 AM EDT left lower lobe lung mass @THORACOTOMY-LOBECTO MY, SINGLE LOBE (WRVU 25.82) 12/10/2015 7:36 AM EDT left lower lobe lung mass BRONCHOSCOPY, DIAGNOSTIC (WRVU 2.53) 12/10/2015 7:36 AM EDT left lower lobe lung mass BRONCHOSCOPY,DIAGNOS TIC Routine 12/10/2015 6:00 AM EDT documented in this encounter Results * XR [...] Carmen Roblero at 12/29/2015 11:09 AM Shane Shi MD IMG DX ORDERABLE S * SCAN DOC: POULTRY KILLER (2015 12:00 AM EDT) Anatomical Region Laterality Modality Other Scanning Provider MEDIA MGR SCAN EXT O RDR/RSLT * (ABNORMAL) Differential, Automated (12/13/2015 12:43 PM EDT) Neutrophils % 84.9 % [facility] Neutr Abs (ANC) 10.47(H) 1.70 - 6.10 x10(3)/[facility] Lymphocytes % 10.7 % [facility] Lymphocytes Abs 1.3 0.9 - 3.2 x10(3)/[facility] Monocytes % 3.4 % [facility] Monocyte Abs 0.4 0.3 - 0.9 x10(3)/[facility] Eosinophils % 0.1 % [facility] LABORATORY Eosinophils Abs 0.0 0.0 - 0.4 x10(3)/[facility] LABORATORY Basophils % 0.2 % [facility] LABORATORY Basophils Abs 0.0 0.0 - 0.1 x10(3)/[facility] LABORATORY Immature Gran % 0.70 % [facility] Comment: Immature granulocytes(IG's)percentage and absolute count will include metamyelocytes, myelocytes, and promyelocytes. Blood smears from CBCs yielding IG's will be scanned manually for concordance. If this scan disagrees with the automated IG or if promyelocytes are noted, a manual differential will be performed. Wendy Gran Abs 0.09(H) 0.00 - 0.04 x10(3)/[facility] LABORATORY Blood specimen (specimen) 12/13/2015 12:43 PM EDT 12/13/2015 12:46 PM EDT Narrative Resulting Agency Comment Spec In Lab Shane Shi MD HEMATOLOGY ORDER DIAMOND Performing Organization Address City/[facility]/ZIP Co de Phone Number [facility] [place] [address] * (ABNORMAL) Hemogram (12/13/2015 12:43 PM EDT) WBC 12.3(H) 4.0 - 9.5 x10(3)/[facility] LABORATORY RBC 3.53(L) 4.58 - 5.54 x10(6)/[facility] LABORATORY Hemoglobin 10.3(L) 13.7 - 16.5 gm/dL [facility] Hematocrit 30.8(L) 40.5 - 48.5 % [facility] MCV 87.3 82.9 - 93.1 [facility] LABORATORY MCH 29.2 27.5 - 32.[address] [facility] MCHC 33.4 32.0 - 35.7 gm/dL [facility] Platelets 235 145 - 357 x10(3)/[facility] LABORATORY RDWSD 42.7 36.0 - 45.0 [facility] LABORATORY RDWCV 13.6 11.4 - 13.8 % [facility] MPV 9.8 7.6 - 12.9 [facility] LABORATORY nRBC % Auto 0.0 % [facility]OR[facility] nRBC Abs Auto 0.000 0.000 - 0.000 x10(3)/[facility] LABORATORY Blood specimen (specimen) 12/13/2015 12:43 PM EDT 12/13/2015 12:46 PM EDT Narrative Resulting Agency Comment Spec In Lab Shane Shi MD HEMATOLOGY ORDER DIAMOND [facility] [place] [address] * (ABNORMAL) Basic Metabolic Panel (non-fasting) (12/13/2015 12:43 PM EDT) Glucose Lvl 150 65 - 199 mg/dL [facility] Comment:Diabetes: >=200 mg/d L plus symptoms BUN 9(L) 10 - 20 mg/dL [facility] Creatinine 0.79(L) 0.80 - 1.50 mg/dL [facility] Comment: Please note that the pediatric reference intervals supplied above were not validated at [facility]. Results from pediatric patients should be interpreted in conjunction to the patient's age, height and muscle mass. Sodium 132(L) 135 - 145 mmol/L [facility] Potassium 3.8 3.5 - 5.0 mmol/L [facility] Comment: Please note: ??Patients with WBC >100,000 may have falsely elevated Potassium levels. ??For accurate Potassium quantification in these patients send serum separator tube (gold top) for subsequent determinations. ??Contact the Clinical Chemistry Laboratory if there are any questions. Chloride 91(L) 98 - 107 mmol/L [facility] CO2 29 22 - 31 mmol/L [facility] Anion Gap 12 5 - 15 mmol/L [facility] Calcium 8.4(L) 8.5 - 10.5 mg/dL [facility] Estimated GFR >60 >=60 [facility] Comment: This estimated GFR (eGFR) [...] the following links into your internet browser. [email or web address] Blood specimen (specimen) 12/13/2015 12:43 PM EDT 12/13/2015 12:46 PM EDT Narrative Resulting Agency Comment Spec In Lab Shane Shi MD CHEMISTRY ORDERA BLES [facility] [place] [address] * XR Chest PA & Lateral (Generic) (12/13/2015 11:33 AM EDT) Anatomical Region Laterality Modality Chest N/A Digital Radiogra phy Impressions 12/13/2015 11:43 AM EDT Post removal of LEFT pleural chest tube. No change in small LEFT apical pneumothorax. Narrative 12/13/2015 11:43 AM EDT EXAMINATION: XR CHEST PA AND LATERAL CLINICAL HISTORY: post chest tube pull to check for any changes TECHNIQUE: PA and lateral views chest COMPARISON: December 13, 2015 FINDINGS: Post LEFT pleural chest tube removal since the previous study. Stable small LEFT apical pneumothorax. No other changes. Procedure Note Dm Wilson MD - 12/13/2015 EXAMINATION: XR CHEST PA AND LATERAL CLINICAL HISTORY: post chest tube pull to check for any changes TECHNIQUE: PA and lateral views chest COMPARISON: December 13, 2015 FINDINGS: Post LEFT pleural chest tube removal since the previous study. Stable small LEFT apical pneumothorax. No other changes. IMPRESSION Post removal of LEFT pleural chest tube. No change in small LEFT apical pneumothorax. Shane Shi MD IMG DX ORDERABLE S * (ABNORMAL) Differential, Automated (12/13/2015 6:07 AM EDT) Neutrophils % 77.4 % [facility] Neutr Abs (ANC) 9.35(H) 1.70 - 6.10 x10(3)/mc L [facility] Lymphocytes % 15.2 % [facility] Lymphocytes Abs 1.8 0.9 - 3.2 x10(3)/mc L [facility] Monocytes % 6.0 % [facility] Monocyte Abs 0.7 0.3 - 0.9 x10(3)/[facility] LABORATORY Eosinophils % 0.6 % [facility] Eosinophils Abs 0.1 0.0 - 0.4 x10(3)/[facility] LABORATORY Basophils % 0.2 % [facility] Basophils Abs 0.0 0.0 - 0.1 x10(3)/[facility] LABORATORY Immature Gran % 0.60 % [facility] Comment: Immature granulocytes(IG's)percentage and absolute count will include metamyelocytes, myelocytes, and promyelocytes. Blood smears from CBCs yielding IG's will be scanned manually for concordance. If this scan disagrees with the automated IG or if promyelocytes are noted, a manual differential will be performed. Wendy Gran Abs 0.07(H) 0.00 - 0.04 x10(3)/[facility] LABORATORY Blood specimen (specimen) 12/13/2015 6:07 AM EDT 12/13/2015 6:14 AM EDT Narrative Resulting Agency Comment Spec In Lab Shane Shi MD HEMATOLOGY ORDER DIAMOND [facility] [place] [address] * (ABNORMAL) Hemogram (12/13/2015 6:07 AM EDT) WBC 12.1(H) 4.0 - 9.5 x10(3)/[facility] LABORATORY RBC 3.32(L) 4.58 - 5.54 x10(6)/[facility] LABORATORY Hemoglobin 9.7(L) 13.7 - 16.5 gm/dL [facility] Hematocrit 29.1(L) 40.5 - 48.5 % [facility] MCV 87.7 82.9 - 93.[address] [facility] MCH 29.2 27.5 - 32.[address] [facility] MCHC 33.3 32.0 - 35.7 gm/dL [facility] Platelets 203 145 - 357 x10(3)/[facility] LABORATORY RDWSD 43.3 36.0 - 45.[address] [facility] RDWCV 13.4 11.4 - 13.8 % [facility] MPV 10.0 7.6 - 12.[address] [facility] nRBC % Auto 0.0 % [facility] nRBC Abs Auto 0.000 0.000 - 0.000 x10(3)/[facility] LABORATORY Blood specimen (specimen) 12/13/2015 6:07 AM EDT 12/13/2015 6:14 AM EDT Narrative Resulting Agency Comment Spec In Lab Shane Shi MD HEMATOLOGY ORDER DIAMOND [facility] [place] [address] * (ABNORMAL) Basic Metabolic Panel (non-fasting) (12/13/2015 6:07 AM EDT) Glucose Lvl 128 65 - 199 mg/dL [facility] Comment:Diabetes: >=200 mg/d L plus symptoms BUN 9(L) 10 - 20 mg/dL [facility] Creatinine 0.71(L) 0.80 - 1.50 mg/dL [facility] Comment: Please note that the pediatric reference intervals supplied above were not validated at [facility]. Results from pediatric patients should be interpreted in conjunction to the patient's age, height and muscle mass. Sodium 131(L) 135 - 145 mmol/L [facility] Potassium 3.7 3.5 - 5.0 mmol/L [facility] Comment: Please note: ??Patients with WBC >100,000 may have falsely elevated Potassium levels. ??For accurate Potassium quantification in these patients send serum separator tube (gold top) for subsequent determinations. ??Contact the Clinical Chemistry Laboratory if there are any questions. Chloride 93(L) 98 - 107 mmol/L [facility] CO2 28 22 - 31 mmol/L [facility] Anion Gap 10 5 - 15 mmol/L [facility] Calcium 8.1(L) 8.5 - 10.5 mg/dL [facility] Estimated GFR >60 >=60 [facility] Comment: This estimated GFR (eGFR) [...] the following links into your internet browser. [email or web address] Blood specimen (specimen) 12/13/2015 6:07 AM EDT 12/13/2015 6:14 AM EDT Narrative Resulting Agency Comment Spec In Lab Shane Shi MD CHEMISTRY ORDERA BLES [facility] [place] [address] * XR Chest PA & Lateral (Generic) (12/13/2015 5:40 AM EDT) Anatomical Region Laterality Modality Chest N/A Digital Radiogra phy Impressions 12/13/2015 6:03 AM EDT Small left apical pneumothorax. No other interval change. Narrative 12/13/2015 6:03 AM EDT EXAMINATION: XR CHEST PA AND LATERAL CLINICAL HISTORY: to check for any PTX TECHNIQUE: 2 views COMPARISON: December 22, 2015 FINDINGS: Left chest tube is in unchanged position with tip near the left apex. Epidural catheter is in unchanged position. There is unchanged airspace opacity in the left lower lobe, consistent with a combination of atelectasis and small effusion. Linear atelectasis in the right upper lobe is noted. Right lung is otherwise clear. Small left apical pneumothorax. Cardiac silhouette is stable. No osseous changes. Procedure Note Fanny Dixon MD - 12/13/2015 EXAMINATION: XR CHEST PA AND LATERAL CLINICAL HISTORY: to check for any PTX TECHNIQUE: 2 views COMPARISON: December 22, 2015 FINDINGS: Left chest tube is in unchanged position with tip near the left apex.Epidural catheter is in unchanged position. There is unchanged airspace opacity in the left lower lobe, consistentwith a combination of atelectasis and small effusion. Linear atelectasis in theright upper lobe is noted. Right lung is otherwise clear. Small left apical pneumothorax. Cardiac silhouette is stable. No osseous changes. IMPRESSION Small left apical pneumothorax. No other interval change. Shane Shi MD IMG DX ORDERABLE S * (ABNORMAL) Basic Metabolic Panel (non-fasting) (12/12/2015 6:40 AM EDT) Glucose Lvl 143 65 - 199 mg/dL [facility] Comment:Diabetes: >=200 mg/d L plus symptoms BUN 13 10 - 20 mg/dL [facility] Creatinine 0.76(L) 0.80 - 1.50 mg/dL [facility] Comment: Please note that the pediatric reference intervals supplied above were not validated at [facility]. Results from pediatric patients should be interpreted in conjunction to the patient's age, height and muscle mass. Sodium 134(L) 135 - 145 mmol/L [facility] Potassium 4.2 3.5 - 5.0 mmol/L [facility] Comment: Please note: ??Patients with WBC >100,000 may have falsely elevated Potassium levels. ??For accurate Potassium quantification in these patients send serum separator tube (gold top) for subsequent determinations. ??Contact the Clinical Chemistry Laboratory if there are any questions. Chloride 95(L) 98 - 107 mmol/L [facility] CO2 29 22 - 31 mmol/L [facility] Anion Gap 10 5 - 15 mmol/L [facility] Calcium 8.2(L) 8.5 - 10.5 mg/dL [facility] Estimated GFR >60 >=60 [facility] Comment: This estimated GFR (eGFR) [...] the following links into your internet browser. [email or web address] Blood specimen (specimen) 12/12/2015 6:40 AM EDT 12/12/2015 7:12 AM EDT Narrative Resulting Agency Comment Spec In Lab Shane Shi MD CHEMISTRY ORDERA BLES [facility] [place] [address] * (ABNORMAL) Differential, Automated (12/12/2015 6:40 AM EDT) Neutrophils % 77.9 % [facility] Neutr Abs (ANC) 11.36(H) 1.70 - 6.10 x10(3)/mc L [facility] Lymphocytes % 12.2 % [facility] Lymphocytes Abs 1.8 0.9 - 3.2 x10(3)/mc L [facility] Monocytes % 8.8 % [facility] Monocyte Abs 1.3(H) 0.3 - 0.9 x10(3)/mc L [facility] Eosinophils % 0.4 % [facility] Eosinophils Abs 0.1 0.0 - 0.4 x10(3)/mc L [facility] Basophils % 0.2 % [facility] Basophils Abs 0.0 0.0 - 0.1 x10(3)/mc L [facility] Immature Gran % 0.50 % [facility] Comment: Immature granulocytes(IG's)percentage and absolute count will include metamyelocytes, myelocytes, and promyelocytes. Blood smears from CBCs yielding IG's will be scanned manually for concordance. If this scan disagrees with the automated IG or if promyelocytes are noted, a manual differential will be performed. Wendy Gran Abs 0.08(H) 0.00 - 0.04 x10(3)/ L [facility] Blood specimen (specimen) 12/12/2015 6:40 AM EDT 12/12/2015 7:12 AM EDT Narrative Resulting Agency Comment Spec In Lab Shane Shi MD HEMATOLOGY ORDER DIAMOND [facility] [place] [address] * (ABNORMAL) Hemogram (12/12/2015 6:40 AM EDT) WBC 14.6(H) 4.0 - 9.5 x10(3)/[facility] LABORATORY RBC 3.57(L) 4.58 - 5.54 x10(6)/[facility] LABORATORY Hemoglobin 10.6(L) 13.7 - 16.5 gm/dL [facility] Hematocrit 32.1(L) 40.5 - 48.5 % [facility] MCV 89.9 82.9 - 93.1 [facility] LABORATORY MCH 29.7 27.5 - 32.[address] [facility] MCHC 33.0 32.0 - 35.7 gm/dL [facility] Platelets 208 145 - 357 x10(3)/[facility] RDWSD 45.3(H) 36.0 - 45.0 [facility] LABORATORY RDWCV 13.9(H) 11.4 - 13.8 % [facility] MPV 11.0 7.6 - 12.9 [facility] LABORATORY nRBC % Auto 0.0 % [facility] nRBC Abs Auto 0.000 0.000 - 0.000 x10(3)/mcL [facility] Blood specimen (specimen) 12/12/2015 6:40 AM EDT 12/12/2015 7:12 AM EDT Narrative Resulting Agency Comment Spec In Lab Shane Shi MD HEMATOLOGY ORDER DIAMOND [facility] [place] [address] * XR Chest PA & Lateral (Generic) (12/12/2015 6:04 AM EDT) Anatomical Region Laterality Modality Chest N/A Digital Radiogra phy Impressions 12/12/2015 7:04 AM EDT FINDINGS/IMPRESSION: LEFT pleural effusion appears similar to mildly decreased in size. Nonspecific curvilinear focus of air at the LEFT base. There is persistent postsurgical elevation of the left hemidiaphragm and volume loss of the left lung. Chest tube directed at the left apex and the surgical clips are unchanged. RIGHT lung linear subsegmental atelectasis. I have personally reviewed the image(s) and the residents interpretation and agree with the findings, Joe Pedraza at 12/12/2015 7:04 AM Narrative 12/12/2015 7:04 AM EDT EXAMINATION: XR CHEST PA AND LATERAL CLINICAL HISTORY: interval change TECHNIQUE: PA and lateral upright views of the chest COMPARISON: Radiograph 12/11/2015 Procedure Note Joe Pedraza MD - 12/12/2015 EXAMINATION: XR CHEST PA AND LATERAL CLINICAL HISTORY: interval change TECHNIQUE: PA and lateral upright views of the chest COMPARISON: Radiograph 12/11/2015 IMPRESSION FINDINGS/IMPRESSION: LEFT pleural effusion appears similar to mildly decreased in size.Nonspecific curvilinear focus of air at the LEFT base. There is persistentpostsurgical elevation of the left hemidiaphragm and volume loss of the left lung.Chest tube directed at the left apex and the surgical clips are unchanged. RIGHTlung linear subsegmental atelectasis. I have personally reviewed the image(s) and the residents interpretationand agree with the findings, Joe Pedraza at 12/12/2015 7:04 AM Shane Shi MD IMG DX ORDERABLE S * (ABNORMAL) Basic Metabolic Panel (non-fasting) (12/11/2015 2:04 PM EDT) Glucose Lvl 173 65 - 199 mg/dL [facility] Comment:Diabetes: >=200 mg/d L plus symptoms BUN 17 10 - 20 mg/dL [facility] Creatinine 1.20 0.80 - 1.50 mg/dL [facility] Comment: Please note that the pediatric reference intervals supplied above were not validated at [facility]. Results from pediatric patients should be interpreted in conjunction to the patient's age, height and muscle mass. Sodium 136 135 - 145 mmol/L [facility] Potassium 5.0 3.5 - 5.0 mmol/L [facility] Comment: Please note: ??Patients with WBC >100,000 may have falsely elevated Potassium levels. ??For accurate Potassium quantification in these patients send serum separator tube (gold top) for subsequent determinations. ??Contact the Clinical Chemistry Laboratory if there are any questions. Chloride 95(L) 98 - 107 mmol/L [facility] CO2 27 22 - 31 mmol/L [facility] Anion Gap 14 5 - 15 mmol/L [facility] Calcium 8.5 8.5 - 10.5 mg/dL [facility] Estimated GFR >60 >=60 [facility] Comment: This estimated GFR (eGFR) [...] the following links into your internet browser. [email or web address] Blood specimen (specimen) 12/11/2015 2:04 PM EDT 12/11/2015 2:46 PM EDT Narrative Resulting Agency Comment Spec In Lab Shane Shi MD CHEMISTRY ORDERA BLES Performing Organization Address [facility] Co de Phone Number [facility] [place] [address] * POCT Glucose (12/11/2015 7:42 AM EDT) POC Glucose 185 65 - 199 mg/dL [facility] Comment: Supplemental ranges: <140 mg/dL before meals <180 mg/dL all other times of the day Blood specimen (specimen) 12/11/2015 7:42 AM EDT 12/11/2015 7:42 AM EDT Shane Shi MD POINT OF CARE TE ST ORDERABLES Performing Organization Address [facility] Co de Phone Number [facility] [place] [address] * EKG 12 Lead (12/11/2015 6:42 AM EDT) Ventricular rate 98 BPM MUSE SYSTEM Atrial Rate 98 BPM MUSE SYSTEM P-R Interval 124 ms MUSE SYSTEM QRS Duration 100 ms MUSE SYSTEM Q-T Interval 360 ms MUSE SYSTEM QTC Calculated (Bezet) 459 ms MUSE SYSTEM Calculated P [place] 82 degrees MUSE SYSTEM Calculated R [place] 16 degrees MUSE SYSTEM Calculated T [place] 15 degrees MUSE SYSTEM INTERPRETATION Normal sinus rhythm RSR' or QR pattern in V1 suggests right ventricular conduction delay Borderline ECG When compared with ECG of 04-NOV-2015 09:47, Vent. rate has increased BY ??32 BPM Questionable change in QRS axis Nonspecific T wave abnormality now evident in Inferior leads Confirmed by MD Seema, Felix ([id number]) on 12/11/2015 8:33:01 AM MUSE SYSTEM 12/11/2015 6:42 AM EDT 12/11/2015 8:33 AM EDT Shane Shi MD ECG ORDERABLES Performing Organization Address [facility] Co de Phone Number MUSE SYSTEM * XR Chest PA & Lateral (Generic) (12/11/2015 6:16 AM EDT) Anatomical Region Laterality Modality Chest N/A Digital Radiogra phy Impressions 12/11/2015 9:46 AM EDT No significant interval change. Narrative 12/11/2015 9:46 AM EDT EXAMINATION: XR CHEST PA AND LATERAL CLINICAL HISTORY: s/p LLL lobectomy TECHNIQUE: Sitting AP and lateral chest COMPARISON: 12/10/2015 FINDINGS: There is a slightly better degree of inflation of the RIGHT lung. There is no other interval change. Again noted are the postoperative findings including a left-sided chest tube, small LEFT pleural effusion and elevation of the LEFT hemidiaphragm. No pneumothorax is seen. Procedure Note Kristian Arreguin MD - 12/11/2015 EXAMINATION: XR CHEST PA AND LATERAL CLINICAL HISTORY: s/p LLL lobectomy TECHNIQUE: Sitting AP and lateral chest COMPARISON: 12/10/2015 FINDINGS: There is a slightly better degree of inflation of the RIGHT lung. There isno other interval change. Again noted are the postoperative findingsincluding a left-sided chest tube, small LEFT pleural effusion and elevation of theLEFT hemidiaphragm. No pneumothorax is seen. IMPRESSION No significant interval change. Shane Shi MD IMG DX ORDERABLE S * (ABNORMAL) Differential, Automated (12/11/2015 5:06 AM EDT) Neutrophils % 73.8 % [facility] Neutr Abs (ANC) 12.27(H) 1.50 - 6.30 x10(3)/mc L [facility] Lymphocytes % 16.5 % [facility] Lymphocytes Abs 2.7 1.0 - 3.6 x10(3)/mc L [facility] Monocytes % 8.9 % [facility] Monocyte Abs 1.5(H) 0.2 - 1.0 x10(3)/mc L [facility] Eosinophils % 0.2 % [facility] Eosinophils Abs 0.0 0.0 - 0.5 x10(3)/mc L [facility] Basophils % 0.2 % [facility] Basophils Abs 0.0 0.0 - 0.2 x10(3)/ L [facility] Immature Gran % 0.40 % [facility] Comment: Immature granulocytes(IG's)percentage and absolute count will include metamyelocytes, myelocytes, and promyelocytes. Blood smears from CBCs yielding IG's will be scanned manually for concordance. If this scan disagrees with the automated IG or if promyelocytes are noted, a manual differential will be performed. Wendy Gran Abs 0.07(H) 0.00 - 0.05 x10(3)/ L [facility] Blood specimen (specimen) 12/11/2015 5:06 AM EDT 12/11/2015 5:29 AM EDT Narrative Resulting Agency Comment Spec In Lab Shane Shi MD HEMATOLOGY ORDER DIAMOND [facility] [place] [address] * (ABNORMAL) Hemogram (12/11/2015 5:06 AM EDT) WBC 16.6(H) 4.0 - 10.0 x10(3)/[facility] LABORATORY RBC 4.24(L) 4.63 - 6.08 x10(6)/[facility] LABORATORY Hemoglobin 12.4(L) 13.7 - 17.5 gm/dL [facility] Hematocrit 38.2(L) 40.0 - 51.0 % [facility] MCV 90.1 79.0 - 92.[address] [facility] MCH 29.2 25.6 - 32.[address] [facility] MCHC 32.5 32.0 - 36.5 gm/dL [facility] Platelets 244 145 - 370 x10(3)/[facility] RDWSD 45.4 35.0 - 46.[address] [facility] RDWCV 14.0 10.9 - 14.4 % [facility] MPV 11.1 9.0 - 12.[address] [facility] nRBC % Auto 0.0 % [facility] nRBC Abs Auto 0.000 0.000 - 0.012 x10(3)/mcL [facility] Blood specimen (specimen) 12/11/2015 5:06 AM EDT 12/11/2015 5:29 AM EDT Narrative Resulting Agency Comment Spec In Lab Sahne Shi MD HEMATOLOGY ORDER DIAMOND [facility] [place] [address] * (ABNORMAL) Basic Metabolic Panel (non-fasting) (12/11/2015 5:06 AM EDT) Glucose Lvl 141 65 - 199 mg/dL [facility] Comment:Diabetes: >=200 mg/d L plus symptoms BUN 17 10 - 20 mg/dL [facility] Creatinine 1.12 0.80 - 1.50 mg/dL [facility] Comment: Please note that the pediatric reference intervals supplied above were not validated at [facility]. Results from pediatric patients should be interpreted in conjunction to the patient's age, height and muscle mass. Sodium 137 135 - 145 mmol/L [facility] Potassium 5.5(H) 3.5 - 5.0 mmol/L [facility] Comment: Please note: ??Patients with WBC >100,000 may have falsely elevated Potassium levels. ??For accurate Potassium quantification in these patients send serum separator tube (gold top) for subsequent determinations. ??Contact the Clinical Chemistry Laboratory if there are any questions. Chloride 99 98 - 107 mmol/L [facility] CO2 27 22 - 31 mmol/L [facility] Anion Gap 11 5 - 15 mmol/L [facility] Calcium 8.1(L) 8.5 - 10.5 mg/dL [facility] Estimated GFR >60 >=60 [facility] Comment: This estimated GFR (eGFR) [...] the following links into your internet browser. [email or web address] Blood specimen (specimen) 12/11/2015 5:06 AM EDT 12/11/2015 5:29 AM EDT Narrative Resulting Agency Comment Spec In Lab Shane Shi MD CHEMISTRY ORDERA BLES [facility] [place] [address] * XR Chest PA or AP 1 view (12/10/2015 2:54 PM EDT) Anatomical Region Laterality Modality Chest N/A Digital Radiogra phy Impressions 12/10/2015 3:52 PM EDT 1. ??Expected postsurgical changes as result of left lower lobectomy as described above. 2. ??Left greater than right pleural effusions. 3. ??No large pneumothorax. 4. ??Epidural catheter and left chest tube in appropriate positions. I have personally reviewed the image(s) and the residents interpretation and agree with the findings, Kristian Arreguin at 12/10/2015 3:52 PM Narrative 12/10/2015 3:52 PM EDT EXAMINATION: XR CHEST PA OR AP- 1 VIEW CLINICAL HISTORY: s/p LLLobectomy TECHNIQUE: Portable AP chest radiograph COMPARISON: Chest CT 10/24/2015 FINDINGS: A left apically directed chest tube with tip terminating over the left lung apex is noted. An epidural tip terminates over the T6 vertebral body. Multiple surgical clips overlie the left lung base and left hilum. No large pneumothorax. The lung volumes are low. Blunting of the left greater than right costophrenic angles likely represent bilateral pleural effusions. There is indistinctness of the pulmonary vasculature. Fluid tracks along the minor fissure. Subcutaneous emphysema is noted along the left lateral chest wall. No suspicious osseous lesions. Procedure Note Kristian Arreguin MD - 12/10/2015 EXAMINATION: XR CHEST PA OR AP- 1 VIEW CLINICAL HISTORY: s/p LLLobectomy TECHNIQUE: Portable AP chest radiograph COMPARISON: Chest CT 10/24/2015 FINDINGS: A left apically directed chest tube with tip terminating over the leftlung apex is noted. An epidural tip terminates over the T6 vertebral body.Multiple surgical clips overlie the left lung base and left hilum. No largepneumothorax. The lung volumes are low. Blunting of the left greater than rightcostophrenic angles likely represent bilateral pleural effusions. There isindistinctness of the pulmonary vasculature. Fluid tracks along the minor fissure.Subcutaneous emphysema is noted along the left lateral chest wall. No suspiciousosseous lesions. IMPRESSION 1. Expected postsurgical changes as result of left lower lobectomy asdescribed above. 2. Left greater than right pleural effusions. 3. No large pneumothorax. 4. Epidural catheter and left chest tube in appropriate positions. I have personally reviewed the image(s) and the residents interpretationand agree with the findings, Kristian Arreguin at 12/10/2015 3:52 PM Shane Shi MD IMG DX ORDERABLE S * Scan, Peripheral Blood (12/10/2015 2:25 PM EDT) Plat Estimate Normal [facility] RBC Morphology Abnormal [facility] Ovalocytes 1-5 /HPF [facility] Fred Cells 1-5 /HPF [facility] Giant Platelets Less than 1 /HPF [facility] Blood specimen (specimen) 12/10/2015 2:25 PM EDT 12/10/2015 2:32 PM EDT Narrative Resulting Agency Comment Spec In Lab Shane Shi MD HEMATOLOGY ORDER DIAMOND [facility] [place] [address] * (ABNORMAL) Differential, Automated (12/10/2015 2:25 PM EDT) Neutrophils % 77.5 % [facility] Neutr Abs (ANC) 14.17(H) 1.50 - 6.30 x10(3)/[facility] LABORATORY Lymphocytes % 14.3 % [facility] Lymphocytes Abs 2.6 1.0 - 3.6 x10(3)/[facility] LABOR[facility]ORY Monocytes % 6.7 % [facility] Monocyte Abs 1.2(H) 0.2 - 1.0 x10(3)/[facility] LAB[facility]ORY Eosinophils % 0.8 % [facility] Eosinophils Abs 0.1 0.0 - 0.5 x10(3)/[facility] Basophils % 0.3 % [facility] Basophils Abs 0.1 0.0 - 0.2 x10(3)/[facility] Immature Gran % 0.40 % [facility] Comment: Immature granulocytes(IG's)percentage and absolute count will include metamyelocytes, myelocytes, and promyelocytes. Blood smears from CBCs yielding IG's will be scanned manually for concordance. If this scan disagrees with the automated IG or if promyelocytes are noted, a manual differential will be performed. Wendy Gran Abs 0.07(H) 0.00 - 0.05 x10(3)/[facility] Blood specimen (specimen) 12/10/2015 2:25 PM EDT 12/10/2015 2:32 PM EDT Narrative Resulting Agency Comment Spec In Lab Shane Shi MD HEMATOLOGY ORDER DIAMOND [facility] [address] * (ABNORMAL) Hemogram (12/10/2015 2:25 PM EDT) WBC 18.3(H) 4.0 - 10.0 x10(3)/[facility] LABORATORY RBC 4.51(L) 4.63 - 6.08 x10(6)/[facility] Hemoglobin 13.3(L) 13.7 - 17.5 gm/dL [facility] Hematocrit 40.3 40.0 - 51.0 % [facility] MCV 89.4 79.0 - 92.[address] [facility] MCH 29.5 25.6 - 32.[address] [facility] MCHC 33.0 32.0 - 36.5 gm/dL [facility] Platelets 267 145 - 370 x10(3)/[facility] LABORATORY RDWSD 44.4 35.0 - 46.0 [facility] LABORATORY RDWCV 13.6 10.9 - 14.4 % [facility] MPV 10.3 9.0 - 12.[address] [facility] nRBC % Auto 0.0 % [facility] nRBC Abs Auto 0.000 0.000 - 0.012 x10(3)/[facility] Blood specimen (specimen) 12/10/2015 2:25 PM EDT 12/10/2015 2:32 PM EDT Narrative Resulting Agency Comment Spec In Lab Shane Shi MD HEMATOLOGY ORDER DIAMOND [facility] [place] [address] * Creatinine (12/10/2015 2:25 PM EDT) Creatinine 0.87 0.80 - 1.50 mg/dL [facility] Comment: Please note that the pediatric reference intervals supplied above were not validated at [facility]. Results from pediatric patients should be interpreted in conjunction to the patient's age, height and muscle mass. Estimated GFR >[address] [facility] Comment: This estimated GFR (eGFR) [...] the following links into your internet browser. [email or web address] Blood specimen (specimen) 12/10/2015 2:25 PM EDT 12/10/2015 2:32 PM EDT Narrative Resulting Agency Comment Spec In Lab Shane Shi MD CHEMISTRY ORDERA BLES Performing Organization Address [facility] Co de Phone Number [facility] [place] [address] * BUN (12/10/2015 2:25 PM EDT) BUN 11 10 - 20 mg/dL [facility] Blood specimen (specimen) 12/10/2015 2:25 PM EDT 12/10/2015 2:32 PM EDT Narrative Resulting Agency Comment Spec In Lab Shane Shi MD CHEMISTRY ORDERA BLES Performing Organization Address [facility] Co de Phone Number [facility] [place] [address] * Electrolytes panel (12/10/2015 2:25 PM EDT) Sodium 140 135 - 145 mmol/L [facility] Potassium 4.5 3.5 - 5.0 mmol/L [facility] Comment: Please note: ??Patients with WBC >100,000 may have falsely elevated Potassium levels. ??For accurate Potassium quantification in these patients send serum separator tube (gold top) for subsequent determinations. ??Contact the Clinical Chemistry Laboratory if there are any questions. Chloride 100 98 - 107 mmol/L [facility] CO2 26 22 - 31 mmol/L [facility] Anion Gap 14 5 - 15 mmol/L [facility] Blood specimen (specimen) 12/10/2015 2:25 PM EDT 12/10/2015 2:32 PM EDT Narrative Resulting Agency Comment Spec In Lab Shane Shi MD CHEMISTRY ORDERA BLES Performing Organization Address [facility] Co de Phone Number [facility] [place] [address] * Specimen to Pathology (surgical or derm) (12/10/2015 12:05 PM EDT) AP Specimen 12/10/2015 12:0 5 PM EDT 12/10/2015 12:[address] [facility] - 12/10/2015 12:05 PM EDT Specimen requisition ordered. ??Separate Pathology report to follow Shane Shi MD PATHOLOGY/CYTOLO GY ORDERABLES Performing Organization Address [facility] Co de Phone Number [facility] [place] [address] * Specimen to Pathology (surgical or derm) (12/10/2015 12:01 PM EDT) AP Specimen 12/10/2015 12:0 1 PM EDT 12/10/2015 12:[address] [facility] - 12/10/2015 12:01 PM EDT Specimen requisition ordered. ??Separate Pathology report to follow Shane Shi MD PATHOLOGY/CYTOLO GY ORDERABLES Performing Organization Address [facility] Co de Phone Number [facility] [place] [address] * Specimen to Pathology (surgical or derm) (12/10/2015 11:58 AM EDT) AP Specimen 12/10/2015 11:5 8 AM EDT 12/10/2015 11:[address] [facility] - 12/10/2015 11:58 AM EDT Specimen requisition ordered. ??Separate Pathology report to follow Shane Shi MD PATHOLOGY/CYTOLO GY ORDERABLES Performing Organization Address [facility] Co de Phone Number [facility] [place] [address] * Specimen to Pathology (surgical or derm) (12/10/2015 11:58 AM EDT) AP Specimen 12/10/2015 11:5 8 AM EDT 12/10/2015 11:[address] [facility] - 12/10/2015 11:58 AM EDT Specimen requisition ordered. ??Separate Pathology report to follow Shane Shi MD PATHOLOGY/CYTOLO GY ORDERABLES Performing Organization Address [facility] Co de Phone Number [facility] [place] [address] * Surgical Pathology Report (12/10/2015 11:49 AM EDT) FINAL DIAGNOSIS (AP) [id number] ? Location: [facility]; [facility]; B The signing pathologist has (i) examined the relevant preparation(s) for the specimen(s) and (ii) rendered or confirmed the diagnosis(es). . ?Surgical Pathology DIAGNOSIS A - Left lower lobe for frozen section 1. Adenocarcinoma, enteric type, consistent with metastatic colonic adenocarcinoma ??(see Discussion). ??Tumor size = 2.5 cm ??Margin of excision free of tumor 2. Post [...] The patient 's prior history of colonic adenocarcinoma([id number]) is noted and is currently unavailable for review. The histology and IHC studies support the diagnosis, however a small percentage of primary pulmonary adencarcinomas can show enteric type differentiation. ADDITIONAL STUDIES Immunohistochemistry Studies: Formalin-fixed, paraffin-embedded tissue sections are studied using the polymer technique with appropriate positive and negative controls. ?These IHC studies provide the pathologist with adjunctive diagnostic information. Antibody specificity has been verified by testing antibodies on a series of in-house tissues with known immunohistochemical performance characteristics. The clinical interpretation of any antibody positive staining or its absence is evaluated within the context of clinical presentation, morphology, histopathological criteria and other diagnostic tests. Block ? Antibody ?Result (Positive/Negative) A7 ? CDX-2 ?Positive in lesional cells. ? CK20 ? Positive in lesional cells. ? TTF-1 ?Negative in lesional cells. CLINICAL INFORMATION Specimen Submitted: A - Left lower lobe for frozen section B - AP window node for frozen section C - Level 7 lymph node for frozen section D - Left 10 lymph node for frozen section Clinical History: Left lower lobe lung mass Clinical Diagnosis: Left lower lobe lung mass . FROZEN SECTION Frozen section(s) performed. ??Please refer to separate electronic frozen section report(s). _ SPECIMEN PROCESSING A - Labeled/Fixative: Left lower lobe, fresh, for frozen section. SPECIMEN DESCRIPTION Qty/Size/Weight: Single, 17.0 X 9.0 x 5.0 cm, 305 grams. Resection Specimen: Intact, overload, left lung lobectomy. Outer Surface: Congested red to purple-brown with subpleural mottling. Adherent over the interface of the superior/anterior basal/medial basal segment is a 5.0 x 3.7 x 1.0 cm portion of corley to pink-lyon chest wall soft tissue. LESION Description: Mass. Size: 3.5 x 3.5 x 3.0 cm. Color: Centrally pink, peripherally yellow-white focal black mottling. Consistency: Firm red-brown, lobulated borders. Location: Parabronchial along the interface of the superior/anterior basal/lateral basal segments. Bronchial Margin: 2.2 cm from the mass. Main Lobar Bronchus: Grossly uninvolved. Pleura: Involved, the tumor extends within 0.7 cm of the adherent soft tissue margin (inked black). OTHER Secondary lesion(s): Not grossly identified. Parenchyma: ??Congested and subcrepitant with emphysematous-type changes around the mass. Lymph Nodes: Three, ranging from 0.5-1.0 cm, peribronchial. Sections: The adherent chest wall soft tissue is inked black. A mortician supplies sales representative slice to include mass and adherent soft tissue is submitted for frozen section as AFS 1. (1) frozen section residual tissue- mass and adherent chest wall soft tissue; (2) bronchial margin-en face; (3) vascular margin-en face; (4-5) mass and adjacent bronchus; (6-7) mass and adherent chest wall soft tissue; (8) Mass with adjacent basilar segment parenchyma; (9) mortician supplies sales representative superior segment parenchyma; (10) one peribronchial lymph node; (11) two bisected peribronchial lymph nodes. (R 11) B - ??Labeled/Fixative: AP window node, fresh for frozen section. Quantity/Size: Six, ranging from 0.2-0.8 cm. Tissue Description: Rubbery, brown-black lymph nodes received in a 1.4 and 1.0 x 0.4 cm aggregate of yellow-brown adipose tissue. Sections/Processing: The lymph nodes are dissected from the fat and entirely submitted for frozen section; the largest lymph node submitted as (2). The frozen section residues are submitted as (1-2). (T2) C - ??Labeled/Fixative: Level 7 lymph node, fresh for frozen section. Quantity/Size: Single, 1.0 0.3 x 0.3 cm. Tissue Description: Rubbery, ovoid red-brown lymph node. Sections/Processing: Entirely submitted for frozen section. The frozen section residue is submitted as (1). (T1) D - ??Labeled/Fixative: Level 10 lymph node, fresh for frozen section. Quantity/Size: Single, 0.7 x 0.3 x 0.3 cm. Tissue Description: Rubbery, ovoid red-brown lymph node. Sections/Processing: Entirely submitted for frozen section. The frozen section residue is submitted as (1). (T1) ??shb ?Frozen Section FROZEN SECTION DIAGNOSIS AFS - Left lower lobe for frozen section: Adenocarcinoma with necrosis, cannot exclude colorectal origin (history of CRC is noted). Chest wall margin is negative. . FROZEN SECTION DIAGNOSIS BFS - AP window node for frozen section: Benign. CFS - Level 7 lymph node for frozen section: Benign. DFS - Left 10 lymph node for frozen section: Benign. 12/10/15 12:48 LJT Electronically signed by: ??Sultana GAMBLE, Yarely De Los Santos Verified: ??12/10/2015 ?Pathologist This intraoperative consultation should be interpreted as a preliminary diagnosis pending review of the entire specimen and special studies, if any. 12/16/2015 8:[address] [facility] Frozen Specimen 12/10/2015 1 1:49 AM EDT 12/10/2015 11:49 AM EDT Frozen Specimen 12/10/2015 1 1:49 AM EDT 12/10/2015 11:49 AM EDT LYMPH NODE SPECIMEN / Unknown 12/10/2015 11:49 AM EDT 12/10/2015 11:49 AM EDT Frozen Specimen 12/10/2015 1 1:49 AM EDT 12/10/2015 11:49 AM EDT Shane Shi MD PATHOLOGY/CYTOLO GY ORDERABLES [facility] [place] [address] * (ABNORMAL) BLOOD GAS 2 ARTERIAL (12/10/2015 11:12 AM EDT) pH Art 7.38 7.35 - 7.45 [facility] pCO2 Art 50(H) 35 - [address] [facility] pO2 Art 278(H) 85 - [address] [facility] HCO3 Art 28.7(H) 20.0 - 26.0 mmol/L [facility] BE Art 3.6(H) -3.0 - 3.0 mmol/L [facility] Hgb Blood Gas 14.3 13.7 - 17.5 gm/dL [facility] O2HB Art 98.8(H) 94.0 - 97.0 % [facility] COHB Art 0.7 % [facility] Comment: Nonsmokers: 0.5-1.5% COHB Smokers: Variable, but usually less than 10% Toxic: 20-30% COHB Lethal: Greater than 60% COHB METHB Art 0.2 <=1.5 % [facility] Na Whole Blood 138 135 - 145 mmol/L [facility] K Whole Blood 4.0 3.5 - 5.0 mmol/L [facility] Comment: Please note: Patients with WBC >100,000 may have falsely elevated Potassium levels. Contact the Clinical Chemistry Laboratory if there are any questions. ICa Whole Blood 1.12(L) 1.15 - 1.33 mmol/L [facility] Comment: Note: ??Total bilirubin higher than 20 mg/dL may lead to falsely low ionized calcium. CL Whole Blood 100 98 - 107 mmol/L [facility] Gluc Whole Bld 139 65 - 199 mg/dL [facility] Comment:Diabetes: >=200 mg/d L plus symptoms. Blood specimen (specimen) 12/10/2015 11:12 AM EDT 12/10/2015 11:12 AM EDT Shane Shi MD CHEMISTRY ORDERA BLES [facility] [place] [address] * (ABNORMAL) BLOOD GAS 2 ARTERIAL (12/10/2015 9:00 AM EDT) pH Art 7.35(L) 7.35 - 7.45 [facility] pCO2 Art 48(H) 35 - [address] [facility] pO2 Art 105(H) 85 - [address] [facility] HCO3 Art 25.8 20.0 - 26.0 mmol/L [facility] BE Art 0.2 -3.0 - 3.0 mmol/L [facility] Hgb Blood Gas 14.3 13.7 - 17.5 gm/dL [facility] O2HB Art 96.8 94.0 - 97.0 % [facility] COHB Art 0.8 % [facility] Comment: Nonsmokers: 0.5-1.5% COHB Smokers: Variable, but usually less than 10% Toxic: 20-30% COHB Lethal: Greater than 60% COHB METHB Art 0.2 <=1.5 % [facility] Na Whole Blood 137 135 - 145 mmol/L [facility] K Whole Blood 3.9 3.5 - 5.0 mmol/L [facility] Comment: Please note: Patients with WBC >100,000 may have falsely elevated Potassium levels. Contact the Clinical Chemistry Laboratory if there are any questions. ICa Whole Blood 1.15(L) 1.15 - 1.33 mmol/L [facility] Comment: Note: ??Total bilirubin higher than 20 mg/dL may lead to falsely low ionized calcium. CL Whole Blood 99 98 - 107 mmol/L [facility] Gluc Whole Bld 132 65 - 199 mg/dL [facility] Comment:Diabetes: >=200 mg/d L plus symptoms. Blood specimen (specimen) 12/10/2015 9:00 AM EDT 12/10/2015 9:00 AM EDT Shane Shi MD CHEMISTRY ORDERA BLES [facility] [place] [address] * (ABNORMAL) BLOOD GAS 2 ARTERIAL (12/10/2015 8:14 AM EDT) pH Art 7.33(L) 7.35 - 7.45 [facility] pCO2 Art 55(Critica l) 35 - [address] [facility] Comment:Noted by reed or wind instrument repairer. pO2 Art 369(H) 85 - [address] [facility] HCO3 Art 28.7(H) 20.0 - 26.0 mmol/L [facility] BE Art 2.8 -3.0 - 3.0 mmol/L [facility] Hgb Blood Gas 14.2 13.7 - 17.5 gm/dL [facility] O2HB Art 98.7(H) 94.0 - 97.0 % [facility] COHB Art 0.7 % [facility] Comment: Nonsmokers: 0.5-1.5% COHB Smokers: Variable, but usually less than 10% Toxic: 20-30% COHB Lethal: Greater than 60% COHB METHB Art 0.4 <=1.5 % [facility] Na Whole Blood 138 135 - 145 mmol/L [facility] K Whole Blood 3.8 3.5 - 5.0 mmol/L [facility] Comment: Please note: Patients with WBC >100,000 may have falsely elevated Potassium levels. Contact the Clinical Chemistry Laboratory if there are any questions. ICa Whole Blood 1.16 1.15 - 1.33 mmol/L [facility] Comment: Note: ??Total bilirubin higher than 20 mg/dL may lead to falsely low ionized calcium. CL Whole Blood 100 98 - 107 mmol/L [facility] Gluc Whole Bld 108 65 - 199 mg/dL [facility] Comment:Diabetes: >=200 mg/d L plus symptoms. Blood specimen (specimen) 12/10/2015 8:14 AM EDT 12/10/2015 8:14 AM EDT Shane Shi MD CHEMISTRY ORDERA BLES [facility] [place] [address] * XR Fluoro No Rad <1Hr (12/10/2015 7:49 AM EDT) Narrative RAD - 12/10/2015 7:49 AM EDT This order does not need a radiologist interpretation. ?? Shane Shi MD IMG FLUORO ORDER DIAMOND [place], [place] documented in this encounter Visit Diagnoses Not on filedocumented in this encounter Admitting Diagnoses Diagnosis Lung mass Swelling, mass, or lump in chest documented in this encounter Administered Medications Inactive Administered Medications - up to 3 most recent administrations Medication Order MAR Action Action Date Dose Rate Site acetaminophen (TYLENOL) tablet 1,000 mg 1,000 mg, Oral, EVERY 6 HOURS SCHEDULED, First dose on Tue12/10/15 at 1800, Until Discontinued, Do not exceed 4,000 mg in 24 hours, Recovery (Recovery-Hospital Unit), Routine Given 12/13/2015 8:27 AM EDT 1,000 mg Given 12/12/2015 9:39 PM EDT 1,000 mg Given 12/12/2015 2:19 PM EDT 1,000 mg bisacodyl (DULCOLAX) suppository 10 mg 10 mg, Rectal, DAILY PRN, Starting on Tue12/12/15 at 1219, Until 12/13/15 at 1824, Constipation, Routine Given 12/13/2015 9:48 AM EDT 10 mg BUpivacaine (PF) (MARCAINE) 0.0625 % in sodium chloride 0.9% 250 mL neuraxial 6 mL/hr, Epidural, ZZ CONTINUOUS + PCEA, Starting on Velma 12/11/15 at 1045, Until 12/13/15 at 1824, Maximum rate for continuous infusion 14 mL per hour Maximum total epidural rate (continuous and PCEA bolus) is 25 mL per hour, Recovery (Recovery-Hospital Unit) New Bag 12/11/2015 12:37 PM EDT 6 mL/h r 6 mL/hr chlorthalidone (HYGROTEN) tablet 25 mg 25 mg, Oral, DAILY, First dose on Tue12/12/15 at 1200, Until Discontinued, Routine Given 12/13/2015 8:35 AM EDT 25 mg Given 12/12/2015 11:56 AM EDT 25 mg heparin (porcine) subcutaneous injection 5,000 Units 5,000 Units, Subcutaneous, EVERY 12 HOURS SCHEDULED (2 times per day), First dose on Tue12/10/15 at 2100, Until Discontinued, Routine Given 12/13/2015 8:27 AM EDT 5,000 Units Given 12/12/2015 9:46 PM EDT 5,000 Units Given 12/12/2015 8:18 AM EDT 5,000 Units ibuprofen (ADVIL;MOTRIN) tablet 600 mg 600 mg, Oral, EVERY 6 HOURS, First dose on 12/13/15 at 0915, Until Discontinued, Administer orally with milk or food to minimize GI irritation. Maximum dose of 3200 mg from all sources in 24 hours, Routine Given 12/13/2015 9:48 AM EDT 600 mg nalBUPHine (NUBAIN) injection 2 mg 2 mg, Intravenous, EVERY 4 HOURS PRN, Itching, Starting on Velma 12/11/15 at 1020, Until 12/13/15 at 1824 nalOXone (NARCAN) injection 0.2 mg 0.2 mg, Intravenous, EVERY 1 MIN PRN, Starting on Velma 12/11/15 at 1023, Until 12/13/15 at 1824, Opioid Reversal, If respiratory rate less than 6 OR the patient is unable to arouse OR SpO2 is declining, Give for respiratory rate of less than or equal to 6 and patient is heavily sedated or unarousable. May repeat every 60 seconds to increase respiratory rate. DO NOT exceed 2 mg total dose. Per Epidural order., Recovery (Recovery-Hospital Unit), Routine ondansetron (ZOFRAN) tablet 4 mg 4 mg, Oral, EVERY 8 HOURS PRN, Starting on Tue12/12/15 at 0632, Until 12/13/15 at 1824, Nausea, Routine polyethylene glycol (MIRALAX) packet 17 g 17 g, Oral, DAILY, First dose on Tue12/12/15 at 1245, Until Discontinued, Routine Given 12/13/2015 8:27 AM EDT 17 g Given 12/12/2015 12:55 PM EDT 17 g senna-docusate (PERICOLACE) 8.6-50 mg per tablet 1 tablet 1 tablet, Oral, 2 TIMES DAILY, First dose on Tue12/12/15 at 1245, Until Discontinued, Routine Given 12/13/2015 8:27 AM EDT 1 tablet Given 12/12/2015 9:45 PM EDT 1 tablet Given 12/12/2015 12:55 PM EDT 1 tablet sodium chloride 0.9 % flush 5 mL 5 mL, Intravenous, 2 TIMES DAILY, First dose on Tue12/10/15 at 2100, Until Discontinued, Recovery (Recovery-Hospital Unit), Routine Given 12/13/2015 9:48 AM EDT 5 mLs Given 12/12/2015 9:47 PM EDT 5 mLs Given 12/12/2015 8:20 AM EDT 5 mLs documented in this encounter Active and Recently Administered Medications Times are shown in EDT. Scheduled Medication Order 12/11/2015 12/12/2015 12/13/2015 acetaminophen (TYLENOL) tablet 1,000 mg 1,000 mg, Oral, EVERY 6 HOURS SCHEDULED, First dose on Tue12/10/15 at 1800, Until Discontinued, Do not exceed 4,000 mg in 24 hours, Recovery (Recovery-Hospital Unit), Routine 0300 (Not Given - Provider: Maame Padilla RN - Reason: See comment - Comment: patient asleep)0844 (Given - Provider: Therese Fabian RN)1429 (Given - Provider: Therese Fabian RN)2104 (Given - Provider: Milind Antunez RN) 0300 (Not Given - Provider: Milind Antunez RN - Reason: See comment - Comment: pt sleeping)0817 (Given - Provider: Therese Fabian RN)1419 (Given - Provider: Therese Fabian RN)2139 (Given - Provider: Maame Padilla RN) 0300 (Not Given - Provider: Maame Padilla RN - Reason: Patient/family refused)0827 (Given - Provider: Therese Fabian RN)1500 (Due - Provider: Samia Do [facility]) AMIOdarone (CORDARONE; PACERONE) tablet 400 mg(Linked Group 1) 400 mg, Oral, EVERY 8 HOURS, 9 doses, First dose on Tue12/10/15 at 2245, Last dose on Tue12/13/15 at 1445, Routine 0743 (Given - Provider: Maame Padilla RN)1428 (Given - Provider: Therese Fabian RN)2308 (Given - Provider: Milind Antunez RN) 0818 (Given - Provider: Therese Fabian RN)1419 (Given - Provider: Therese Fabian RN)2336 (Given - Provider: Maame Padilla RN) 0651 (Given - Provider: Maame Padilla RN)1445 (Due) chlorthalidone (HYGROTEN) tablet 25 mg 25 mg, Oral, DAILY, First dose on Tue12/12/15 at 1200, Until Discontinued, Routine 1156 (Given - Provider: Therese Fabian RN) 0835 (Given - Provider: Therese Fabian RN) docusate sodium (COLACE) capsule 100 mg (CANCELED) 100 mg, Oral, 3 TIMES DAILY, First dose on Tue12/10/15 at 2100, Until Discontinued, Routine 0845 (Given - Provider: Therese Fabian RN)1429 (Given - Provider: Therese Fabian RN)2104 (Given - Provider: Milind Antunez RN) 0817 (Given - Provider: Therese Fabian RN) furosemide (LASIX) injection 20 mg (COMPLETED) 20 mg, Intravenous, ONCE, 1 dose, On 12/13/15 at 0915 0948 (Given - Provider: Therese Fabian RN) heparin (porcine) subcutaneous injection 5,000 Units 5,000 Units, Subcutaneous, EVERY 12 HOURS SCHEDULED (2 times per day), First dose on Tue12/10/15 at 2100, Until Discontinued, Routine 0845 (Given - Provider: Therese Fabian RN)2104 (Given - Provider: Milind Antunez RN) 0818 (Given - Provider: Therese Fabian RN)2146 (Given - Provider: Maame Padilla RN) 0827 (Given - Provider: Therese Fabian RN) ibuprofen (ADVIL;MOTRIN) tablet 600 mg 600 mg, Oral, EVERY 6 HOURS, First dose on 12/13/15 at 0915, Until Discontinued, Administer orally with milk or food to minimize GI irritation. Maximum dose of 3200 mg from all sources in 24 hours, Routine 0948 (Given - Provider: Therese Fabian RN)1515 (Due) polyethylene glycol (MIRALAX) packet 17 g 17 g, Oral, DAILY, First dose on Tue12/12/15 at 1245, Until Discontinued, Routine 1255 (Given - Provider: Therese Fabian RN) 0827 (Given - Provider: Therese Fabian RN) senna (SENOKOT) tablet 17.2 mg (CANCELED) 17.2 mg, Oral, EVERY EVENING, First dose on Velma 12/11/15 at 1700, Until Discontinued, Routine 1617 (Given - Provider: Therese Fabian RN) senna-docusate (PERICOLACE) 8.6-50 mg per tablet 1 tablet 1 tablet, Oral, 2 TIMES DAILY, First dose on Tue12/12/15 at 1245, Until Discontinued, Routine 1255 (Given - Provider: Therese Fabian RN)2145 (Given - Provider: Maame Padilla RN) 0827 (Given - Provider: Therese Fabian RN) sodium chloride 0.9 % flush 5 mL 5 mL, Intravenous, 2 TIMES DAILY, First dose on Tue12/10/15 at 2100, Until Discontinued, Recovery (Recovery-Hospital Unit), Routine 0845 (Given - Provider: Therese Fabian RN)2104 (Given - Provider: Milind Antunez RN) 0820 (Given - Provider: Therese Fabian, SANTY)2147 (Given - Provider: Maame Padilla RN) 0948 (Given - Provider: Therese Fabian RN) Continuous Medication Order 12/11/2015 12/12/2015 12/13/2015 BUpivacaine (PF) (MARCAINE) 0.0625 % in sodium chloride 0.9% 250 mL neuraxial 6 mL/hr, Epidural, ZZ CONTINUOUS + PCEA, Starting on Velma 12/11/15 at 1045, Until 12/13/15 at 1824, Maximum rate for continuous infusion 14 mL per hour Maximum total epidural rate (continuous and PCEA bolus) is 25 mL per hour, Recovery (Recovery-Hospital Unit) 1237 (New Bag - Provider: Therese Fabian RN) 0940 (Paused - Provider: Therese Fabian, SANTY) lactated ringers infusion 1,000 mL (CANCELED) 1,000 mL, at 100 mL/hr, Intravenous, CONTINUOUS, Starting on Tue12/10/15 at 1445, Until Velma 12/11/15 at 0630, Recovery (Recovery-Hospital Unit) 0140 (New Bag - Provider: Maame Padilla, SANTY)0635 (Stopped - Provider: Maame Padilla RN) sodium chloride 0.9% infusion (CANCELED) 100 mL/hr, Intravenous, CONTINUOUS, Starting on Velma 12/11/15 at 0700, Until 12/13/15 at 0640 0635 (New Bag - Provider: Maame Padilla, SANTY)1621 (New Bag - Provider: Therese Fabian RN) 0153 (New Bag - Provider: Yaima Rock RN)1156 (New Bag - Provider: Therese Fabian, SANTY)2143 (New Bag - Provider: Maame Padilla, SANTY) PRN Medication Order 12/11/2015 12/12/2015 12/13/2015 bisacodyl (DULCOLAX) suppository 10 mg 10 mg, Rectal, DAILY PRN, Starting on Tue12/12/15 at 1219, Until 12/13/15 at 1824, Constipation, Routine 0948 (Given - Provid er: Therese Fabian RN) lidocaine (XYLOCAINE) 10 mg/mL (1 %) injection 3 mg 3 mg (0.3 mL), Subcutaneous, ONCE PRN, 1 dose, Starting on Tue12/10/15 at 1544, Until 12/13/15 at 1824, for discomfort with PIV insertion, Recovery (Recovery-Hospital Unit), Routine nalBUPHine (NUBAIN) injection 2 mg 2 mg, Intravenous, EVERY 4 HOURS PRN, Itching, Starting on Velma 12/11/15 at 1020, Until 12/13/15 at 1824 nalOXone (NARCAN) injection 0.2 mg 0.2 mg, Intravenous, EVERY 1 MIN PRN, Starting on Velma 12/11/15 at 1023, Until 12/13/15 at 1824, Opioid Reversal, If respiratory rate less than 6 OR the patient is unable to arouse OR SpO2 is declining, Give for respiratory rate of less than or equal to 6 and patient is heavily sedated or unarousable. May repeat every 60 seconds to increase respiratory rate. DO NOT exceed 2 mg total dose. Per Epidural order., Recovery (Recovery-Hospital Unit), Routine ondansetron (ZOFRAN) tablet 4 mg 4 mg, Oral, EVERY 8 HOURS PRN, Starting on Tue12/12/15 at 0632, Until 12/13/15 at 1824, Nausea, Routine sodium chloride 0.9 % flush 5-20 mL 5-20 mL, Intravenous, EVERY 1 MIN PRN, Starting on Tue12/10/15 at 1544, Until Tue12/13/15 at 1824, flush, Flush pertains to all indwelling lines. Flush per protocol found in the job aid using the link provided on this medication record., Recovery (Recovery-Hospital Unit), Routine Linked Groups Order Group 1: AMIOdarone (CORDARONE) 300 mg in dextrose 5% 106 mL bolus infusion (COMPLETED) 300 mg, Intravenous, ONCE, 1 dose, On Tue12/10/15 at 1445, Administer over 1 Hours, Administer over 1 hour. Followed by AMIOdarone (CORDARONE; PACERONE) tablet 400 mgJump to med 400 mg, Oral, EVERY 8 HOURS, 9 doses, First dose on Tue12/10/15 at 2245, Last dose on 12/13/15 at 1445, Routine documented in this encounter Care Teams Manager Of Housekeeping Relationship Specialty Start Date End Date Rolando Palumbo MD [address] [place] [address] PCP - General 11/11/14 08/07/17 documented as of this encounter
--- OUTSIDE RECORDS SUMMARY | 2023-11-03 04:03 | XMS_ITS | Encounter Summary ---
Author Organization [facility] Address [facility] [place] [address] Care Team Providers Care Oven Tender Bagels Name Role Phone Mustapha Palumbo MD Primary Care Provider [phone] [phone] Reason for Visit * Diagnostic Test (Routine) - Closed Specialty Diagnoses / Procedures Referred By Contac t Referred To Contact Radiology Diagnoses Pre-operative cardiovascular examination, high risk surgery Lung nodule Procedures NM myocardial perfusion - stress & rest Shane Diamond MD [facility] [place] [address] [facility] [place] [address] Referral ID Status Reason Start Date Expiration Date V isits Requested Visits Authorized [id number] Closed Specialty Service Requested 11/01/2015 10/31/2016 4 4 Encounter Details Date Type Department Care Team (Latest Contact Info) Description 11/04/2015 8:18 AM EDT - 11/04/2015 9:33 AM EDT Hospital Encounter [place] [address] Shane Diamond MD [facility] [place] [address] Discharge Disposition: Home Social History Tobacco Use Types Packs/Day Years Used Date Smoking Tobacco: Former Cigarettes Q uit: 04/25/1997 Smokeless Tobacco: Former Sex and Gender Information Value Date Recorded Sex Assigned at Not on file Gender Identity Not on file Sexual Orientation Not on file documented as of this encounter Medications at Time of Discharge Medication Sig Dispensed Refills Start Date End Date chlorthalidone (HYGROTEN) 25 mg tablet Take 25 mg by mouth daily. 12/26/2017 MULTIVITAMIN W-MINERALS/LUTEIN (CENTRUM SILVER ORAL) Take 1 tablet by mouth every morning. 12/29/2015 aspirin 81 mg EC tablet Take 81 mg by mouth every 3 days. 12/26/2017 acetaminophen (TYLENOL) 325 mg tablet 04/24/2010 12/13/2015 documented as of this encounter Plan of Treatment Upcoming Encounters Date Type Department Care Team (Late st Contact Info) Description 11/03/2023 8:30 AM EDT Office Visit Hematology/Oncology at [address] [phone] Garcia Childress MD [facility] DR [place] [address] Kassy Ken APRN [address] [place] [address] DR MEDICAL ONCOLOGY [place], [place] [id number] documented as of this encounter Procedures Procedure Name Priority Date/Time Associated Diagnosis Comments NM EXERCISE STRESS AND REST MYOCARDIAL PERFUSION Routine 11/04/2015 10:20 AM EDT Pre-operative cardiovascular examination, high risk surgery Lung nodule documented in this encounter Results * NM myocardial perfusion - stress & rest (11/04/2015 10:20 AM EDT) Anatomical Region Laterality Modality Nuclear Medicine Impressions 11/04/2015 11:33 AM EDT No ischemia or scar. ?? Left ventricular function is normal. Narrative 11/04/2015 11:33 AM EDT EXAMINATION: NM MYOCARDIAL PERFUSION STRESS AND REST CLINICAL HISTORY: lung nodule, pre-op cardiovascular evaluation for high risk surgery TECHNIQUE: During rest, 8.0 mCi of technetium-99 sestamibi were administered intravenously. Approximately 15 minutes later, SPECT images of the heart were obtained with reconstruction in the short, vertical long and horizontal long axes. The patient was then exercised to 8.1 METS to a peak heart rate of 151 bpm which is 98 % of the maximum predicted heart rate. ??28.4 mCi of technetium-99m sestamibi was then administered intravenously and the patient was exercised for one and one half additional minutes. Images of the heart were then again obtained with SPECT reconstruction. A low dose CT scan was acquired for the purpose of attenuation correction. COMPARISON: None FINDINGS: No fixed or reversible perfusion defects are present. Functional analysis: Myocardial function: There is normal wall motion and wall thickening. Left ventricular ejection fraction: 68 % (normal greater than 50%) Procedure Note Rajesh Castaneda MD - 11/04/2015 EXAMINATION: NM MYOCARDIAL PERFUSION STRESS AND REST CLINICAL HISTORY: lung nodule, pre-op cardiovascular evaluation for highrisk surgery TECHNIQUE: During rest, 8.0 mCi of technetium-99 sestamibi wereadministered intravenously. Approximately 15 minutes later, SPECT images of the heartwere obtained with reconstruction in the short, vertical long and horizontallong axes. The patient was then exercised to 8.1 METS to a peak heart rate of 151 bpmwhich is 98 % of the maximum predicted heart rate. 28.4 mCi of technetium-99m sestamibi was then administered intravenously and the patient wasexercised for one and one half additional minutes. Images of the heart were then again obtained with SPECT reconstruction. A low dose CT scan was acquired for the purpose of attenuationcorrection. COMPARISON: None FINDINGS: No fixed or reversible perfusion defects are present. Functional analysis: Myocardial function: There is normal wall motion and wall thickening. Left ventricular ejection fraction: 68 % (normal greater than 50%) IMPRESSION No ischemia or scar. Left ventricular function is normal. Shane Diamond MD IMG NM ORDERABLE S documented in this encounter Visit Diagnoses Not on filedocumented in this encounter Care Teams Oven Tender Bagels Relationship Specialty Start Date End Date Mustapha Palumbo MD [address] [facility] [place] [address] PCP - General 11/11/14 08/07/17 documented as of this encounter
--- OUTSIDE RECORDS SUMMARY | 2023-11-03 04:03 | XMS_ITS | Encounter Summary ---
Author Organization [facility] Address [facility] [place] [address] Care Team Providers Care Plastics Spreading Machine Operator Name Role Phone Mustapha Palumbo MD Primary Care Provider [phone] [phone] Reason for Referral * Diagnostic Test (Routine) - Closed Specialty Diagnoses / Procedures Referred By Contac t Referred To Contact Radiology Diagnoses Pre-operative cardiovascular examination, high risk surgery Lung nodule Procedures NM myocardial perfusion - stress & rest Shane Diamond MD [facility] [place] [address] [place] [address] Referral ID Status Reason Start Date Expiration Date V isits Requested Visits Authorized [id number] Closed Specialty Service Requested 11/01/2015 10/31/2016 4 4 Reason for Visit * Diagnostic Test (Routine) - Closed Specialty Diagnoses / Procedures Referred By Contac t Referred To Contact Radiology Diagnoses Pre-operative cardiovascular examination, high risk surgery Lung nodule Procedures NM myocardial perfusion - stress & rest Shane Diamond MD [facility] [place] [address] [place] [address] Referral ID Status Reason Start Date Expiration Date V isits Requested Visits Authorized [id number] Closed Specialty Service Requested 11/01/2015 10/31/2016 4 4 Encounter Details Date Type Department Care Team (Latest Contact Info) Description 11/04/2015 8:03 AM EDT - 11/04/2015 8:14 AM EDT Hospital Encounter [place] [address] Shane Diamond MD [facility] [place] [address] Pre-operative cardiovascular examination, high risk surgery; Lung nodule Discharge Disposition: Home Social History Tobacco Use [...] 8:30 AM EDT Office Visit Hematology/Oncology at [address] [phone] Garcia Childress MD [facility] [place] [address] Kassy Ken APRN [address] [place] [address] DR MEDICAL ONCOLOGY [place], [place] [id number] documented as of this encounter Procedures Procedure [...] examination, high risk surgery Pre-operative cardiovascular examination Lung nodule Solitary pulmonary nodule documented in this encounter Administered Medications Inactive Administered Medications - up to 3 most recent administrations Medication Order MAR Action Action Date Dose Rate Site technetium (Tc-99m) sestamibi injection 8 mCi 8 mCi, Intravenous, ONCE PRN, 1 dose, Starting on Tue11/04/15 at 0815, Until Tue11/04/15 at 0815, Per Protocol, IV: R-ACF, Routine Given 11/04/2015 8:15 AM EDT 8 mCi documented in this encounter Care Teams Plastics Spreading Machine Operator Relationship Specialty Start Date End Date Mustapha Palumbo MD [address] [facility] [place] [address] PCP - General 11/11/14 08/07/17 documented as of this encounter
--- OUTSIDE RECORDS SUMMARY | 2023-11-03 04:03 | XMS_ITS | Encounter Summary ---
Author Organization [facility] Address [facility] [place] [address] Care Team Providers Care Head Greenskeeper Name Role Phone Mustapha Palumbo MD Primary Care Provider [phone] Reason for Visit * Diagnostic Test (Routine) - Closed Specialty Diagnoses / Procedures Referred By Contac t Referred To Contact Radiology Diagnoses Pre-operative cardiovascular examination, high risk surgery Lung nodule Procedures NM myocardial perfusion - stress & rest Shane Diamond MD [facility] [address] [facility] [place] [address] Referral ID Status Reason Start Date Expiration Date V isits Requested Visits Authorized [id number] Closed Specialty Service Requested 11/01/2015 10/31/2016 4 4 Encounter Details Date Type Department Care Team (Latest Contact Info) Description 11/04/2015 8:15 AM EDT - 11/04/2015 8:16 AM EDT Hospital Encounter [place] [address] Shane Diamond MD [facility] [address] Discharge Disposition: Home Social History [...] AM EDT Office Visit Hematology/Oncology at [address] [phone] Garcia Childress MD [facility] DR [place] [address] Kassy Ken APRN [address] [place] [address] DR MEDICAL ONCOLOGY [place], [place] [id number] documented as of this encounter Procedures Procedure [...] on filedocumented in this encounter Care Teams Head Greenskeeper Relationship Specialty Start Date End Date Mustapha Palumbo MD [address] [facility] [place] [address] PCP - General 11/11/14 08/07/17 documented as of this encounter
--- OUTSIDE RECORDS SUMMARY | 2023-11-03 04:03 | XMS_ITS | Encounter Summary ---
Author Organization [facility] [place] [address] Care Team Providers Care Operators Teacher Name Role Phone Mustapha Palumbo MD Primary Care Provider [phone] [phone] Encounter Details Date Type Department Care Team (Late Contact Info) Description 11/24/2015 Telephone [place] [phone] Jacinta Richard RN Social History Tobacco Use Types Packs/Day Years Used Date Smoking Tobacco: Former Cigarettes Q uit: 04/25/1997 Smokeless Tobacco: Former Sex and Gender Information Value Date Recorded Sex Assigned at Not on file Gender Identity Not on file Sexual Orientation Not on file documented as of this encounter Miscellaneous Notes * Telephone Encounter - Jacinta Richard RN - 11/24/2015 4:07 PM EDT LM on home phone to call back at his earliest convenience. Reason the call: Pt called last week requesting results on his pre-operative testing. Pt had MRI brain and PFT's. Awaiting results of PFT from [facility]. documented in this encounter Plan of Treatment Upcoming Encounters Date Type Department Care Team (Late st Contact Info) Description 11/03/2023 8:30 AM EDT Office Visit Hematology/Oncology at [address] [phone] Garcia Childress MD [facility] DR [place] [address] Kassy Ken APRN [address] [place] [address] DR MEDICAL ONCOLOGY [place], [place] [id number] documented as of this encounter Visit Diagnoses Not on filedocumented in this encounter Care Teams Operators Teacher Relationship Specialty Start Date End Date Mustapha Palumbo MD [address] [place] [address] PCP - General 11/11/14 08/07/17 documented as of this encounter
--- OUTSIDE RECORDS SUMMARY | 2023-11-03 04:03 | XMS_ITS | Encounter Summary ---
Author Organization [facility] Address [facility] [place] [address] Care Team Providers Care Wrapper Hands Sprayer Name Role Phone Mustapha Palumbo MD Primary Care Provider [phone] [phone] Encounter Details Date Type Department Care Team (Latest Contact Info) Description 11/05/2015 - 11/05/2015 11:59 PM EDT Hospital Encounter [place] [address] Shane Diamond MD [facility] [place] [address] Pain Discharge Disposition: Home Social History Tobacco Use [...] 8:30 AM EDT Office Visit Hematology/Oncology at [address] [phone] Garcia Childress MD [facility] DR H[place] [address] Kassy Ken, [address] MEDICAL ONCOLOGY [place], [place] [id number] documented as of this encounter Procedures Procedure Name Priority Date/Time Associated Diagnosis Comments FILM LIBRARY STORAGE ONLY MR HEAD Routine 11/05/2015 12:00 AM EDT Pain documented in this encounter Results * Film Library- Storage only MR Head (11/05/2015 12:00 AM EDT) Narrative [facility] - 11/05/2015 8:14 PM EDT This exam is for storage only and is auto-finalizing. Shane Diamond MD IMG FILM LIBRARY ORDERABLES Performing Organization Address City/State/[facility] Co de Phone Number [place], [place] documented in this encounter Visit Diagnoses Diagnosis Pain Generalized pain documented in this encounter Care Teams Wrapper Hands Sprayer Relationship Specialty Start Date End Date Mustapha Palumbo MD [address] [place] [address] PCP - General 11/11/14 08/07/17 documented as of this encounter
--- OUTSIDE RECORDS SUMMARY | 2023-11-03 04:03 | XMS_ITS | Encounter Summary ---
Author Organization [facility] Address [place] [address] Care Team Providers Care Medication Technician Name Role Phone Mustapha Palumbo MD Primary Care Provider [phone] [phone] Reason for Visit * Diagnostic Test (Routine) - Closed Specialty Diagnoses / Procedures Referred By Contac t Referred To Contact Radiology Diagnoses Carcinoma of colon Procedures PET/CT STANDARD (Skull base to Mid-thigh) Jose Grubbs MD [address] [place] [address] [place] [address] [place] [address] Referral ID Status Reason Start Date Expiration Date V isits Requested Visits Authorized [id number] Closed Specialty Service Requested 10/28/2015 10/27/2016 1 1 Encounter Details Date Type Department Care Team (Latest Contact Info) Description 10/31/2015 7:04 AM EDT - 10/31/2015 11:59 PM EDT Hospital Encounter [place] [phone] Jose Grubbs MD [address] [place] [address] [place] [address] Discharge Disposition: Home Social History Tobacco Use [...] 8:30 AM EDT Office Visit Hematology/Oncology at [address] [phone] Garcia Childress MD [facility] DR HEMATOLOGY [place] [address] Kassy Ken APRN [address] [place] [address] DR MEDICAL ONCOLOGY [place], [place] [address] documented as of this encounter Procedures Procedure Name Priority Date/Time Associated Diagnosis Comments PET SCAN (SCAN) 11/05/2015 12:00 AM EDT NM PET CT SKULL BASE TO MID-THIGH ([facility]) Routine 10/31/2015 9:28 AM EDT Carcinoma of colon documented in this encounter Results * SCAN DOC: PET SCAN (11/05/2015 12:00 AM EDT) Anatomical Region Laterality Modality Positron Emissio n Tomography (PET) Scanning Provider MEDIA MGR SCAN EXT O RDR/RSLT documented in this encounter Visit Diagnoses Not on filedocumented in this encounter Care Teams Medication Technician Relationship Specialty Start Date End Date Mustapha Palumbo MD [address] [place] [address] PCP - General 11/11/14 08/07/17 documented as of this encounter
--- OUTSIDE RECORDS SUMMARY | 2023-11-03 04:03 | XMS_ITS | Encounter Summary ---
Author Organization [facility] Address [facility] [place] [address] Care Team Providers Care Sample Mounter Name Role Phone Rolando Palumbo MD Primary Care Provider [phone] Reason for Referral * Diagnostic Test (Routine) - Closed Specialty Diagnoses / Procedures Referred By Contac t Referred To Contact Radiology Diagnoses Pre-operative cardiovascular examination, high risk surgery Lung nodule Procedures NM myocardial perfusion - stress & rest Shane Diamond MD [facility] [place] [address] [place] [address] Referral ID Status Reason Start Date Expiration Date V isits Requested Visits Authorized [id number] Closed Specialty Service Requested 11/01/2015 10/31/2016 4 4 Encounter Details Date Type Department Care Team (Latest Contact Info) Description 10/31/2015 10:45 AM EDT Office [place] [phone] Shane Diamond MD [facility] [place] [address] Pre-operative cardiovascular examination, high risk surgery; Lung nodule Social History Tobacco Use Types Packs/Day Years Used Date Smoking Tobacco: Former Cigarettes Q uit: 04/25/1997 Smokeless Tobacco: Former Sex and Gender Information Value Date Recorded Sex Assigned at Not on file Gender Identity Not on file Sexual Orientation Not on file documented as of this encounter Last Filed Vital Signs Vital Sign Reading Time Taken Comments Blood Pressure 115/60 10/31/2015 11:11 AM EDT Pulse 86 10/31/2015 11:11 AM EDT Temperature 36.6 ??C (97.9 ??F) 10/31/2015 1 1:11 AM EDT Respiratory Rate 16 10/31/2015 11:1 1 AM EDT Oxygen Saturation 96% 10/31/2015 11: 11 AM EDT Inhaled Oxygen Concentration - - Weight 109.4 kg (241 lb 3.2 oz) 016 11:11 AM EDT Height 182.9 cm (6') 10/31/2015 11:11 AM EDT Body Mass Index 32.71 10/31/2015 11:11 AM EDT documented in this encounter Patient Instructions * Patient Instructions* Romy Garcia RN - 10/31/2015 10:45 AM EDT Thank you for meeting with Dr. Diamond. You will be having a flexible bronchoscopy, left thoracoscopy, lobectomy and possible chest wall resection. ?? Bronchoscopy is the term for a procedure in which a scope (thin tube with a light source on the end), is placed through your mouth or nose and into your trachea and large airways. A small amount of tissue from the surface of the area is removed. The removal of the tissue is called a biopsy. ?? Thoracoscopy. Thoracoscopy allows the surgeon to see inside your chest. In this procedure, the surgeon makes one or more small incisions between your ribs. A tube with a tiny video camera is then inserted into your chest cavity -- a procedure sometimes called video-assisted thoracoscopic surgery(VATS). Special surgical tools allow your surgeon to cut away small pieces of tissue for testing. ?? A lobectomy is the removal of an entire lobe of the lung. The rest of the lung inflates to fill up that space. Before your Surgery: ?? Preadmission Testing today in clinic 4V Prior to your surgery date, you will have an MRI, stress test, and pulmonary function test. Someonefrom Thoracic Surgery will be calling you to schedule these appointments. ?? You will check in for your MRI at [facility]. Please remember to remove all jewelry priorto your appointment. ?? You will check in for your stress test at [facility]. You must refrain from eating or drinking anything for 3 hours prior to your check in time. Additionally, you must refrain from eating or drinking any item that may contain caffeine for 12 hours prior to your check in time. Our nurse will contact you with special instructions regarding your daily medications, if they need to be taken differently prior to the testing. Failure to adhere to these guidelines will result in your testing being canceled and rescheduled to a later date. ?? You will check in at [facility] for your Pulmonary Function Testing. This testing will take less than one hour. Pulmonary function testing helps evaluate how well your lungs are working. ?? Exercise: Daily aerobic exercise for at least 30 minutes will help improve your endurance and improve the breathing capacity of your lungs. This means that you are breathing hard, your heart is beating fast and that you are sweating. Examples of this include walking, biking, swimming, and using a treadmill or stationary bike. You will be expected to exercise after surgery as well. ?? Incentive Spirometer: Use your incentive spirometer as you were shown in clinic: 6 times daily/10 breaths each time. Takea slow, deep breath in through your mouth. While the piston rises, the indicator on the right should move upwards. It should stay between the 2 arrows for 2 to 4 seconds with each breath. If the indicator does not stay between the arrows, you are breathing either too fast or too slowly. The incentive spirometer will help you expand your lungs and encourage you to breathe deeply and fully. Please bring your incentive spirometer to the hospital with you on the day of surgery. You willuse the incentive spirometer as part of your recovery process and to prevent complications such as pneumonia. Some things to expect during your surgery and while you are in the hospital: Before your surgery you will most likely have an epidural placed for pain control. This is a very thin catheter placed just outside the covering of the spinal cord (the epidural space). This will be done just before your operation and you will receive some medication to sedate you before having it placed. You will lie on your belly or prone, to have this procedure. The epidural will help to control your pain by focusing pain medications near the site of your operation. An anesthesiologist will put the epidural in. The area on your back will be cleaned first. A numbing medicine will be injected into the area. Once the area is numb, the doctor will insert a needle into the area. They will check for correct placement with an x-ray. When the needle is in the correct spot, a thin wire-like catheter will be inserted through the needle and the needle will be removed. You will be able to walk with this epidural. It typically is removed a day or two after surgery, but may stay in for a week. Small amounts of pain medication will be administered through the catheter continuously with a pump mo nitored by the nurse and doctor. You will also be able to give yourself a small amount of medication by pushing a button attached to the pain medication pump. The nursing staff will be giving you acetaminophen or tylenol along with the epidural pain medication. Please have acetaminophen at home to take after surgery along with your prescription pain medication. If your pain is not adequately controlled please let your nurse know. You will leave the operating room with a urinary catheter. The catheter is usually removed a day ortwo after surgery. You will have a chest tube placed while you are in surgery. A chest tube is a flexible tube that isused to drain blood, fluid and air from around your lungs after surgery. The tube enters your body between your ribs and goes into the space between the inner lining and outer lining of your lung. This is called the pleural space. The chest tube will come out a day after surgery, if there is no airleak in your lung. If there is an air leak, the chest tube will stay in until it stops. The nurse and doctor will be watching for the air leak to clear up regularly throughout the day. Dr. Diamond's team will see you twice per day while you are in the hospital. Two weeks after youleave the hospital, you will be scheduled to see Dr. Diamond in his clinic and will also have a chest x-ray before you see him on this day. Please call the Thoracic surgery nurses, Gila and Jannet, if you have any questions before or after your surgery at . documented in this encounter Progress Notes * Shane Diamond MD - 10/31/2015 10:45 AM EDT ADDENDUM: I saw and examined Mr. Kincaid with the surgical technician and agree with the findings, assessment and plan. In brief, this is a 64-year-old male with a history of an early stage colon cancer resected in 2007 who had a 3.8 cm left lower lobe mass detected after a CT was obtained for a rising CEA. The patient has a history of pipe smoking, but never cigarette smoking. Past medical history is notable for obesity, but otherwise unremarkable. Past surgical history is noncontributory. On physical exam, he appears well. I personally reviewed his chest CT which demonstrated a 3.8 cm left lower lobe mass. On PET, the mass was PET-avid, but there were no signs of local, regional or distant metastatic disease. In view of the size of the mass, he will require an MRI of the brain. In view of his age, he will require cardio stress testing. Pulmonary function testing is also indicated to assess his fitness for operation although in view of his functional history, I suspect that this will not be prohibited. Once these findings have been obtained, we will plan on a left thoracoscopic wedge resection, possibly with a lower lobectomy. The patient agrees with the plan and wishes to proceed. SHANE DIAMOND MD documented in this encounter H&P Notes * Anne Mckeon PA - 10/31/2015 10:45 AM EDT Thoracic Surgery Outpatient Consultation Note [place], [place] [address] FAX: Date of Consultation: 10/31/2015 This consultation has been requested by PCP: ROLANDO PALUMBO MD Referring Physician: Jose Grubbs MD Purpose for Consultation: LLL mass HPI: Mr. Kincaid is a 64 yo male with LLL mass, measuring 3.8cm concerning for primary lung cancer. His PMHx is significant for HTN and adenocarcinoma of the sigmoid colon resection in 2007 (pT2 pN0 Mx, well differentiated). Today he reports that he was seen by Hematology for routine follow up regarding his colon cancer and his blood numbers where going up (CEA). This prompted Dr. Grubbs to order a CT scan, which showed the lung mass. He has never smoked cigarettes but admits to smoking tobacco pipes (10-15 per day) for 20 years. Hequit about 18 years ago. 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 He denies all symptoms including dyspnea, dyspnea on exertion, cough, hemoptysis, wheeze, chest pain, fever, chills, nausea, vomiting, dysphagia, weight loss. He has had pneumonia in the past but wastreated as an outpatient. Past Medical History: Patient Active Problem List Diagnosis Date Noted ??? Carcinoma of colon 04/01/2008 Priority: High ??? CIS - Past Surgery/Trauma Priority: Low ??? Mass of lower lobe of left lung ??? Inflamed seborrheic keratosis 03/18/2011 ??? Elevated LFTs ??? Obesity Past Medical History Diagnosis Date ??? Carcinoma of colon 04/01/2008 adenocarcinoma of sigmoid colon - pT2 pN0 Mx, well differentiated - 04/01/08 screening colonoscopy - sigmoid carcinoma - 04/22/08 sigmoid resection ---Pathologic Diagnosis--- CONSULTATION CASE 1. Outside slides labeled [id number], collection date 04/01/08. Colon, biopsy at 15 cm: Invasive adenoca rcinoma, arising in association with a tubular adenoma with high grade dysplasia. 2. Outside slideslabeled [id number], collection date 04/22/08. A - Small bowel, [...] leg 40 years ago Past Surgical History: Past Surgical History Procedure Laterality Date ??? Varicose vein surgery Right 40 years ago Medications: Outpatient Prescriptions Marked as Taking for the 10/31/15 encounter (Office Visit) with Shane Diamond MD Medication Sig Dispense Refill ??? chlorthalidone (HYGROTEN) 25 mg tablet Take 25 mg by mouth daily. ??? MULTIVITAMIN W-MINERALS/LUTEIN (CENTRUM SILVER ORAL) Take 1 tablet by mouth every morning. ??? ANTIOX #8/OM3/DHA/EPA/LUT/ZEAX (PRESERVISION AREDS 2 ORAL) Take 1 tablet by mouth every morning. ??? aspirin 81 mg EC tablet Take 81 mg by mouth every 3 days. ??? acetaminophen (TYLENOL) 325 mg tablet Allergies: Allergies Allergen Reactions ??? Adhesive Tape CIS - Rash, CIS - Rash Family History: Family History Problem Relation Age of Onset ??? Alzheimer Disease Mother ??? Prostate Cancer Father Social History: Social History Social History ??? Marital status: Spouse name: N/A ??? Number of children: N/A ??? Years of education: N/A Occupational History ??? Not on file. Social History Main Topics ??? Smoking status: Former Smoker Quit date: 04/25/1997 ??? Smokeless tobacco: Former User ??? Alcohol use Not on file ??? Drug use: Not on file ??? Sexual activity: Not on file Other Topics Concern ??? Not on file Social History Narrative REVIEW OF SYSTEMS: General: Denies fatigue, weight loss, chills, night sweats. Neuro: Denies seizure, TIA, CVA, WYATT, visual changes, weakness is extremities Psychiatric: Denies psychiatric diagnoses Cardiovascular: Denies arrythmias, CAD, family history of cardiac disease, CHF, hyperlipidemia. Respiratory: Denies asthma, COPD, emphysema, cough, dyspnea, hemoptysis, recent respiratory infection, TB or exposure to TB. GI: denies changes in bowel habits : denies changes in voiding habits Hematologic: Denies history of DVT, PE. Endocrine: denies diabetes mellitus, denies thyroid disease. Musculoskeletal: Pos arthritis in b/l hands Integument: Denies skin cancer. Physical Exam: BP 115/60 Pulse 86 Temp 36.6 ??C (97.9 ??F) Resp 16 Ht 182.9 cm (6') Wt (!) 109.4 kg (241 lb 3.2 oz) SpO2 96% BMI 32.71 kg/m2 General Appearance: Alert, cooperative, no distress, appears stated age, no HEENT: PERRL, MMM, non-icteric Neck: Supple, symmetrical, trachea midline, no adenopathy; thyroid: not enlarged, symmetric, no tenderness/mass/nodules Lungs: Clear to auscultation B/L, respirations unlabored, no wheezes, crackles or ronchi. Heart: Regular rate and rhythm, S1 and S2 normal, no murmur, rub, or gallop Abdomen: Obese, Soft, non-tender, bowel sounds normo-active in all four quadrants Extremities: Extremities normal, no cyanosis, clubbing. no edema Neurologic: A+Ox3, cranial nerves II-XII grossly intact Musculoskeletal: 5/5 throughout with normal gait Diagnostics: I have independently visualized all relevant imaging studies, including: CT Chest (10/24/15): No evidence of abdominal or pelvic metastatic disease. Post surgical changes to the rectosigmoid colon. No evidence of a recurrent mass. PET (10/31/15): 1. Hypermetabolic 3.8 x 2.7 cm LEFT upper lobe mass consistent with primary pulmonary malignancy orless likely oligometastatic disease. 2. No other sites of FDG avid malignancy. Assessment: This is a 64 y.o. male with LLL mass measuring 3.8cm concerning for primary lung cancer. Recommend Left VATS LLL wedge resection, possible LLLobectomy. However, require additional testingprior to proceeding with surgery. Patient voices understanding of this plan. Plan of Management: 1. MRI Brain 2. Pre admission Testing 3. Cardiac Stress Testing 4. PFTs 5. 30 min exercise daily, at minimum 6. Call with any question 7. Left VATS wedge resection, possible LULlobectomy, consent signed NIMO Rosen 10/31/2015 documented in this encounter Plan of Treatment Upcoming Encounters Date Type Department Care Team (Late st Contact Info) Description 11/03/2023 8:30 AM EDT Office Visit Hematology/Oncology at [address] [phone] Garcia Childress MD [facility] [place] [address] Kassy Ken APRN [address] [place] [address] [place] [address] documented as of this encounter Results * NM myocardial perfusion [...] Shane Diamond MD IMG NM ORDERABLE S * Nuclear Exercise Stress Cardiology (11/04/2015 10:11 AM EDT) Anatomical Region Laterality Modality Other Shane Diamond MD CARDIAC SERVICES ORDERABLES * (ABNORMAL) Comprehensive metabolic panel (non-fasting) (10/31/2015 2:36 PM EDT) Glucose Lvl 103 65 - 199 mg/dL [facility] Comment:Diabetes: >=200 mg/d L plus symptoms BUN 13 10 - 20 mg/dL [facility] Creatinine 0.96 0.80 - 1.50 mg/dL [facility] Comment: Please note that the pediatric reference intervals supplied above were not validated at [facility]. Results from pediatric patients should be interpreted in conjunction to the patient's age, height and muscle mass. Sodium 139 135 - 145 mmol/L [facility] Potassium 4.0 3.5 - 5.0 mmol/L [facility] Comment: Please note: ??Patients with WBC >100,000 may have falsely elevated Potassium levels. ??For accurate Potassium quantification in these patients send serum separator tube (gold top) for subsequent determinations. ??Contact the Clinical Chemistry Laboratory if there are any questions. Chloride 96(L) 98 - 107 mmol/L [facility] CO2 29 22 - 31 mmol/L [facility] Anion Gap 14 5 - 15 mmol/L [facility] Calcium 10.0 8.5 - 10.5 mg/dL [facility] Total Protein 8.5(H) 6.1 - 8.0 gm/dL [facility] Albumin 4.3 3.2 - 5.2 gm/dL [facility] AST 20 0 - 39 unit/L [facility] ALT 24 0 - 55 unit/L [facility] Alk Phos 120 40 - 120 unit/L [facility] Total Bilirubin 0.6 0.2 - 1.3 mg/dL [facility] Bili, Direct 0.1 0.0 - 0.3 mg/dL [facility] Estimated GFR >60 >=60 [facility] Comment: This estimated GFR (eGFR) [...] the following links into your internet browser. [email or web address] Blood specimen (specimen) 10/31/2015 2:36 PM EDT 10/31/2015 2:59 PM EDT Narrative Resulting Agency Comment Spec In Lab Shane Diamond MD CHEMISTRY ORDERA BLES [facility] [place] [address] * EKG 12 Lead (10/31/2015 2:17 PM EDT) Ventricular rate 80 BPM MUSE SYSTEM Atrial Rate 80 BPM MUSE SYSTEM P-R Interval 136 ms MUSE SYSTEM QRS Duration 108 ms MUSE SYSTEM Q-T Interval 396 ms MUSE SYSTEM QTC Calculated (Bezet) 456 ms MUSE SYSTEM Calculated P Edmondson 67 degrees MUSE SYSTEM Calculated R Edmondson 39 degrees MUSE SYSTEM Calculated T Edmondson 53 degrees MUSE SYSTEM INTERPRETATION Normal sinus rhythm Incomplete right bundle branch block Borderline ECG No previous ECGs available Confirmed by MD Carrillo Douglas ([id number]) on 11/01/2015 9:40:29 AM MUSE SYSTEM 10/31/2015 2:17 PM EDT 11/01/2015 9:40 AM EDT Shane Diamond MD ECG ORDERABLES MUSE SYSTEM documented in this encounter Visit Diagnoses Diagnosis Pre-operative cardiovascular examination, high risk surgery Pre-operative cardiovascular examination Lung nodule Solitary pulmonary nodule Pre-operative cardiovascular examination, high risk surgery Pre-operative cardiovascular examination Lung nodule Solitary pulmonary nodule documented in this encounter Care Teams Sample Mounter Relationship Specialty Start Date End Date Rolando Palumbo MD [address] [place] [address] PCP - General 11/11/14 08/07/17 documented as of this encounter
--- OUTSIDE RECORDS SUMMARY | 2023-11-03 04:03 | XMS_ITS | Encounter Summary ---
Author Organization [facility] Address [facility] [place] [address] Care Team Providers Care Harness And Bag Inspector Name Role Phone Mustapha Palumbo MD Primary Care Provider [phone] Reason for Visit * Diagnostic Test (Routine) - Closed Specialty Diagnoses / Procedures Referred By Contac t Referred To Contact Radiology Diagnoses Pre-operative cardiovascular examination, high risk surgery Lung nodule Procedures NM myocardial perfusion - stress & rest Shane Diamond MD [facility] [place] [address] [facility] [place] [address] Referral ID Status Reason Start Date Expiration Date V isits Requested Visits Authorized [id number] Closed Specialty Service Requested 11/01/2015 10/31/2016 4 4 Encounter Details Date Type Department Care Team (Latest Contact Info) Description 11/04/2015 8:17 AM EDT Hospital Encounter [place] [address] Shane Diamond MD [facility] [place] [address] Discharge Disposition: Home Social History [...] 8:30 AM EDT Office Visit Hematology/Oncology at [address] [phone] Garcia Childress MD [facility] DR HEMATOLOGY [place] [address] Kassy Ken APRN [address] [place] [address] DR MEDICAL ONCOLOGY [place], [place] [id number] documented as of this encounter Procedures Procedure Name Priority Date/Time Associated Diagnosis Comments NM EXERCISE STRESS AND REST MYOCARDIAL PERFUSION Routine 11/04/2015 10:20 AM EDT Pre-operative cardiovascular examination, high risk surgery Lung nodule documented in this encounter Visit Diagnoses Not on filedocumented in this encounter Administered Medications Inactive Administered Medications - up to 3 most recent administrations Medication Order MAR Action Action Date Dose Rate Site technetium (Tc-99m) sestamibi injection 28.4 mCi 28.4 mCi, Intravenous, ONCE PRN, 1 dose, Starting on Tue11/04/15 at 1000, Until Tue11/04/15 at 1000, Per Protocol, IV: R-ACF, Routine Given 11/04/2015 10:00 AM EDT 28.4 mCi documented in this encounter Care Teams Harness And Bag Inspector Relationship Specialty Start Date End Date Mustapha Palumbo MD [address] [place] [address] PCP - General 11/11/14 08/07/17 documented as of this encounter
--- OUTSIDE RECORDS SUMMARY | 2023-11-03 04:03 | XMS_ITS | Encounter Summary ---
Author Organization Formerly [facility] Address [facility] [place] [address] Care Team Providers Care Cream Buyer Name Role Phone Rolando Palumbo MD Primary Care Provider [phone] Reason for Visit * Auth/Cert Specialty Diagnoses / Procedures Referred By Contac t Referred To Contact Diagnoses Lung mass left lower lobe lung mass Procedures PRO THORACOSCOPY SURG LOBECTOMY @THORACOSCOPY,SURGICAL,W\LOBECTOMY, TOTAL OR SEGMENTAL Referral ID Status Reason Start Date Expiration Date Visits Re quested Visits Authorized [id number] 1 1 Encounter Details Date Type Department Care Team (Latest Contact Info) Description 12/10/2015 5:37 AM EDT - 12/13/2015 4:24 PM EDT Hospital Encounter [address] [place] [id number] Shane Shi MD [facility] [place] [address] Pre-operative cardiovascular examination, high risk surgery Discharge [...] Sign Reading Time Taken Comments Blood Pressure 132/82 12/13/2015 11:46 AM EDT Pulse 75 12/13/2015 11:46 AM EDT Temperature 36.3 ??C (97.3 ??F) 12/13/2015 1 1:46 AM EDT Respiratory Rate 16 12/13/2015 11:4 6 AM EDT Oxygen Saturation 96% 12/13/2015 11: 46 AM EDT Inhaled Oxygen Concentration - - Weight 116.3 kg (256 lb 6.4 oz) 12/13/2015 6:00 AM EDT Height 181.6 cm (5' 11.5) 12/10/2015 7:50 PM ED T Body Mass Index 35.26 12/10/2015 7:50 PM EDT documented in this encounter Discharge Summaries * [...] Diagnosis--- CONSULTATION CASE 1. Outside slides labeled [id number], collection date 04/01/08. Colon, biopsy at 15 cm: Invasive adenocarcinoma, arising in association with a tubular adenoma with high grade dysplasia. 2. Outside slides labeled [id number], collection date 04/22/08. A - Small bowel, [...] Primary * Anne Mckeon PA - Physician Jigsawyer Procedure: Procedure(s): BRONCHOSCOPY, DIAGNOSTIC @THORACOTOMY-LOBECTOMY, SINGLE LOBE [...] Hospital Course: Seth Kincaid was admitted to [facility] on 12/10/2015 via the Same [...] Tuesday- Tuesday 8:00 a.m.-5:00 p.m., please call [phone] to speak to a nurse in the Thoracic Clinic. If you get an answering machine or it is after hours or on weekends or holidays please call [phone] and askto speak to the Thoracic Physician repairer engine production. Exercise & Activity Level: As you recover [...] nurse in the Thoracic Clinic or the repairer engine production Attending Physician after hours. We are unable [...] information. Please call the thoracic clinic at [phone] to confirm/reschedule your appointment. You should arrange to see your primary care physician, in two weeks. If you have any questions or concerns during normal business hours, Tuesday- Tuesday 8:00 a.m.-5:00 p.m., please call [phone] to speak to a nurse in the Thoracic Clinic. If you get an answering machine or it is after hours or on weekends or holidays please call [phone] and ask to speak to the Thoracic Physician repairer engine production. General Instructions None Future Appointments and Orders Future Appointments Provider Department Dept Phone 12/29/2015 10:00 AM [facility] DB XRAY ROOM 1 [facility] Xray [phone] Please go to Production Operations Manager Area 3L ([place] Location). 12/29/2015 11:00 AM Shane Shi MD Thoracic Surgery [phone] 01/08/2016 2:00 PM Jose Grubbs MD Hematology/Oncology [phone] Future Orders Complete By Expires XR Chest PA & Lateral (Generic) [[id number] Custom] 12/29/2015 (Approximate) 12/12/2016 Process Instructions: Scheduling Instructions: Questions: Where will study be performed?: [facility] Portable exam?: Reason for exam and clinical history: post RUL and thoracotomy Other pertinent information: Stat read required?: Date of injury if applicable: Requested Time: Provider Contact Information: Primary Care Provider: ROLANDO PALUMBO MD [phone] Discharge References/Attachments: Discharge References/Attachments None For questions regarding this document or issues relating to this hospitalization on the Thoracic Surgery Service, please contact Dr. Shi's office at . Signed: Daniel Washington M.D. PGY1 - Thoracic Surgery 5015 12/13/2015 CC: PCP: ROLANDO PALUMBO MD Referring: Rolando Palumbo Md [address] [place] [phone] documented in this encounter Discharge Instructions * Patient Instructions* Anne Mckeon PA - 12/10/2015 4:45 PM EDT Call if you have a fever of greater than 101 degrees, shaking chills, develop redness or drainage from your incision site(s), or if you have questions. During normal business hours, Tuesday- Tuesday 8:00 a.m.-5:00 p.m., please call [phone] to speak to a nurse in the Thoracic Clinic. If you get an answering machine or it is after hours or on weekends or holidays please call [phone] and askto speak to the Thoracic Physician repairer engine production. Exercise & Activity Level: As you recover [...] nurse in the Thoracic Clinic or the repairer engine production Attending Physician after hours. We are unable [...] information. Please call the thoracic clinic at [phone] to confirm/reschedule your appointment. You should arrange to see your primary care physician, in two weeks. If you have any questions or concerns during normal business hours, Tuesday- Tuesday 8:00 a.m.-5:00 p.m., please call [phone] to speak to a nurse in the Thoracic Clinic. If you get an answering machine or it is after hours or on weekends or holidays please call [phone] and ask to speak to the Thoracic Physician repairer engine production. documented in this encounter Medications at Time [...] 2 step/stairs with cane and supervision or EQUIPMENT MAINTENANCE SUPERVISOR. 5. Family or caregiver to demonstrate understanding of therapeutic interventions to support the care of the patient. P: Home with progressive ambulation Total time spent with patient: 24 minutes Total timed interventions: 24 minutes TEF Pager: [phone] Physical Therapy Rehabilitation Department * Therese Fabian [...] concerns. RICKY VILLALOBOS MD 12/13/2015 Pager # [phone] Addendum 1311: Epidural removed, tip intact, site [...] Daniel Washington MD 12/13/2015 Thoracic Surgery Pager [phone] * Milind Millan - 12/12/2015 3:32 PM [...] 2 step/stairs with cane and supervision or EQUIPMENT MAINTENANCE SUPERVISOR. 5. Family or caregiver to demonstrate understanding of therapeutic interventions to support the care of the patient. P: Cont per physical therapy plan of care. Will have Tuesday PT see him if he is preparing for d/c. Total time spent with patient: 28 minutes Total timed interventions: 28 minutes for functional mobility Pager: [phone] Milind Millan PT Physical Therapy Rehabilitation Department * Ricky Villalobos MD - 12/12/2015 1:25 PM EDT Acute [...] notes. ELE JUNG RN 12/12/2015 Pager # [phone] I performed the above scribed service and [...] [facility] NIMO Queen 12/12/2015 Thoracic Surgery Pager [phone] * Nazario Marmolejo, OT - 12/12/2015 9:00 [...] 17 minutes for therapeutic functional activity Pager: [phone] NAZARIO MARMOLEJO OT Occupational Therapy Rehabilitation Department [...] concerns. NILA TOLENTINO MD 12/11/2015 Pager # [phone] * Ann Lynne MD - 12/11/2015 12:28 [...] Extremities warm and well perfused A/P: Seth Kincaid 64 y.o. male POD#0 s/p above procedure who is doing well - CT to suction - PCEA - amio per protocol - plan as per ordered * Saumya Hanna RCP - 12/10/2015 2:45 PM EDT [...] Barbra Jaime - 12/13/2015 10:13 AM EDT [facility] Department of Thoracic Surgery Inpatient Progress Note [...] Encounter Date Admission (Current) from 12/10/2015 in [facility] Office Visit from 11/27/2015 in Hematology/Oncology Weight [...] Result Value Ref Range Surgical Pathology Report [id number] Location: 3T The signing pathologist has (i) [...] Normal RBC Morphology Abnormal Ovalocytes 1-5 /HPF Fred Cells 1-5 /HPF Giant Platelets Less than [...] QTC Calculated (Bezet) 459 ms Calculated P Weir 82 degrees Calculated R Weir 16 degrees Calculated T Weir 15 degrees INTERPRETATION Normal sinus rhythm RSR' [...] Jaime, MS-3 12/13/2015 Thoracic Surgery Service Pager [phone] * Plan of Care - Therese Fabian [...] Handling Outcome: Ongoing (Interventions Implemented as Appropriate) 12/12/1580412/12/15 1617 Safety Interventions Safety Precautions/Fall Reduction room [...] Outcome: Ongoing (Interventions Implemented as Appropriate) 12/12/15 08 Safety Interventions Isolation Precautions standard precautions maintained [...] Diagnosis--- CONSULTATION CASE 1. Outside slides labeled [id number], collection date 04/01/08. Colon, biopsy at 15 cm: Invasive adenoca rcinoma, arising in association with a tubular adenoma with high grade dysplasia. 2. Outside slideslabeled [id number], collection date 04/22/08. A - Small bowel, [...] Family Supports/Community Resources: Lives with who is celebrity chef entrepreneur media personality. Stateshe has friends & family nearby to assist as needed. Behavioral Health History: N/A Substance Use/Abuse: N/A Other Pertinent/Service Specific Information: N/A Health/Prescription Coverage: Primary Insurance: Medicare Secondary Insurance: BiiCode Prescription Coverage: Medicare Preferred Pharmacy: [facility] in [place] Other: N/A Primary Care Provider: ROLANDO PALUMBO MD [phone] Patient/Caregiver Goals of Treatment: Discontinue chest tube, [...] of care planning. ALEXA Lomeli and Fanny Ohara vinyl installer Pager [phone] * Initial Assessments - Jonna Hancock, PT [...] Diagnosis--- CONSULTATION CASE 1. Outside slides labeled [id number], collection date 04/01/08. Colon, biopsy at 15 cm: Invasive adenoca rcinoma, arising in association with a tubular adenoma with high grade dysplasia. 2. Outside slideslabeled [id number], collection date 04/22/08. A - Small bowel, [...] DIAGNOSTIC performed by Shane Shi MD at [facility] MAIN OR ??? Pro removal of lung, lobectomy Left 12/10/2015 @THORACOTOMY-LOBECTOMY, SINGLE LOBE performed by Shane Shi MD at [facility] MAIN OR ??? Pro remove thor lymph nodes rad regnl Left 12/10/2015 @LYMPHADENECTOMY,THORACIC ,REGIONAL,INCL. MEDIASTINAL,PERITRACHEAL NODES performed by Shane Shi MD at [facility] MAIN OR ??? Pro thoracoscopy, dx no bx Left 12/10/2015 THORACOSCOPY, DX., LUNGS WITHOUT BIOPSY performed by Shane Shi MD at [facility] MAIN OR Social History: Patient lives with his in a single level home. Stairs: 2 without rail Baseline Mobility: Independent with ADLs, IADLs and mobility without an AD. Pt drives, is retired. Equipment at home: Cane (his mother's), tub shower with rails Precautions/Special Considerations: Full code; fall risk, CT to wall suction, CLINICAL ASSOC, condon, supplemental O2 Activity Orders: Ambulate patient Staff communication/Mobility Recommendations: ?? Pt. to utilize rolling walker and 2 person assistance for transfers and standing with nursing. ?? Please encourage up to chair for meal times as able. Subjective: ???I need to sit?? Objective: Pt seen for evaluation today in collaboration with OT Pain: 4/10 throughout session. Pushed CLINICAL ASSOC button and almost immediately began to feel [...] 2 step/stairs with cane and supervision or EQUIPMENT MAINTENANCE SUPERVISOR. 5. Family or caregiver to demonstrate understanding [...] 0 minutes JONNA HANCOCK, PT 12/11/2015 Pager: [phone] Physical Therapy Rehabilitation Department * Initial Assessments [...] Diagnosis--- CONSULTATION CASE 1. Outside slides labeled [id number], collection date 04/01/08. Colon, biopsy at 15 cm: Invasive adenoca rcinoma, arising in association with a tubular adenoma with high grade dysplasia. 2. Outside slideslabeled [id number], collection date 04/22/08. 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 Objective: Seen today for OT evaluation. Cognition/Behavior: alert, oriented to person, place, and time Communication: [facility] Vision & Perception: [facility] Range of motion, strength, coordination: Bilateral UEs [...] minutes Total timed interventions: 0 minutes Pager: [phone] NAZARIO MARMOLEJO OT 12/11/2015 Occupational Therapy Rehabilitation Department * Med Student Progress Note - Barbra Jaime - 12/11/2015 7:34 AM EDT [facility] Department of Thoracic Surgery Inpatient Progress Note Patient Name: Seth Kincaid Patient : 1950 [facility] Att[facility] Surgeon: SHANE SHI ID: Seth Kincaid is a 64 y.o. male who is 1 Day Post-Op s/p thoracotomy with LLLobectomy with removal of periosteum from ribs 7 and 8. 24 Hour Events / Subjective: - no acute events - extubated in PACU and transferred to last night at 1999 - pain controlled with PCEA - no [...] Encounter Date Admission (Current) from 12/10/2015 in [facility] Office Visit from 11/27/2015 in Hematology/Oncology Weight [...] Result Value Ref Range Surgical Pathology Report [id number] Location: 3T The signing pathologist has (i) [...] Normal RBC Morphology Abnormal Ovalocytes 1-5 /HPF [place] Cells 1-5 /HPF Giant Platelets Less than [...] QTC Calculated (Bezet) 459 ms Calculated P Weir 82 degrees Calculated R Weir 16 degrees Calculated T Weir 15 degrees INTERPRETATION Normal sinus rhythm RSR' [...] Jaime, MS-III 12/11/2015 Thoracic Surgery Service Pager [phone] * Op Note - Shane Shi MD - 12/10/2015 2:43 PM EDT [facility] Operative Note Patient Name: Seth Kincaid : [id number] MR#: [id number] Case Date: 12/10/2015 Surgeon: Surgeon(s) and Role: * Shane Shi MD - Primary * Anne Mckeon PA - Physician Jigsawyer Preoperative diagnosis: left lower lobe lung mass [...] 7 nodes, level 10L nodes Drains: 28 cuban chest tube, left Surgical Closure: Primary Closure [...] was then achieved with the Argon beam spanish professor. A 28-Thai chest tube was placed through the anterior-inferior [...] Operative Note Patient Name: Seth Kincaid : [id number] MR#: [id number] Case Date: 12/10/2015 Surgeon: Surgeon(s) and Role: * Shane Shi MD - Primary * Anne Mckeon PA - Physician Jigsawyer Preoperative diagnosis: left lower lobe lung mass [...] 750 mL Drains: left chest tube, 28 cuban Disposition: awakened from anesthesia, extubated and taken [...] 8:30 AM EDT Office Visit Hematology/Oncology at [address] [address] Garcia Childress MD [facility] [address] [place] [address] Kassy Ken APRN [address] [place] [address] DR MEDICAL ONCOLOGY [place], [place] [address] documented as of this encounter Procedures Procedure Name Priority Date/Time Associated Diagnosis Comments BULLET MAKER SCAN 2015 12:00 AM EDT HEMOGRAM Timed [...] residents interpretationand agree with the findings, Carmen Osbaldo at 12/29/2015 11:09 AM Shane Shi MD IMG DX ORDERABLE S * SCAN DOC: BULLET MAKER (2015 12:00 AM EDT) Anatomical Region Laterality Modality Other Scanning Provider MEDIA MGR SCAN EXT O RDR/RSLT * (ABNORMAL) Differential, Automated (12/13/2015 12:43 PM EDT) Neutrophils % 84.9 % [facility] Neutr Abs (ANC) 10.47(H) 1.70 - 6.10 x10(3)/mc L [facility] Lymphocytes % 10.7 % [facility] Lymphocytes Abs 1.3 0.9 - 3.2 x10(3)/mc L [facility] Monocytes % 3.4 % [facility] Monocyte Abs 0.4 0.3 - 0.9 x10(3)/mc L [facility] Eosinophils % 0.1 % [facility] Eosinophils Abs 0.0 0.0 - 0.4 x10(3)/mc L [facility] Basophils % 0.2 % [facility] Basophils Abs 0.0 0.0 - 0.1 x10(3)/mc L [facility] Immature Gran % 0.70 % [facility] Comment: Immature granulocytes(IG's)percentage and absolute count will include metamyelocytes, myelocytes, and promyelocytes. Blood smears from CBCs yielding IG's will be scanned manually for concordance. If this scan disagrees with the automated IG or if promyelocytes are noted, a manual differential will be performed. Wendy Gran Abs 0.09(H) 0.00 - 0.04 x10(3)/ L [facility] Blood specimen (specimen) 12/13/2015 12:43 PM EDT 12/13/2015 12:46 PM EDT Narrative Resulting Agency Comment Spec In Lab Shane Shi MD HEMATOLOGY ORDER DIAMOND [facility] [place] [address] * (ABNORMAL) Hemogram (12/13/2015 12:43 PM EDT) WBC 12.3(H) 4.0 - 9.5 x10(3)/[facility] RBC 3.53(L) 4.58 - 5.54 x10(6)/[facility] Hemoglobin 10.3(L) 13.7 - 16.5 gm/dL [facility] Hematocrit 30.8(L) 40.5 - 48.5 % [facility] MCV 87.3 82.9 - 93.1 [facility] MCH 29.2 27.5 - 32.1 pg [facility] MCHC 33.4 32.0 - 35.7 gm/dL [facility] Platelets 235 145 - 357 x10(3)/[facility] RDWSD 42.7 36.0 - 45.0 [facility] RDWCV 13.6 11.4 - 13.8 % [facility] MPV 9.8 7.6 - 12.9 [facility] nRBC % Auto 0.0 % [facility] nRBC Abs Auto 0.000 0.000 - 0.000 x10(3)/[facility] Blood specimen (specimen) 12/13/2015 12:43 PM EDT 12/13/2015 12:46 PM EDT Narrative Resulting Agency Comment Spec In Lab Shane Shi MD HEMATOLOGY ORDER DIAMOND [facility] [place] [address] * (ABNORMAL) Basic Metabolic Panel (non-fasting) (12/13/2015 12:43 PM EDT) Glucose Lvl 150 65 - 199 mg/dL [facility] Comment:Diabetes: >=200 mg/d L plus symptoms BUN 9(L) 10 - 20 mg/dL [facility] Creatinine 0.79(L) 0.80 - 1.50 mg/dL [facility] Comment: Please note that the pediatric reference intervals supplied above were not validated at [facility]. Results from pediatric patients should be interpreted in conjunction to the patient's age, height and muscle mass. Sodium 132(L) 135 - 145 mmol/L [facility] Potassium 3.8 3.5 - 5.0 mmol/L [facility] Comment: Please note: ??Patients with WBC >100,000 may have falsely elevated Potassium levels. ??For accurate Potassium quantification in these patients send serum separator tube (gold top) for subsequent determinations. ??Contact the Clinical Chemistry Laboratory if there are any questions. Chloride 91(L) 98 - 107 mmol/L [facility] CO2 29 22 - 31 mmol/L [facility] Anion Gap 12 5 - 15 mmol/L [facility] Calcium 8.4(L) 8.5 - 10.5 mg/dL [facility] Estimated GFR >60 >=60 [facility] Comment: This estimated GFR [...] the following links into your internet browser. [email or web address] Blood specimen (specimen) 12/13/2015 12:43 PM EDT 12/13/2015 12:46 PM EDT Narrative Resulting Agency Comment Spec In Lab Shane Shi MD CHEMISTRY ORDERA BLES [facility] [place] [address] * XR Chest PA & Lateral (Generic) [...] 6:07 AM EDT) Neutrophils % 77.4 % [facility] Neutr Abs (ANC) 9.35(H) 1.70 - 6.10 x10(3)/mc L [facility] Lymphocytes % 15.2 % [facility] Lymphocytes Abs 1.8 0.9 - 3.2 x10(3)/[facility] Monocytes % 6.0 % [facility] Monocyte Abs 0.7 0.3 - 0.9 x10(3)/[facility] Eosinophils % 0.6 % [facility] Eosinophils Abs 0.1 0.0 - 0.4 x10(3)/[facility] Basophils % 0.2 % [facility] Basophils Abs 0.0 0.0 - 0.1 x10(3)/[facility] Immature Gran % 0.60 % [facility] Comment: Immature granulocytes(IG's)percentage and absolute count will include metamyelocytes, myelocytes, and promyelocytes. Blood smears from CBCs yielding IG's will be scanned manually for concordance. If this scan disagrees with the automated IG or if promyelocytes are noted, a manual differential will be performed. Wendy Gran Abs 0.07(H) 0.00 - 0.04 x10(3)/[facility] Blood specimen (specimen) 12/13/2015 6:07 AM EDT 12/13/2015 6:14 AM EDT Narrative Resulting Agency Comment Spec In Lab Shane Shi MD HEMATOLOGY ORDER DIAMOND [facility] [place] [address] * (ABNORMAL) Hemogram (12/13/2015 6:07 AM EDT) WBC 12.1(H) 4.0 - 9.5 x10(3)/[facility] RBC 3.32(L) 4.58 - 5.54 x10(6)/[facility] Hemoglobin 9.7(L) 13.7 - 16.5 gm/dL [facility] Hematocrit 29.1(L) 40.5 - 48.5 % [facility] MCV 87.7 82.9 - 93.1 fL [facility] MCH 29.2 27.5 - 32.1 pg [facility] MCHC 33.3 32.0 - 35.7 gm/dL [facility] Platelets 203 145 - 357 x10(3)/[facility] RDWSD 43.3 36.0 - 45.0 [facility] RDWCV 13.4 11.4 - 13.8 % [facility] MPV 10.0 7.6 - 12.9 [facility] nRBC % Auto 0.0 % [facility] nRBC Abs Auto 0.000 0.000 - 0.000 x10(3)/[facility] Blood specimen (specimen) 12/13/2015 6:07 AM EDT 12/13/2015 6:14 AM EDT Narrative Resulting Agency Comment Spec In Lab Shane Shi MD HEMATOLOGY ORDER DIAMOND [facility] [place] [address] * (ABNORMAL) Basic Metabolic Panel (non-fasting) (12/13/2015 6:07 AM EDT) Glucose Lvl 128 65 - 199 mg/dL [facility] Comment:Diabetes: >=200 mg/d L plus symptoms BUN 9(L) 10 - 20 mg/dL [facility] Creatinine 0.71(L) 0.80 - 1.50 mg/dL [facility] Comment: Please note that the pediatric reference intervals supplied above were not validated at [facility]. Results from pediatric patients should be interpreted in conjunction to the patient's age, height and muscle mass. Sodium 131(L) 135 - 145 mmol/L [facility] Potassium 3.7 3.5 - 5.0 mmol/L [facility] Comment: Please note: ??Patients with WBC >100,000 may have falsely elevated Potassium levels. ??For accurate Potassium quantification in these patients send serum separator tube (gold top) for subsequent determinations. ??Contact the Clinical Chemistry Laboratory if there are any questions. Chloride 93(L) 98 - 107 mmol/L [facility] CO2 28 22 - 31 mmol/L [facility] Anion Gap 10 5 - 15 mmol/L [facility] Calcium 8.1(L) 8.5 - 10.5 mg/dL [facility] Estimated GFR >60 >=60 [facility] Comment: This estimated GFR [...] the following links into your internet browser. [email or web address] Blood specimen (specimen) 12/13/2015 6:07 AM EDT 12/13/2015 6:14 AM EDT Narrative Resulting Agency Comment Spec In Lab Shane Shi MD CHEMISTRY ORDERA [facility] Organization Address City/State/ZIP Co de Phone Number [facility] [place] [address] * XR Chest PA & Lateral (Generic) [...] Metabolic Panel (non-fasting) (12/12/2015 6:40 AM EDT) [facility] Glucose Lvl 143 65 - 199 mg/dL [facility] Comment:Diabetes: >=200 mg/d L plus symptoms BUN 13 10 - 20 mg/dL [facility] Creatinine 0.76(L) 0.80 - 1.50 mg/dL [facility] Comment: Please note that the pediatric reference intervals supplied above were not validated at [facility]. Results from pediatric patients should be interpreted in conjunction to the patient's age, height and muscle mass. Sodium 134(L) 135 - 145 mmol/L [facility] Potassium 4.2 3.5 - 5.0 mmol/L [facility] Comment: Please note: ??Patients with WBC >100,000 may have falsely elevated Potassium levels. ??For accurate Potassium quantification in these patients send serum separator tube (gold top) for subsequent determinations. ??Contact the Clinical Chemistry Laboratory if there are any questions. Chloride 95(L) 98 - 107 mmol/L [facility] CO2 29 22 - 31 mmol/L [facility] Anion Gap 10 5 - 15 mmol/L [facility] Calcium 8.2(L) 8.5 - 10.5 mg/dL [facility] Estimated GFR >60 >=60 [facility] Comment: This estimated GFR [...] the following links into your internet browser. [email or web address] Blood specimen (specimen) 12/12/2015 6:40 AM EDT 12/12/2015 7:12 AM EDT Narrative Resulting Agency Comment Spec In Lab Shane Shi MD CHEMISTRY ORDERA BLES [facility] [place] [id number] * (ABNORMAL) Differential, Automated (12/12/2015 6:40 AM EDT) Neutrophils % 77.9 % [facility] Neutr Abs (ANC) 11.36(H) 1.70 - 6.10 x10(3)/mc L [facility] Lymphocytes % 12.2 % [facility] Lymphocytes Abs 1.8 0.9 - 3.2 x10(3)/mc L [facility] Monocytes % 8.8 % [facility] Monocyte Abs 1.3(H) 0.3 - 0.9 x10(3)/mc L [facility] Eosinophils % 0.4 % [facility] Eosinophils Abs 0.1 0.0 - 0.4 x10(3)/mc L [facility] Basophils % 0.2 % [facility] Basophils Abs 0.0 0.0 - 0.1 x10(3)/ L [facility] Immature Gran % 0.50 % [facility] Comment: Immature granulocytes(IG's)percentage and absolute count will include metamyelocytes, myelocytes, and promyelocytes. Blood smears from CBCs yielding IG's will be scanned manually for concordance. If this scan disagrees with the automated IG or if promyelocytes are noted, a manual differential will be performed. Wendy Gran Abs 0.08(H) 0.00 - 0.04 x10(3)/[facility] Blood specimen (specimen) 12/12/2015 6:40 AM EDT 12/12/2015 7:12 AM EDT Narrative Resulting Agency Comment Spec In Lab Shane Shi MD HEMATOLOGY ORDER DIAMOND [facility] [place] [address] * (ABNORMAL) Hemogram (12/12/2015 6:40 AM EDT) WBC 14.6(H) 4.0 - 9.5 x10(3)/[facility] RBC 3.57(L) 4.58 - 5.54 x10(6)/[facility] Hemoglobin 10.6(L) 13.7 - 16.5 gm/dL [facility] Hematocrit 32.1(L) 40.5 - 48.5 % [facility] MCV 89.9 82.9 - 93.1 fL [facility] MCH 29.7 27.5 - 32.1 pg [facility] MCHC 33.0 32.0 - 35.7 gm/dL [facility] Platelets 208 145 - 357 x10(3)/[facility] RDWSD 45.3(H) 36.0 - 45.0 fL [facility] RDWCV 13.9(H) 11.4 - 13.8 % [facility] MPV 11.0 7.6 - 12.9 fL [facility] nRBC % Auto 0.0 % [facility] nRBC Abs Auto 0.000 0.000 - 0.000 x10(3)/mcL [facility] Blood specimen (specimen) 12/12/2015 6:40 AM EDT 12/12/2015 7:12 AM EDT Narrative Resulting Agency Comment Spec In Lab Shane Shi MD HEMATOLOGY ORDER DIAMOND [facility] [address] [place] [address] * XR Chest PA & Lateral (Generic) [...] Glucose Lvl 173 65 - 199 mg/dL [facility] Comment:Diabetes: >=200 mg/d L plus symptoms BUN 17 10 - 20 mg/dL [facility] Creatinine 1.20 0.80 - 1.50 mg/dL [facility] Comment: Please note that the pediatric reference intervals supplied above were not validated at [facility]. Results from pediatric patients should be interpreted in conjunction to the patient's age, height and muscle mass. Sodium 136 135 - 145 mmol/L [facility] Potassium 5.0 3.5 - 5.0 mmol/L [facility] Comment: Please note: ??Patients with WBC >100,000 may have falsely elevated Potassium levels. ??For accurate Potassium quantification in these patients send serum separator tube (gold top) for subsequent determinations. ??Contact the Clinical Chemistry Laboratory if there are any questions. Chloride 95(L) 98 - 107 mmol/L [facility] CO2 27 22 - 31 mmol/L [facility] Anion Gap 14 5 - 15 mmol/L [facility] Calcium 8.5 8.5 - 10.5 mg/dL [facility] Estimated GFR >60 >=60 [facility] Comment: This estimated GFR [...] the following links into your internet browser. [email or web address] Blood specimen (specimen) 12/11/2015 2:04 PM EDT 12/11/2015 2:46 PM EDT Narrative Resulting Agency Comment Spec In Lab Shane Shi MD CHEMISTRY ORDERA BLES Performing Organization Address [facility]/ZIP Co de Phone Number [facility] [place] [address] * POCT Glucose (12/11/2015 7:42 AM EDT) [facility] POC Glucose 185 65 - 199 mg/dL [facility] Comment: Supplemental ranges: <140 mg/dL before meals <180 mg/dL all other times of the day Blood specimen (specimen) 12/11/2015 7:42 AM EDT 12/11/2015 7:42 AM EDT Shane Shi MD POINT OF CARE TE ST ORDERABLES Performing Organization Address City/[facility]/ZIP Co de Phone Number [facility] [place] [address] * EKG 12 Lead (12/11/2015 6:42 AM EDT) Pathologist [facility] Ventricular rate 98 BPM MUSE SYSTEM Atrial Rate 98 BPM MUSE SYSTEM P-R Interval 124 ms MUSE SYSTEM QRS Duration 100 ms MUSE SYSTEM Q-T Interval 360 ms MUSE SYSTEM QTC Calculated (Bezet) 459 ms MUSE SYSTEM Calculated P Weir 82 degrees MUSE SYSTEM Calculated R Weir 16 degrees MUSE SYSTEM Calculated T Weir 15 degrees MUSE SYSTEM INTERPRETATION Normal sinus [...] AM EDT Shane Shi MD ECG ORDERABLES MUSE SYSTEM * XR Chest PA & [...] 5:06 AM EDT) Neutrophils % 73.8 % [facility] Neutr Abs (ANC) 12.27(H) 1.50 - 6.30 x10(3)/mc L [facility] Lymphocytes % 16.5 % [facility] Lymphocytes Abs 2.7 1.0 - 3.6 x10(3)/mc L [facility] Monocytes % 8.9 % [facility] Monocyte Abs 1.5(H) 0.2 - 1.0 x10(3)/mc L [facility] Eosinophils % 0.2 % [facility] Eosinophils Abs 0.0 0.0 - 0.5 x10(3)/[facility] Basophils % 0.2 % [facility] Basophils Abs 0.0 0.0 - 0.2 x10(3)/[facility] Immature Gran % 0.40 % [facility] Comment: Immature granulocytes(IG's)percentage and absolute count will include metamyelocytes, myelocytes, and promyelocytes. Blood smears from CBCs yielding IG's will be scanned manually for concordance. If this scan disagrees with the automated IG or if promyelocytes are noted, a manual differential will be performed. Wendy Gran Abs 0.07(H) 0.00 - 0.05 x10(3)/[facility] Blood specimen (specimen) 12/11/2015 5:06 AM EDT 12/11/2015 5:29 AM EDT Narrative Resulting Agency Comment Spec In Lab Shane Shi MD HEMATOLOGY ORDER DIAMOND [facility] [place] [address] * (ABNORMAL) Hemogram (12/11/2015 5:06 AM EDT) WBC 16.6(H) 4.0 - 10.0 x10(3)/[facility] RBC 4.24(L) 4.63 - 6.08 x10(6)/[facility] Hemoglobin 12.4(L) 13.7 - 17.5 gm/dL [facility] Hematocrit 38.2(L) 40.0 - 51.0 % [facility] MCV 90.1 79.0 - 92.0 fL [facility] MCH 29.2 25.6 - 32.2 pg [facility] MCHC 32.5 32.0 - 36.5 gm/dL [facility] Platelets 244 145 - 370 x10(3)/[facility] RDWSD 45.4 35.0 - 46.0 fL [facility] RDWCV 14.0 10.9 - 14.4 % [facility] MPV 11.1 9.0 - 12.0 fL [facility] nRBC % Auto 0.0 % [facility] nRBC Abs Auto 0.000 0.000 - 0.012 x10(3)/[facility] Blood specimen (specimen) 12/11/2015 5:06 AM EDT 12/11/2015 5:29 AM EDT Narrative Resulting Agency Comment Spec In Lab Shane Shi MD HEMATOLOGY ORDER DIAMOND [facility] [place] [address] * (ABNORMAL) Basic Metabolic Panel (non-fasting) (12/11/2015 5:06 AM EDT) Glucose Lvl 141 65 - 199 mg/dL [facility] Comment:Diabetes: >=200 mg/d L plus symptoms BUN 17 10 - 20 mg/dL [facility] Creatinine 1.12 0.80 - 1.50 mg/dL [facility] Comment: Please note that the pediatric reference intervals supplied above were not validated at [facility]. Results from pediatric patients should be interpreted in conjunction to the patient's age, height and muscle mass. Sodium 137 135 - 145 mmol/L [facility] Potassium 5.5(H) 3.5 - 5.0 mmol/L [facility] Comment: Please note: ??Patients with WBC >100,000 may have falsely elevated Potassium levels. ??For accurate Potassium quantification in these patients send serum separator tube (gold top) for subsequent determinations. ??Contact the Clinical Chemistry Laboratory if there are any questions. Chloride 99 98 - 107 mmol/L [facility] CO2 27 22 - 31 mmol/L [facility] Anion Gap 11 5 - 15 mmol/L [facility] Calcium 8.1(L) 8.5 - 10.5 mg/dL [facility] Estimated GFR >60 >=60 [facility] Comment: This estimated GFR [...] the following links into your internet browser. [email or web address] Blood specimen (specimen) 12/11/2015 5:06 AM EDT 12/11/2015 5:29 AM EDT Narrative Resulting Agency Comment Spec In Lab Shane Shi MD CHEMISTRY ORDERA BLES [facility] [place] [id number] * XR Chest PA or AP 1 [...] the residents interpretationand agree with the findings, Krsitian Arreguin at 12/10/2015 3:52 PM Shane Shi MD IMG DX ORDERABLE S * Scan, Peripheral Blood (12/10/2015 2:25 PM EDT) Plat Estimate Normal [facility] RBC Morphology Abnormal [facility] Ovalocytes 1-5 /HPF [facility] [place] Cells 1-5 /HPF [facility] Giant Platelets Less than 1 /HPF [facility] Blood specimen (specimen) 12/10/2015 2:25 PM EDT 12/10/2015 2:32 PM EDT Narrative Resulting Agency Comment Spec In Lab Shane Shi MD HEMATOLOGY ORDER DIAMOND [facility] [place] [address] * (ABNORMAL) Differential, Automated (12/10/2015 2:25 PM EDT) Neutrophils % 77.5 % [facility] Neutr Abs (ANC) 14.17(H) 1.50 - 6.30 x10(3)/[facility] Lymphocytes % 14.3 % [facility] Lymphocytes Abs 2.6 1.0 - 3.6 x10(3)/[facility] Monocytes % 6.7 % [facility] Monocyte Abs 1.2(H) 0.2 - 1.0 x10(3)/[facility] Eosinophils % 0.8 % [facility] Eosinophils Abs 0.1 0.0 - 0.5 x10(3)/[facility] Basophils % 0.3 % [facility] Basophils Abs 0.1 0.0 - 0.2 x10(3)/[facility] Immature Gran % 0.40 % [facility] Comment: Immature granulocytes(IG's)percentage and absolute count will include metamyelocytes, myelocytes, and promyelocytes. Blood smears from CBCs yielding IG's will be scanned manually for concordance. If this scan disagrees with the automated IG or if promyelocytes are noted, a manual differential will be performed. Wendy Gran Abs 0.07(H) 0.00 - 0.05 x10(3)/[facility] Blood specimen (specimen) 12/10/2015 2:25 PM EDT 12/10/2015 2:32 PM EDT Narrative Resulting Agency Comment Spec In Lab Shane Shi MD HEMATOLOGY ORDER DIAMOND [facility] [place] [address] * (ABNORMAL) Hemogram (12/10/2015 2:25 PM EDT) [facility] WBC 18.3(H) 4.0 - 10.0 x10(3)/[facility] RBC 4.51(L) 4.63 - 6.08 x10(6)/[facility] Hemoglobin 13.3(L) 13.7 - 17.5 gm/dL [facility] Hematocrit 40.3 40.0 - 51.0 % [facility] MCV 89.4 79.0 - 92.0 fL [facility] MCH 29.5 25.6 - 32.2 pg [facility] MCHC 33.0 32.0 - 36.5 gm/dL [facility] Platelets 267 145 - 370 x10(3)/[facility] RDWSD 44.4 35.0 - 46.0 [facility] RDWCV 13.6 10.9 - 14.4 % [facility] MPV 10.3 9.0 - 12.0 [facility] nRBC % Auto 0.0 % [facility] nRBC Abs Auto 0.000 0.000 - 0.012 x10(3)/[facility] Blood specimen (specimen) 12/10/2015 2:25 PM EDT 12/10/2015 2:32 PM EDT Narrative Resulting Agency Comment Spec In Lab Shane Shi MD HEMATOLOGY ORDER DIAMOND [facility] [place] [address] * Creatinine (12/10/2015 2:25 PM EDT) [facility] Creatinine 0.87 0.80 - 1.50 mg/dL [facility] Comment: Please note that the pediatric reference intervals supplied above were not validated at [facility]. Results from pediatric patients should be interpreted in conjunction to the patient's age, height and muscle mass. Estimated GFR >60 >=60 [facility] Comment: This estimated GFR [...] the following links into your internet browser. [email or web address] Blood specimen (specimen) 12/10/2015 2:25 PM EDT 12/10/2015 2:32 PM EDT Narrative Resulting Agency Comment Spec In Lab Shane Shi MD CHEMISTRY ORDERA BLES Performing Organization Address [facility] Co de Phone Number [facility] [place] [address] * BUN (12/10/2015 2:25 PM EDT) BUN 11 10 - 20 mg/dL [facility] Blood specimen (specimen) 12/10/2015 2:25 PM EDT 12/10/2015 2:32 PM EDT Narrative Resulting Agency Comment Spec In Lab Shane Shi MD CHEMISTRY ORDERA BLES Performing Organization Address [facility] Co de Phone Number [facility] [place] [address] * Electrolytes panel (12/10/2015 2:25 PM EDT) Sodium 140 135 - 145 mmol/L [facility] Potassium 4.5 3.5 - 5.0 mmol/L [facility] Comment: Please note: ??Patients with WBC >100,000 may have falsely elevated Potassium levels. ??For accurate Potassium quantification in these patients send serum separator tube ([facility] top) for subsequent determinations. ??Contact the Clinical Chemistry Laboratory if there are any questions. Chloride 100 98 - 107 mmol/L [facility] CO2 26 22 - 31 mmol/L [facility] Anion Gap 14 5 - 15 mmol/L [facility] Blood specimen (specimen) 12/10/2015 2:25 PM EDT 12/10/2015 2:32 PM EDT Narrative Resulting Agency Comment Spec In Lab Shane Shi MD CHEMISTRY ORDERA BLES Performing Organization Address [facility] Co de Phone Number [facility] [place] [address] * Specimen to Pathology (surgical or derm) (12/10/2015 12:05 PM EDT) AP Specimen 12/10/2015 12:0 5 PM EDT 12/10/2015 12:05 PM EDT Narrative [facility] - 12/10/2015 12:05 PM EDT Specimen requisition ordered. ??Separate Pathology report to follow Shane Shi MD PATHOLOGY/CYTOLO GY ORDERABLES Performing Organization Address [facility]/ZIP Co de Phone Number [facility] [place] [address] * Specimen to Pathology (surgical or derm) (12/10/2015 12:01 PM EDT) AP Specimen 12/10/2015 12:0 1 PM EDT 12/10/2015 12:01 PM EDT Narrative [facility] - 12/10/2015 12:01 PM EDT Specimen requisition ordered. ??Separate Pathology report to follow Shane Shi MD PATHOLOGY/CYTOLO GY ORDERABLES Performing Organization Address [facility]/ZIP Co de Phone Number [facility] [place] [address] * Specimen to Pathology (surgical or derm) (12/10/2015 11:58 AM EDT) AP Specimen 12/10/2015 11:5 8 AM EDT 12/10/2015 11:58 AM EDT Narrative [facility] - 12/10/2015 11:58 AM EDT Specimen requisition ordered. ??Separate Pathology report to follow Shane Shi MD PATHOLOGY/CYTOLO GY ORDERABLES Performing Organization Address [facility] [place] [address] * Specimen to Pathology (surgical or derm) (12/10/2015 11:58 AM EDT) AP Specimen 12/10/2015 11:5 8 AM EDT 12/10/2015 11:58 AM EDT Narrative [facility] - 12/10/2015 11:58 AM EDT Specimen requisition ordered. ??Separate Pathology report to follow Shane Shi MD PATHOLOGY/CYTOLO GY ORDERABLES Performing Organization Address [facility] de Phone Number [facility] [place] [address] * Surgical Pathology Report (12/10/2015 11:49 AM EDT) Pathologist [facility] FINAL DIAGNOSIS (AP) [id number] ? Location: [facility]; [address] [place] [address] The signing pathologist has (i) examined the [...] patient 's prior history of colonic adenocarcinoma([id number]) is noted and is currently unavailable for [...] wall soft tissue is inked black. A customer support representative slice to include mass and adherent soft tissue is submitted for frozen section as AFS 1. (1) frozen section residual tissue- mass and adherent chest wall soft tissue; (2) bronchial margin-en face; (3) vascular margin-en face; (4-5) mass and adjacent bronchus; (6-7) mass and adherent chest wall soft tissue; (8) Mass with adjacent basilar segment parenchyma; (9) customer support representative superior segment parenchyma; (10) one peribronchial [...] studies, if any. 12/16/2015 8:27 AM EDT [facility] Frozen Specimen 12/10/2015 1 1:49 AM EDT 12/10/2015 11:49 AM EDT Frozen Specimen 12/10/2015 1 1:49 AM EDT 12/10/2015 11:49 AM EDT LYMPH NODE SPECIMEN / Unknown 12/10/2015 11:49 AM EDT 12/10/2015 11:49 AM EDT Frozen Specimen 12/10/2015 1 1:49 AM EDT 12/10/2015 11:49 AM EDT Shane Shi MD PATHOLOGY/CYTOLO GY ORDERABLES [facility] [place] [address] * (ABNORMAL) BLOOD GAS 2 ARTERIAL (12/10/2015 11:12 AM EDT) pH Art 7.38 7.35 - 7.45 [facility] pCO2 Art 50(H) 35 - 45 mmHg [facility] pO2 Art 278(H) 85 - 104 mmHg [facility] HCO3 Art 28.7(H) 20.0 - 26.0 mmol/L [facility] BE Art 3.6(H) -3.0 - 3.0 mmol/L [facility] Hgb Blood Gas 14.3 13.7 - 17.5 gm/dL [facility] O2HB Art 98.8(H) 94.0 - 97.0 % [facility] COHB Art 0.7 % [facility] Comment: Nonsmokers: 0.5-1.5% COHB Smokers: Variable, but usually less than 10% Toxic: 20-30% COHB Lethal: Greater than 60% COHB METHB Art 0.2 <=1.5 % [facility] Na Whole Blood 138 135 - 145 mmol/L [facility] K Whole Blood 4.0 3.5 - 5.0 mmol/L [facility] Comment: Please note: Patients with WBC >100,000 may have falsely elevated Potassium levels. Contact the Clinical Chemistry Laboratory if there are any questions. ICa Whole Blood 1.12(L) 1.15 - 1.33 mmol/L [facility] Comment: Note: ??Total bilirubin higher than 20 mg/dL may lead to falsely low ionized calcium. CL Whole Blood 100 98 - 107 mmol/L [facility] Gluc Whole Bld 139 65 - 199 mg/dL [facility] Comment:Diabetes: >=200 mg/d L plus symptoms. Blood specimen (specimen) 12/10/2015 11:12 AM EDT 12/10/2015 11:12 AM EDT Shane Shi MD CHEMISTRY ORDERA BLES [facility] [place] [address] * (ABNORMAL) BLOOD GAS 2 ARTERIAL (12/10/2015 9:00 AM EDT) pH Art 7.35(L) 7.35 - 7.45 [facility] pCO2 Art 48(H) 35 - 45 mmHg [facility] pO2 Art 105(H) 85 - 104 mmHg [facility] HCO3 Art 25.8 20.0 - 26.0 mmol/L [facility] BE Art 0.2 -3.0 - 3.0 mmol/L [facility] Hgb Blood Gas 14.3 13.7 - 17.5 gm/dL [facility] O2HB Art 96.8 94.0 - 97.0 % [facility] COHB Art 0.8 % [facility] Comment: Nonsmokers: 0.5-1.5% COHB Smokers: Variable, but usually less than 10% Toxic: 20-30% COHB Lethal: Greater than 60% COHB METHB Art 0.2 <=1.5 % [facility] Na Whole Blood 137 135 - 145 mmol/L [facility] K Whole Blood 3.9 3.5 - 5.0 mmol/L [facility] Comment: Please note: Patients with WBC >100,000 may have falsely elevated Potassium levels. Contact the Clinical Chemistry Laboratory if there are any questions. ICa Whole Blood 1.15(L) 1.15 - 1.33 mmol/L [facility] Comment: Note: ??Total bilirubin higher than 20 mg/dL may lead to falsely low ionized calcium. CL Whole Blood 99 98 - 107 mmol/L [facility] Gluc Whole Bld 132 65 - 199 mg/dL [facility] Comment:Diabetes: >=200 mg/d L plus symptoms. Blood specimen (specimen) 12/10/2015 9:00 AM EDT 12/10/2015 9:00 AM EDT Shane Shi MD CHEMISTRY ORDERA BLES [facility] [place] [address] * (ABNORMAL) BLOOD GAS 2 ARTERIAL (12/10/2015 8:14 AM EDT) pH Art 7.33(L) 7.35 - 7.45 [facility] pCO2 Art 55(Critica l) 35 - 45 mmHg [facility] Comment:Noted by surgical instrument mechanic. pO2 Art 369(H) 85 - 104 mmHg [facility] HCO3 Art 28.7(H) 20.0 - 26.0 mmol/L [facility] BE Art 2.8 -3.0 - 3.0 mmol/L [facility] Hgb Blood Gas 14.2 13.7 - 17.5 gm/dL [facility] O2HB Art 98.7(H) 94.0 - 97.0 % [facility] COHB Art 0.7 % [facility] Comment: Nonsmokers: 0.5-1.5% COHB Smokers: Variable, but usually less than 10% Toxic: 20-30% COHB Lethal: Greater than 60% COHB METHB Art 0.4 <=1.5 % [facility] Na Whole Blood 138 135 - 145 mmol/L [facility] K Whole Blood 3.8 3.5 - 5.0 mmol/L [facility] Comment: Please note: Patients with WBC >100,000 may have falsely elevated Potassium levels. Contact the Clinical Chemistry Laboratory if there are any questions. ICa Whole Blood 1.16 1.15 - 1.33 mmol/L [facility] Comment: Note: ??Total bilirubin higher than 20 mg/dL may lead to falsely low ionized calcium. CL Whole Blood 100 98 - 107 mmol/L [facility] Gluc Whole Bld 108 65 - 199 mg/dL [facility] Comment:Diabetes: >=200 mg/d L plus symptoms. Blood specimen (specimen) 12/10/2015 8:14 AM EDT 12/10/2015 8:14 AM EDT Shane Shi MD CHEMISTRY ORDERA BLES [facility] [place] [address] * XR Fluoro No Rad <1Hr (12/10/2015 7:49 AM EDT) Narrative RAD - 12/10/2015 7:49 AM EDT This order does not need a radiologist interpretation. ?? Shane Shi MD IMG FLUORO ORDER DIAMOND Performing Organization Address City/[facility] Co de Phone Number [place], [place] documented in this encounter Visit Diagnoses Diagnosis Pre-operative cardiovascular examination, high risk surgery Pre-operative cardiovascular examination Lung mass Swelling, mass, or lump in chest Pre-operative cardiovascular examination, high risk surgery Pre-operative cardiovascular examination documented in this encounter Admitting Diagnoses Diagnosis Lung mass Swelling, mass, or lump in chest documented in this encounter Administered Medications Inactive Administered Medications - up to 3 most recent administrations Medication Order MAR Action Action Date Dose Rate Site acetaminophen (TYLENOL) tablet 1,000 mg 1,000 mg, Oral, ONCE, 1 dose, On Tue12/10/15 at 0630, Day of Surgery (Day of Procedure), Routine Given 12/10/2015 6:30 AM EDT 1,000 mg acetaminophen (TYLENOL) tablet 1,000 mg 1,000 mg, Oral, EVERY 6 HOURS SCHEDULED, First dose on Tue12/10/15 at 1800, Until Discontinued, Do not exceed 4,000 mg in 24 hours, Recovery (Recovery-Hospital Unit), Routine Given 12/13/2015 8:27 AM EDT 1,000 mg Given 12/12/2015 9:39 PM EDT 1,000 mg Given 12/12/2015 2:19 PM EDT 1,000 mg AMIOdarone (CORDARONE) 300 mg in dextrose 5% 106 mL bolus infusion 300 mg, Intravenous, ONCE, 1 dose, On Tue12/10/15 at 1445, Administer over 1 Hours, Administer over 1 hour. Given 12/10/2015 2:45 PM EDT 300 mg 106 mL/hr AMIOdarone (CORDARONE; PACERONE) tablet 400 mg 400 mg, Oral, EVERY 8 HOURS, 9 doses, First dose on Tue12/10/15 at 2245, Last dose on Tue12/13/15 at 1445, Routine Given 12/13/2015 6:51 AM EDT 400 mg Given 12/12/2015 11:36 PM EDT 400 mg Given 12/12/2015 2:19 PM EDT 400 mg bisacodyl (DULCOLAX) suppository 10 mg 10 mg, Rectal, DAILY PRN, Starting on Tue12/12/15 at 1219, Until Tue12/13/15 at 1824, Constipation, Routine Given 12/13/2015 9:48 [...] mL per hour, Recovery (Recovery-Hospital Unit) [facility] 12/11/2015 12:37 PM EDT 6 mL/h r 6 mL/hr chlorthalidone (HYGROTEN) tablet 25 mg 25 mg, Oral, DAILY, First dose on Tue12/12/15 at 1200, Until Discontinued, Routine Given 12/13/2015 8:35 AM EDT 25 mg Given 12/12/2015 11:56 AM EDT 25 mg docusate sodium (COLACE) capsule 100 mg 100 mg, Oral, 3 TIMES DAILY, First dose on Tue12/10/15 at 2100, Until Discontinued, Routine Given 12/12/2015 8:17 AM EDT 100 mg Given 12/11/2015 9:04 PM EDT 100 mg Given 12/11/2015 2:29 PM EDT 100 mg fentaNYL (PF) 50 mcg/mL 2mL syringe 50 mcg, Intravenous, EVERY 5 MIN PRN, Pain, for 5-10 pain score, Starting on Tue12/10/15 at 1420, Until Tue12/10/15 at 1844, for 5-10 pain score Hold for respiratory rate less than 10 per minute. Maximum dose: 250 mcg over one hour., PACU Recovery Given 12/10/2015 3:17 PM EDT 50 mcg Given 12/10/2015 3:08 PM EDT 50 mcg fentaNYL 50mcg/mL injection 12.5-50 mcg, Intravenous, EVERY 1 MIN PRN, Starting on Tue12/10/15 at 0600, Until Tue12/10/15 at 0741, for use during epidural placement only, Day of Surgery (Day of Procedure), Routine Given 12/10/2015 7:11 AM EDT 25 mcg furosemide (LASIX) injection 20 mg 20 mg, Intravenous, ONCE, 1 dose, On 12/13/15 at 0915 Given 12/13/2015 9:48 AM EDT 20 mg heparin (porcine) subcutaneous injection 5,000 Units 5,000 Units, Subcutaneous, EVERY 12 HOURS SCHEDULED (2 times per day), First dose on Tue12/10/15 at 2100, Until Discontinued, Routine Given 12/13/2015 8:27 AM EDT 5,000 Units Given 12/12/2015 9:46 PM EDT 5,000 Units Given 12/12/2015 8:18 AM EDT 5,000 Units HYDROmorphone (DILAUDID) 10 mcg/mL, BUpivacaine (MARCAINE) 0.0625% (0.625 mg/mL) (1/16%) in sodium chloride 0.9% 250 mL epidural 6 mL/hr, Epidural, ZZ CONTINUOUS + PCEA, Starting on Tue12/10/15 at 0630, Until Velma 12/11/15 at 1021, Maximum rate for continuous infusion 14 mL per hour Maximum total epidural rate (continuous and PCEA bolus) is 25 mL per hour, Recovery (Recovery-Hospital Unit), Patient Controlled Epidural Analgesia (PCEA): 3 mL, PCEA Frequency: Every 20 minutes New Bag 12/10/2015 3:14 PM EDT 6 mL/hr 6 mL/hr New Bag 12/10/2015 8:20 AM EDT 6 mL/hr 6 mL/hr HYDROmorphone (DILAUDID) injection 0.2 mg 0.2 mg, Epidural, ONCE, 1 dose, On Tue12/10/15 at 0630, Routine Given 12/10/2015 7:30 AM EDT 0.2 mg ibuprofen (ADVIL;MOTRIN) tablet 600 mg 600 mg, Oral, EVERY 6 HOURS, First dose on 12/13/15 at 0915, Until Discontinued, Administer orally with milk or food to minimize GI irritation. Maximum dose of 3200 mg from all sources in 24 hours, Routine Given 12/13/2015 9:48 AM EDT 600 mg lactated ringers infusion 1,000 mL 1,000 mL, at 100 mL/hr, Intravenous, CONTINUOUS, Starting on Tue12/10/15 at 0630, Until Tue12/10/15 at 1842, Day of Surgery (Day of Procedure) New Bag 12/10/2015 6:30 AM EDT 1,000 mLs 100 mL/hr lactated ringers infusion 1,000 mL 1,000 mL, at 100 mL/hr, Intravenous, CONTINUOUS, Starting on Tue12/10/15 at 1445, Until Velma 12/11/15 at 0630, Recovery (Recovery-Hospital Unit) New Bag 12/11/2015 1:40 AM EDT 1,000 mLs 100 mL/hr New Bag 12/10/2015 3:35 PM EDT 1,000 mLs 100 mL/hr lidocaine (XYLOCAINE) 10 mg/mL (1 %) injection 3 mg 3 mg (0.3 mL), Subcutaneous, ONCE PRN, 1 dose, Starting on Tue12/10/15 at 0613, Until Tue12/10/15 at 0618, for discomfort with PIV insertion, Day of Surgery (Day of Procedure), Routine Given 12/10/2015 6:18 AM EDT 3 mg midazolam (PF) (VERSED) 1 mg/mL injection 0.5-2 mg 0.5-2 mg, Intravenous, EVERY 1 MIN PRN, Starting on Tue12/10/15 at 0600, Until Tue12/10/15 at 0741, Anxiety, for epidural placement only, Day of Surgery (Day of Procedure), Routine Given 12/10/2015 7:26 AM EDT 0.5 mg Given 12/10/2015 7:03 AM EDT 1 mg Given 12/10/2015 7:00 AM EDT 1 mg nalBUPHine (NUBAIN) injection 2 mg 2 mg, Intravenous, EVERY 4 HOURS PRN, Itching, Starting on Velma 12/11/15 at 1020, Until 12/13/15 at 1824 nalOXone (NARCAN) injection 0.2 mg 0.2 mg, Intravenous, EVERY 1 MIN PRN, Starting on Velma 12/11/15 at 1023, Until 9/10/16 at 1824, Opioid Reversal, If respiratory rate [...] Given 12/12/2015 12:55 PM EDT 17 g senna (SENOKOT) tablet 17.2 mg 17.2 mg, Oral, EVERY EVENING, First dose on Velma 12/11/15 at 1700, Until Discontinued, Routine Given 12/11/2015 4:17 PM EDT 17.2 mg senna-docusate (PERICOLACE) 8.6-50 mg per tablet 1 [...] Given 12/12/2015 8:20 AM EDT 5 mLs sodium chloride 0.9% infusion 100 mL/hr, Intravenous, CONTINUOUS, Starting on Velma 12/11/15 at 0700, Until 12/13/15 at 0640 New Bag 12/12/2015 9:43 PM EDT 100 mL/hr 100 mL/hr New Bag 12/12/2015 11:56 AM EDT 100 mL/hr 100 mL/hr New Bag 12/12/2015 1:53 AM EDT 100 mL/hr 100 mL/hr documented in this encounter Active and Recently [...] Fabian RN)1500 (Due - Provider: Samia Do [facility]) AMIOdarone (CORDARONE; PACERONE) tablet 400 mg(Linked Group [...] 20 mg, Intravenous, ONCE, 1 dose, On Tue12/13/15 at 0915 0948 (Given - Provider: Therese [...] Oral, EVERY 6 HOURS, First dose on Tue12/13/15 at 0915, Until Discontinued, Administer orally with [...] Antunez RN) 0820 (Given - Provider: Therese Fabian RN)2147 (Given - Provider: Maame Padilla RN) 0948 [...] Fabian RN) 0940 (Paused - Provider: Therese Fabian RN) lactated ringers infusion 1,000 mL (CANCELED) 1,000 mL, at 100 mL/hr, Intravenous, CONTINUOUS, Starting on Tue12/10/15 at 1445, Until Velma 12/11/15 at 0630, Recovery (Recovery-Hospital Unit) 0140 (New Bag - Provider: Maame Padilla RN)0635 (Stopped - Provider: Maame Padilla RN) sodium chloride 0.9% infusion (CANCELED) 100 mL/hr, Intravenous, CONTINUOUS, Starting on Velma 12/11/15 at 0700, Until 12/13/15 at 0640 0635 (New Bag - Provider: Maame Padilla RN)1621 (New Bag - Provider: Therese Fabian, SANTY) 0153 (New Bag - Provider: Yaima Rock RN)1156 (New Bag - Provider: Therese Fabian RN)2143 (New Bag - Provider: Maame Padilla RN) PRN Medication Order 12/11/2015 12/12/2015 12/13/2015 bisacodyl [...] Last dose on Tue12/13/15 at 1445, Routine documented in this encounter Care Teams Cream Buyer Relationship Specialty Start Date End Date Rolando Palumbo MD [address] [facility] [place] [address] PCP - General 11/11/14 08/07/17 documented as of this encounter
--- OUTSIDE RECORDS SUMMARY | 2023-11-03 04:03 | XMS_ITS | Encounter Summary ---
Author Organization [facility] Address [facility] [place] [address] Care Team Providers Care General Supervisor Name Role Phone Mustapha Palumbo MD Primary Care Provider [phone] Encounter Details Date Type Department Care Team (Latest Contact Info) Description 10/31/2015 2:10 PM EDT Laboratory [place] [phone] Lung nodule; Pre-operative cardiovascular examination, high risk surgery Social History Tobacco Use Types Packs/Day Years [...] 8:30 AM EDT Office Visit Hematology/Oncology at [address] [phone] Garcia Childress MD [facility] DR HEMAT[place]Y [place] [address] Kassy Ken APRN [address] [place] [address] DR MEDICAL ONCOLOGY [place], [place] [phone] documented as of this encounter Procedures Procedure Name Priority Date/Time Associated Diagnosis Comments HEMOGRAM Routine 10/31/2015 2:36 PM EDT Lung nodule Pre-operative cardiovascular examination, high risk surgery DIFFERENTIAL, AUTOMATED Routine 10/31/2015 2:36 PM EDT Lung nodule Pre-operative cardiovascular examination, high risk surgery TYPE AND SCREEN, SDP (FUTURE SURGERY, [facility] SAME DAY PROGRAM ONLY) Routine 10/31/2015 2:36 PM EDT Lung nodule Pre-operative cardiovascular examination, high risk surgery ABO/RH TYPING Routine 10/31/2015 2:36 PM EDT Lung nodule Pre-operative cardiovascular examination, high risk surgery CBC (WITH DIFF) Routine 10/31/2015 2:36 PM EDT Lung nodule Pre-operative cardiovascular examination, high risk surgery ANTIBODY SCREEN Routine 10/31/2015 2:36 PM EDT Lung nodule Pre-operative cardiovascular examination, high risk surgery COMPREHENSIVE METABOLIC PANEL (NON-FASTING) Routine 10/31/2015 2:36 PM EDT Lung nodule Pre-operative cardiovascular examination, high risk surgery documented in this encounter Results * Antibody screen (10/31/2015 2:36 PM EDT) Ab Screen Interp Negative [facility] Expires at [id number] on: 12/13/2015 [facility] Comment: Corrected from 12/15/15 12:00 [Unknown] on 11/20/15 08:19 by Annabel Mccabe Blood specimen (specimen) 10/31/2015 2:36 PM EDT 10/31/2015 3:01 PM EDT Narrative Resulting Agency Comment Spec In Lab Shane Diamond MD BLOOD BANK LAB O RDERABLES [facility] [place] [address] * ABO/Rh Typing (10/31/2015 2:36 PM EDT) ABORH Type O Pos [facility] Blood specimen (specimen) 10/31/2015 2:36 PM EDT 10/31/2015 3:01 PM EDT Narrative Resulting Agency Comment Spec In Lab Shane Diamond MD BLOOD [place] [address] * (ABNORMAL) Differential, Automated (10/31/2015 2:36 PM EDT) Neutrophils % 69.6 % [facility] Neutr Abs (ANC) 7.22(H) 1.50 - 6.30 x10(3)/[facility] Lymphocytes % 20.6 % [facility] Lymphocytes Abs 2.1 1.0 - 3.6 x10(3)/[facility] Monocytes % 6.5 % [facility] Monocyte Abs 0.7 0.2 - 1.0 x10(3)/[facility] Eosinophils % 2.4 % [facility] Eosinophils Abs 0.2 0.0 - 0.5 x10(3)/[facility] Basophils % 0.6 % [facility] Basophils Abs 0.1 0.0 - 0.2 x10(3)/[facility] Immature Gran % 0.30 % [facility] Comment: Immature granulocytes(IG's)percentage and absolute count will include metamyelocytes, myelocytes, and promyelocytes. Blood smears from CBCs yielding IG's will be scanned manually for concordance. If this scan disagrees with the automated IG or if promyelocytes are noted, a manual differential will be performed. Wendy Gran Abs 0.03 0.00 - 0.05 x10(3)/[facility] Blood specimen (specimen) 10/31/2015 2:36 PM EDT 10/31/2015 2:59 PM EDT Narrative Resulting Agency Comment Spec In Lab Shane Diamond MD HEMATOLOGY ORDER DIAMOND Performing Organization Address City/[facility]/ZIP Co de Phone Number Critical [address] [place] [address] * (ABNORMAL) Hemogram (10/31/2015 2:36 PM EDT) WBC 10.4(H) 4.0 - 10.0 x10(3)/[facility] RBC 5.11 4.63 - 6.08 x10(6)/[facility] Hemoglobin 15.1 13.7 - 17.5 gm/dL [facility] Hematocrit 44.8 40.0 - 51.0 % [facility] MCV 87.7 79.0 - 92.0 fL [facility] MCH 29.5 25.6 - 32.2 pg [facility] MCHC 33.7 32.0 - 36.5 gm/dL [facility] Platelets 265 145 - 370 x10(3)/[facility] RDWSD 43.0 35.0 - 46.0 [facility] RDWCV 13.5 10.9 - 14.4 % [facility] MPV 10.9 9.0 - 12.0 fL [facility] nRBC % Auto 0.0 % [facility] nRBC Abs Auto 0.000 0.000 - 0.012 x10(3)/[facility] Blood specimen (specimen) 10/31/2015 2:36 PM EDT 10/31/2015 2:59 PM EDT Narrative Resulting Agency Comment Spec In Lab Shane Diamond MD HEMATOLOGY ORDER DIAMOND [facility] [place] [address] * (ABNORMAL) Comprehensive metabolic panel (non-fasting) (10/31/2015 2:36 PM EDT) Pathologist [facility] Glucose Lvl 103 65 - 199 mg/dL [facility] Comment:Diabetes: >=200 mg/d L plus symptoms BUN 13 10 - 20 mg/dL [facility] Creatinine 0.96 0.80 - 1.50 mg/dL [facility] Comment: Please note that the pediatric reference intervals supplied above were not validated at [facility]. Results from pediatric patients should be interpreted in conjunction to the patient's age, height and muscle mass. Sodium 139 135 - 145 mmol/L [facility] Potassium 4.0 3.5 - 5.0 mmol/L [facility] Comment: Please note: ??Patients with WBC >100,000 may have falsely elevated Potassium levels. ??For accurate Potassium quantification in these patients send serum separator tube (gold top) for subsequent determinations. ??Contact the Clinical Chemistry Laboratory if there are any questions. Chloride 96(L) 98 - 107 mmol/L [facility] CO2 29 22 - 31 mmol/L [facility] Anion Gap 14 5 - 15 mmol/L [facility] Calcium 10.0 8.5 - 10.5 mg/dL [facility] Total Protein 8.5(H) 6.1 - 8.0 gm/dL [facility] Albumin 4.3 3.2 - 5.2 gm/dL [facility] AST 20 0 - 39 unit/L [facility] ALT 24 0 - 55 unit/L [facility] Alk Phos 120 40 - 120 unit/L [facility] Total Bilirubin 0.6 0.2 - 1.3 mg/dL [facility] Bili, Direct 0.1 0.0 - 0.3 mg/dL [facility] Estimated GFR >60 >=60 [facility] Comment: This estimated GFR (eGFR) [...] the following links into your internet browser. [email or web address] Blood specimen (specimen) 10/31/2015 2:36 PM EDT 10/31/2015 2:59 PM EDT Narrative Resulting Agency Comment Spec In Lab Shane Diamond MD CHEMISTRY ORDERA BLES Performing Organization Address City/State/[facility] Co de Phone Number [facility] [address] documented in this encounter Visit Diagnoses Diagnosis Lung nodule Solitary pulmonary nodule Pre-operative cardiovascular examination, high risk surgery Pre-operative cardiovascular examination documented in this encounter Care Teams General Supervisor Relationship Specialty Start Date End Date Mustapha Palumbo MD [address] [place] [address] PCP - General 11/11/14 08/07/17 documented as of this encounter
--- OUTSIDE RECORDS SUMMARY | 2023-11-03 04:03 | XMS_ITS | Encounter Summary ---
Author Organization [facility] Address [facility] [place] [address] Care Team Providers Care Application Project Leader Name Role Phone Mustapha Palumbo MD Primary Care Provider [phone] Encounter Details Date Type Department Care Team (Latest Contact Info) Description 10/24/2015 - 10/24/2015 11:59 PM EDT Hospital Encounter [place] [phone] Jose Grubbs MD [address] [place] [address] Pain Discharge Disposition: Home Social History Tobacco [...] 8:30 AM EDT Office Visit Hematology/Oncology at [address] [phone] Garcia Childress MD [facility] [address] [place] [address] Kassy Ken, [address] MEDICAL ONCOLOGY [place], [place] [phone] documented as of this encounter Procedures Procedure Name Priority Date/Time Associated Diagnosis Comments FILM LIBRARY STORAGE ONLY CT CHEST ABDOMEN PELVIS Routine 10/24/2015 12:00 AM EDT Pain documented in this encounter Results * Film Library- Storage Only CT Chest Abdomen Pelvis (10/24/2015 12:00 AM EDT) Narrative [facility] - 10/24/2015 8:43 PM EDT This exam is for storage only and is auto-finalizing. Jose Grubbs MD [facility] FILM LIBRARY ORD ERABLES Performing Organization Address City/State/[facility] Co de Phone Number [place], [place] documented in this encounter Visit Diagnoses Diagnosis Pain Generalized pain documented in this encounter Care Teams Application Project Leader Relationship Specialty Start Date End Date Mustapha Palumbo MD [address] [place] [address] PCP - General 11/11/14 08/07/17 documented as of this encounter
--- OUTSIDE RECORDS SUMMARY | 2023-11-03 04:03 | XMS_ITS | Encounter Summary ---
Author Organization Count Includes [facility] Address [facility] [place] [address] Care Team Providers Care Yarn Man Name Role Phone Mustapha Palumbo MD Primary Care Provider [phone] Reason for Visit * Reason Comments Colon Cancer Encounter Details Date Type Department Care Team (Late st Contact Info) Description 09/22/2015 2:30 PM EDT Office Visit Hematology/Oncology at [address] [phone] Jose Grubbs MD [address] [place] [id number] Carcinoma of colon; Abnormal results of function studies of other organs and systems Social History Tobacco Use Types Packs/Day Years Used Date Smoking Tobacco: Former Cigarettes Q uit: 04/25/1997 Smokeless Tobacco: Former Sex and Gender Information Value Date Recorded Sex Assigned at Not on file Gender Identity Not on file Sexual Orientation Not on file documented as of this encounter Last Filed Vital Signs Vital Sign Reading Time Taken Comments Blood Pressure 135/71 09/22/2015 2:37 PM EDT Pulse 81 09/22/2015 2:37 PM EDT Temperature 36.7 ??C (98.1 ??F) 09/22/2015 2:37 PM ED T Respiratory Rate 20 09/22/2015 2:37 PM EDT Oxygen Saturation 95% 09/22/2015 2:37 PM EDT Inhaled Oxygen Concentration - - Weight 111.1 kg (245 lb) 09/22/2015 2:37 PM EDT Height 184.5 cm (6' 0.64) 09/22/2015 2:37 PM ED T copied Body Mass Index 32.65 09/22/2015 2:37 PM EDT documented in this encounter Progress Notes * Jose Grubbs MD - 09/22/2015 3:08 PM EDT Patient Active Problem List Diagnosis Code ??? Carcinoma of colon C18.9 ??? Obesity E66.9 ??? CIS - Past Surgery/Trauma ??? Elevated LFTs R79.89 ??? Inflamed seborrheic keratosis L82.0 Problems:adenocarcinoma of sigmoid colon - pT2 pN0 Mx, well differentiated - 04/01/08 screening colonoscopy - sigmoid carcinoma - 04/22/08 sigmoid resection ---Pathologic Diagnosis--- CONSULTATION CASE 1. Outside slides labeled [id number], collection date 04/01/08. Colon, biopsy at 15 cm: Invasive adenocarcinoma, arising in association with a tubular adenoma with high grade dysplasia. 2. Outside slides labeled [id number], collection date 04/22/08. A - Small bowel, [...] of colon with no evidence of malignancy. Subjective: Seth comes in today for his xtqpc-isn-f-half-year followup on his colon cancer. We have been watching a slowly rising CEA and a slight abnormality for years now in his alkaline phosphatase which has gone up and down a bit. No problem had ever been found. He continues to be symptom free and feels well with no problems. He is not having any blood in his stools, no bowel problems, no abdominal discomfort or pain. Review of systems is completely negative. Current Outpatient Prescriptions on File Prior to Visit Medication Sig Dispense Refill ??? chlorthalidone (HYGROTEN) 25 mg tablet Take 25 mg by mouth daily. ??? MULTIVITAMIN W-MINERALS/LUTEIN (CENTRUM SILVER ORAL) Take 1 tablet by mouth every morning. ??? ANTIOX #8/OM3/DHA/EPA/LUT/ZEAX (PRESERVISION AREDS 2 ORAL) Take 1 tablet by mouth every morning. ??? aspirin 81 mg EC tablet Take 81 mg by mouth every 3 days. ??? acetaminophen (TYLENOL) 325 mg tablet No current facility-administered medications on file prior [...] Neurological: Negative. Hematological: Negative for adenopathy. BP 135/71 (Patient Position: Sitting) Pulse 81 Temp 36.7 ??C (98.1 ??F) (Oral) Resp 20 Ht 184.5 cm (6' 0.64) Comment: copied Wt (!) 111.1 kg (245 lb) SpO2 95% BMI 32.65 kg/m2 Head: Normocephalic, without obvious abnormality, atraumatic [...] and axillary nodes normal Neurologic: Normal CEA 09/17/15 13.3 03/13/15 7.8 11/07/14 8.0 Repeat [facility] 5.5 11/08/13 3.3 05/02/13 3.1 11/03/12 1.2 05/04/12 1.2 10/29/11 1.2 04/20/11 1.3 10/16/10 0.8 04/13/10 0.6 11/03/09 0.9 07/03/09 0.9 04/03/09 <0.5 12/27/08 0.4 08/23/08 0.4 Review of the patient's laboratory today shows normal electrolytes. Creatinine is 0.98, ALP is actually better at 121 but CEA has actually gone up to 13.3. The patient is a nonsmoker. CBC shows a white count of 7.25, there is no evidence for iron deficiency anemia with a hemoglobin of 14.9, a hematocrit of 43.9, mean cell volume of 87 and normal RDW at 13.8, platelets are 243,000. Assessment/Plan: Seth shows a steady rise in CEA. At wapvq-hqu-d-half-years after an initial cancer it is really not possible for his colon cancer to have come back. It makes the possibility of an occult cancer perhaps more likely. That being said a rising CEA is not a 100% specific marker for cancer and in that regard may not represent malignancy. Nonetheless at this point I think it better to go ahead and move his colonoscopy up to make sure there is not a new problem. Similarly if he had prostate cancer that might also raise his CEA and since that is a fairly common cancer in this age group it makes sense to check a PSA on him. We will also get a CT scan chest, abdomen and pelvis with contrast and repeat his labs again to make sure the marker is really elevated. We will see him back after that. He does note he was due for his colonoscopy next year so we simply want to move that up considering the test findings. He will call if there are any issues or problems in the interim. I did discuss the possibility of additional false positives with subsequent testing and how that might lead to more testing and he understands the situation quite clearly. I suspect that things are fine especially considering he is completely asymptomatic and zuzmd-avt-v-half years post a colon cancer that was resected. documented in this encounter Plan of Treatment Upcoming Encounters Date Type Department Care Team (Late st Contact Info) Description 11/03/2023 8:30 AM EDT Office Visit Hematology/Oncology at [address] [phone] Garcia Childress MD [facility] [address] [place] [address] Kassy Ken APRN [address] [place] [address] [place] [address] documented as of this encounter Procedures Procedure Name Priority Date/Time Associated Diagnosis Comments CT SCAN (SCAN) 10/24/2015 12:00 AM EDT LAB SCAN 10/20/2015 12:00 AM EDT documented in this encounter Results * SCAN DOC: CT SCAN (10/24/2015 12:00 AM EDT) Anatomical Region Laterality Modality Other Scanning Provider MEDIA MGR SCAN EXT O RDR/RSLT * SCAN DOC: LAB (10/20/2015 12:00 AM EDT) Scanning Provider MEDIA MGR SCAN EXT O RDR/RSLT documented in this encounter Visit Diagnoses Diagnosis Carcinoma of colon Malignant neoplasm of colon, unspecified site Abnormal results of function studies of other organs and systems documented in this encounter Care Teams Yarn Man Relationship Specialty Start Date End Date Mustapha Palumbo MD [address] [place] [address] PCP - General 8/10/15 5/6/18 documented as of this encounter
--- OUTSIDE RECORDS SUMMARY | 2023-11-03 04:03 | XMS_ITS | Encounter Summary ---
[place] [address] Care Team Providers Care Dean Of Girls Name Role Phone Mustapha Palumbo MD Primary Care Provider [phone] Reason for Referral * Diagnostic Test (Routine) - Closed Specialty Diagnoses / Procedures Referred By Contac t Referred To Contact Radiology Diagnoses Carcinoma of colon Procedures PET/CT STANDARD (Skull base to Mid-thigh) Jose Grubbs MD [address] [place] [address] [place] [address] [place] [address] Referral ID Status Reason Start Date Expiration Date V isits Requested Visits Authorized [id number] Closed Specialty Service Requested 10/28/2015 10/27/2016 1 1 Reason for Visit * Diagnostic Test (Routine) - Closed Specialty Diagnoses / Procedures Referred By Contac t Referred To Contact Radiology Diagnoses Carcinoma of colon Procedures PET/CT STANDARD (Skull base to Mid-thigh) Jose Grubbs MD [address] [place] [address] [place] [address] [place] [address] Referral ID Status Reason Start Date Expiration Date V isits Requested Visits Authorized [id number] Closed Specialty Service Requested 10/28/2015 10/27/2016 1 1 Encounter Details Date Type Department Care Team (Latest Contact Info) Description 10/31/2015 7:03 AM EDT Hospital Encounter [place] [phone] Jose Grubbs MD [address] [place] [address] [place], [place] [address] Carcinoma of colon Discharge Disposition: Home Social History Tobacco Use [...] AM EDT Office Visit Hematology/Oncology at [address] [phone] Garcia Childress MD [facility] DR HEMATOLOGY [place] [address] Kassy Ken APRN [address] [place] [address] DR MEDICAL ONCOLOGY [place], [place] [address] documented as of this encounter Procedures Procedure Name Priority Date/Time Associated Diagnosis Comments NM PET CT SKULL BASE TO MID-THIGH ([facility]) Routine 10/31/2015 9:28 AM EDT Carcinoma of colon POCT GLUCOSE Routine 10/31/2015 7:38 AM EDT documented in this encounter Results * PET/CT STANDARD (Skull base to Mid-thigh) (10/31/2015 9:28 AM EDT) Anatomical Region Laterality Modality Nuclear Medicine Impressions 10/31/2015 4:37 PM EDT 1. ??Hypermetabolic 3.8 x 2.7 cm LEFT upper lobe mass consistent with primary pulmonary malignancy or less likely ??metastasis. 2. ??No other sites of FDG avid malignancy. Thank you for referring this patient to [facility]. I have personally reviewed the image(s) and the residents interpretation and agree with the findings, Garcia Toledo at 10/31/2015 4:37 PM Narrative 10/31/2015 4:37 PM EDT EXAMINATION: PET/CT STANDARD (SKULL BASE TO MID THIGH) CLINICAL HISTORY: Rising CEA ??Remote history 2008 of colon cancer. ??Now with LLL Mass ??Staging for resection Suspect new lung Cancer ??Please make appointment same day as Thoracic Surgery Appointment TECHNIQUE: Procedure: Following IV injection of 84-fiutnf-1-deoxyglucose (FDG) a standard uptake of approximately 60 minutes, a noncontrast CT scan followed by a PET scan were acquired from the base of the skull to mid thighs. The noncontrast CT was used for anatomic localization and photon attenuation correction of the PET scan Blood glucose level: 116 (mg/dL) FDG dose: 12.4 mCi Reference liver mean SUV: 2.2 COMPARISON: CT chest 10/24/2015 FINDINGS: HEAD/NECK: Normal activity in all soft tissue regions of the neck and visualized lower head. CHEST: Hypermetabolic 3.8 x 2.7 cm slightly spiculated LEFT lower lobe mass (max SUV 12.3). The mass abuts the pleural surface, however no osseous irregularity of the adjacent rib is seen. ??No other pulmonary nodules or opacities. No hypermetabolic hilar or mediastinal lymphadenopathy. CT visualized LEFT upper paratracheal lymph node measuring 11 mm in short axis without associated hypermetabolic activity (image 15). ABDOMEN/PELVIS: Normal activity in all soft tissue regions. Small fat-containing ventral hernia and RIGHT inguinal hernia are noted. SKELETON/EXTREMITIES: Normal activity in all regions of the axial and visualized appendicular skeleton. Facet arthropathy at the lumbar spine. Procedure Note Garcia Toledo MD - 10/31/2015 EXAMINATION: PET/CT STANDARD (SKULL BASE TO MID THIGH) CLINICAL HISTORY: Rising CEA Remote history 2007 of colon cancer. Nowwith LLL Mass Staging for resection Suspect new lung Cancer Please makeappointment same day as Thoracic Surgery Appointment TECHNIQUE: Procedure: Following IV injection of 23-kgxnkl-4-deoxyglucose(FDG) a standard uptake of approximately 60 minutes, a noncontrast CT scanfollowed by a PET scan were acquired from the base of the skull to mid thighs. Thenoncontrast CT was used for anatomic localization and photon attenuation correction ofthe PET scan Blood glucose level: 116 (mg/dL) FDG dose: 12.4 mCi Reference liver mean SUV: 2.2 COMPARISON: CT chest 10/24/2015 FINDINGS: HEAD/NECK: Normal activity in all soft tissue regions of the neck and visualizedlower head. CHEST: Hypermetabolic 3.8 x 2.7 cm slightly spiculated LEFT lower lobe mass (maxSUV 12.3). The mass abuts the pleural surface, however no osseous irregularityof the adjacent rib is seen. No other pulmonary nodules or opacities. No hypermetabolic hilar or mediastinal lymphadenopathy. CT visualized LEFTupper paratracheal lymph node measuring 11 mm in short axis without associated hypermetabolic activity (image 15). ABDOMEN/PELVIS: Normal activity in all soft tissue regions. Small fat-containing ventralhernia and RIGHT inguinal hernia are noted. SKELETON/EXTREMITIES: Normal activity in all regions of the axial and visualized appendicular skeleton. Facet arthropathy at the lumbar spine. IMPRESSION 1. Hypermetabolic 3.8 x 2.7 cm LEFT upper lobe mass consistent withprimary pulmonary malignancy or less likely metastasis. 2. No other sites of FDG avid malignancy. Thank you for referring this patient to [facility]. I have personally reviewed the image(s) and the residents interpretationand agree with the findings, Garcia Toledo at 10/31/2015 4:37 PM Jose Grubbs MD IMG PET ORDERABLES * POCT Glucose (10/31/2015 7:38 AM EDT) POC Glucose 116 65 - 199 mg/dL [facility] Comment: Supplemental ranges: <140 mg/dL before meals <180 mg/dL all other times of the day Blood specimen (specimen) 10/31/2015 7:38 AM EDT 10/31/2015 7:38 AM EDT Jose Grubbs MD POINT OF CARE TEST O RDERABLES [facility] [place] [address] documented in this encounter Visit Diagnoses Diagnosis Carcinoma of colon Malignant neoplasm of colon, unspecified site documented in this encounter Administered Medications Inactive Administered Medications - up to 3 most recent administrations Medication Order MAR Action Action Date Dose Rate Site fludeoxyglucose (F-18) FDG injection 16.3 mCi 16.3 mCi, Intravenous, ONCE PRN, 1 dose, Starting on Tue10/31/15 at 0759, Until Tue10/31/15 at 0755, Per Protocol, Routine Given 10/31/2015 7:55 AM EDT 16.3 mCi Right Arm documented in this encounter Care Teams Dean Of Girls Relationship Specialty Start Date End Date Mustapha Palumbo MD [address] [place] [address] PCP - General 11/11/14 08/07/17 documented as of this encounter
--- OUTSIDE RECORDS SUMMARY | 2023-11-03 04:03 | XMS_ITS | Encounter Summary ---
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 [employer] Name Role Phone Mustapha Palumbo MD Primary Care Provider [phone] Reason for Visit * Auth/Cert Specialty Diagnoses / Procedures Referred By Contmelissa t Referred To Contact Diagnoses Lung mass left lower lobe lung mass Procedures PRO THORACOSCOPY SURG LOBECTOMY @THORACOSCOPY,SURGICAL,W\LOBECTOMY, TOTAL OR SEGMENTAL Referral ID Status Reason Start Date Expiration Date Visits Re quested Visits Authorized [id number] 1 1 Encounter Details Date Type Department Care Team (Late st Contact Info) Description 12/10/2015 7:38 AM EDT Anesthesia Event [place] [phone] Rashawn Yanez MD [facility] [place] [address] Naz Spears [facility] [place] [address] Anesthesia Record Procedure Summary Procedure Name Responsible Anesthesiologist Anesthesia Start Time Anesthesia Stop Time BRONCHOSCOPY, DIAGNOSTIC (WRVU 2.53) Rashawn Yanez MD 12/10/15 0738 12/10/15 1357 Events Date Time Event Comment 12/10/2015 0738 AN Verify 0738 Start 0738 An Start Data 0745 An Induction 0748 An Intubation 0749 FO Bronchoscopy 0811 Anesthesia Ready 0811 ABG Data Arterial Blood Gas result: pH 7.33 pCO2 55 pO2 368 FiO2 0.1 %O2 Sat 98 HCO3 28 BE 2.8 Hb 14 Glucose 108 K 3.81 0814 An one lung vent 0900 ABG Data Arterial Blood Gas result: pH 7.348 pCO2 48 pO2 105 FiO2 0.1 %O2 Sat 95 HCO3 25 BE 0.2 Hb 14 Glucose 132 K 3.88 0915 Quick Note Lung mass adher ent to chest wall, converted to open 1110 Quick Note Surgeon aracely munoz on heart 1112 ABG Data Arterial Blood Gas result: pH 7.38 pCO2 49 pO2 278 FiO2 0.1 %O2 Sat 99 HCO3 28 BE 3.6 Hb 14 Glucose 139 K 4.0 1300 An Dual Lung Vent 1356 an stop data 1357 Recovery or ICU Handoff Desirae ent care was transferred to the destination unit staff after review of the patient's medical history, current anesthetic/surgical status and plan, according to the Provider Handoff Checklist. 1357 Stop 12/11/2015 0716 Meds Name Total fentaNYL 100 mcg IV Lidocaine 80 mg Propofol 200 mg Rocuronium 150 mg PHENYLephrine 240 mcg ePHEDrine 20 mg Ondansetron 8 mg Neostigmine 4 mg Glycopyrrolate 0.6 mg ceFAZolin (ANCEF) 2g in dextrose 5% 50 m L 4 g HYDROmorphone (DILAUDID) 10 mcg/mL, BUpivacaine (MARCAINE) 0.0625% (0.625 mg/mL) (1/16%) in sodium chloride 0.9% 250 mL epidural 10 mL HYDROmorphone (DILAUDID) 10 mcg/mL, BUpivacaine (MARCAINE) 0.0625% (0.625 mg/mL) (1/16%) in sodium chloride 0.9% 250 mL epidural 33.7 mL heparin (porcine) subcutaneous injection 5,000 Units 5,000 Units PHENYLephrine INF 3,120 mcg Lactated Ringers 1,400 mL * Agents Name O2 Sevoflurane (et) * Blood No blood administrations on file. Lines, Drains, and Airways Type Details Placement Removal Incision 12/10/15; flank; laparoscopic punctures (specify), transverse; 11/30/21 (LDA cleanup utility RA#[id number]); 1715 (LDA cleanup utility RA#[id number]) 12/10/15 0000 by Ace Kothari RN 11/30/21 1715 by Vianey Ervin Incision 12/10/15; flank; transverse; 11/30/21 (LDA cleanup utility RA#[id number]); 1715 (LDA cleanup utility RA#[id number]) 12/10/15 0000 by Ace Kothari RN 11/30/21 1715 by Vianey Ervin (RETIRED) Peripheral IV Line - Single Lumen 12/10/15; 0617; metacarpal vein right (top of hand); [id number] catheter system; 18 gauge, 1 in length; SANTY Driver; distraction, intradermal injection, tolerated well; 12/13/15; 1421 12/10/15 0617 by Lesli Garcia E 12/13/15 1421 by Therese Fabian RN Epidural 12/10/15; 0728; Dr. Salas/Dr. Tolentino (loss at 8, tip T6, 15+ cm at skin); removed per policy/procedure, removed with ease, catheter intact; 12/13/15; 1309 12/10/15 0728 by Zonia Miguel RN 12/13/15 1309 by Therese Fabian RN Arterial Line 12/10/15; 0738; radi al artery; 20 gauge; Spears; Sterile Prep, Sterile Gloves; catheter intact; 12/10/15; 1840 12/10/15 0738 by Naz Spears MD 12/10/15 1840 by Pancho Love, SANTY (RETIRED) Peripheral IV Line - Single Lumen 12/10/15; 0738; metacarpal vein left (top of hand); [id number] catheter system; 18 gauge; Spears; 12/13/15; 1421 12/10/15 0738 by Naz Spears MD 12/13/15 1421 by Therese Fabian RN ETT Mask Ventilation: Ea sy (1); ETT Type: Cuffed, Oral; Double Lumen: 41 Fr; Mac Blade: 4; Notes: Asleep, Pre-O2, Cricoid Pressure, Stylette; Attempts: 2; Laryngoscopy Grade: 1; ETT Placement Verified By: Auscultation, Capnometry, Visual; Secured at Teeth: 32 cm; Inserted by: Regan; Removal Date: 12/10/15; Removal Time: 1356 09/07/16 0748 by Naz Spears MD 12/10/15 1356 by Naz Spears MD Urethral Catheter 12/10/15; 0800; Surg isai longer than 2 hours; Physician order; indwelling double lumen catheter; latex, silicone coated; 14; inserted at this facility; 1; 5; 10; none; drainage bag to dependent drainage; 12/13/15; 0956 12/10/15 0800 by Ace Kothari RN 12/13/15 0956 by Therese Fabian RN Chest Tube 12/10/15; 1216; Left ; 28Fr Straight; 12/13/15; 0941 12/10/15 1216 by Ace Kothari RN 12/13/15 0941 by Therese Fabian RN documented in this encounter Social History Tobacco Use Types Packs/Day Years Used Date Smoking Tobacco: Former Cigarettes Q uit: 04/25/1997 Smokeless Tobacco: Former Sex and Gender Information Value Date Recorded Sex Assigned at Not on file Gender Identity Not on file Sexual Orientation Not on file documented as of this encounter OR Notes * Anesthesia Postprocedure Evaluation - Naz Spears - 12/10/2015 4:22 PM EDT [facility] [place] Department of Anesthesiology Post-procedure Note Patient: Seth Kincaid Procedure Summary Date Anesthesia Start Anesthesia Stop Room / Location 12/10/15 0738 1357 [facility] OR 22 / [facility] MAIN OR Procedure Diagnosis Surgeon Responsible Provider BRONCHOSCOPY, DIAGNOSTIC (N/A ); @THORACOTOMY-LOBECTOMY, SINGLE LOBE (Left Chest); @LYMPHADENECTOMY,THORACIC ,REGIONAL,INCL. MEDIASTINAL,PERITRACHEAL NODES (Left Chest); THORACOSCOPY, DX., LUNGS WITHOUT BIOPSY (Left Chest) (left lower lobe lung mass) Shane Diamond MD Clark, Jeffrey A, MD All Anesthesia Providers: Anesthesiologist: Rashawn Yanez MD Inspector Boiler: Naz Spears, DO Last (1hr) Vitals: BP 104/66 (12/10/15 1530) Temp 36.6 ??C (97.9 ??F) (12/10/15 1530) Pulse 78 (12/10/15 1530) Resp 16 (12/10/15 1530) SpO2 98 % (12/10/15 1530) Patient Location: PACU/SDP Level of Consciousness: Awake and Alert Pain Management: Satisfactory Analgesia PONV: None Cardiovascular Status: At Baseline Respiratory Status: At Baseline Postoperative Fluid Status: Intravascular HYPOvolemia Possible Anesthetic Complications: NONE apparent at time of evaluation Final Primary Anesthesia Type: General (The anesthetic type performed was the same as planned.) Comments: * Anesthesia Procedure Notes - Jourdan Salas MD - 12/10/2015 7:36 AM EDT Associated Order(s): ANE NEURAXIAL UPDATED Procedure: Neuraxial Block Post-op Pain Control Performed by APS Type: Epidural The patient was greeted. The sedation plan, its benefits, risks and alternatives were discussed with the patient. The patient has consented to the procedure. The medical history and chart were reviewed. The timeout was performed. Start time: 12/10/2015 7:15 AM End time: 12/10/2015 7:30 AM Patient Location: Operating Room Patient Prep Position: Prone Prep: Hand Hygiene, Hat, Mask, Sterile Gloves, Gown, Chlorhexidine and Patient Draped Injection technique: continuous Skin Anesthetic Lidocaine 1% 3 ml Procedure Technique Level of needle insertion: T9-10 Needle approach: midline Needle Type: Tuohy Gauge: 18 Needle length: 3.5 in Needle insertion depth when TONI achieved: 8 cm Technique for Loss of Resistance: TONI air and TONI saline Catheter at skin depth: 15 cm Dressing/Secured with: Chlorhexidine Tegaderm Number of attempts: 2 Events/Notes Imaging: epidurogram obtained and fluoroscopy guided Level of Epidural Tip via Fluoroscopy: T6-7 Iohexol 240 mgI/mL, 2 mL Events: None Additional Notes: 1st attempt had only right side spread of dye. 2nd attempt at same level showed even spread of dye on epidurogram. Tip at mid T6. Resident/UTILITY SYSTEMS REPAIRER OPERATOR: Cayetano Fellow: Attending Physician: Rajan ~~~~~~~~~~~~~~~~~~~~~~~~~~~~~~~~~~~~~~~~~~~~~~~~~~~~~~~~~~~~ * Anesthesia Preprocedure Evaluation - Naz Spears - 12/09/2015 3:16 PM EDT Images from the original note were not included. Pre-Anesthesia Evaluation for: Seth Kincaid a 64 y.o. male. Procedure(s): @THORACOSCOPY,SURGICAL,W\LOBECTOMY,TOTAL OR SEGMENTAL BRONCHOSCOPY, DIAGNOSTIC Patient Active Problem List Diagnosis ??? Carcinoma of colon adenocarcinoma of sigmoid colon - pT2 pN0 Mx, well differentiated - 04/01/08 screening colonoscopy - sigmoid carcinoma - 04/22/08 sigmoid resection ---Pathologic Diagnosis--- CONSULTATION CASE 1. Outside slides labeled [id number], collection date 04/01/08. Colon, biopsy at 15 cm: Invasive adenocarcinoma, arising in association with a tubular adenoma with high grade dysplasia. 2. Outside slides labeled [id number], collection date 04/22/08. A - Small bowel, [...] boy, varicose vein surgery in 1970 ??? Lung mass ??? Mass of lower lobe of left lung ??? Inflamed seborrheic keratosis ??? Elevated LFTs Mild to moderate - chronic, intermittent, not progressive ??? Obesity moderate Past Medical History Diagnosis Date ??? Carcinoma of colon 04/01/2008 adenocarcinoma of sigmoid colon - pT2 pN0 Mx, well differentiated - 04/01/08 screening colonoscopy - sigmoid carcinoma - 04/22/08 sigmoid resection ---Pathologic Diagnosis--- CONSULTATION CASE 1. Outside slides labeled [id number], collection date 04/01/08. Colon, biopsy at 15 cm: Invasive adenoca rcinoma, arising in association with a tubular adenoma with high grade dysplasia. 2. Outside slideslabeled [id number], collection date 04/22/08. A - Small bowel, [...] vein surgery Right 40 years ago Social History Substance Use Topics ??? Smoking status: Former Smoker Quit date: 04/25/1997 ??? Smokeless tobacco: Former User ??? Alcohol use Not on file Comment: rare History Drug Use Not on file Allergies Allergen Reactions ??? Adhesive Tape CIS - Rash, CIS - Rash Medications: MAR and/or home medications have been reviewed. Physical Exam: There were no vitals filed for this visit. There is no height or weight on file to calculate BMI. Airway Assessment: Mallampati: II TM distance: >3 FB Neck ROM: full Cardiovascular Assessment: Rhythm: regular (-) murmur Pulmonary Assessment: breath sounds clear to auscultation Dental Assessment: - normal exam Misc Assessment: IV access: Peripheral line Anesthesia Plan: ASA 3 general, with a(n) intravenous induction 64 yo 112 kg M pMHX colon ca s/p sigmoid resection in 2007, HTN, obesity incidentally found to have3.8x2.7 cm LLL mass p/f wedge possible Left lower lobectomy. No family or personal hx of bleeding, no blood thinning medications, no LE weakness or paresthesia, no recent fever or URI, tolerated anesthesia GA with epidural for colon surgery in 2007. Endorses >4METS, appropriately NPO Allg-adhesive tape Med hx- as above meds- ASA, APAP, MTV, chlorthalidone surg- varicose vein stripping- no documneted anesthetic complications PFTs 11/06/15- FVC/FEV1- 69% Stress 11/04/15- max HR 151, SBP 180, 8 METS, stopped 2/ fatigue, negative for ischemia, occ PAC/PVC Lab Results Component Value Date ABORH O Pos 10/31/2015 Lab Results Component Value Date WBC 10.4 (H) 10/31/2015 HGB 15.1 10/31/2015 HCT 44.8 10/31/2015 MCV 87.7 10/31/2015 PLATELET 265 10/31/2015 Plan: GETA, VANIA, standard ASA monitors, arterial line, adequate PIV access, epidural, 1gm pre-op APAP Region - Intrathoracic Non-Cardiac Informed Consent: Anesthetic plan and risks discussed with patient and spouse. Use of blood products discussed with patient who consented to blood products. Plan discussed with attending. PAT Staff Note documented in this encounter Plan of Treatment Upcoming Encounters Date Type Department Care Team (Late st Contact Info) Description 11/03/2023 8:30 AM EDT Office Visit Hematology/Oncology at [address] [phone] Garcia Childress MD [facility] [place] [address] Kassy Ken APRN [address] [place] [address] [place] [address] documented as of this encounter Procedures Procedure Name Priority Date/Time Associated Diagnosis Comments ANE NEURAXIAL UPDATED Routine 12/10/2015 7:40 AM EDT Procedure Note - Jourdan Salas MD - 12/10/2015 7:36 AM EDTThis note is in progress. Procedure: Neuraxial Block Post-op Pain Control Performed by APS Type: Epidural The patient was greeted. The sedation plan, its benefits, risks andalternatives were discussed with the patient. The patient has consentedto the procedure. The medical history and chart were reviewed. Thetimeout was performed. Start time: 12/10/2015 7:15 AM End time: 12/10/2015 7:30 AM Patient Location: Operating Room Patient Prep Position: Prone Prep: Hand Hygiene, Hat, Mask, Sterile Gloves, Gown, Chlorhexidine andPatient Draped Injection technique: continuous Skin Anesthetic Lidocaine 1% 3 ml Procedure Technique Level of needle insertion: T9-10 Needle approach: midline Needle Type: Tuohy Gauge: 18 Needle length: 3.5 in Needle insertion depth when TONI achieved: 8 cm Technique for Loss of Resistance: TONI air and TONI saline Catheter at skin depth: 15 cm Dressing/Secured with: Chlorhexidine Tegaderm Number of attempts: 2 Events/Notes Imaging: epidurogram obtained and fluoroscopy guided Level of Epidural Tip via Fluoroscopy: T6-7 Iohexol 240 mgI/mL, 2 mL Events: None Additional Notes: 1st attempt had only right side spread of dye. 2ndattempt at same level showed even spread of dye on epidurogram. Tip at midT6. Resident/UTILITY SYSTEMS REPAIRER OPERATOR: Cayetano Fellow: Attending Physician: Rajan ~~~~~~~~~~~~~~~~~~~~~~~~~~~~~~~~~~~~~~~~~~~~~~~~~~~~~~~~~~~~ documented in this encounter Visit Diagnoses Not on filedocumented in this encounter Administered Medications Inactive Administered Medications - up to 3 most recent administrations Medication Order MAR Action Action Date Dose Rate Site ceFAZolin (ANCEF) 2g in dextrose 5% 50 mL 2 g, Intravenous, CURB HOP TO O.R., 1 dose, On Tue12/10/15 at 0645, Administer over 30 Minutes, Indication for (Active or Suspected): Prophylaxis Given 12/10/2015 11:08 AM EDT 2 g Given 12/10/2015 8:11 AM EDT 2 g ePHEDrine 5 mg/mL multi-dose injection PRN, Starting on Tue12/10/15 at 0915, Until Tue12/10/15 at 1357, Anesthesia Intra-op, Routine Given 12/10/2015 11:15 AM EDT 10 mg Given 12/10/2015 9:15 AM EDT 10 mg fentaNYL 50 mcg/mL multi-dose injection PRN, Starting on Tue12/10/15 at 1000, Until Tue12/10/15 at 1357, Pain, Anesthesia Intra-op, Routine Given 12/10/2015 10:00 AM EDT 100 mcg glycopyrrolate (ROBINUL) multi-dose injection PRN, Starting on Tue12/10/15 at 1305, Until Tue12/10/15 at 1357, Anesthesia Intra-op, Routine Given 12/10/2015 1:05 PM EDT 0.6 mg heparin (porcine) subcutaneous injection 5,000 Units 5,000 Units, Subcutaneous, CURB HOP TO O.R., 1 dose, On Tue12/10/15 at 0645, Routine Given 12/10/2015 8:11 AM EDT 5,000 Units HYDROmorphone (DILAUDID) 10 [...] 12/10/2015 3:14 PM EDT 6 mL/hr 6 m L/hr New Bag 12/10/2015 8:20 AM EDT 6 mL/hr 6 mL/hr HYDROmorphone (DILAUDID) 10 mcg/mL, BUpivacaine (MARCAINE) 0.0625% (0.625 mg/mL) (1/16%) in sodium chloride 0.9% 250 mL epidural PRN, Starting on Tue12/10/15 at 0820, Until Tue12/10/15 at 1357, Anesthesia Intra-op Given 12/10/2015 8:43 AM EDT 5 mLs Given 12/10/2015 8:20 AM EDT 5 mLs lactated ringers infusion CONTINUOUS PRN, Starting on Tue12/10/15 at 0738, Until Tue12/10/15 at 1357, Anesthesia Intra-op New Bag 12/10/2015 7:38 AM EDT lidocaine (PF) (XYLOCAINE) 100 mg/5 mL (2 %) injection PRN, Starting on Tue12/10/15 at 0745, Until Tue12/10/15 at 1357, Anesthesia Intra-op, Routine Given 12/10/2015 7:45 AM EDT 80 mg neostigmine (PROSTIGMINE) multi-dose injection PRN, Starting on Tue12/10/15 at 1305, Until Tue12/10/15 at 1357, Anesthesia Intra-op, Routine Given 12/10/2015 1:05 PM EDT 4 mg ondansetron (ZOFRAN) injection PRN, Starting on Tue12/10/15 at 1305, Until Tue12/10/15 at 1357, Nausea, Anesthesia Intra-op, Routine Given 12/10/2015 1:05 PM EDT 8 mg PHENYLephrine (KATHARINE-SYNEPHRINE) 20 mg in sodium chloride 250 mL (standard ADULT & Christian greater than 20kg) infusion CONTINUOUS PRN, Starting on Tue12/10/15 at 1205, Until Tue12/10/15 at 1357, Anesthesia Intra-op, Routine Rate/Dose Change 12/10/2015 1:13 PM EDT 40 mcg/min 30 mL/hr New Bag 12/10/2015 12:05 PM EDT 20 mcg/min 15 mL/hr PHENYLephrine HCl in NS (PF) (KATHARINE-SYNEPHRINE) 0.8 mg/10 mL (80 mcg/mL) multi-dose injection Syrg PRN, Starting on Tue12/10/15 at 1128, Until Tue12/10/15 at 1357, Anesthesia Intra-op, Routine Given 12/10/2015 11:55 AM EDT 80 mcg Given 12/10/2015 11:45 AM EDT 80 mcg Given 12/10/2015 11:28 AM EDT 80 mcg propofol (DIPRIVAN) 10 mg/mL bolus injection (Anesthesia) PRN, Starting on Tue12/10/15 at 0745, Until Tue12/10/15 at 1357, Anesthesia Intra-op Given 12/10/2015 7:45 AM EDT 200 mg rocuronium (ZEMURON) multi-dose injection PRN, Starting on Tue12/10/15 at 0745, Until Tue12/10/15 at 1357, Anesthesia Intra-op, Routine Given 12/10/2015 12:11 PM EDT 10 mg Given 12/10/2015 11:15 AM EDT 20 mg Given 12/10/2015 10:34 AM EDT 20 mg documented in this encounter Care Teams Refinery Operator [employer] Plant Relationship Specialty Start Date End Date Mustapha Palumbo MD [address] [facility] [place] [address] PCP - General 11/11/14 08/07/17 documented as of this encounter
--- OUTSIDE RECORDS SUMMARY | 2023-11-03 04:03 | XMS_ITS | Encounter Summary ---
[place] [address] Care Team Providers Care Tire Vulcanizer Name Role Phone Mustapha Palumbo MD Primary Care Provider +1 [phone] Reason for Referral * Diagnostic Test (Routine) - Closed Specialty Diagnoses / Procedures Referred By Contac t Referred To Contact Radiology Diagnoses Carcinoma of colon Procedures PET/CT STANDARD (Skull base to Mid-thigh) Jose Grubbs MD [address] [place] [address] [place] [address] Referral ID Status Reason Start Date Expiration Date V isits Requested Visits Authorized [id number] Closed Specialty Service Requested 10/28/2015 10/27/2016 1 1 Reason for Visit * Reason Comments Colon Cancer Encounter Details Date Type Department Care Team (Late st Contact Info) Description 10/27/2015 2:00 PM EDT Office Visit Hematology/Oncology at [address] [phone] Jose Grubbs MD [address] [place] [phone] Carcinoma of colon Social History Tobacco Use Types Packs/Day Years Used Date Smoking Tobacco: Former Cigarettes Q uit: 04/25/1997 Smokeless Tobacco: Former Sex and Gender Information Value Date Recorded Sex Assigned at Not on file Gender Identity Not on file Sexual Orientation Not on file documented as of this encounter Last Filed Vital Signs Vital Sign Reading Time Taken Comments Blood Pressure - - Pulse 76 10/27/2015 2:19 PM EDT Temperature 36.9 ??C (98.4 ??F) 10/27/2015 2:19 PM ED T Respiratory Rate 18 10/27/2015 2:19 PM EDT Oxygen Saturation 98% 10/27/2015 2:19 PM EDT Inhaled Oxygen Concentration - - Weight 110.5 kg (243 lb 8 oz) 10/27/2015 2:19 PM EDT Height 184.5 cm (6' 0.64) 10/27/2015 2:19 PM ED T copied Body Mass Index 32.45 10/27/2015 2:19 PM EDT documented in this encounter Progress Notes * Jose Grubbs MD - 10/27/2015 2:00 PM EDT Patient Active Problem List Diagnosis Code ??? Carcinoma of colon C18.9 ??? Obesity E66.9 ??? CIS - Past Surgery/Trauma ??? Elevated LFTs R79.89 ??? Inflamed seborrheic keratosis L82.0 ??? Mass of lower lobe of left lung R91.8 Problems:adenocarcinoma of sigmoid colon - pT2 pN0 Mx, well differentiated - 04/01/08 screening colonoscopy - sigmoid carcinoma - 04/22/08 sigmoid resection ---Pathologic Diagnosis--- CONSULTATION CASE 1. Outside slides labeled [id number], collection date 04/01/08. Colon, biopsy at 15 cm: Invasive adenocarcinoma, arising in association with a tubular adenoma with high grade dysplasia. 2. Outside slides labeled [id number], collection date 04/22/08. A - Small bowel, [...] Seth comes in today for followup after we set up an evaluation for a rising CEA. He is now 7-1/2 years out from a resected stage II colon cancer and had been getting CEAs as part of his yearly followup. His CEAs seem to be going up but then down again, but finally went up to 13 when I saw him last month, so we arranged for further staging studies, taking into account the fact that any rise in CEA would be unlikely from recurrence of his colon cancer this many years later. Unfortunately, his CT scan does show a left lower lobe mass. We went over the significance of this and what needs to be done as far as further evaluation today, and fortunately his is with him today. He does have a colonoscopy pending, but I did tell him to put that off in view of this new finding. He remains symptom free. No cough. No weight loss. No abdominal symptoms. No respiratory symptoms whatsoever. He does say on occasion he feels a catch in his left chest that goes away if he changes positions or lays on that side. Other than that, though, he is symptom free. Current Outpatient Prescriptions on File Prior to [...] Negative. Neurological: Negative. Hematological: Negative for adenopathy. Pulse 76 Temp 36.9 ??C (98.4 ??F) (Oral) Resp 18 Ht 184.5 cm (6' 0.64) Comment: copied Wt (!) 110.5 kg (243 lb 8 oz) SpO2 98% BMI 32.45 kg/m2 Head: Normocephalic, without obvious abnormality, atraumatic [...] <0.5 12/27/08 0.4 08/23/08 0.4 Review of his lab shows a normal CBC, white count is 8.42, hemoglobin 14.9, hematocrit 42.8, and platelet count is 258. CMP shows his continued slight increase in ALP of 117. Electrolytes are normal. Creatinine is 0.93 and calcium is normal at 9.5. CT scan of the chest, abdomen, and pelvis shows no evidence of abdominal or pelvic metastatic disease, no gallstones or biliary duct dilatation, and the postsurgical changes from his cancer. CT of the chest, however, shows a new left lower lobe mass measuring 4.7 x 3.6 x 3.2 cm, with no other pulmonary nodules seen. No pneumothorax and no definite adenopathy. ASSESSMENT/PLAN: Seth has a new left lower lobe lung mass. It is almost inconceivable that this would represent recurrence of his colon cancer. He has quit smoking greater than 20 years ago, but still would have some risk for lung cancer, and statistically by and large that would be what this would be. It has been incidentally found by a rising CEA, which we were following for his colon cancer, and in that regard the hope is it will be a stage I or II tumor. Further evaluation should include a PET scan, and if that is negative for disease outside the chest he will probably need an MRI study at some point. They are anxious to get going on evaluation, so we will see if we can get the PET scan this week and have him meet with Thoracic Oncology at [facility]. That will be arranged today and we will tentatively give him a followup in a month to make sure things have proceeded normally. If this was a lung cancer, considering his CEA is up, an adenocarcinoma is probably the most likely scenario. I believe all their questions were answered. documented in this encounter Plan of Treatment Upcoming Encounters Date Type Department Care Team (Late st Contact Info) Description 11/03/2023 8:30 AM EDT Office Visit Hematology/Oncology at [address] [phone] Garcia Childress MD [facility] [place] [address] Kassy Ken, COLOR REPAIRER [address] [place] [address] [place] [address] documented as of this encounter Results * PET/CT STANDARD (Skull base to Mid-thigh) (10/31/2015 9:28 AM EDT) Anatomical Region Laterality Modality Nuclear Medicine Impressions 10/31/2015 4:37 PM EDT 1. ??Hypermetabolic 3.8 x 2.7 cm LEFT upper lobe mass consistent with primary pulmonary malignancy or less likely ??metastasis. 2. ??No other sites of FDG avid malignancy. Thank you for referring this patient to [facility]. I have personally reviewed the [...] Appointment TECHNIQUE: Procedure: Following IV injection of 44-wcqfhk-6-deoxyglucose (FDG) a standard uptake of approximately 60 [...] Appointment TECHNIQUE: Procedure: Following IV injection of 01-mnxefs-7-deoxyglucose(FDG) a standard uptake of approximately 60 minutes, [...] Thank you for referring this patient to [facility]. I have personally reviewed the image(s) and the residents interpretationand agree with the findings, Garcia Toledo at 10/31/2015 4:37 PM Jose Grubbs MD IMG PET ORDERABLES documented in this encounter Visit Diagnoses Diagnosis Carcinoma of colon Malignant neoplasm of colon, unspecified site Carcinoma of colon Malignant neoplasm of colon, unspecified site documented in this encounter Care Teams Tire Vulcanizer Relationship Specialty Start Date End Date Mustapha Palumbo MD [address] [place] [address] PCP - General 11/11/14 08/07/17 documented as of this encounter
--- OUTSIDE RECORDS SUMMARY | 2023-11-03 04:03 | XMS_ITS | Encounter Summary ---
Author Organization [facility] Address [facility] [place] [address] Care Team Providers Care Doper Name Role Phone Mustapha Palumbo MD Primary Care Provider [phone] [phone] Reason for Visit * Reason Comments Colon Cancer Encounter Details Date Type Department Care Team (Late st Contact Info) Description 11/27/2015 11:30 AM EDT Office Visit Hematology/Oncology at [address] [phone] Jose Grubbs MD [address] [place] [phone] Lung mass Social History Tobacco Use Types Packs/Day Years Used Date Smoking Tobacco: Former Cigarettes Q uit: 04/25/1997 Smokeless Tobacco: Former Sex and Gender Information Value Date Recorded Sex Assigned at Not on file Gender Identity Not on file Sexual Orientation Not on file documented as of this encounter Last Filed Vital Signs Vital Sign Reading Time Taken Comments Blood Pressure 140/86 11/27/2015 11:43 AM EDT Pulse 72 11/27/2015 11:43 AM EDT Temperature 36.5 ??C (97.7 ??F) 11/27/2015 11:43 AM E DT Respiratory Rate 16 11/27/2015 11:43 AM EDT Oxygen Saturation 96% 11/27/2015 11:43 AM EDT Inhaled Oxygen Concentration - - Weight 112.5 kg (248 lb) 11/27/2015 11:43 AM EDT Height 185 cm (6' 0.84) 11/27/2015 11:43 AM EDT Body Mass Index 32.87 11/27/2015 11:43 AM EDT documented in this encounter Progress Notes * Jose Grubbs MD - 11/27/2015 11:30 AM EDT Images from the original note [...] Diagnosis--- CONSULTATION CASE 1. Outside slides labeled [id number], collection date 04/01/08. Colon, biopsy at 15 cm: Invasive adenocarcinoma, arising in association with a tubular adenoma with high grade dysplasia. 2. Outside slides labeled [id number], collection date 04/22/08. A - Small bowel, [...] SUBJECTIVE: Seth comes in today for followup. We are seeing him in conjunction of a rising CEA many years after resection of a colon cancer. Further scanning showed that he had a lung mass and subsequently a MRI scan and a brain MRI were ordered along with a referral to thoracic surgery. He has a locally advanced tumor and there are no contraindications for surgery so he is scheduled to have this removed on December 10, 2015. In talking to him and his today, they have a good understanding of the situation. We did discuss the possibility if this is a primary lung tumor of adjuvant therapy afterwards, depending on tumor type and the fact that until the pathology is reviewed we really do not know what we are dealing with, but they showed a good understanding of this. He remains symptom free and is doing [...] Neurological: Negative. Hematological: Negative for adenopathy. BP 140/86 (Patient Position: Sitting) Pulse 72 Temp 36.5 ??C (97.7 ??F) (Oral) Resp 16 Ht 185 cm (6' 0.83) Wt (!) 112.5 kg (248 lb) SpO2 96% BMI 32.87 kg/m2 Head: Normocephalic, without obvious abnormality, atraumatic [...] ?? TECHNIQUE: Procedure: Following IV injection of 01-tscecg-1-deoxyglucose (FDG) a standard uptake of approximately 60 [...] No other sites of FDG avid malignancy. ASSESSMENT/PLAN: Seth has an incidental finding of a new lung mass. He is scheduled for surgery on the . We will see him back about 1 month afterwards to go over the path results and discuss things further. He will call if there are issues, questions or problems in the interim. documented in this encounter Plan of Treatment Upcoming Encounters Date Type Department Care Team (Late st Contact Info) Description 11/03/2023 8:30 AM EDT Office Visit Hematology/Oncology at [address] [phone] Garcia Childress MD [facility] [address] [place] [address] Kassy Ken APRN [address] [place] [address] DR MEDICAL ONCOLOGY [place], [place] [id number] documented as of this encounter Visit Diagnoses Diagnosis Lung mass Swelling, mass, or lump in chest documented in this encounter Care Teams Doper Relationship Specialty Start Date End Date Mustapha Palumbo MD [address] [place] [address] PCP - General 11/11/14 08/07/17 documented as of this encounter
--- OUTSIDE RECORDS SUMMARY | 2023-11-03 04:03 | XMS_ITS | Encounter Summary ---
Author Organization [facility] Address [facility] [place] [address] Care Team Providers Care Control Systems Designer Name Role Phone Mustapha Palumbo MD Primary Care Provider [phone] Encounter Details Date Type Department Care Team (Latest Contact Info) Description 10/31/2015 1:40 PM EDT Clinical Support Same Day at [facility] [place] [phone] Lung nodule; Pre-operative cardiovascular examination, high risk surgery Social History Tobacco Use Types Packs/Day Years Used Date Smoking Tobacco: Former Cigarettes Q uit: 04/25/1997 Smokeless Tobacco: Former Sex and Gender Information Value Date Recorded Sex Assigned at Not on file Gender Identity Not on file Sexual Orientation Not on file documented as of this encounter Progress Notes * Briana Elder RN - 10/31/2015 1:40 PM EDT PAT questionnaire reviewed with patient while in Pre Admission testing. Pre-operative instruction booklet reviewed with patient. Reviewed importance of pain control and cough and deep breathing exercise during the post-operative period. Instructed patient on use of Hibiclens soap to shower with the night before surgery or the morning of surgery. Pt verbalizes good understanding of all information reviewed. PLAN Testing: Labs, T&S, EKG Special medication instructions: Aspirin per surgeon Procedure date: Not yet booked with Dr. Diamond documented in this encounter Plan of Treatment Upcoming Encounters Date Type Department Care Team (Late st Contact Info) Description 11/03/2023 8:30 AM EDT Office Visit Hematology/Oncology at [address] [place] [phone] Garcia Childress MD [facility] DR HEMATOLOGY [place] [address] Kassy Ken APRN [address] [place] [address] DR MEDICAL ONCOLOGY [facility], [place] [id number] documented as of this encounter Procedures Procedure Name Priority Date/Time Associated Diagnosis Comments EKG 12-LEAD Routine 10/31/2015 2:17 PM EDT Lung nodule Pre-operative cardiovascular examination, high risk surgery documented in this encounter Results * EKG 12 Lead (10/31/2015 2:17 PM EDT) Ventricular rate 80 BPM MUSE SYSTEM Atrial Rate 80 BPM MUSE SYSTEM P-R Interval 136 ms MUSE SYSTEM QRS Duration 108 ms MUSE SYSTEM Q-T Interval 396 ms MUSE SYSTEM QTC Calculated (Bezet) 456 ms MUSE SYSTEM Calculated P Seward 67 degrees MUSE SYSTEM Calculated R Seward 39 degrees MUSE SYSTEM Calculated T Seward 53 degrees MUSE SYSTEM INTERPRETATION Normal sinus [...] examination documented in this encounter Care Teams Control Systems Designer Relationship Specialty Start Date End Date Mustapha Palumbo MD [address] [facility] [place] [address] PCP - General 11/11/14 08/07/17 documented as of this encounter
--- OUTSIDE RECORDS SUMMARY | 2023-11-03 04:03 | XMS_ITS | Encounter Summary ---
Author Organization [facility] Address [facility] [place] [address] Care Team Providers Care Advertising Assistant Manager Name Role Phone Mustapha Palumbo MD Primary Care Provider [phone] [phone] Encounter Details Date Type Department Care Team (Late st Contact Info) Description 11/17/2015 Orders [place] [address] Shane Diamond MD [facility] [place] [address] Social History Tobacco Use Types Packs/Day Years [...] 8:30 AM EDT Office Visit Hematology/Oncology at [address] [phone] Garcia Childress MD [facility] DR [place] [address] Kassy Ken APRN [address] [place] [address] DR MEDICAL ONCOLOGY [place], [place] [address] Scheduled Orders Name Type Priority Associated Diagnoses Orde r Schedule THORACOSCOPY,SURGICAL ,W\LOBECTOMY,TOTAL OR SEGMENTAL Procedures Routine One Time for 1 Occurrences starting 11/17/2015 until 11/17/2015 documented as of this encounter Visit Diagnoses Not on filedocumented in this encounter Care Teams Advertising Assistant Manager Relationship Specialty Start Date End Date Mustapha Palumbo MD [address] [place] [address] PCP - General 11/11/14 08/07/17 documented as of this encounter
--- OUTSIDE RECORDS SUMMARY | 2023-11-03 04:03 | XMS_ITS | Encounter Summary ---
Author Organization [facility] Address [facility] [place] [address] Care Team Providers Care Percussion Teacher Name Role Phone Mustapha Palumbo MD Primary Care Provider [phone] [phone] Encounter Details Date Type Department Care Team (Latest Contact Info) Description 11/04/2015 9:34 AM EDT - 11/04/2015 11:59 PM EDT Hospital Encounter Non-Invasive [place] [phone] Shane Diamond MD [facility] [place] [address] Pre-operative cardiovascular examination, high risk surgery; Lung [...] AM EDT Office Visit Hematology/Oncology at [address] [phone] Garcia Childress MD [facility] DR HEMATOLOGY [place] [address] Kassy Ken APRN [address] [place] [address] DR MEDICAL ONCOLOGY [place], [place] [id number] documented as of this encounter Procedures Procedure Name Priority Date/Time Associated Diagnosis Comments NUCLEAR EXERCISE STRESS CARDIOLOGY Routine 11/04/2015 10:11 AM EDT Pre-operative cardiovascular examination, high risk surgery Lung nodule documented in this encounter Results * Nuclear Exercise Stress Cardiology (11/04/2015 10:11 AM EDT) Anatomical Region Laterality Modality Other Shane Diamond MD [facility] ORDERABLES documented in this encounter Visit Diagnoses Diagnosis Pre-operative cardiovascular examination, high risk surgery Pre-operative cardiovascular examination Lung nodule Solitary pulmonary nodule documented in this encounter Care Teams Percussion Teacher Relationship Specialty Start Date End Date Mustapha Palumbo MD [address] [place] [address] PCP - General 11/11/14 08/07/17 documented as of this encounter
--- OUTSIDE RECORDS SUMMARY | 2023-11-03 04:03 | XMS_ITS | Encounter Summary ---
Author Organization [facility] [place] [address] Care Team Providers Care District Court Bailiff Name Role Phone Mustapha Palumbo MD Primary Care Provider [phone] [phone] Encounter Details Date Type Department Care Team (Late Contact Info) Description 11/25/2015 Telephone [place] [phone] Romy Garcia, RN Social History Tobacco Use Types Packs/Day Years Used Date Smoking Tobacco: Former Cigarettes Q uit: 04/25/1997 Smokeless Tobacco: Former Sex and Gender Information Value Date Recorded Sex Assigned at Not on file Gender Identity Not on file Sexual Orientation Not on file documented as of this encounter Miscellaneous Notes * Telephone Encounter - Romy Garcia RN - 11/25/2015 8:11 AM EDT Pt called requesting results of MRI (brain) and PFTs. MRI results provided to pt (no metastatic disease). Let pt know PFT results were not available yet from [facility]. documented in this encounter Plan of Treatment Upcoming Encounters Date Type Department Care Team (Late st Contact Info) Description 11/03/2023 8:30 AM EDT Office Visit Hematology/Oncology at [address] [phone] Garcia Childress MD [facility] DR HEMATOLOGY AND ONCOLOGY [place], [place] [phone] Kassy Ken, [address] MEDICAL ONCOLOGY [place], [place] [phone] documented as of this encounter Visit Diagnoses Not on filedocumented in this encounter Care Teams District Court Bailiff Relationship Specialty Start Date End Date Mustapha Palumbo MD [address] [place], [place] [id number] PCP - General 11/11/14 08/07/17 documented as of this encounter
--- OUTSIDE RECORDS SUMMARY | 2023-11-03 04:04 | XMS_ITS | Encounter Summary ---
Author Organization [facility] Address [facility] [place] [address] Care Team Providers Care Communications Consultant Name Role Phone Negra Coats APRN Primary Care Provider [phone] Reason for Visit * Reason Comments Follow-up adenocarcinoma of co ree Encounter Details Date Type Department Care Team (Late st Contact Info) Description 05/12/2012 3:00 PM EST Follow-Up Hematology Oncology at [address] [phone] Robert Livingston MD [facility] HEMATOLOGY/ONCOLO GY DEPT. [place], [place] [id number] Adenocarcinoma of colon (Primary Dx) Discharge Disposition: Home Social History Tobacco Use Types Packs/Day Years Used Date Smoking Tobacco: Former Cigarettes Q uit: 04/25/1997 Smokeless Tobacco: Former Sex and Gender Information Value Date Recorded Sex Assigned at Not on file Gender Identity Not on file Sexual Orientation Not on file documented as of this encounter Last Filed Vital Signs Vital Sign Reading Time Taken Comments Blood Pressure 140/92 05/12/2012 3:05 PM EST Pulse 70 05/12/2012 3:05 PM EST Temperature 36.4 ??C (97.5 ??F) 05/12/2012 3:05 PM ES T Respiratory Rate - - Oxygen Saturation - - Inhaled Oxygen Concentration - - Weight 110.5 kg (243 lb 9.7 oz) 05/12/2012 3:05 PM EST Height 184.5 cm (6' 0.64) 05/12/2012 3:05 PM ES T Body Mass Index 32.46 05/12/2012 3:05 PM EST documented in this encounter Progress Notes * Robert Livingston MD - 05/12/2012 3:19 PM EST Subjective: Patient ID: Seth Kincaid is a 61 y.o. male. HPI Comments: Patient returns for f/u now more than 4 years from surgery for a stage 2 well differentiated colon carcinoma. In the interval since his last visit he has been well and he has no problems or complaints to report today. He has had no symptoms or problems suggestive of disease recurrence. adenocarcinoma of sigmoid colon - pT2 pN0 Mx, well differentiated - 04/01/08 screening colonoscopy - sigmoid carcinoma - 04/22/08 sigmoid resection ---Pathologic Diagnosis--- CONSULTATION CASE 1. Outside slides labeled [id number], collection date 04/01/08. Colon, biopsy at 15 cm: Invasive adenocarcinoma, arising in association with a tubular adenoma with high grade dysplasia. 2. Outside slides labeled [id number], collection date 04/22/08. A - Small bowel, [...] of colon with no evidence of malignancy. Review of Systems Constitutional: Negative for fever, activity change, appetite change, fatigue and unexpected weightchange. HENT: Negative. Eyes: Negative. Respiratory: Negative for cough, shortness of breath and wheezing. Cardiovascular: Negative for chest pain, palpitations and leg swelling. Gastrointestinal: Negative for nausea, vomiting, abdominal pain, diarrhea, constipation, blood in stool and abdominal distention. Genitourinary: Negative for dysuria, frequency, hematuria, flank pain and difficulty urinating. Musculoskeletal: Negative for myalgias, back pain and arthralgias. Skin: Negative for pallor and rash. Neurological: Negative. Hematological: Negative. Psychiatric/Behavioral: Negative. Objective: Physical Exam [vitalsreviewed. Constitutional: He is oriented to person, place, and time. He appears well- developed and well-nourished. No distress. Obese HENT: Head: Normocephalic and atraumatic. Eyes: Conjunctivae and EOM are normal. Pupils are equal, round, and reactive to light. No scleral icterus. Neck: Normal range of motion. Neck supple. No JVD present. No thyromegaly present. Cardiovascular: Normal rate, regular rhythm, normal heart sounds and intact distal pulses. Exam reveals no gallop and no friction rub. No murmur heard. Pulmonary/Chest: Effort normal and breath sounds normal. No respiratory distress. He has no wheezes. He has no rales. Abdominal: Soft. He exhibits no distension and no mass. There is no tenderness. Musculoskeletal: Normal range of motion. He exhibits no edema and no tenderness. Lymphadenopathy: He has no cervical adenopathy. Neurological: He is alert and oriented to person, place, and time. No cranial nerve deficit. Skin: Skin is warm and dry. Psychiatric: He has a normal mood and affect. His behavior is normal. BP 140/92 Pulse 70 Temp(Src) 36.4 ??C (97.5 ??F) (Oral) Ht 184.5 cm (6' 0.64) Wt 110.5 kg (243 lb 9.7 oz) BMI 32.46 kg/m2 LAB: 05/04/12 CBC WBC 8.2 ANC 5.0 H/H 13.3/40.7 Plat 219 CMP BS 91 Ca 9.1 BUN 17 Creat 1.0 Na 140 K 4.8 Cl 105 CO2 31 AST 28 ALT 48 AP 143 CEA 05/04/12 1.2 10/29/11 1.2 04/20/11 1.3 10/16/10 0.8 04/13/10 0.6 11/03/09 0.9 07/03/09 0.9 04/03/09 <0.5 12/27/08 0.4 08/23/08 0.4 Assessment and Plan: Patient is doing well and has no symptoms or findings suggestive of recurrent disease. Providing there are no interval problems he will return in 6 months as usual for f/u with routine lab. Current Outpatient Prescriptions on File Prior to Visit Medication Sig Dispense Refill ??? acetaminophen (TYLENOL) 325 mg tablet Patient Active Problem List Diagnoses Code ??? Carcinoma of colon 153.9 ??? Obesity 278.00 ??? 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 Elevated LFTs 790.6 ??? Inflamed seborrheic keratosis 702.11 PCP: Negra Coats APRN Other Providers: Ronald Dang MD documented in this encounter Procedure Notes * Provider, Scanning - 11/03/2012 2:19 PM EDTAssociated Order(s): SCAN DOC: LAB documented in this encounter Plan of Treatment Upcoming Encounters Date Type Department Care Team (Late st Contact Info) Description 11/03/2023 8:30 AM EDT Office Visit Hematology/Oncology at [address] [phone] Garcia Childress MD [facility] DR [place] [address] Kassy Ken APRN [address] [place] [address] [place] [address] documented as of this encounter Procedures Procedure Name Priority Date/Time Associated Diagnosis Comments LAB SCAN 11/03/2012 2:19 PM EDT documented in this encounter Results * SCAN DOC: LAB (11/03/2012 2:19 PM EDT) Narrative 11/03/2012 2:19 PM EDT Procedure Note Provider, Manuel - 11/03/2012 2:19 PM EDT Scanning Provider MEDIA MGR SCAN EXT O RDR/RSLT documented in this encounter Visit Diagnoses Diagnosis Adenocarcinoma of colon- Primary Malignant neoplasm of colon, unspecified site documented in this encounter Care Teams Communications Consultant Relationship Specialty Start Date End Date Negra Coats APRN [address] [place] [address] PCP - General 03/18/11 11/10/14 documented as of this encounter
--- OUTSIDE RECORDS SUMMARY | 2023-11-03 04:04 | XMS_ITS | Encounter Summary ---
Author Organization [facility] Address [address] [place] [address] Care Team Providers Care Agriculture Worker Name Role Phone Negra Coats APRN Primary Care Provider [phone] Mustapha Anand DO Primary Care Provider [phone] Encounter Details Date Type Department Care Team (Late st Contact Info) Description 10/29/2021 Lab Requisition [facility] Pathology & Laboratory Medicine - [address] [phone] Outr Resulting Lab, Provider Social History Tobacco Use Types Packs/Day Years Used Date Smoking Tobacco: Never Assessed Sex and Gender Information Value Date Recorded Sex Assigned at Not on file Gender Identity Not on file Sexual Orientation Not on file documented as of this encounter Plan of Treatment Not on file documented as of this encounter Procedures Procedure Name Priority Date/Time Associated Diagnosis Comments CEA Routine 10/29/2021 9:16 EDT documented in this encounter Results * CEA (10/29/2021 9:16 EDT) CEA <0.5 See Note ng/mL 10/29/2021 21:24 EDT [facility] Comment: % Distribution of CEA (ng/mL): ??0.0 - 2.5 in 98.2% of Nonsmokers and 87.3% of Smokers ??2.6 - 5 in 1.8% of Nonsmokers and 8% of Smokers ??5.1 - 10.1 in 4.7% of Smokers NOTE: Serum CEA concentration should not be interpeted as absolute evidence for the presence or absence of malignant disease. ?? Assayed on Siem[employer] Centaur XPT using chemiluminescent technology. ??Values obtained by different assay methods cannot be used interchangeably. Blood VENOUS BLOOD / Unknown 10/29/2021 9:16 EDT 10/29/2021 19:05 EDT Provider Outr Resulting Lab CHEMISTRY & BLOOD GAS ORDERABLES Performing Organization Address City/State/[facility] Co de Phone Number [facility] [address] [place] [address] documented in this encounter Visit Diagnoses Not on filedocumented in this encounter Care Teams Agriculture Worker Relationship Specialty Start Date End Date Negra Coats APRN [address] [place] [address] PCP - General 05/24/11 02/01/22 Mustapha Anand DO [address] [place] [address] PCP - General Family Medicine - Primary Care 02/02/22 documented as of this encounter
--- OUTSIDE RECORDS SUMMARY | 2023-11-03 04:04 | XMS_ITS | Encounter Summary ---
Author Organization [facility] Address [facility] [place] [address] Care Team Providers Care Igniter Capper Name Role Phone Mustapha Palumbo MD Primary Care Provider [phone] Reason for Visit * Reason Comments Colon Cancer Encounter Details Date Type Department Care Team (Late st Contact Info) Description 11/11/2014 3:00 PM EDT Follow-Up Hematology/Oncology at [address] [phone] Jose Grubbs MD [address] [place] [phone] Carcinoma of colon Discharge Disposition: Home Social [...] Sign Reading Time Taken Comments Blood Pressure 121/82 11/11/2014 3:00 PM EDT Pulse 77 11/11/2014 3:00 PM EDT Temperature 37.1 ??C (98.8 ??F) 11/11/2014 3:00 PM ED T Respiratory Rate 18 11/11/2014 3:00 PM EDT Oxygen Saturation 97% 11/11/2014 3:00 PM EDT Inhaled Oxygen Concentration - - Weight 110.2 kg (243 lb) 11/11/2014 3:00 PM EDT Height 184.5 cm (6' 0.64) 11/11/2014 3:00 PM ED T Body Mass Index 32.38 11/11/2014 3:00 PM EDT documented in this encounter Progress Notes * Jose Grubbs MD - 11/11/2014 3:58 PM EDT Patient Active Problem List Diagnosis Code ??? Carcinoma of colon 153.9 ??? Obesity 278.00 ??? 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 Elevated LFTs 790.6 ??? Inflamed seborrheic keratosis 702.11 Problems:adenocarcinoma of sigmoid colon - pT2 pN0 Mx, well differentiated - 04/01/08 screening colonoscopy - sigmoid carcinoma - 04/22/08 sigmoid resection ---Pathologic Diagnosis--- CONSULTATION CASE 1. Outside slides labeled [id number], collection date 04/01/08. Colon, biopsy at 15 cm: Invasive adenocarcinoma, arising in association with a tubular adenoma with high grade dysplasia. 2. Outside slides labeled [id number], collection date 04/22/08. A - Small bowel, [...] Subjective: Seth comes in today for his yearly followup. It has now been seven years since his original stage II colon cancer was found and surgically resected. He tells me he is very pleased that he is going to be retiring soon. He has had a bit of stress in the family with both he and his losing their mothers around the same time. 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 As far as symptoms go, though, he is doing quite well and has no bowel problems, no other symptoms. He is very happy about getting to retire. Review of Systems Constitutional: Negative for fever, [...] Negative. Neurological: Negative. Hematological: Negative for adenopathy. Head: Normocephalic, without obvious abnormality, atraumatic Eyes: [...] supraclavicular, and axillary nodes normal Neurologic: Normal Review of his lab today shows a white count of 9.2 hemoglobin 13.8 hematocrit 41.1 and platelet count of 259. CMP is normal with normal liver tests including an ALP of 107. Creatinine is 1.0 CEA 11/614 8.0 Repeat [facility] 5.5 11/08/13 3.3 05/02/13 3.1 11/03/12 1.2 05/04/12 1.2 10/29/11 1.2 04/20/11 1.3 10/16/10 0.8 04/13/10 0.6 11/03/09 0.9 07/03/09 0.9 04/03/09 <0.5 12/27/08 0.4 08/23/08 0.4 Assessment/Plan: Seth is doing well and at this point has essentially no risk of recurrence of his colon cancer. It would be exceptionally unusual for any patient to have a reoccurrence after five years. That being said, we discussed seeing him on a yearly basis after this. Tumor marker did go up a little bit six months ago, but it is essentially stable and within the normal limits and clinically really does not have much significance at this point. Will continue to follow it, however, and after discussion today decided on follow up in about a year with lab. We would be glad to see him sooner if any problems develop in the interim. Review of his lab shows some discordant values. They are discontinuing doing CEA's here locally and that value came back high. They are doing repeat testing at the [facility] on the same sample and that came back lower. The rest of his lab is completely fine with a creatinine of 1.1, normal liver tests, an ALP of 123, and normal CBC. White count is 8.5, hemoglobin 14, and platelet count 259. Assessment/Plan: Seth is clinically doing well and really should not have any risk of recurrence of his cancer. Nonetheless, his CEA is slightly higher than it has been, although there has been a slow trend upwards. I do not think that is secondary to recurrence of his cancer. It does, however, raise the possibility that there is something else going on, such as a prostate cancer or some occult tumor, but with the discordance in testing we really have no way to compare previous values to his current values. That being said, after discussions today we decided to go ahead and closely watch him. We will recheck marker studies in another few months and if there is an upwards trend, then at this point I would recommend a repeat colonoscopy and perhaps a CT scan, more looking for something new rather than reoccurrence. Follow up is arranged for four months with a CBC, CMP, and CEA prior to that visit. Current Outpatient Prescriptions on File Prior to [...] facility-administered medications on file prior to visit. PCP: MUSTAPHA PALUMBO MD (General) Other Providers: Ronald Dang MD documented in this encounter Plan of Treatment Upcoming Encounters Date Type Department Care Team (Late st Contact Info) Description 11/03/2023 8:30 AM EDT Office Visit Hematology/Oncology at [address] [phone] Garcia Childress MD [facility] [address] [place] [address] Kassy Ken APRN [address] [place] [address] [place] [address] documented as of this encounter Procedures Procedure Name Priority Date/Time Associated Diagnosis Comments LAB SCAN 03/13/2015 12:00 AM EST documented in this encounter Results * SCAN DOC: LAB (03/13/2015 12:00 AM EST) Scanning Provider MEDIA MGR SCAN EXT O RDR/RSLT documented in this encounter Visit Diagnoses Diagnosis Carcinoma of colon Malignant neoplasm of colon, unspecified site documented in this encounter Care Teams Igniter Capper Relationship Specialty Start Date End Date Mustapha Palumbo MD [address] [place] [address] PCP - General 11/11/14 08/07/17 documented as of this encounter
--- OUTSIDE RECORDS SUMMARY | 2023-11-03 04:04 | XMS_ITS | Encounter Summary ---
Author Organization [facility] Address [address] [place] [address] Care Team Providers Care Instrument And Control Service Person Name Role Phone Unavailable Primary Care Provider Unavailabl e Encounter Details Date Type Department Care Team (Late st Contact Info) Description 12/26/2008 Orders Only [facility] Laboratory Services - [facility] ([facility]) [address] [place] [address] Ronald Hargrove MD [address] [place] [address] Social History Tobacco Use Types Packs/Day Years Used Date Smoking Tobacco: Never Assessed Sex and Gender Information Value Date Recorded Sex Assigned at Not on file Gender Identity Not on file Sexual Orientation Not on file documented as of this encounter Plan of Treatment Not on file documented as of this encounter Procedures Procedure Name Priority Date/Time Associated Diagnosis Comments SURGICAL PATHOLOGY Routine 12/26/2008 0:00 EDT documented in this encounter Results * SURGICAL PATHOLOGY (12/26/2008 0:00 EDT) Pathology Report: SURGICAL PATHOLOGY REPORT ? Reports generated via electronic interface contain original data; ? however they are lacking the format of the original report. ? Caution should be taken when reading/interpreti ng unformatted reports. ? Name: ? DAIGNEAAIDA, SETH D ? Accession #: ? [id number] ? : ? 1950 (Age: 58) ??M ? Collect Date: ? 12/26/2008 ? Location: ? [facility] ? Receive Date: ? 12/26/2008 ? Provider: RONALD HARGROVE MD ? Copy to: MINERVA ANTONY MD ? Final Pathologic Diagnosis: ? Colon, cecum/ileocecal valve, biopsies: ? - Ileocecal mucosa with mild active inflammation. ??See comment. ? Comment: ? The biopsy shows prominent collections of eosinophils within the surface ?? epithelium in addition to neutrophils. ??Possible etiologies include infection ?? and drug allergy/hypersensi tivity reaction. ??Clinical correlation is ? recommended. ??(Dr. Madison)/cjh ? Document reviewed and electronically signed by: ? Gail Butts MD ? Report ??Date: 12/31/2008 15:55 ? By the signature above, the attending physician certifies that he/she has ? personally conducted a gross and/or microscopic examination of the described ? specimens and rendered or confirmed the above diagnosis. ? Specimen(s) Received: ? Bx cecum/ileocecal valve ? Clinical History: ? H/P colon cancer ? Gross Description: ? Received in Oanh's fixative labelled Seth Kincaid and bx ? cecum/ileocecal valve are two pieces of tissue each of which measures 0.5 x 0.2 x 0.2 cm, which are submitted intact in one cassette. (Wilfredo Nguyen)/mpl ? End of Report ? [facility] 12/26/2008 12/26/2008 16: 23 EDT Ronald Hargrove MD PATHOLOGY ORDERABLE S [facility] [address] [place] [address] documented in this encounter Visit Diagnoses Not on filedocumented in this encounter
--- OUTSIDE RECORDS SUMMARY | 2023-11-03 04:04 | XMS_ITS | Encounter Summary ---
Author Organization [facility] Address [address] [place] [address] Care Team Providers Care Lockstitch Tunnel Elastic Operator Name Role Phone Negra Coats APRN Primary Care Provider [phone] Mustapha Annad DO Primary Care Provider [phone] Encounter Details Date Type Department Care Team (Late st Contact Info) Description 03/31/2020 Lab Requisition [facility] Pathology & Laboratory Medicine - [address] [phone] Outr Resulting Lab, Provider Social History Tobacco [...] Priority Date/Time Associated Diagnosis Comments CEA Routine 03/31/2020 9:15 EST documented in this encounter Results * CEA (03/31/2020 9:15 EST) CEA <0.5 See Note ng/mL 03/31/2020 16:50 EST [facility] Comment: % Distribution of CEA (ng/mL): ??0.0 - 2.5 in 98.2% of Nonsmokers and 87.3% of Smokers ??2.6 - 5 in 1.8% of Nonsmokers and 8% of Smokers ??5.1 - 10.1 in 4.7% of Smokers NOTE: Serum CEA concentration should not be interpeted as absolute evidence for the presence or absence of malignant disease. ?? Assayed on [employer] Centaur XPT using chemiluminescent technology. ??Values obtained by different assay methods cannot be used interchangeably. Blood VENOUS BLOOD / Unknown 03/31/2020 9:15 EST 03/31/2020 15:33 EST Provider Outr Resulting Lab CHEMISTRY & BLOOD GAS ORDERABLES Performing Organization Address City/State/[facility] Co de Phone Number [facility] [address] [place] [address] documented in this encounter Visit Diagnoses Not on filedocumented in this encounter Care Teams Lockstitch Tunnel Elastic Operator Relationship Specialty Start Date End Date Negra Coats APRN [address] [place] [address] PCP - General 05/24/11 02/01/22 Mustapha Anand DO [address] [place] [address] PCP - General Family Medicine - Primary Care 02/02/22 documented as of this encounter
--- OUTSIDE RECORDS SUMMARY | 2023-11-03 04:04 | XMS_ITS | Encounter Summary ---
Author Organization [facility] Address [address] [place] [address] Care Team Providers Care Typer Name Role Phone Unavailable Primary Care Provider Unavailabl e Encounter Details Date Type Department Care Team (Late st Contact Info) Description 04/22/2008 Before PRISM Converted Visit (Maple) [facility] - Maple conversion [address] [place] [address] Ronald Hargrove MD [address] [place] [address] Social History Tobacco Use Types Packs/Day Years Used Date Smoking Tobacco: Never Assessed Sex and Gender Information Value Date Recorded Sex Assigned at Not on file Gender Identity Not on file Sexual Orientation Not on file documented as of this encounter Plan of Treatment Not on file documented as of this encounter Procedures Procedure Name Priority Date/Time Associated Diagnosis Comments SURGICAL PATHOLOGY Routine 04/22/2008 0:00 EST documented in this encounter Results * SURGICAL PATHOLOGY (04/22/2008 0:00 EST) Pathology Report: SURGICAL PATHOLOGY REPORT ? Reports generated via electronic interface contain original data; ? however they are lacking the format of the original report. ? Caution should be taken when reading/interpreti ng unformatted reports. ? Name: ? DAIGNEAAIDA, SETH D ? Accession #: ? [id number] ? : ? 1950 (Age: 57) ??M ? Collect Date: ? 04/22/2008 ? Location: ? [facility] ? Receive Date: ? 04/23/2008 ? Provider: RONALD HARGROVE MD ? Copy to: MINERVA ANTONY MD ? Final Pathologic Diagnosis: ? A. ?Small bowel, biopsy: ? 1. ?Heterotopic pancreatic tissue. ? B. ?Colon, sigmoid, segmental resection: ? 1. ?Adenocarcinoma. ? - Differentiation: low grade. ? - Tumor site: sigmoid. ? - Tumor size: 2.6 x 2.4 x 0.4 cm. ? - Depth of invasion: muscularis propria (AJCC: pT2, pN0, pMX). ? - Blood vessel invasion: not identified. ? - Lymphatic invasion: not identified. ? - Intra-/peritumoral lymphocytic response: minimal. ? - Tumor invades with a broad front. ? - Surgical resection margins: ? - Proximal margin: negative. ? - Distal margin: negative. ? - Radial margin: negative. ?- Distance of tumor from closest margin: 1.7 cm from non-stapled ? margin. ?2. ?? Tattoo site identified. ? 3. ?? Non-neoplastic bowel shows no pathologic features. ? 4. ?? Twenty out of twenty lymph nodes negative for malignancy (0/20). ? C. ?? Colon, distal stump, excision: ? 1. ?? No malignancy identified. ? D. ?? Colon, proximal stump, excision: ? 1. ?? No malignancy identified. ? Document reviewed and electronically signed by: ? ABDELMONEM ALYSSA MD ? Report ??Date: 04/26/2008 17:51 ? By the signature above, the attending physician certifies that he/she has ? personally conducted a gross and/or microscopic examination of the described ? specimens and rendered or confirmed the above diagnosis. ? Specimen(s) Received: ? A. ?Bx small bowel (#1) ? B. ? Sigmoid colon (#2) ? C. ? Distal stump (#3) ? D. ? Proximal stump, suture proximal (#4) ? Clinical History: ? Adenocarcinoma of sigmoid colon ([id number]) ? Gross Description: ? Received in formalin labelled Tanoaida and #1 ??small bowel is a 0.7 x 0.4 x 0.3 cm polypoid, corley-pink soft tissue. ??A gross hemorrhagic resection ? margin is identified and inked black. ??The specimen is bisected and submitted ?? entirely in (A). ? Received in formalin labelled Sanjiv and #2 ??sigmoid colon is an 11.5 cm in length by 3.4 cm in internal circumference segment of sigmoid colon with a ?? moderate amount of attached pericolic adipose tissue. ??There is a single stapled resection margin and an opposing non-stapled resection margin. ??The specimen is unoriented. ??Opening the bowel reveals a 2.6 x 2.4 x 0.4 cm fungating, light corley and focally hemorrhagic mass present on the mesenteric aspect of the colon. ??The mass measures 1.7 cm to the non-stapled margin, 7.0 cm to the stapled margin, ?? and 9.0 cm to the radial resection margin (inked red). ??The opposing resection ?? margins are inked black and the serosa overlying the mass is inked blue. ??The ?? specimen is serially sectioned to reveal that the mass grossly appears to invade into the muscularis propria. ??It is not clear whether the mass invades through ?? the muscularis propria into the underlying pericolic adipose tissue. ??The ? serosal surface of the bowel is smooth, shiny and unremarkable with no grossly ?? apparent adhesions. ??Serially sectioning the pericolic adipose tissue reveals 34 possible lymph node candidates ranging in size from 1.5 x 1.0 x 0.5 cm to 0.2 x 0.2 x 0.2 cm. ??[employer] sections are submitted as follows: ? BLOCK MUNOZ ? B1-B3 ?[employer] mass with deepest invasion ? B4 ?[employer] mass to normal bowel ? B5 ?[employer] non-stapled margin, perpendicular section closest to mass ? B6 ?[employer] stapled margin, en face ? B7 ?[employer] radial margin ? B8 ?[employer] uninvolved bowel ? B9 ?One lymph node candidate, bisected ? B10-B16 ? Twenty-eight possible lymph node candidates, four intact nodes per ?? block ? B17 ?Two intact lymph nodes ? B18 ?One lymph node, bisected ? B19 ?One lymph node, bisected ? B20 ?One lymph node, bisected ? Received in formalin labelled Daigneault and #3 ??distal stump is a 1.5 cm in diameter donut-shaped portion of bowel. ??The bowel has a smooth, corley, ? unremarkable mucosa with focal hemorrhage. ??The specimen is trisected and ? entirely submitted in (C). ? Received in formalin labelled Daigneault and #4 ??proximal stump, suture ? proximal is a 1.0 cm in length by 1.8 cm in diameter donut-shaped portion of ?? bowel with a corley, velvety, unremarkable mucosa. ??There is a suture designating ?? the proximal aspect of the specimen. ??The specimen is bisected and entirely ? submitted as follows: ? BLOCK MUNOZ ? D1 ?Proximal aspect, en face ? D2 ?Distal aspect, en face ? (Dr. Madison)/kmm ? End of Report ? [facility] 04/22/2008 04/23/2008 17: 06 EST Ronald Hargrove MD PATHOLOGY ORDERABLE S [facility] [address] [place] [address] documented in this encounter Visit Diagnoses Not on filedocumented in this encounter
--- OUTSIDE RECORDS SUMMARY | 2023-11-03 04:04 | XMS_ITS | Encounter Summary ---
Author Organization [facility] Address [address] [place] [address] Care Team Providers Care Freezer Worker Name Role Phone Negra Coats APRN Primary Care Provider [phone] Mustapha Anand DO Primary Care Provider [phone] Encounter Details Date Type Department Care Team (Late st Contact Info) Description 10/11/[address] [facility] Pathology & Laboratory Medicine - [address] [phone] Outr Resulting Lab, Provider Social History Tobacco [...] Priority Date/Time Associated Diagnosis Comments CEA Routine 10/11/2019 10:41 EDT documented in this encounter Results * CEA (10/11/2019 10:41 EDT) CEA <0.5 See Note ng/mL 10/12/2019 9:31 EDT [facility] Comment: % Distribution of [...] used interchangeably. Blood VENOUS BLOOD / Unknown 10/11/2019 10:41 EDT 10/11/2019 16:10 EDT Provider Outr Resulting Lab CHEMISTRY & BLOOD GAS ORDERABLES [facility] [address] [place] [address] documented in this encounter Visit Diagnoses Not on filedocumented in this encounter Care Teams Freezer Worker Relationship Specialty Start Date End Date Negra Coats APRN [address] [place] [address] PCP - General 05/24/11 02/01/22 Mustapha Anand DO [address] [place] [address] PCP - General Family Medicine - Primary Care 02/02/22 documented as of this encounter
--- OUTSIDE RECORDS SUMMARY | 2023-11-03 04:04 | XMS_ITS | Encounter Summary ---
Author Organization [facility] Address [address] [place] [address] Care Team Providers Care Emergency Medical Service Manager Name Role Phone Mustapha Anand DO Primary Care Provider Encounter Details Date Type Department Care Team (Late st Contact Info) Description 10/28/2022 Lab Requisition [facility] Pathology & Laboratory Medicine - [address] [phone] Outr Resulting Lab, Provider Social History Tobacco [...] Priority Date/Time Associated Diagnosis Comments CEA Routine 10/28/2022 8:30 EDT documented in this encounter Results * CEA (10/28/2022 8:30 EDT) CEA <0.5 See Note ng/mL 10/28/2022 20:27 EDT [facility] Comment: % Distribution of [...] used interchangeably. Blood VENOUS BLOOD / Unknown 10/28/2022 8:30 EDT 10/28/2022 18:19 EDT Provider Outr Resulting Lab CHEMISTRY & BLOOD GAS ORDERABLES [facility] [address] [place] [address] documented in this encounter Visit Diagnoses Not on filedocumented in this encounter Care Teams Emergency Medical Service Manager Relationship Specialty Start Date End Date Mustapha Anand DO [address] [place] [phone] PCP - General Family Medicine - Primary Care 02/02/22 documented as of this encounter
--- OUTSIDE RECORDS SUMMARY | 2023-11-03 04:04 | XMS_ITS | Encounter Summary ---
Author Organization [facility] Address [facility] [place] [address] Care Team Providers Care Anthropology Department Chair Name Role Phone Maciel Coats APRN Primary Care Provider [phone] Reason for Visit * Reason Comments Colon Cancer follow up 6 months Encounter Details Date Type Department Care Team (Late st Contact Info) Description 04/28/2011 2:30 PM EST Follow-Up Hematology Oncology at [address] [phone] Robert Livingston MD [facility] HEMATOLOGY/[place] [address] Adenocarcinoma of sigmoid colon (Primary Dx) Discharge Disposition: Home Social [...] Sign Reading Time Taken Comments Blood Pressure 149/96 04/28/2011 2:18 PM EST Pulse 92 04/28/2011 2:18 PM EST Temperature 36.5 ??C (97.7 ??F) 04/28/2011 2:18 PM ES T Respiratory Rate 18 04/28/2011 2:18 PM EST Oxygen Saturation 94% 04/28/2011 2:18 PM EST Inhaled Oxygen Concentration - - Weight 112 kg (246 lb 14.6 oz) 04/28/2011 2:18 P M EST Height 184.5 cm (6' 0.64) 04/28/2011 2:18 PM ES T Body Mass Index 32.9 04/28/2011 2:18 PM EST documented in this encounter Progress Notes * Robert Livingston MD - 04/28/2011 2:38 PM EST Subjective: Patient ID: Seth Kincaid is a 60 y.o. male. HPI Comments: Patient returns for f/u now 3 years from surgery for a stage 2 well differentiated colon carcinoma. In the interval since his last visit he has been well and he has no problems or complaints to report today. He tells me he is due for a surveillance colonoscopy in the near future. He has had no symptoms or problems suggestive of disease recurrence. His only complaint is pain in his hands that is related to work. adenocarcinoma of sigmoid colon - pT2 pN0 Mx, well differentiated - 04/01/08 screening colonoscopy - sigmoid carcinoma - 04/22/08 sigmoid resection ---Pathologic Diagnosis--- CONSULTATION CASE 1. Outside slides labeled [id number], collection date 04/01/08. Colon, biopsy at 15 cm: Invasive adenocarcinoma, arising in association with a tubular adenoma with high grade dysplasia. 2. Outside slides labeled [id number], collection date 04/22/08. A - Small bowel, [...] Negative. Psychiatric/Behavioral: Negative. Objective: Physical Exam Vitals reviewed. Constitutional: He is oriented to person, place, [...] He exhibits no distension and no mass. No tenderness. Musculoskeletal: Normal range of motion. He exhibits no edema and no tenderness. Lymphadenopathy: He has no cervical adenopathy. Neurological: He is alert and oriented to person, place, and time. No cranial nerve deficit. Skin: Skin is warm and dry. Psychiatric: He has a normal mood and affect. His behavior is normal. BP 149/96 Pulse 92 Temp(Src) 36.5 ??C (97.7 ??F) (Oral) Resp 18 Ht 184.5 cm (6' 0.64) Wt112 kg (246 lb 14.6 oz) BMI 32.90 kg/m2 SpO2 94% LAB: 04/20/11 CBC WBC 7.8 ANC 4.5 H/H 13.7/40.6 Plat 251 CMP BS 87 Ca 9.6 BUN 17 Creat 1.1 Na 140 K 4.6 Cl 103 CO2 33 AST 30 ALT 68 AP 147 CEA 04/20/11 1.3 10/16/10 0.8 04/13/10 0.6 11/03/09 0.9 07/03/09 0.9 04/03/09 <0.5 12/27/08 0.4 08/23/08 0.4 Assessment and Plan: Patient is doing well and has no symptoms or findings suggestive of recurrent disease. His LFTs aremildly elevated but in review this is not a new finding and is not a progressive issue. Providing there are no interval problems he will return in 6 months as usual for f/u with routine lab. He is anticipated a f/u colonoscopy in in the near future. Current outpatient prescriptions ordered prior to encounter Medication Sig Dispense Refill ??? acetaminophen (TYLENOL) 325 mg tablet Patient Active Problem List Diagnoses Code ??? Carcinoma of colon 153.9BL ??? Obesity 278.00M ??? CIS - Past Surgery/Trauma ??? Elevated LFTs 790.6BW ??? Inflamed seborrheic keratosis 702.11 PCP: MACIEL COATS APRN Other Providers: Ronald Dang MD documented in this encounter Plan of Treatment Upcoming Encounters Date Type Department Care Team (Late st Contact Info) Description 11/03/2023 8:30 AM EDT Office Visit Hematology/Oncology at [address] [phone] Garcia Childress MD [facility] [place] [address] Kassy Ken APRN [address] [place] [address] [place] [address] documented as of this encounter Visit Diagnoses Diagnosis Adenocarcinoma of sigmoid colon- Primary Malignant neoplasm of sigmoid colon documented in this encounter Care Teams Anthropology Department Chair Relationship Specialty Start Date End Date Maciel Coats APRN [address] [place] [address] PCP - General 03/18/11 11/10/14 documented as of this encounter
--- OUTSIDE RECORDS SUMMARY | 2023-11-03 04:04 | XMS_ITS | Encounter Summary ---
Author Organization [facility] Address [address] [place] [address] Care Team Providers Care Heating Element Builder Name Role Phone Pinky Olguin MD Primary Care Provider [phone] Encounter Details Date Type Department Care Team (Late st Contact Info) Description 05/20/2011 Results Only [facility] Laboratory Services - [facility] [address] [place], [place] [phone] Sukhdeep Hargrove, DO [address] [facility] [address] [place], [place] [phone] Social History Tobacco Use Types Packs/Day Years Used Date Smoking Tobacco: Never Assessed Sex and Gender Information Value Date Recorded Sex Assigned at Not on file Gender Identity Not on file Sexual Orientation Not on file documented as of this encounter Plan of Treatment Not on file documented as of this encounter Procedures Procedure Name Priority Date/Time Associated Diagnosis Comments SURGICAL PATHOLOGY Routine 05/20/2011 0:00 EST documented in this encounter Results * SURGICAL PATHOLOGY (05/20/2011 0:00 EST) Pathology Report: SURGICAL PATHOLOGY REPORT Reports generated via electronic interface contain original data; however they are lacking the format of the original report. Caution should be taken when reading/interpreti ng unformatted reports. Name: ? SETH KINCAID ? Accession #: ? [id number] ? : ? 1950 (Age: 60) ??M ? Collect Date: ? 05/20/2011 ? Location: ? [facility] ? Receive Date: ? 05/20/2011 ? Provider: RONALD HARGROVE MD Copy to: MACIEL POP MATHEMATICIAN ? Final Pathologic Diagnosis: ? Rectum, biopsy: - Hyperplastic polyp. Document reviewed and electronically signed by: MARIANELA BAUM MD Report ??Date: 05/25/2011 12:42 By the signature above, the attending physician certifies that he/she has personally conducted a gross and/or microscopic examination of the described specimens and rendered or confirmed the above diagnosis. Specimen(s) Received: ? Bx rectum Clinical History: ? H/O colon cancer Gross Description: ? Received in formalin labelled Sanjiv, Seth and biopsy rectum are two pink-corley irregular soft tissues, 0.2 x 0.2 x 0.2 cm and 0.3 x 0.2 x 0.2 cm, submitted in toto in a single cassette. (Deng Lagunas)/mpl End of Report [facility] 05/20/2011 05/20/2011 20: 42 EST Ronald Hargrove MD PATHOLOGY ORDERABLE S [facility] [address] [place] [address] documented in this encounter Visit Diagnoses Not on filedocumented in this encounter Care Teams Heating Element Builder Relationship Specialty Start Date End Date iPnky Olguin MD [address] [place] [address] PCP - General 12/30/08 05/23/11 documented as of this encounter
--- OUTSIDE RECORDS SUMMARY | 2023-11-03 04:04 | XMS_ITS | Encounter Summary ---
Author Organization [facility] Address [facility] [place] [address] Care Team Providers Care Software Programmer Name Role Phone Maciel Coats APRN Primary Care Provider [phone] Reason for Visit * Reason Comments Colon Cancer Encounter Details Date Type Department Care Team (Late st Contact Info) Description 11/08/2013 2:30 PM EDT Follow-Up Hematology Oncology at [address] [phone] Jose Grubbs MD [address] [place] [phone] Carcinoma of colon (Primary Dx) Discharge Disposition: Home [...] Sign Reading Time Taken Comments Blood Pressure 141/95 11/08/2013 2:25 PM EDT Pulse 83 11/08/2013 2:25 PM EDT Temperature 36.9 ??C (98.4 ??F) 11/08/2013 2:25 PM ED T Respiratory Rate 16 11/08/2013 2:25 PM EDT Oxygen Saturation 97% 11/08/2013 2:25 PM EDT Inhaled Oxygen Concentration - - Weight 105.7 kg (233 lb) 11/08/2013 2:25 PM EDT Height 184.5 cm (6' 0.64) 11/08/2013 2:25 PM ED T Body Mass Index 31.05 11/08/2013 2:25 PM EDT documented in this encounter Progress Notes * Jose Grubbs MD - 11/08/2013 2:43 PM EDT Problems:adenocarcinoma of sigmoid colon - pT2 pN0 Mx, well differentiated - 04/01/08 screening colonoscopy - sigmoid carcinoma - 04/22/08 sigmoid resection ---Pathologic Diagnosis--- CONSULTATION CASE 1. Outside slides labeled [id number], collection date 04/01/08. Colon, biopsy at 15 cm: Invasive adenocarcinoma, arising in association with a tubular adenoma with high grade dysplasia. 2. Outside slides labeled [id number], collection date 04/22/08. A - Small bowel, [...] malignancy. Subjective: Seth comes in today for follow up. It is well over six years now since his original cancer and he is continuing to do well without difficulty. He is physically active and looking forward to correction next year. He is not having any bowel difficulties and review of systems is completely negative. Review of Systems Constitutional: Negative for fever, [...] ALP of 107. Creatinine is 1.0 CEA 11/08/13 3.3 05/02/13 3.1 11/03/12 1.2 05/04/12 [...] if any problems develop in the interim. Current Outpatient Prescriptions on File Prior to [...] days. ??? acetaminophen (TYLENOL) 325 mg tablet Patient Active Problem List Diagnosis Code ??? Carcinoma of colon 153.9 ??? Obesity 278.00 ??? 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 Elevated LFTs 790.6 ??? Inflamed seborrheic keratosis 702.11 PCP: MACIEL COATS APRN Other Providers: Ronald Dang MD documented in this encounter Plan of Treatment Upcoming Encounters Date Type Department Care Team (Late st Contact Info) Description 11/03/2023 8:30 AM EDT Office Visit Hematology/Oncology at [address] [phone] Garcia Childress MD [facility] DR HEMATOLOGY [place] [address] Kassy Ken APRN [address] [place] [address] DR MEDICAL ONCOLOGY [place], [place] [phone] documented as of this encounter Procedures Procedure Name Priority Date/Time Associated Diagnosis Comments LAB SCAN 11/07/2014 12:00 AM EDT documented in this encounter Results * SCAN DOC: LAB (11/07/2014 12:00 AM EDT) Scanning Provider MEDIA MGR SCAN EXT O RDR/RSLT documented in this encounter Visit Diagnoses Diagnosis Carcinoma of colon- Primary Malignant neoplasm of colon, unspecified site documented in this encounter Care Teams Software Programmer Relationship Specialty Start Date End Date Maciel Coats APRN [address] [place] [address] PCP - General 03/18/11 11/10/14 documented as of this encounter
--- OUTSIDE RECORDS SUMMARY | 2023-11-03 04:04 | XMS_ITS | Encounter Summary ---
Author Organization [facility] Address [facility] [place] [address] Care Team Providers Care Atmospheric Technician Name Role Phone Maciel Coats APRN Primary Care Provider [phone] Reason for Visit * Reason Comments Follow-up adenocarcinoma of co ree Encounter Details Date Type Department Care Team (Late st Contact Info) Description 05/11/2013 2:30 PM EST Follow-Up Hematology Oncology at [address] [phone] Robert Livingston MD [facility] HEMATOLOGY/ONCOLO GY DEPT. [place], [place] [id number] Adenocarcinoma of sigmoid colon (Primary Dx) Discharge [...] Sign Reading Time Taken Comments Blood Pressure 131/79 05/11/2013 2:25 PM EST Pulse 70 05/11/2013 2:25 PM EST Temperature - - Respiratory Rate 20 05/11/2013 2:25 PM EST Oxygen Saturation 95% 05/11/2013 2:25 PM EST Inhaled Oxygen Concentration - - Weight 105.2 kg (232 lb) 05/11/2013 2:25 PM EST Height - - Body Mass Index 30.91 11/10/2012 3:16 PM EDT documented in this encounter Progress Notes * Robert Livingston MD - 05/11/2013 2:39 PM EST Subjective: Patient ID: Seth Kincaid is a 62 y.o. male. HPI Comments: Patient returns for f/u now more than 5 years from surgery for a stage 2 well differentiated carcinoma of the sigmoid. In the interval since his last visit he has been well and he has no problems or complaints to report today. He has had no symptoms or problems suggestive of disease recurrence. adenocarcinoma of sigmoid colon - pT2 pN0 Mx, well differentiated - 04/01/08 screening colonoscopy - sigmoid carcinoma - 04/22/08 sigmoid resection ---Pathologic Diagnosis--- CONSULTATION CASE 1. Outside slides labeled [id number], collection date 04/01/08. Colon, biopsy at 15 cm: Invasive adenocarcinoma, arising in association with a tubular adenoma with high grade dysplasia. 2. Outside slides labeled [id number], collection date 04/22/08. A - Small bowel, [...] HENT: Head: Normocephalic and atraumatic. Eyes: Conjunctivae normal and EOM are normal. Pupils are equal, [...] He has no wheezes. He has no rhonchi. He has no rales. Abdominal: Soft. Bowel sounds are normal. He exhibits no distension, no ascites and no mass. There is no splenomegaly or hepatomegaly. There is no tenderness. Musculoskeletal: Normal range of motion. He exhibits no edema and no tenderness. Lymphadenopathy: He has no cervical adenopathy. Neurological: He is alert and oriented to person, place, and time. No cranial nerve deficit. Skin: Skin is warm and dry. Psychiatric: He has a normal mood and affect. His behavior is normal. BP 131/79 Pulse 70 Resp 20 Wt 105.235 kg (232 lb) SpO2 95% LAB: 05/02/13 CBC WBC 8.5 ANC 4.7 H/H 13.7/40.7 Plat 222 CMP BS 98 Ca 8.8 BUN 17 Creat 1.1 Na 139 K 3.6 Cl 99 CO2 31 AST 22 ALT 49 AP 113 CEA 05/02/13 3.1 11/03/12 1.2 05/04/12 1.2 10/29/11 1.2 04/20/11 1.3 10/16/10 0.8 04/13/10 0.6 11/03/09 0.9 07/03/09 0.9 04/03/09 <0.5 12/27/08 0.4 08/23/08 0.4 Assessment and Plan: Patient is doing well and has no symptoms or findings suggestive of recurrent disease. His CEA has increased a bit from his prior values. He does not remember when his last colonoscopy was done but he has had one since surgery. Providing there are no interval problems he will return in 6 months as usual for f/u with routine lab. He knows to call in the interim if there are questions or concerns. Current Outpatient Prescriptions on File Prior to [...] documented in this encounter Procedure Notes * Manuel Akbar - 11/02/2013 7:48 AM EDTAssociated Order(s): SCAN DOC: LAB documented in this encounter Plan of Treatment Upcoming Encounters Date Type Department Care Team (Late st Contact Info) Description 11/03/2023 8:30 AM EDT Office Visit Hematology/Oncology at [address] [phone] Garcia Childress MD [facility] DR HEMATOLOGY AND ONCOLOGY [place], [place] [phone] Kassy Ken APRN [address] [place] [address] DR MEDICAL ONCOLOGY [place], [place] [phone] documented as of this encounter Procedures Procedure Name Priority Date/Time Associated Diagnosis Comments LAB SCAN 11/02/2013 7:48 AM EDT documented in this encounter Results * SCAN DOC: LAB (11/02/2013 7:48 AM EDT) Narrative 11/02/2013 7:48 AM EDT Procedure Note Provider, Scanning - 11/02/2013 7:48 AM EDT Scanning Provider MEDIA MGR SCAN EXT O RDR/RSLT documented in this encounter Visit Diagnoses Diagnosis Adenocarcinoma of sigmoid colon- Primary Malignant neoplasm of sigmoid colon documented in this encounter Care Teams Atmospheric Technician Relationship Specialty Start Date End Date Maciel Coats APRN [address] [place] [address] PCP - General 03/18/11 11/10/14 documented as of this encounter
--- OUTSIDE RECORDS SUMMARY | 2023-11-03 04:04 | XMS_ITS | Encounter Summary ---
Author Organization [facility] Address [address] [place] [address] Care Team Providers Care Wool Washing Machine Operator Name Role Phone Negra Coats APRN Primary Care Provider [phone] Mustapha Anand DO Primary Care Provider [phone] Encounter Details Date Type Department Care Team (Late st Contact Info) Description 10/16/2020 Lab Requisition [facility] Pathology & Laboratory Medicine - [address] [phone] Outr Resulting Lab, Provider Social History Tobacco [...] Priority Date/Time Associated Diagnosis Comments CEA Routine 10/16/2020 14:05 EDT documented in this encounter Results * CEA (10/16/2020 14:05 EDT) CEA <2.0 See Note ng/mL 10/17/2020 8:32 EDT [facility] Comment: % Distribution of [...] used interchangeably. Blood VENOUS BLOOD / Unknown 10/16/2020 14:05 EDT 10/16/2020 20:39 EDT Provider Outr Resulting Lab CHEMISTRY & BLOOD GAS ORDERABLES Performing Organization Address City/State/[facility] Co de Phone Number [facility] [address] [place] [address] documented in this encounter Visit Diagnoses Not on filedocumented in this encounter Care Teams Wool Washing Machine Operator Relationship Specialty Start Date End Date Negra Coats APRN [address] [place] [address] PCP - General 05/24/11 02/01/22 Mustapha Anand DO [address] [place] [address] PCP - General Family Medicine - Primary Care 02/02/22 documented as of this encounter
--- OUTSIDE RECORDS SUMMARY | 2023-11-03 04:04 | XMS_ITS | Encounter Summary ---
Author Organization [facility] Address [facility] [place] [address] Care Team Providers Care Football Scout Name Role Phone Mustapha Palumbo MD Primary Care Provider [phone] Reason for Visit * Reason Comments Colon Cancer Encounter Details Date Type Department Care Team (Late st Contact Info) Description 03/17/2015 2:30 PM EST Office Visit Hematology/Oncology at [address] [phone] Jose Grubbs MD [address] [place] [phone] Elevated LFTs; Carcinoma of colon Social History Tobacco Use Types Packs/Day Years Used Date Smoking Tobacco: Former Cigarettes Q uit: 04/25/1997 Smokeless Tobacco: Former Sex and Gender Information Value Date Recorded Sex Assigned at Not on file Gender Identity Not on file Sexual Orientation Not on file documented as of this encounter Last Filed Vital Signs Vital Sign Reading Time Taken Comments Blood Pressure 133/79 03/17/2015 2:36 PM EST Pulse 75 03/17/2015 2:36 PM EST Temperature 36.6 ??C (97.9 ??F) 03/17/2015 2:36 PM ES T Respiratory Rate 16 03/17/2015 2:36 PM EST Oxygen Saturation 97% 03/17/2015 2:36 PM EST Inhaled Oxygen Concentration - - Weight 108.6 kg (239 lb 8 oz) 03/17/2015 2:36 PM EST Height 184.5 cm (6' 0.64) 03/17/2015 2:36 PM ES T Body Mass Index 31.91 03/17/2015 2:36 PM EST documented in this encounter Progress Notes * Jose Grubbs MD - 03/17/2015 2:45 PM EST Patient Active Problem List Diagnosis Code ??? Carcinoma of colon C18.9 ??? Obesity E66.9 ??? CIS - Past Surgery/Trauma ??? Elevated LFTs R79.89 ??? Inflamed seborrheic keratosis L82.0 Problems:adenocarcinoma of sigmoid colon - pT2 pN0 Mx, well differentiated - 04/01/08 screening colonoscopy - sigmoid carcinoma - 04/22/08 sigmoid resection ---Pathologic Diagnosis--- CONSULTATION CASE 1. Outside slides labeled [id number], collection date 04/01/08. Colon, biopsy at 15 cm: Invasive adenocarcinoma, arising in association with a tubular adenoma with high grade dysplasia. 2. Outside slides labeled [id number], collection date 04/22/08. A - Small bowel, [...] malignancy. Subjective: Seth comes in today for followup. It is now almost six and a half years since his initial diagnosis and he continues to do well overall. During that time, he has had a history of slightly increased CEA levels and a slight increase in ALP off and on. 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 He does this by hand and it is quite a bit of work but he had no difficulty with it. Review of systems is completely negative. He has no bowel problems, no breathing problems, no bone pain, no other symptoms. Current Outpatient Prescriptions on File Prior to [...] Neurological: Negative. Hematological: Negative for adenopathy. BP 133/79 mmHg Pulse 75 Temp(Src) 36.6 ??C (97.9 ??F) (Oral) Resp 16 Ht 184.5 cm (6' 0.64) Wt 108.636 kg (239 lb 8 oz) BMI 31.91 kg/m2 SpO2 97% Head: Normocephalic, without obvious abnormality, atraumatic Eyes: [...] and axillary nodes normal Neurologic: Normal CEA 03/13/15 7.8 11/07/14 8.0 Repeat [facility] 5.5 11/08/13 3.3 05/02/13 3.1 11/03/12 1.2 05/04/12 1.2 10/29/11 1.2 04/20/11 1.3 10/16/10 0.8 04/13/10 0.6 11/03/09 0.9 07/03/09 0.9 04/03/09 <0.5 12/27/08 0.4 08/23/08 0.4 Additional lab is reviewed. His ALP is 132. That compares to 137 back in November 2012. CEA is slightly lower this time at 7.8 but remains somewhat elevated. Review of his CBC shows a white count of 7.7, hemoglobin 14.6, hematocrit 42.6, and platelet count of 228. Assessment/Plan: Seth is doing well overall and has no evidence of recurrent colon cancer now six and a half years after his initial diagnosis. At this point, he really has no risk of recurrent colon cancer and in that regard I think he is given reassurance. We will continue to follow his lab. The reason for his slight increase in liver tests has not been determined. He will let us know if there are issues or problems in the interim. PCP: MUSTAPHA PALUMBO MD Other Providers: Ronald Dang MD documented in this encounter Plan of Treatment Upcoming Encounters Date Type Department Care Team (Late st Contact Info) Description 11/03/2023 8:30 AM EDT Office Visit Hematology/Oncology at [address] [phone] Garcia Cihldress MD [facility] DR HEMATOLOGY [place] [address] Kassy Ken APRN [address] [place] [address] MEDICAL ONCOLOGY [place], [place] [address] documented as of this encounter Procedures Procedure Name Priority Date/Time Associated Diagnosis Comments LAB SCAN 09/17/2015 12:00 AM EDT documented in this encounter Results * SCAN DOC: LAB (09/17/2015 12:00 AM EDT) Scanning Provider MEDIA MGR SCAN EXT O RDR/RSLT documented in this encounter Visit Diagnoses Diagnosis Elevated LFTs Other abnormal blood chemistry Carcinoma of colon Malignant neoplasm of colon, unspecified site documented in this encounter Care Teams Football Scout Relationship Specialty Start Date End Date Mustapha Palumbo MD [address] [facility] [address] PCP - General 11/11/14 08/07/17 documented as of this encounter
--- OUTSIDE RECORDS SUMMARY | 2023-11-03 04:04 | XMS_ITS | Encounter Summary ---
Author Organization [facility] Address [facility] [place] [address] Care Team Providers Care Purchasing Manager/Sales Name Role Phone Maciel Coats APRN Primary Care Provider [phone] Reason for Visit * Reason Comments Follow-up adenocarcinoma of co ree Encounter Details Date Type Department Care Team (Late st Contact Info) Description 11/10/2012 3:30 PM EDT Follow-Up Hematology Oncology at [address] [phone] Robert Livingston MD [facility] HEMATOLOGY/ONCOLO GY DEPT. [place], [place] [phone] Adenocarcinoma of colon (Primary Dx) Discharge Disposition: [...] Sign Reading Time Taken Comments Blood Pressure 131/86 11/10/2012 3:16 PM EDT Pulse 79 11/10/2012 3:16 PM EDT Temperature 36.8 ??C (98.2 ??F) 11/10/2012 3:16 PM ED T Respiratory Rate 18 11/10/2012 3:16 PM EDT Oxygen Saturation 96% 11/10/2012 3:16 PM EDT Inhaled Oxygen Concentration - - Weight 108 kg (238 lb) 11/10/2012 3:16 PM EDT Height 184.5 cm (6' 0.64) 11/10/2012 3:16 PM ED T Body Mass Index 31.71 11/10/2012 3:16 PM EDT documented in this encounter Progress Notes * Robert Livingston MD - 11/15/2012 1:57 PM EDT Subjective: Patient ID: Seth Kincaid is a 61 y.o. male. HPI Comments: Patient returns for f/u now more than 4.5 years from surgery for a stage 2 [...] Diagnosis--- CONSULTATION CASE 1. Outside slides labeled [id number], collection date 04/01/08. Colon, biopsy at 15 cm: Invasive adenocarcinoma, arising in association with a tubular adenoma with high grade dysplasia. 2. Outside slides labeled [id number], collection date 04/22/08. A - Small bowel, [...] and affect. His behavior is normal. BP 131/86 Pulse 79 Temp 36.8 ??C (98.2 ??F) (Oral) Resp 18 Ht 184.5 cm (6' 0.64) Wt 107.956 kg (238 lb) BMI 31.71 kg/m2 SpO2 96% LAB: 11/03/12 CBC WBC 7.3 ANC 3.9 H/H 13.4/40.6 Plat 295 CMP BS 88 Ca 8.9 BUN 17 Creat 1.1 Na 139 K 3.7 Cl 101 CO2 32 AST 28 ALT 57 AP 137 CEA 11/03/12 1.2 05/04/12 1.2 10/29/11 1.2 04/20/11 [...] Prescriptions on File Prior to Visit Medication Status Sig Dispense Refill ??? MULTIVITAMIN W-MINERALS/LUTEIN (CENTRUM SILVER ORAL) Active Take 1 tablet by mouth every morning. ??? ANTIOX #8/OM3/DHA/EPA/LUT/ZEAX (PRESERVISION AREDS 2 ORAL) Active Take 1 tablet by mouth every morning. ??? aspirin 81 mg EC tablet Active Take 81 mg by mouth every 3 days. ??? acetaminophen (TYLENOL) 325 mg tablet Active Patient Active Problem List Diagnosis Code ??? Carcinoma of colon 153.9 ??? Obesity 278.00 ??? 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 Elevated LFTs 790.6 ??? Inflamed seborrheic keratosis 702.11 PCP: MACIEL COATS APRN Other Providers: Ronald Dang MD documented in this encounter Procedure Notes * Provider, Scanning - 05/03/2013 6:09 AM ESTAssociated Order(s): SCAN DOC: LAB documented in this encounter Plan of Treatment Upcoming Encounters Date Type Department Care Team (Late st Contact Info) Description 11/03/2023 8:30 AM EDT Office Visit Hematology/Oncology at [address] [phone] Garcia Childress MD [facility] DR HEMATOLOGY AND ONCOLOGY [place], [place] [phone] Kassy Ken APRN [address] [place] [address] DR MEDICAL ONCOLOGY [place], [place] [phone] documented as of this encounter Procedures Procedure Name Priority Date/Time Associated Diagnosis Comments LAB SCAN 05/03/2013 6:09 AM EST documented in this encounter Results * SCAN DOC: LAB (05/03/2013 6:09 AM EST) Narrative 05/03/2013 6:09 AM EST Procedure Note Provider, Scanning - 05/03/2013 6:09 AM EST Scanning Provider MEDIA MGR SCAN EXT O RDR/RSLT documented in this encounter Visit Diagnoses Diagnosis Adenocarcinoma of colon- Primary Malignant neoplasm of colon, unspecified site documented in this encounter Care Teams Purchasing Manager/Sales Relationship Specialty Start Date End Date Maciel Coats APRN [address] [place] [address] PCP - General 03/18/11 11/10/14 documented as of this encounter
--- OUTSIDE RECORDS SUMMARY | 2023-11-03 04:04 | XMS_ITS | Referral Summary ---
Author Organization [facility] Address [address] [place] [address] Care Team Providers Care Plug Cutter Name Role Phone Mustapha Anand DO Primary Care Provider [phone] Encounters Date Type Department Care Team Description 10/20/2023 Lab Requisition [facility] Pathology & Laboratory Medicine - [address] [address] Yarely Reyes DO Encounter for other general examination from Last 3 Months Social History Tobacco Use Types Packs/Day Years Used Date Smoking Tobacco: Never Assessed Sex and Gender Information Value Date Recorded Sex Assigned at Not on file Gender Identity Not on file Sexual Orientation Not on file Plan of Treatment Not on file Procedures Procedure Name Priority Date/Time Associated Diagnosis Comments SURGICAL PATHOLOGY Today 10/20/2023 10 :50 EDT Encounter for other general examination from Last 3 Months Results * SURGICAL PATHOLOGY (10/20/2023 10:50 EDT) Note to Patient The following pathology results have been interpreted by your pathologist and may be available to you before your health provider has had the opportunity to review them. Please allow time for your provider to receive these results and explore management options, if applicable. 10/24/2023 9:34 EDT [facility] Final Diagnosis A. SKIN OF CHEEK, LEFT, SHAVE BIOPSY: - Solar lentigo. 10/24/2023 9:34 EDT [facility] Attestation By the signature below, the attending physician certifies that they have 1) personally conducted a gross and/or microscopic examination of the described specimen(s), and/or personally interpreted the results of laboratory testing of the described specimen(s), and 2) personally rendered or confirmed the above diagnosis. 10/24/2023 9:34 [facility] at 0934 Microscopic Description The stratum corneum consists of a normal thin layer of basketweave orthokeratin. The epidermis is hyperplastic with elongate, thin, anastomosing rete ridges. Some of the rete are club shaped. The keratinocytes have abundant melanin pigment. The melanocytes are generally normal in number and distribution. There is prominent solar elastosis in the dermis. 10/24/2023 9:34 T [facility] Clinical History Skin lesion 10/24/2023 9:34 [facility] Gross Description A. Received in formalin labelled with proper patient identification (initials D, P) and L cheek is a shave biopsy of a corley and brown irregular papule (0.5 x 0.2 x 0.2 cm). The margin inked blue and the specimen is submitted intact in A1. Anamaria Sterlingjeremy 10/21/2023 11:18 10/24/2023 9:34 T [facility] Performing Lab [facility] 10/24/2023 9:34 T [facility] Scanned Images 10/24/2023 9:34 T [facility] Tissue SPECIMEN FROM SKIN / Unknown 10/20/2023 10:50 EDT 10/20/2023 21:27 EDT Yarely Reyes DO PATHOLOGY ORDERABLES [facility] [address] [place], [place] [address] from Last 3 Months Care Teams Plug Cutter Relationship Specialty Start Date End Date Mustapha Anand DO [address] [place] [address], [place] [address] PCP - General Family Medicine - Primary Care 02/02/22
--- OUTSIDE RECORDS SUMMARY | 2023-11-03 04:04 | XMS_ITS | Encounter Summary ---
Author Organization [facility] Address [facility] [place] [address] Care Team Providers Care Test Deck Supervisor Name Role Phone Negra Coats APRN Primary Care Provider [phone] Reason for Visit * Reason Comments Skin Lesion Encounter Details Date Type Department Care Team (Late st Contact Info) Description 03/18/2011 3:30 PM EST Office Visit Dermatology [address] [facility] [address] [place] [address] Jose Angel Umaña MD [address] [place] [address] Inflamed seborrheic keratosis (Primary Dx) Social History Tobacco Use Types Packs/Day Years Used Date Smoking Tobacco: Former Cigarettes Q uit: 04/25/1997 Sex and Gender Information Value Date Recorded Sex Assigned at Not on file Gender Identity Not on file Sexual Orientation Not on file documented as of this encounter Progress Notes * Jose Angel Umaña MD - 03/18/2011 3:59 PM EST Problem: Left cheek lesion. Seth is a 60-year-old gentleman who is referred today by Negra Coats for evaluation of a dry scaling lesion on his left malar cheek which has been present for about a year. It seems to build up and then scab off but is continuously dry. He has had a fair amount of sun exposure over the years and is very fair skinned. Physical examination reveals a pleasant 60-year-old gentleman who has blue eyes, fair skin and moderate to severe solar elastotic damage of the face. He has a 1.5cm erythematous plaque on the left lateral malar prominence which is perfectly round with an even velvety appearing surface consistent with a seborrheic keratosis. Differential would also include possible Varela's Disease versus superficial BCCa. However the lack of induration, the lack of crust scab leads me more towards a seborrheic keratosis. The patient has no other areas of concern and does not desire examination of the torso. Assessment & Plan: Seborrheic keratosis, probable, left lateral malar prominence. a. After obtaining patient consent, the site was treated with LN2 x2. b. Post LN2 instructions given. c. RTC p.r.n. for new lesions/concerns. Copy: Negra Coats, AGNP-BC documented in this encounter Plan of Treatment Upcoming Encounters Date Type Department Care Team (Late st Contact Info) Description 11/03/2023 8:30 AM EDT Office Visit Hematology/Oncology at [address] [phone] Garcia Childress MD [facility] DR HEMATOLOGY [place] [address] Kassy Ken APRN [address] [place] [address] [place] [address] documented as of this encounter Visit Diagnoses Diagnosis Inflamed seborrheic keratosis- Primary documented in this encounter Care Teams Test Deck Supervisor Relationship Specialty Start Date End Date Negra Coats APRN [address] [place] [address] PCP - General 03/18/11 11/10/14 documented as of this encounter
--- OUTSIDE RECORDS SUMMARY | 2023-11-03 04:04 | XMS_ITS | Encounter Summary ---
Author Organization [facility] Address [address] [place] [address] Care Team Providers Care Wax Bleacher Name Role Phone Unavailable Primary Care Provider Unavailabl e Encounter Details Date Type Department Care Team (Late st Contact Info) Description 04/01/2008 Before PRISM Converted Visit (Maple) [facility] - Maple conversion [address] [place] [address] Ronald Hargrove MD [address] [place] [address] Social History Tobacco Use Types Packs/Day Years Used Date Smoking Tobacco: Never Assessed Sex and Gender Information Value Date Recorded Sex Assigned at Not on file Gender Identity Not on file Sexual Orientation Not on file documented as of this encounter Plan of Treatment Not on file documented as of this encounter Procedures Procedure Name Priority Date/Time Associated Diagnosis Comments SURGICAL PATHOLOGY Routine 04/01/2008 0:00 EST documented in this encounter Results * SURGICAL PATHOLOGY (04/01/2008 0:00 EST) Pathology Report: SURGICAL PATHOLOGY REPORT ? Reports generated via electronic interface contain original data; ? however they are lacking the format of the original report. ? Caution should be taken when reading/interpreti ng unformatted reports. ? Name: ? DAIGNEAAIDA, SETH D ? Accession #: ? [id number] ? : ? 1950 (Age: 57) ??M ? Collect Date: ? 04/01/2008 ? Location: ? [facility] ? Receive Date: ? 04/01/2008 ? Provider: RONALD HARGROVE MD ? Copy to: MINERVA ANTONY MD ? Final Pathologic Diagnosis: ? Colon, 15 cm, biopsy: ? - Adenocarcinoma, invasive, favor low grade. ??See comment. ? Comment: ? Histologic sections of the biopsies show an invasive adenocarcinoma arising in a tubular adenoma with high grade dysplasia. Depth of invasion cannot be ? assessed. Surface Supervisor sections of this case have been reviewed at ? intradepartmental consultation conference. The findings were communicated to Dr. Ronald Hargrove via phone on April 03 2008. (Dr. Márquez)/m ? Document reviewed and electronically signed by: ? Aaron Márquez MD ? Report ??Date: 04/03/2008 13:04 ? By the signature above, the attending physician certifies that he/she has ? personally conducted a gross and/or microscopic examination of the described ? specimens and rendered or confirmed the above diagnosis. ? Specimen(s) Received: ? Bx 15 cm ? Clinical History: ? Colon Ca screening ? Gross Description: ? Received in Oanh's fixative labelled [place] and bx 15 cm are ?? fourteen pink-corley irregular to polypoid soft tissues ranging from 0.1 x 0.1 x ?? 0.1 cm to 1.4 x 0.7 x 0.5 cm. ??The specimen is entirely submitted as follows: ? BLOCK MUNOZ A1, A2 ?Largest portion, multisected ? A3 ?Second largest portion, bisected ? A4-A7 ?Three intact portions each ? (L. Lagunas)/tmg ? End of Report ? CASIE IRVING 04/01/2008 04/01/2008 9:3 5 EST Ronald Hargrove MD PATHOLOGY ORDERABLE S [facility] [address] [place] [address] documented in this encounter Visit Diagnoses Not on filedocumented in this encounter
--- OUTSIDE RECORDS SUMMARY | 2023-11-03 04:04 | XMS_ITS | Encounter Summary ---
Author Organization [facility] Address [facility] [place] [address] Care Team Providers Care Porcelain Finish Sprayer Name Role Phone Minerva Olguin MD Primary Care Provider [phone] Reason for Visit * Reason Comments Colon Cancer follow up Encounter Details Date Type Department Care Team (Late st Contact Info) Description 10/23/2010 3:30 PM EDT Follow-Up Hematology Oncology at [address] [phone] Robert Livingston MD [facility] DR HEMATOLOGY/[place] [address] Carcinoma of colon (Primary Dx); Elevated LFTs Discharge Disposition: Home Social History Tobacco Use Types Packs/Day Years Used Date Smoking Tobacco: Former Cigarettes Q uit: 04/25/1997 Sex and Gender Information Value Date Recorded Sex Assigned at Not on file Gender Identity Not on file Sexual Orientation Not on file documented as of this encounter Last Filed Vital Signs Vital Sign Reading Time Taken Comments Blood Pressure 139/83 10/23/2010 3:11 PM EDT Pulse 90 10/23/2010 3:11 PM EDT Temperature 37.2 ??C (99 ??F) 10/23/2010 3:11 PM EDT Respiratory Rate 16 10/23/2010 3:11 PM EDT Oxygen Saturation 95% 10/23/2010 3:11 PM EDT Inhaled Oxygen Concentration - - Weight 112.5 kg (248 lb 0.3 oz) 10/23/2010 3:11 PM EDT Height - - Body Mass Index - - documented in this encounter Progress Notes * Robert Livingston MD - 10/23/2010 3:39 PM EDT Subjective: Patient ID: Seth Kincaid is a 59 y.o. male. HPI Comments: Patient returns for f/u now 2.5 years from surgery for a stage 2 well differentiated colon carcinoma. In the interval since his last visit he has been well and he has no problems or complaints to report today. He tells me he is due for a surveillance colonoscopy sometime in April 2011. He has had no symptoms or problems suggestive of disease recurrence. He did have some poison ivyrecently. adenocarcinoma of sigmoid colon - pT2 pN0 Mx, well differentiated - 04/01/08 screening colonoscopy - sigmoid carcinoma - 04/22/08 sigmoid resection ---Pathologic Diagnosis--- CONSULTATION CASE 1. Outside slides labeled [id number], collection date 04/01/08. Colon, biopsy at 15 cm: Invasive adenocarcinoma, arising in association with a tubular adenoma with high grade dysplasia. 2. Outside slides labeled [id number], collection date 04/22/08. A - Small bowel, [...] for myalgias, back pain and arthralgias. Skin: Positive for rash ( Some poison avila lower trunk). Neurological: Negative. Hematological: Negative. Psychiatric/Behavioral: Negative. Objective: [...] and affect. His behavior is normal. BP 139/83 Pulse 90 Temp(Src) 37.2 ??C (99 ??F) (Oral) Resp 16 Wt 112.5 kg (248 lb 0.3 oz) SpO2 95% LAB: 10/16/10 CBC WBC 7.0 ANC 3.9 H/H 13.3/38.8 Plat 226 CMP BS 115 Ca 8.9 BUN 15 Creat 0.9 Na 141 K 4.2 Cl 104 CO2 29 AST 41 ALT 68 AP 156 CEA 10/16/10 0.8 04/13/10 0.6 11/03/09 0.9 07/03/09 [...] usual for f/u with routine lab. He anticipated a f/u colonoscopy in April. Current outpatient prescriptions ordered prior to encounter Medication Sig Dispense Refill ??? acetaminophen (TYLENOL) 325 mg tablet Patient Active Problem List Diagnoses Code ??? Carcinoma of colon 153.9BL ??? Obesity 278.00M ??? CIS - Past Surgery/Trauma PCP: MINERVA OLGUIN MD Other Providers: Ronald Dang MD documented in this encounter Procedure Notes * Provider, Scanning - 04/21/2011 5:53 AM ESTAssociated Order(s): SCAN DOC: LAB documented in this encounter Plan of Treatment Upcoming Encounters Date Type Department Care Team (Late st Contact Info) Description 11/03/2023 8:30 AM EDT Office Visit Hematology/Oncology at [address] [phone] Garcia Childress MD [facility] DR [place] [address] Kassy Ken [employer] [address] [place] [address] DR MEDICAL ONCOLOGY [place], [place] [id number] documented as of this encounter Procedures Procedure Name Priority Date/Time Associated Diagnosis Comments LAB SCAN 04/21/2011 5:53 AM EST documented in this encounter Results * SCAN DOC: LAB (04/21/2011 5:53 AM EST) Narrative 04/21/2011 5:53 AM EST Procedure Note Provider, Scanning - 04/21/2011 5:53 AM EST Scanning Provider MEDIA MGR SCAN EXT O RDR/RSLT documented in this encounter Visit Diagnoses Diagnosis Carcinoma of colon- Primary Malignant neoplasm of colon, unspecified site Elevated LFTs Other abnormal blood chemistry documented in this encounter Care Teams Porcelain Finish Sprayer Relationship Specialty Start Date End Date Minerva Olguin MD [address] [place] [address] PCP - General 02/24/10 03/17/11 documented as of this encounter
--- OUTSIDE RECORDS SUMMARY | 2023-11-03 04:04 | XMS_ITS | Encounter Summary ---
Author Organization [facility] Address [address] [place] [address] Care Team Providers Care Carpet Sewer Name Role Phone Mustapha Anand DO Primary Care Provider [phone] Encounter Details Date Type Department Care Team (Late st Contact Info) Description 03/12/2022 Lab Requisition [facility] Pathology & Laboratory Medicine - [address] [address] Graeme Dhaliwal MD [address] [place] [address], [address] [place] [address] Encounter for other general examination Social History Tobacco Use Types Packs/Day Years Used Date Smoking Tobacco: Never Assessed Sex and Gender Information Value Date Recorded Sex Assigned at Not on file Gender Identity Not on file Sexual Orientation Not on file documented as of this encounter Plan of Treatment Not on file documented as of this encounter Procedures Procedure Name Priority Date/Time Associated Diagnosis Comments SURGICAL PATHOLOGY Today 03/11/2022 13 :20 EST Encounter for other general examination documented in this encounter Results * SURGICAL PATHOLOGY (03/11/2022 13:20 EST) Note to Patient The following pathology results have been interpreted by your pathologist and may be available to you before your health provider has had the opportunity to review them. Please allow time for your provider to receive these results and explore management options, if applicable. 03/16/2022 9:28 EST [facility] Final Diagnosis A. COLON, 90 CM, POLYP: - Fragments of tubular adenoma. B. COLON, 15 CM, POLYPS: - Hyperplastic polyp. - One tissue fragment received. 03/16/2022 9:28 [facility] Attestation There was significant resident/fellow involvement in the diagnostic evaluation of this case. By the signature below, the attending physician certifies that they have personally conducted a gross and/or microscopic examination of the described specimens and rendered or confirmed the above diagnosis. 03/16/2022 9:28 [facility] at 0928 Clinical History Personal history of sigmoid colorectal cancer 03/16/2022 9:28 [facility] Gross Description A. Received in formalin labelled with proper patient identification (initials D, P) and 1. Polyp @ 90 cm are 4 corley tissues (0.6 x 0.4 x 0.3 cm to 0.4 x 0.3 x 0.2 cm). Received in the same specimen container is a single opaque corley focally brown speckled wispy tissue (2.3 x 0.6 by less than 0.1 cm). The corley tissues are entirely submitted in A1 and the wispy tissue is submitted intact A2. B. Received in formalin labelled with proper patient identification (initials D, P) and 2. Polyp @ 15 cm x 2 is a single corley focally brown tissue (0.4 x 0.2 x 0.1 cm). Submitted intact in B1. DEBBI OLIVAREZ 03/12/2022 8:55 03/16/2022 9:28 [facility] Resident/Wolfgang w: Shantelle Ramirez MD PhD 03/16/2022 9:28 [facility] Performing Lab [facility] 03/16/2022 9:28 [facility] Scanned Images 03/16/2022 9:28 [facility] Tissue ENTIRE COLON / Unknown 03/11/2022 13:20 EST 03/12/2022 7:36 EST Tissue specimen (specimen) COLON STRUCTURE / Unknown 03/11/2022 13:20 EST 03/12/2022 7:36 EST Graeme Dhaliwal MD PATHOLOGY ORDERABLES [facility] [address] [place] [address] documented in this encounter Visit Diagnoses Diagnosis Encounter for other general examination documented in this encounter Care Teams Carpet Sewer Relationship Specialty Start Date End Date Mustapha Anand DO [address] [place] [address] PCP - General Family Medicine - Primary Care 02/02/22 documented as of this encounter
--- OUTSIDE RECORDS SUMMARY | 2023-11-03 04:04 | XMS_ITS | Encounter Summary ---
Author Organization [facility] Address [facility] [place] [address] Care Team Providers Care Director Behavioral Health Name Role Phone Maciel Coats APRN Primary Care Provider [phone] Reason for Visit * Reason Comments Follow-up adenocarcinoma of co ree Encounter Details Date Type Department Care Team (Late st Contact Info) Description 11/05/2011 1:00 PM EDT Follow-Up Hematology Oncology at [address] [phone] Robert Livingston MD [facility] HEMATOLOGY/ONCOLO GY DEPT. [place], [place] [id number] Adenocarcinoma of colon (Primary Dx) Discharge Disposition: [...] Sign Reading Time Taken Comments Blood Pressure 136/92 11/05/2011 12:47 PM EDT Pulse 72 11/05/2011 12:47 PM EDT Temperature 37.1 ??C (98.8 ??F) 11/05/2011 1 2:47 PM EDT Respiratory Rate 16 11/05/2011 12:4 7 PM EDT Oxygen Saturation 96% 11/05/2011 12: 47 PM EDT Inhaled Oxygen Concentration - - Weight 110.5 kg (243 lb 9.7 oz) 012 12:47 PM EDT Height - - Body Mass Index 32.46 04/28/2011 2:18 PM EST documented in this encounter Progress Notes * Robert Livingston MD - 11/05/2011 1:21 PM EDT Subjective: Patient ID: Seth Kincaid is a 60 y.o. male. HPI Comments: Patient returns for f/u now 3.5 years from surgery for a stage 2 [...] Diagnosis--- CONSULTATION CASE 1. Outside slides labeled [id number], collection date 04/01/08. Colon, biopsy at 15 cm: Invasive adenocarcinoma, arising in association with a tubular adenoma with high grade dysplasia. 2. Outside slides labeled [id number], collection date 04/22/08. A - Small bowel, [...] and affect. His behavior is normal. BP 136/92 Pulse 72 Temp(Src) 37.1 ??C (98.8 ??F) (Oral) Resp 16 Wt 110.5 kg (243 lb 9.7 oz) SpO2 96% LAB: 10/29/11 CBC WBC 7.8 ANC 4.4 H/H 13.9/40.6 Plat 239 CMP BS 81 Ca 9.4 BUN 15 Creat 1.0 Na 141 K 4.3 Cl 104 CO2 28 AST 24 ALT 48 AP 138 CEA 10/29/11 1.2 04/20/11 1.3 10/16/10 0.8 04/13/10 [...] encounter Procedure Notes * Provider, Scanning - 05/05/2012 8:10 AM ESTAssociated Order(s): SCAN DOC: LAB documented in this encounter Plan of Treatment Upcoming Encounters Date Type Department Care Team (Late st Contact Info) Description 11/03/2023 8:30 AM EDT Office Visit Hematology/Oncology at [address] [phone] Garcia Childress MD [facility] DR HEMATOLOGY [place] [address] Kassy Ken APRN [address] [place] [address] [place] [address] documented as of this encounter Procedures Procedure Name Priority Date/Time Associated Diagnosis Comments LAB SCAN 05/05/2012 8:10 AM EST documented in this encounter Results * SCAN DOC: LAB (05/05/2012 8:10 AM EST) Narrative Transcriptions Provider, Scanning - 05/05/2012 8:10 AM EST Scanning Provider MEDIA MGR SCAN EXT O RDR/RSLT documented in this encounter Visit Diagnoses Diagnosis Adenocarcinoma of colon- Primary Malignant neoplasm of colon, unspecified site documented in this encounter Care Teams Director Behavioral Health Relationship Specialty Start Date End Date Maciel Coats APRN [address] [place] [address] PCP - General 03/18/11 11/10/14 documented as of this encounter
--- OUTSIDE RECORDS SUMMARY | 2023-11-03 04:04 | XMS_ITS | Clinical Summary ---
Author Organization [facility] Address [address] [place] [address] Care Team Providers Care Clinical Lab Technologist Name Role Phone Mustapha Anand DO Primary Care Provider [phone] Encounters Date Type Department Care Team Description 10/20/2023 Lab Requisition [facility] Pathology & Laboratory Medicine - [address] [address] Yarely Reyes, DO Encounter for other general examination from Last 3 Months Social History Tobacco Use Types Packs/Day Years Used Date Smoking Tobacco: Never Assessed Sex and Gender Information Value Date Recorded Sex Assigned at Not on file Gender Identity Not on file Sexual Orientation Not on file Plan of Treatment Health Maintenance Due Date Last Done Comments Hepatitis C Screen 1950 RSV Immunization ( o r 60+ Years) (1 - 1-dose 60+ series) 2008 Fall Risk Screening 2013 COVID-19 Vaccine ( season) 2022 Procedures Procedure Name Priority Date/Time Associated Diagnosis [...] management options, if applicable. 10/24/2023 9:34 EDT [facility] Final Diagnosis A. SKIN OF CHEEK, LEFT, SHAVE BIOPSY: - Solar lentigo. 10/24/2023 9:34 [facility] Attestation By the signature below, the attending physician certifies that they have 1) personally conducted a gross and/or microscopic examination of the described specimen(s), and/or personally interpreted the results of laboratory testing of the described specimen(s), and 2) personally rendered or confirmed the above diagnosis. 10/24/2023 9:34 [facility] at 0934 Microscopic Description The stratum corneum consists of a normal thin layer of basketweave orthokeratin. The epidermis is hyperplastic with elongate, thin, anastomosing rete ridges. Some of the rete are club shaped. The keratinocytes have abundant melanin pigment. The melanocytes are generally normal in number and distribution. There is prominent solar elastosis in the dermis. 10/24/2023 9:34 [facility] Clinical History Skin lesion 10/24/2023 9:34 T [facility] Gross Description A. Received in formalin labelled with proper patient identification (initials D, P) and L cheek is a shave biopsy of a corley and brown irregular papule (0.5 x 0.2 x 0.2 cm). The margin inked blue and the specimen is submitted intact in A1. Anamaria Sterlingjeremy 10/21/2023 11:18 10/24/2023 9:34 [facility] Performing Lab [facility] 10/24/2023 9:34 [facility] Scanned Images 10/24/2023 9:34 T [facility] Tissue SPECIMEN FROM SKIN / Unknown 10/20/2023 10:50 EDT 10/20/2023 21:27 EDT Yarely Reyes DO PATHOLOGY ORDERABLES [facility] [address] [place], [place] [address] from Last 3 Months [address] [place] [address] Seth Kincaid Personal/Family Self [address] [place] [address] [address] [place] [address] Seth Kincaid Personal/Family Self 1950 [id number] [facility] [address] [place] [address] Seth Kincaid Personal/Family Self [address] [place] [address] [address] [place] [address] OmaS[place] rock Personal/Family Self 1950 [id number] [facility] [address] [place] [address] Seth Kincaid Personal/Family Self 1950 [id number] [facility] [address] [place] [address] Seth Kincaid Personal/Family Self 1950 [id number] [facility] [address] [place] [address] Seth Kincaid Personal/Family Self [address] [place] [address] [address] [place] [address] Care Teams Clinical Lab Technologist Relationship Specialty Start Date End Date Mustapha Anand DO [address] [place] [address] PCP - General Family Medicine - Primary Care 02/02/22
--- OUTSIDE RECORDS SUMMARY | 2023-11-03 04:04 | XMS_ITS | Encounter Summary ---
Author Organization [facility] Address [address] [place] [address] Care Team Providers Care Co Director Name Role Phone Mustapha Anand DO Primary Care Provider [phone] Encounter Details Date Type Department Care Team (Late st Contact Info) Description 10/20/2023 Lab Requisition [facility] Pathology & Laboratory Medicine - [address] [address] Yarely Reyes DO [address] [facility] [facility] [address] [place], [place] [id number] Encounter for other general examination Social History [...] :50 EDT Encounter for other general examination documented in this encounter Results * SURGICAL PATHOLOGY (10/20/2023 10:50 EDT) Note to Patient The following pathology results have been interpreted by your pathologist and may be available to you before your health provider has had the opportunity to review them. Please allow time for your provider to receive these results and explore management options, if applicable. 10/24/2023 9:34 EDT [facility] Final Diagnosis A. SKIN OF CHEEK, LEFT, SHAVE BIOPSY: - Solar lentigo. 10/24/2023 9:34 [facility] Attestation By the signature below, the attending physician certifies that they have 1) personally conducted a gross and/or microscopic examination of the described specimen(s), and/or personally interpreted the results of laboratory testing of the described specimen(s), and 2) personally rendered or confirmed the above diagnosis. 10/24/2023 9:34 [facility] at 0934 Microscopic Description The stratum corneum consists of a normal thin layer of basketweave orthokeratin. The epidermis is hyperplastic with elongate, thin, anastomosing rete ridges. Some of the rete are club shaped. The keratinocytes have abundant melanin pigment. The melanocytes are generally normal in number and distribution. There is prominent solar elastosis in the dermis. 10/24/2023 9:34 [facility] Clinical History Skin lesion 10/24/2023 9:34 [facility] Gross Description A. Received in formalin labelled with proper patient identification (initials D, P) and L cheek is a shave biopsy of a corley and brown irregular papule (0.5 x 0.2 x 0.2 cm). The margin inked blue and the specimen is submitted intact in A1. Anamaria Franci 10/21/2023 11:18 10/24/2023 9:34 [facility] Performing Lab [facility] 10/24/2023 9:34 [facility] Scanned Images 10/24/2023 9:34 [facility] Tissue SPECIMEN FROM SKIN / Unknown 10/20/2023 10:50 EDT 10/20/2023 21:27 EDT Yarely Reyes DO PATHOLOGY ORDERABLES [facility] [address] [place] [address] documented in this encounter Visit Diagnoses Diagnosis Encounter for other general examination documented in this encounter Care Teams Co Director Relationship Specialty Start Date End Date Mustapha Anand DO [address] [place] [address] PCP - General Family Medicine - Primary Care 02/02/22 documented as of this encounter
--- OUTSIDE RECORDS SUMMARY | 2023-11-03 04:04 | XMS_ITS | Encounter Summary ---
Author Organization [facility] Address [facility] [place] [address] Care Team Providers Care Lime Trimmer Name Role Phone Pinyk Olguin MD Primary Care Provider [phone] Encounter Details Date Type Department Care Team (Late st Contact Info) Description 04/24/2010 3:30 PM EST Follow-Up Hematology Oncology at [address] [phone] Robert Livingston MD [facility] DR HEMATOLOGY/[place] [address] Discharge Disposition: Home Social History Tobacco Use [...] AM EDT Office Visit Hematology/Oncology at [address] [phone] Garcia Childress MD [facility] DR HEMATOLOGY [place] [address] Kassy Ken APRN [address] [place] [address] DR MEDICAL ONCOLOGY [place], [place] [phone] documented as of this encounter Visit Diagnoses Not on filedocumented in this encounter Care Teams Lime Trimmer Relationship Specialty Start Date End Date Pinky Olguin MD [address] [place] [address] PCP - General 02/24/10 03/17/11 documented as of this encounter
--- OUTSIDE RECORDS SUMMARY | 2023-11-03 04:04 | XMS_ITS | Encounter Summary ---
Author Organization [facility] Address [facility] [place] [address] Care Team Providers Care Chicken Cleaner Name Role Phone Mustapha Anand Leodan GREGG Primary Care Provider [phone] Encounter Details Date Type Department Care Team (Late st Contact Info) Description 05/22/2008 Orders Only Hematology [place] [id number] Yg Greene MD [facility] [place] [address] Social History Tobacco Use Types Packs/Day Years [...] 8:30 AM EDT Office Visit Hematology/Oncology at [address] [phone] Garcia Childress MD [facility] [address] [place] [address] Kassy Ken APRN [address] [place] [address] DR MEDICAL ONCOLOGY [place], [place] [id number] documented as of this encounter Procedures Procedure Name Priority Date/Time Associated Diagnosis Comments SURGICAL PATHOLOGY REPORT Routine 05/22/2008 8:39 AM EST documented in this encounter Results * Surgical Pathology Report (05/22/2008 8:39 AM EST) Surgical Pathology Report [id number] ? Location: OPW The signing pathologist has (i) examined the relevant preparation(s) for the specimen(s) and (ii) rendered or confirmed the diagnosis(es). . ?Pathology Surgical Pathology Final Report Clinical Information Specimen Submitted: CONSULTATION CASE A - 7 slides labeled [id number], collection date 04/01/08. B - 24 slides labeled [id number], collection date 04/22/08. [id number] Report to: [facility] Surgical Pathology [address] ??[address] Phone - [phone] Fax - [phone] Gross Description [facility]'s pathology slide(s) are reviewed. ??Refer to Diagnosis and Specimen Submitted for specific case information. For the full text of the [facility] report(s) please refer to Non-DH Documentation Pathology in the Clinical Information System (CIS). Microscopic Description Slides reviewed, microscopic description not recorded. Diagnosis CONSULTATION CASE 1. ??Outside slides labeled [id number], collection date 04/01/08. ?Colon, biopsy at 15 cm: ?Invasive adenocarcinoma, arising in association with a ? tubular adenoma with high grade dysplasia. 2. ??Outside slides labeled [id number], collection date 04/22/08. ?A - Small bowel, biopsy: ?Pancreatic tissue with ductal dilatation and focal PanIN-1B and ?PanIN-2. ?B - Sigmoid colon, resection: ?Invasive adenocarcinoma, well-differentia valery, 2.6 cm in ?greatest dimension by report, and arising in association ?with a tubular adenoma with high grade dysplasia. ?The tumor infiltrates into but not through the muscularis ?propria (pT2). ?No lymphatic, vascular or perineural invasion is present. ?Twenty (20) lymph nodes with no evidence of malignancy (pN0). ?All margins of resection are free of tumor (clearance of ?closest radial margin is 1.7 cm by report). ?No intratumoral or peritumoral lymphoid infiltration is ?present. ?Submucosal pigment consistent with tattoo site. ?C - Distal colon stump, excision: . Diagnosis ?Segment of colon with no evidence of malignancy. ?D - Proximal colon stump, excision: ?Segment of colon with no evidence of malignancy. CR-0 05/30/08 VMS 05/30/08 Verified by: ? Jorge L GAMBLE, [facility] ?Pathologist ?(Electronic Signature) The attending pathologist whose signature appears on this report has reviewed all diagnostic slides and has edited the gross and/or microscopic portion of the report in rendering the final pathologic diagnosis. CHIN ABAD 05/22/2008 8:39 AM EST Yg Greene MD PATHOLOGY/CYTOLOGY O RDERABLES CHIN ABAD documented in this encounter Visit Diagnoses Not on filedocumented in this encounter Care Teams Chicken Cleaner Relationship Specialty Start Date End Date Mustapha Anand DO [address] [place] [address] PCP - General Family Medicine 08/08/17 documented as of this encounter
--- OUTSIDE RECORDS SUMMARY | 2023-11-03 04:04 | XMS_ITS | Encounter Summary ---
Author Organization [facility] Address [address] [place] [address] Care Team Providers Care Hydraulic Design Engineer Name Role Phone Mustapha Anand Primary Care Provider [phone] Encounter Details Date Type Department Care Team (Late st Contact Info) Description 12/22/2022 Lab Requisition [facility] [place] Pathology & Laboratory Medicine - [address] [phone] Outr Resulting Lab, Provider Social History Tobacco [...] Procedure Name Priority Date/Time Associated Diagnosis Comments PSA TOTAL, DIAGNOSTIC Routine 12/22/2022 10:15 EDT documented in this encounter Results * PSA TOTAL, DIAGNOSTIC (12/22/2022 10:15 EDT) PSA 0.3 <=6.5 ng/mL 12/22/2022 19:16 EDT [facility] Blood VENOUS BLOOD / Unknown 12/22/2022 10:15 EDT 12/22/2022 17:24 EDT Narrative [facility] - 12/22/2022 19:16 EDT NOTE: Serum PSA concentration should not be interpreted as absolute evidence for the presence or absence of malignant disease. Assayed on Siemens ADVIA Medypalaur XPT using chemiluminescent technology.??Values obtained by using different assay methods cannot be used interchangeably. Provider Outr Resulting Lab CHEMISTRY & BLOOD GAS ORDERABLES [facility] [address] [place] [address] documented in this encounter Visit Diagnoses Not on filedocumented in this encounter Care Teams Hydraulic Design Engineer Relationship Specialty Start Date End Date Mustapha Anand DO [address] [place] [phone] PCP - General Family Medicine - Primary Care 02/02/22 documented as of this encounter
[2023-11-03 07:35] LABS: Abs Immature Grans 0.03 10^3/uL (0.0-0.06); Absolute Basophil Count 0.08 10^3/uL (0.0-0.2); Absolute Eosinophil Count 0.64 10^3/uL (0.0-0.7); Absolute Monocyte Count 0.49 10^3/uL (0.1-0.8); Absolute Neutrophil Count 4.98 10^3/uL (1.2-6.7); Basophils % 0.9 %; Eosinophils % 7.3 %; HCT 42.3 % (40.0-50.0); HGB 13.5 g/dL (13.5-17.5); Immature Grans % 0.3 %; Lymphocytes % 28.7 %; MCH 29.9 pg (27.0-33.0); MCHC 31.9 % (32.0-36.0); MCV 94 fL (80-95); MPV 9.7 fL (8.0-11.0); Monocytes % 5.6 %; Neutrophils % 57.2 %; Platelet Count 204 10^3/uL (130-400); RBC 4.51 10^6/uL (4.36-5.78); RDW 13.2 % (11.8-14.1); WBC 8.72 10^3/uL (4.4-10.8)
[2023-11-03 07:50] LABS: ALT 46 U/L (16-63); AST 30 U/L (15-37); Albumin 3.1 g/dL (3.4-5.0); Alkaline Phosphatase 229 U/L (46-116); Anion Gap 7.7 mmol/L (3-11); BUN 10 mg/dL (7-18); Bilirubin, Total 0.61 mg/dL (0.2-1.0); CO2 31.3 mmol/L (21.0-32.0); Calcium 9.2 mg/dL (8.5-10.1); Chloride 106 mmol/L (98-107); Estimated GFR 78.98 (mL/min/1.73m2); Glucose 144 mg/dL (74-106); Potassium 4.4 mmol/L (3.5-5.1); Sodium 145 mmol/L (136-145); Total Protein 7.7 g/dL (6.4-8.2)
[2023-11-03 20:57] LABS: CEA <0.5 ng/mL (See Note)
== END 2023-11-03 04:00 | disposition home or self-care (01) ==
LOC: LBO 04:00
PROVIDERS: PCP Family Medicine; Visit Provider Internal Medicine Hematology & Oncology
DX: C18.9 Malignant neoplasm of colon, unspecified (principal)
CPT/HCPCS: 36415; 80053; 82378; 85025

== ENCOUNTER → 2024-06-04 14:32 | Outpatient (BNVA) | payer MEDICARE, SELFPAY | PROVIDERS: PCP Family Medicine; Referring Provider Family Medicine; Visit Provider Podiatrist | DX: L60.3 Nail dystrophy (principal); L60.2 Onychogryphosis; E11.42 Type 2 diabetes mellitus with diabetic polyneuropathy; B35.1 Tinea unguium; R20.2 Paresthesia of skin; L60.8 Other nail disorders | CPT/HCPCS: 11719 ==

== ENCOUNTER → 2024-10-09 13:51 | Outpatient (BNVA) | payer MEDICARE, SELFPAY | PROVIDERS: PCP Family Medicine; Referring Provider Family Medicine; Visit Provider Podiatrist | DX: L60.3 Nail dystrophy (principal); E11.42 Type 2 diabetes mellitus with diabetic polyneuropathy; G60.9 Hereditary and idiopathic neuropathy, unspecified; L60.2 Onychogryphosis; B35.1 Tinea unguium; R20.2 Paresthesia of skin; L60.8 Other nail disorders | CPT/HCPCS: 11719 ==

== ENCOUNTER 2024-10-29 03:00 | Outpatient (CLI) | payer MEDICARE, SELFPAY ==
[2024-10-29 13:48] LABS: Abs Immature Grans 0.03 10^3/uL (0.0-0.06); HCT 43.0 % (40.0-50.0); HGB 13.8 g/dL (13.5-17.5); Immature Grans % 0.3 %; MCH 29.6 pg (27.0-33.0); MCHC 32.1 % (32.0-36.0); MCV 92 fL (80-95); MPV 10.0 fL (8.0-11.0); Platelet Count 234 10^3/uL (130-400); RBC 4.67 10^6/uL (4.36-5.78); RDW 13.1 % (11.8-14.1); RDW-SD 44.2 fL; WBC 9.44 10^3/uL (4.4-10.8)
[2024-10-29 14:29] LABS: ALT 63 U/L (16-63); AST 44 U/L (15-37); Albumin 3.3 g/dL (3.4-5.0); Alkaline Phosphatase 257 U/L (46-116); Anion Gap 6.8 mmol/L (3-11); BUN 12 mg/dL (7-18); Bilirubin, Total 0.5 mg/dL (0.2-1.0); CO2 32.2 mmol/L (21.0-32.0); Calcium 9.3 mg/dL (8.5-10.1); Chloride 102 mmol/L (98-107); Estimated GFR 92.29 (mL/min/1.73m2); Glucose 110 mg/dL (74-106); Potassium 4.5 mmol/L (3.5-5.1); Sodium 141 mmol/L (136-145); Total Protein 8.0 g/dL (6.4-8.2)
[2024-10-29 23:00] LABS: CEA <0.5 ng/mL (See Note)
== END 2024-10-29 03:01 | disposition home or self-care (01) ==
LOC: LBO 03:00
PROVIDERS: PCP Family Medicine; Visit Provider Internal Medicine Hematology & Oncology
DX: C18.9 Malignant neoplasm of colon, unspecified (principal); I48.0 Paroxysmal atrial fibrillation; I10 Essential (primary) hypertension
CPT/HCPCS: 36415; 80053; 82378; 85025

== ENCOUNTER 2024-10-29 08:00 | Outpatient (CLI) | payer MEDICARE, SELFPAY ==
--- NOTE | 2024-10-29 08:00 | RT.EKG_ITS ---
APPROVED REPORT Exam: Resting ECG Reason for Exam: PAF Patient Location: O HR:61 bpm ECG Measurements Heart Rate 61 AXIS [place] 144 P 63 QRSd 113 QRS 31 QT 424 T 31 QTc 427 Conclusion Sinus rhythm...normal P axis, V-rate 50- 99 Normal Electrocardiogram
== END 2024-10-29 08:01 | disposition home or self-care (01) ==
LOC: DI.CARD 08:01
PROVIDERS: PCP Family Medicine; Visit Provider Registered Nurse
DX: I48.0 Paroxysmal atrial fibrillation (principal)
CPT/HCPCS: 93010

== ENCOUNTER 2024-11-19 02:32 | Outpatient (CLI) | payer MEDICARE, SELFPAY ==
--- NOTE | 2024-11-19 09:30 | DI.US_ITS ---
APPROVED REPORT EXAM: Comprehensive 2D, Doppler, and color-flow Echocardiogram Patient Location: Out-Patient Ell Tutor: Gail Olivares RDCS (AE) Indications: Dyspnea on exertion, A Fib Other Information Study Quality: Fair. Technically limited study due to body habitus, technically limited apical imaging.. Conclusion Normal left ventricular wall thickness and chamber size. Ejection fraction is 55%. Wall motion is normal Normal right ventricular size and function Both atria are normal in size The aortic valve is trileaflet and mildly sclerotic without stenosis or regurgitation Estimated right ventricular systolic pressure is 40 mmHg Wall motion Left Ventricle The left ventricle is normal size. The left ventricular systolic function is normal. The left ventricular ejection fraction is within the normal range. There is normal left ventricular wall thickness. There is normal LV segmental wall motion. There is no ventricular septal defect visualized. LVEF is 55%. Right Ventricle Right ventricle is not well visualized. Right ventricular systolic function could not be assessed. Atria The left atrium size is normal. The right atrium size is normal. Aortic Valve The aortic valve is mildly sclerotic Aortic valve is trileaflet. There is no aortic valvular stenosis. No aortic regurgitation is present. Mitral Valve The mitral valve is normal in structure. No evidence of mitral valve stenosis. Trace mitral regurgitation. Tricuspid Valve The tricuspid valve is normal in structure. There is no tricuspid valve stenosis. Mild tricuspid regurgitation. Pulmonic Valve The pulmonary valve is normal in structure. There is no pulmonic valvular stenosis. There is no pulmonic valvular regurgitation. Great Vessels The aortic root is normal in size. The ascending aorta is normal in size. 2D Dimensions IVSD d PLAX 1.10 cm M: 0.6-1.2 Ao Root d 3.35 cm M: 3.1 - 3.7 LVPW d PLAX 1.10 cm M: 0.6 - 1.2 Ao Asc Diam d 3.39 cm M: 2.6 - 3.4 LVID d PLAX 4.83 cm M: 4.2 - 5.8 LVDs 3.50 cm M: 2.5 - 4.0 LV EF Teichholz 55.0 % FS 28.51 % LV EDV (Teich) 109.1 mL LV ESV (Teich) 49.2 mL M-Mode TAPSE 3.58 cm (M/F) >1.7 LA Volume LA Length A4C 4.9 cm LA Length A2C 4.6 cm LA Area A4C s 14.66 cm2 LA Area A2C s 13.07 cm2 LA Vol A4C A-L 37.27 mL LA Vol A2C A-L 31.50 mL LA Vol Biplane A-L 35.3 mL LA Vol/BSA A4C A-L LA Vol/BSA A2C A-L LA Vol/BSA BP A-L 15.4 mL/m2 LA Vol A4C MOD 34.0 mL LA Vol A2C MOD 30.5 mL LA Vol BP MOD 32.9 mL RA Volume RA Area A4C 11.3 cm2 RA ESV A4C (A-L) 26.4mL RA Vol/BSA A4C A-L RA Length A4C 4.1 cm RA ESV A4C (MOD) 23.8mL LV Diastology MV E' medial 0.073 (>0.07 m/s) MV E Vmax 0.71 (0.4-1.3 m/s) MV E/E' MED 9.74 (<14) MV A Vmax 0.65 (0.4-1.3 m/s) MV E' lateral 0.077 (>0.1 m/s) E/A Ratio 1.1 MV E/E' LAT 9.17 (<14) MV E' Average 0.075 m/s MV E/E'(average) 9.45 Aortic Valve AoV Vmax 1.52 m/s LVOT Vmax 0.87 m/s AoV Peak Grad 9.2 mmHg LVOT Peak Grad 3.0 mmHg AoV Area (Vmax) 1.95 cm2 LVOT VTI 0.199 m AoV VTI 0.333 m LVOT Mean Grad 1.7 mmHg AoV Mean Eduar. 0.96 m/s LVOT SV 68.08 mL AoV Mean Grad 4.4 mmHg LVOT Diam s 2.05 cm AoV Area (VTI) 2.04 cm2 AV Regurg Peak Gr. 9.23 mmHg Velocity Ratio 0.57 Mitral Valve MV DT 244 (160-240 msec) MV Vmax TIPS 0.59 m/s MV Mean Grad 0.6 (<2mmHg) MV VTI 0.283 m Pulmonary Valve PV Vmax 0.90 (0.5-1.5 m/s) RVOT Vmax 0.85 m/s PV Peak Grad 3.3 mmHg RVOT Peak Gr. 2.9 mmHg PV Mean Eduar 0.58 m/s RVOT VTI 0.181 m PV Mean Grad 1.6 mmHg RVOT Mean Gr. 1.6 mmHg Tricuspid Valve RA Pressure 3.00 mmHg TR Vmax 3.03 m/s TV S' 0.19 m/s TR Peak Grad 36.8 mmHg RVSP (TR) 39.8 mmHg
== END 2024-11-19 02:52 ==
LOC: DI 02:32
PROVIDERS: PCP Family Medicine; Visit Provider Internal Medicine Cardiovascular Disease
DX: R06.00 Dyspnea, unspecified (principal); I35.1 Nonrheumatic aortic (valve) insufficiency
CPT/HCPCS: 93306

== ENCOUNTER 2024-12-27 01:41 | Outpatient (CLI) | payer MEDICARE, SELFPAY ==
[2024-12-27 10:53] LABS: ALT 49 U/L (16-63); AST 30 U/L (15-37); Albumin 3.3 g/dL (3.4-5.0); Alkaline Phosphatase 242 U/L (46-116); Anion Gap 4.9 mmol/L (3-11); BUN 12 mg/dL (7-18); Bilirubin, Total 0.6 mg/dL (0.2-1.0); CO2 33.1 mmol/L (21.0-32.0); Calcium 9.5 mg/dL (8.5-10.1); Chloride 102 mmol/L (98-107); Estimated GFR 88.51 (mL/min/1.73m2); Glucose 97 mg/dL (74-106); Potassium 4.4 mmol/L (3.5-5.1); Sodium 140 mmol/L (136-145); Total Protein 8.0 g/dL (6.4-8.2)
== END 2024-12-27 01:42 | disposition home or self-care (01) ==
PROVIDERS: PCP Family Medicine; Visit Provider Family Medicine
DX: I10 Essential (primary) hypertension (principal)
CPT/HCPCS: 36415; 80053

== ENCOUNTER 2025-01-05 15:29 | Outpatient (REF) | payer MEDICARE, SELFPAY ==
[2025-01-05 15:42] LABS: Abs Immature Grans 0.01 10^3/uL (0.0-0.06); HCT 39.2 % (40.0-50.0); HGB 12.7 g/dL (13.5-17.5); Immature Grans % 0.1 %; MCH 29.5 pg (27.0-33.0); MCHC 32.4 % (32.0-36.0); MCV 91 fL (80-95); MPV 12.1 fL (8.0-11.0); Platelet Count 201 10^3/uL (130-400); RBC 4.30 10^6/uL (4.36-5.78); RDW 13.2 % (11.8-14.1); RDW-SD 43.8 fL; WBC 7.93 10^3/uL (4.4-10.8)
== END 2025-01-05 15:30 | disposition home or self-care (01) ==
LOC: LBN 15:29
PROVIDERS: PCP Family Medicine; Visit Provider Nurse Practitioner Family
DX: R23.3 Spontaneous ecchymoses (principal)
CPT/HCPCS: 85025

== ENCOUNTER → 2025-02-05 14:35 | Outpatient (BNVA) | payer MEDICARE, SELFPAY | PROVIDERS: PCP Family Medicine; Referring Provider Family Medicine; Visit Provider Podiatrist | DX: L60.3 Nail dystrophy (principal); B35.1 Tinea unguium; E11.42 Type 2 diabetes mellitus with diabetic polyneuropathy; L60.2 Onychogryphosis; R09.89 Other specified symptoms and signs involving the circulatory and respiratory systems; R60.0 Localized edema; I83.93 Asymptomatic varicose veins of bilateral lower extremities; L65.9 Nonscarring hair loss, unspecified; L60.8 Other nail disorders; R23.4 Changes in skin texture | CPT/HCPCS: 11719 ==

== ENCOUNTER → 2025-02-21 09:05 | Outpatient (BNVA) | payer MEDICARE, SELFPAY | PROVIDERS: PCP Family Medicine; Referring Provider Family Medicine; Visit Provider Physical Therapy Assistant | DX: Z12.11 Encounter for screening for malignant neoplasm of colon (principal); Z86.0101 Personal history of adenomatous and serrated colon polyps ==

== ENCOUNTER 2025-03-08 08:48 | Day surgery (SDC) | payer MEDICARE, SELFPAY ==
--- NOTE | 2025-03-07 15:00 | W.PM.DSUDISC ---
Date of service: 03/08/25 Discharge Plan Disposition Patient Disposition: Home Condition: Good Discharge Details Attending Provider: Graeme Dhaliwal Primary Care Provider: Mustapha Anand Home Meds and New Rx's Prescriptions: Continued acetaminophen 325 mg capsule 325 mg PO ONCE PRN ketoconazole 2 % cream 1 applic topical DAILY Qty: 120 6RF Rx Instructions: Apply to toenails once daily (DME) blood-glucose meter Misc See Rx Instructions .ROUTE .MEDSUPPLY Qty: 1 0RF Rx Instructions: As directed to check blood glucose. No insulin. Dispense covered brand. diltiazem HCl 30 mg tablet 30 mg PO BID PRN (Reason: rapid heart rate, >120) Qty: 30 0RF (DME) diabetic shoes See Rx Instructions .Route .MEDSUPPLY Qty: 1 0RF Rx Instructions: As directed PreserVision AREDS 1 EACH tablet 2 tab PO DAILY Varicella-Zoster Ge/As01b/Pf [Shingrix Vial Kit] 50 MCG INJ 50 mcg IM ONCE Qty: 1 0RF amlodipine 5 mg tablet 5 mg PO DAILY Qty: 90 3RF (DME) lancets Misc See Rx Instructions .ROUTE .MEDSUPPLY Qty: 100 3RF Rx Instructions: As directed to check blood glucose daily. No insulin. Dispense covered brand. metoprolol succinate 100 mg tablet extended release 24 hr See Rx Instructions .ROUTE .COMPLEX Qty: 90 3RF Dose Instruction: TAKE ONE TABLET BY MOUTH EVERY DAY Rx Instructions: TAKE ONE TABLET BY MOUTH EVERY DAY (DME) OneTouch Verio test strips Strip See Rx Instructions .Route Qty: 100 3RF Rx Instructions: to check blood glucose daily. No insulin. metformin 500 mg tablet 500 mg PO BID Qty: 180 3RF atorvastatin 40 mg tablet 40 mg PO DAILY Qty: 90 3RF Eliquis 5 mg tablet See Rx Instructions .ROUTE .COMPLEX Qty: 60 11RF Dose Instruction: TAKE ONE TABLET BY MOUTH TWICE A DAY Rx Instructions: TAKE ONE TABLET BY MOUTH TWICE A DAY losartan 100 mg tablet 100 mg PO DAILY Qty: 90 3RF Discontinued bisacodyl 5 mg tablet,delayed release (DR/EC) 5 mg PO ONCE Qty: 4 0RF Rx Instructions: Per Colonoscopy bowel prep instructions polyethylene glycol 3350 17 gram/dose powder 238 g PO ONCE Qty: 238 0RF Rx Instructions: For Colonoscopy bowel prep, as directed by office Discharge Instructions Additional Instructions: Seth, was great seeing you today and I hope you feel well after the colonoscopy. Things went very smoothly. I did not find any tumors or polyps today. Based on your personal history of colon cancer, I recommend a 5-year interval for your next screening. If you need anything or have any questions at all, do not hesitate to ask. 1. If tolerated, consume a soft, low fiber diet for 1-2 days. 2[address] Do not drive, drink alcohol, operate machinery, make critical decisions, or do activities that require coordination or balance for 24 hours. 3. Because air was put into your colon during the procedure, expelling air from your rectum (passing gas or farting) is normal. 4. You may not have a bowel movement for 1-3 days because of the colonoscopy prep. This is normal. 5. Go directly to the emergency room if you notice any of the following: Develop chills (warm to touch), or if you have a thermometer and your temperature is above 101 Difficulty breathing or difficultly swallowing Persistent vomiting Severe abdominal pain, other than gas cramps Severe chest pain Black, tarry stools Any bleeding ? exceeding one tablespoon 6. Call your physician if the site where your intravenous was started becomes red, swollen, painful, and warm to touch. 7. Your physician has reviewed your pre-procedure medications. Please continue to take those medications as previously ordered. You will be given specific information/education regarding any changes to your medications before leaving. Stand Alone Forms: Anesthesia Discharge Inst., Nori Calvillo (DSU), Portal Information Activity:: Activity as Tolerated Diet:: As Tolerated Discharge Orders Discharge Orders: Discharge Order (Routine); Ordered 03/07/25 Ordered By: Graeme Dhaliwal DS: Diagnosis Discharge Diagnosis (1) Encounter for screening colonoscopy: Status: Acute Asessment and Plan: Negative screening colonoscopy today; based on personal history of colon cancer, 5-year interval for the next screening
--- NOTE | 2025-03-07 15:01 | W.COLOREPORT ---
Date of service: 03/08/25 Time of Service: 11:07 Colonoscopy Report Date of procedure: 03/08/25 Pre-op diagnosis general: Screening colonoscopy Post-op diagnosis procedure note: other (Negative screening colonoscopy) Procedure: Colonoscopy Surgeon: Graeme Dhaliwal Anesthesia Type: General:No Airway Estimated blood loss (mL): 0 Pathology: none sent Complications: None Disposition: same day Indications: Seth is a 74-year-old male with a history of adenomatous polyps who needs his next screening colonoscopy Prep: Miralax/Dulcolax Procedure Start Time: 10:45 Procedure End Time: 10:58 Retraction Time: 7 Findings: Negative screening colonoscopy Procedure Description: After the induction of anesthesia, and with the patient in left lateral decubitus position, I began by performing an external anorectal exam.? There are some external hemorrhoids.? Next, I performed a digital rectal exam.? I did not appreciate any abnormal findings.? Next, I advanced a colonoscope into the rectal vault.? I performed retroflexion.? This appeared normal.? Using insufflation, I then advanced the colonoscope beyond the rectal folds his anastomosis is about 20 cm past the anus. It appears to be an to side. I carefully cannulated the blind loop, and irrigated all clean. I saw no evidence of any pathology here. I brought the camera back to the anastomosis proper, carefully traversed it into the descending colon. It was widely patent. There were a few scattered diverticula on the left side. I continued advancing towards the cecum.? The scope was noted to be in the cecum by identification of the ileocecal valve and appendiceal orifice.? I then began withdrawing the colonoscope using repeated irrigation as necessary for full evaluation of the colonic mucosa. ?Once the scope was withdrawn to the level of the rectum, great care was taken to examine portions of the rectal folds.? Finally, the scope was withdrawn and the patient was brought to the same-day surgery recovery unit as the anesthetic wore off. ?The findings and instructions were shared with the patient prior to discharge. [place] Bowel Prep [place] Bowel Prep Right Colon: 3 Left Colon: 3 Transverse Colon: 3 Total Score: 9
[2025-03-08 09:20] VITALS: BP 135/85; PULSE 95; RESP 19; TEMP 36.4; O2SAT 95
[2025-03-08] MEDS: Lactated Ringers 1,000 ML 80 ML IV (09:32)
--- NOTE | 2025-03-08 10:00 | W.ANESPRE ---
General Info Date of Service Date Performed: 03/08/25 Height: 6 ft Weight: 110.2 kg Body Mass Index (BMI): 32.9 Surgical Procedure: Operation Date: 03/08/25 10:35 Proposed Procedure Side Surgeon pal Dhaliwal MD Meds Allergies and Home Medications Allergies Allergy/AdvReac Type Severity Reaction Status Date / Time adhesive tape Allergy Severe Skin Verified 03/08/25 09:09 blisters Home Medication ?Medication ?Instructions ?Recorded vitamins A,C,C-krum-tjrkfw 2,148 2 tab PO DAILY 07/17/12 mcg-113 mg-45 mg-17.4 mg tablet (PreserVision AREDS) acetaminophen 325 mg capsule 325 mg PO ONCE PRN 10/18/19 blood-glucose meter #1 ea 04/28/23 amlodipine 5 mg tablet 5 mg PO DAILY #90 tabs 04/09/24 lancets #100 ea 04/09/24 diltiazem HCl 30 mg tablet 30 mg PO BID PRN rapid heart rate, 04/26/24 >120 #30 tabs ketoconazole 2 % topical cream 1 applic topical DAILY #120 grams 06/04/24 metoprolol succinate 100 mg See Rx Instructions .Route 06/19/24 tablet,extended release 24 hr .COMPLEX #90 tabs diabetic shoes #1 ea 06/26/24 blood sugar diagnostic (OneTouch #100 ea 06/29/24 Verio test strips) metformin 500 mg tablet 500 mg PO BID #180 tabs 10/22/24 atorvastatin 40 mg tablet 40 mg PO DAILY #90 tab-caps 11/01/24 apixaban 5 mg tablet (Eliquis) See Rx Instructions .Route 11/05/24 .COMPLEX #60 tabs losartan 100 mg tablet 100 mg PO DAILY #90 tabs 03/01/25 Current Visit Medications: Current Medications Generic Name Dose Route Start Last Admin Trade Name Freq PRN Reason Stop Dose Admin Ringer's Solution 1,000 mls @ 80 mls/hr 03/08/25 06:00 03/08/25 09:32 IV 03/08/25 23:59 80 mls/hr INFUSION AMBER Administration Sodium Chloride 0 ml 03/08/25 06:00 Normal Saline Flush 10 Ml Syr IV 03/08/25 23:59 PRN PRN Sodium Chloride 0 ml 03/08/25 06:00 Normal Saline 10 Ml Vial IJ 03/08/25 23:59 DIRECTED PRN Sterile Water 0 ml 03/08/25 06:00 Water,Injection,Sterile 10 Ml Vial IJ 03/08/25 23:59 DIRECTED PRN PFSH Active Problems Active Problems: Problem Status Onset Code Encounter for screening colonoscopy Acute Z12.11 Type 2 diabetes mellitus with peripheral neuropathy Acute E11.42 Idiopathic neuropathy Acute G60.9 Onychomycosis Acute B35.1 Solar lentigo Acute L81.4 Seborrheic keratosis Acute L82.1 Actinic keratoses Acute L57.0 Type II diabetes mellitus Acute E11.9 Benign positional vertigo Acute H81.10 Family history of prostate cancer in father Acute Z80.42 Paroxysmal atrial fibrillation Acute I48.0 Nail dystrophy Acute L60.3 Overgrown toenails Acute L60.2 Varicose veins of both lower extremities Chronic 02/03/12 I83.93 Varicose veins of anus or rectum Chronic 02/03/12 K64.9 Obesity (BMI 30.0-34.9) Chronic 07/06/11 E66.9 Mass of lower lobe of left lung Acute 10/24/15 R91.8 History of lobectomy of lung Chronic 12/10/15 Z90.2 Essential hypertension Chronic 08/03/12 I10 Carcinoma of colon Chronic C18.9 Candidate for statin therapy due to risk of future cardiovascular event Chronic 07/09/16 Z91.89 Medical History Medical History HTN (hypertension) Carcinoma of colon Lung cancer Essential hypertension Colon cancer Surgical History Surgical History varicose veins (04/04/69) [facility], R leg Lobectomy (12/10/15) LLL lobectomy with removal of periosteum ribs 7 & 8; metastatic adeno Ca (colon primary); [facility] Colonoscopy - IV Sedation (02/17/16) Colectomy (04/22/08) Dr Fidencio Dang, sigmoid resection Tobacco Smoking/Tobacco Use Status: Never Passive smoking exposure: Yes Alcohol Alcohol Intake: current Alcohol intake frequency: a few times a week Alcohol type: beer and hard liquor Substance Use Substance use: Never Substance use type: does not use Vital Signs and Lab Results Vital Signs Most Recent Vital Signs in EMR: Most Recent Vital Signs Temp Pulse Resp BP Pulse Ox 36.4 C L 95 H 19 135/85 95 03/08/25 09:20 03/08/25 09:20 03/08/25 09:20 03/08/25 09:20 03/08/25 09:20 Point of Care Results Point of Care Results: Finger Stick Blood Glucose 113 03/08/25 09:08 Imaging and Studies Imaging and Studies Study information below may be from another EMR and interpreted by another provider. Please see original notes in EMR for more complete details. EKG Summary: EKG PATIENT NAME: Seth Kincaid UNIT #: [id number] ORDERING PROVIDER: Tanvi Isaac [facility] PRIMARY CARE PROVIDER: ROLANDO CHAN DO DATE/TIME OF SERVICE: 10/29/24 1254 : 1950 PERFORMING LOCATION: .CARD APPROVED REPORT Exam: Resting ECG Reason for Exam: PAF Patient Location: O HR:61 bpm ECG Measurements Heart Rate [address] 144 P 63 QRSd 113 QRS 31 QT 424 T31 QTc 427 Conclusion Sinus rhythm...normal P axis, V-rate 50- 99 Normal Electrocardiogram <Electronically signed by PIETRO KINNEY MD in OV> E-Sign Date: 10/30/24 E-Sign Time: 0837 Echocardiogram Summary: Conclusion Normal left ventricular wall thickness and chamber size. Estimated ejection fraction is 55%. Wall motion is normal The right ventricle appears grossly normal in size and systolic function The left atrium is mildly dilated. Right atrium is normal in size The aortic valve is mildly sclerotic without stenosis or regurgitation There is no additional structural or hemodynamically significant valvular disease Estimated right ventricular systolic pressure is normal at 28 mmHg Pulmonary Function Summary: IMPRESSION: A combination of moderately severe obstructive airways disease with no significant bronchodilator response and moderate restrictive lung disease. Clinical correlation recommended. For lung ____ purposes the patient's total post bronchodilator FEV1 is 2.04 liters. Diffusion capacity is normal. Anesthesia Assessment and Plan Anesthesia History Personal History: No History of Anesthesia Complications Family History: No Family History of Anesthesia Complications Exercise Tolerance Exercise Tolerance: Metabolic Equivalents>4 Pertinent Negatives Pertinent Negatives: No Symptoms of GERD, No Major Cardiovascular Symptoms or Complaints and No History of CVA/TIA Cardiac & Pulmonary Exam Cardiac Exam: Normal S1/S2 Heart Sounds Pulmonary Exam: Clear Bilateral Breath Sounds Implantable Cardiac Device Does patient have a Pacemaker or an ICD?: No Airway Exam Known Difficult Airway: No Mallampati Class: 2 Mouth Opening: Normal (> 3cm) Thyromental Distance: Greater than 3 cm Neck Range of Motion: Full ROM Neck Circumference: Normal Teeth Condition: Normal Dentition ASA Classification ASA Score: ASA 3 Emergency Case?: No NPO Status NPO Status: NPO Clears >2 hours, Solids >8 hours Anesthesia Plan Resuscitation Status: Full Code Anesthesia Technique: General Anesthesia Airway Planned: Natural Airway Monitors Used: Standard Monitors
[2025-03-08 10:03] VITALS: BMI 32.9
[2025-03-08 11:04] VITALS: BP 102/60; PULSE 70; RESP 16; TEMP 36.5; O2SAT 96
--- NOTE | 2025-03-08 11:15 | W.ANESPOSTOP ---
Postoperative Evaluation Date, Time and Location Date Performed: 03/08/25 Time Performed: 11:15 Patient Location: Day Surgery Unit Vital Signs Most Recent Imported Vital Signs: Most Recent Vital Signs Temp Pulse Resp BP Pulse Ox 36.5 C 70 16 102/60 96 03/08/25 11:04 03/08/25 11:04 03/08/25 11:04 03/08/25 11:04 03/08/25 11:04 Pain Score Most Recent Pain Score: Most Recent Pain Score Pain Level 0 03/08/25 11:04 Assessment Mental Status: Awake (Alert & Oriented to Patient Baseline) Airway and Respiratory Function: Patent airway with normal (patient baseline) respiratory exam Cardiovascular Function: Hemodynamically Stable Hydration Status: Adequately Hydrated Nausea & Vomiting: No Nausea or Vomiting Pain: Pt. Denies Any Pain Peripheral Nerve Block: Patient did not receive a nerve block
[2025-03-08 11:30] VITALS: BP 124/75; PULSE 64; RESP 18; TEMP 36; O2SAT 94
== END 2025-03-08 11:54 | disposition home or self-care (01) ==
LOC: SUR 08:48
PROVIDERS: PCP Family Medicine; Visit Provider Surgery
PROC: 0DJD8ZZ Inspection of Lower Intestinal Tract, Via Natural or Artificial Opening Endoscopic (ICD-10-PCS; CPT 45378; principal; 2025-03-08 10:30)
DX: Z12.11 Encounter for screening for malignant neoplasm of colon (principal); I10 Essential (primary) hypertension; E66.9 Obesity, unspecified; Z86.0101 Personal history of adenomatous and serrated colon polyps
CPT/HCPCS: 45378; J2371; J2704